=== PATIENT | male | born 1935 | race Caucasian/White ===

== ENCOUNTER → 2017-11-20 | Outpatient (CLI) | payer BC | END | disposition home or self-care (01) | LOC: ECHO 08:40 | DX: I51.7 Cardiomegaly (principal); I25.10 Atherosclerotic heart disease of native coronary artery without angina pectoris; Z95.818 Presence of other cardiac implants and grafts | CPT/HCPCS: 93306 ==

== ENCOUNTER 2020-04-13 11:46 | Inpatient (IN) | payer BC ==
[~2020-04-13] VITALS: Ht 172.7 cm; Wt 114.4 kg
[2020-04-13 13:01] LABS: BASO % 0 % (0-3); EOS % 0 % (0-3); HEMATOCRIT 42.5 % (39.0-53.0); HEMOGLOBIN 14.4 g/dL (13.0-17.5); LYMPH # 1.4 x10^3/uL (1.0-4.8); LYMPH % 20 % (24-48); MEAN CORPUSCULAR HEMOGLOBIN 33 pg (25-35); MEAN CORPUSCULAR HGB CONC 34 g/dL (31-37); MEAN CORPUSCULAR VOLUME 98 fL (79-100); MONO # 0.8 x10^3/uL (0.0-1.1); MONO % 11 % (0-9); NEUT % 69 % (31-73); PLATELET COUNT 169 x10^3/uL (140-400); RED BLOOD COUNT 4.35 x10^6/uL (4.30-5.70); RED CELL DISTRIBUTION WIDTH 14.9 % (11.5-14.5); WHITE BLOOD COUNT 7.3 x10^3/uL (4.0-11.0)
[2020-04-13 13:02] LABS: BILIRUBIN,URINE SMALL (NEG); CLARITY,URINE CLEAR; COLOR,URINE AMBER; NITRITE,URINE NEGATIVE (NEG); PH,URINE 5.5 (<5.0-8.0); PROTEIN,URINE 30 mg/dL (NEG-TRACE)
--- NOTE | 2020-04-13 13:04 | RAD ---
AP chest. HISTORY: AP view was taken of the chest. There is a right pacemaker with atrial and ventricular pacin g leads. There are old left pacing leads still in place. Heart is upper normal in size. There is no e ffusion.There is no pneumothorax or pleural effusion. There is slight elevation left diaphragm. There are mild interstitial changes mainly in the left lung which are more prominent than an old stud y from [facility] dated December 2015. Mild acute interstitial infiltrates are most likely although worsening of mild chronic interstitial changes possible. IMPRESSION: 1. Right pacemaker. 2. Mild left lung interstitial infiltrates with worsening compared to old studies from 2016. Electronically signed by: Leland Blue MD (04/13/2020 1:02 PM) [id number]
--- NOTE | 2020-04-13 13:10 | ED.ADGEN ---
General Adult EDM: Chief Complaint: COUGH HPI: HPI: Patient is a 85 year old male who presents to the emergency department via POV with complaints of shortness of breath. Patient reports that he has not felt well since April 07, 2020. He states that he has been short of breath and he has had a cough. He also reports that his sense of taste has decreased. Over the last 2 days the patient has developed nausea, vomiting, and diarrhea. He denies any blood in his vomit or stool. He denies any fever. Patient reports generalized body aches and fatigue. He denies any headache, numbness, tingling, weakness, or known Covid exposure. He denies any increased swelling in his lower extremities. Patient currently denies any pain. Review of Systems: Review of Systems: Complete ROS is negative unless otherwise noted in HPI. Allergies: Allergies: Allergies Coded Allergies Type Severity Reaction Last Updated Verified No Known Drug Allergies 04/13/20 No Physical Exam: PE: See Above Constitutional: Well developed, well nourished, no acute distress, ill appearance HENT: Normocephalic, atraumatic, bilateral external ears normal, nose normal. [] Eyes: PERRLA, EOMI, conjunctiva normal, no discharge. [] Neck: Normal range of motion, no stridor. [] Cardiovascular:Heart rate regular rhythm Lungs & Thorax: Respirations even and unlabored, no retractions, no respiratory distress Abdomen: soft, no tenderness Skin: Warm, dry, no erythema, no rash. [] Extremities: No cyanosis, ROM intact, no edema. [] Neurologic: Alert and oriented X 3, no focal deficits noted. [] Psychologic: Affect normal, judgement normal, mood normal. [] Current Patient Data: Labs: Laboratory Tests Test 04/13/20 12:27 04/13/20 12:44 04/13/20 13:14 Urine Collection Type Unknown Urine Color Tameka Urine Clarity Clear Urine pH 5.5 (<5.0-8.0) Urine Specific [place] 1.025 (1.000-1.030) Urine Protein 30 mg/dL (NEG-TRACE) Urine Glucose (UA) Negative mg/dL (NEG) Urine Ketones (Stick) Negative mg/dL (NEG) Urine Blood Negative (NEG) Urine Nitrite Negative (NEG) Urine Bilirubin Small (NEG) Urine Urobilinogen Dipstick 1.0 mg/dL (0.2 mg/dL) Urine Leukocyte Esterase Negative (NEG) Urine RBC 0 /HPF (0-2) Urine WBC 1-4 /HPF (0-4) Urine Amorphous Sediment Present /HPF Urine Bacteria 0 /HPF (0-FEW) Urine Hyaline Casts Many /HPF Urine Mucus Marked /LPF White Blood Count 7.3 x10^3/uL (4.0-11.0) Red Blood Count 4.35 x10^6/uL (4.30-5.70) Hemoglobin 14.4 g/dL (13.0-17.5) Hematocrit 42.5 % (39.0-53.0) Mean Corpuscular Volume 98 fL (79-100) Mean Corpuscular Hemoglobin 33 pg (25-35) Mean Corpuscular Hemoglobin Concent 34 g/dL (31-37) Red Cell Distribution Width 14.9 % (11.5-14.5) H Platelet Count 169 x10^3/uL (140-400) Neutrophils (%) (Auto) 69 % (31-73) Lymphocytes (%) (Auto) 20 % (24-48) L Monocytes (%) (Auto) 11 % (0-9) H Eosinophils (%) (Auto) 0 % (0-3) Basophils (%) (Auto) 0 % (0-3) Neutrophils # (Auto) 5.0 x10^3/uL (1.8-7.7) Lymphocytes # (Auto) 1.4 x10^3/uL (1.0-4.8) Monocytes # (Auto) 0.8 x10^3/uL (0.0-1.1) Eosinophils # (Auto) 0.0 x10^3/uL (0.0-0.7) Basophils # (Auto) 0.0 x10^3/uL (0.0-0.2) Sodium Level 137 mmol/L (136-145) Potassium Level 3.9 mmol/L (3.5-5.1) Chloride Level 102 mmol/L (98-107) Carbon Dioxide Level 26 mmol/L (21-32) Anion Gap 9 (6-14) Blood Urea Nitrogen 40 mg/dL (8-26) H Creatinine 2.0 mg/dL (0.7-1.3) H Estimated GFR (Cockcroft-Gault) 32.1 BUN/Creatinine Ratio 20 (6-20) Glucose Level 70 mg/dL (70-99) Calcium Level 9.2 mg/dL (8.5-10.1) Magnesium Level 2.5 mg/dL (1.8-2.4) H Total Bilirubin 0.6 mg/dL (0.2-1.0) Aspartate Amino Transferase (AST) 72 U/L (15-37) H Alanine Aminotransferase (ALT) 41 U/L (16-63) Alkaline Phosphatase 39 U/L (46-116) L Total Protein 6.6 g/dL (6.4-8.2) Albumin 2.7 g/dL (3.4-5.0) L Albumin/Globulin Ratio 0.7 (1.0-1.7) L Influenza Type A Antigen Negative (NEGATIVE) Influenza Type B Antigen Negative (NEGATIVE) Laboratory Tests 04/13/20 12:44 Laboratory Tests 04/13/20 13:14 Vital Signs: Vital Signs Date Time Temp Pulse Resp B/P (MAP) Pulse Ox O2 Delivery O2 Flow Rate FiO2 04/13/20 12:22 98.3 76 16 119/59 (79) 91 Nasal Cannula 4.0 98.3 EKG: EK-paced rhythm, rate 73, no STEMI, read by Dr. Townsend [] Heart Score: Risk Factors: Risk Factors: DM, Current or recent (<one month) smoker, HTN, HLP, family history of CAD, obesity. Risk Scores: Score 0 - 3: 2.5% MACE over next 6 weeks - Discharge Home Score 4 - 6: 20.3% MACE over next 6 weeks - Admit for Clinical Observation Score 7 - 10: 72.7% MACE over next 6 weeks - Early Invasive Strategies Radiology/Procedures: Radiology/Procedures: PROCEDURE: CHEST AP ONLY AP chest. HISTORY: AP view was taken of the chest. There is a right pacemaker with atrial and ventricular pacing leads. There are old left pacing leads still in place. Heart is upper normal in size. There is no effusion.There is no pneumothorax or pleural effusion. There is slight elevation left diaphragm. There are mild interstitial changes mainly in the left lung which are more prominent than an old study from [facility] dated December 2015. Mild acute interstitial infiltrates are most likely although worsening of mild chronic int erstitial changes possible. IMPRESSION: 1. Right pacemaker. 2. Mild left lung interstitial infiltrates with worsening compared to old studies from 2016. [] Course & Med Decision Making: Course & Med Decision Making Pertinent Labs and Imaging studies reviewed. (See chart for details) [id number] with Dr. De Los Santos who is the admitting physician, and care was assumed following discussion of patient. Will admit patient for PUI and pneumonia. Advise that I will give 1 g of Rocephin and 500 mg of Zithromax IV and blood cultures have been ordered. Patient's vital signs stable. Patient remains afebrile, appears nontoxic, respirations even and unlabored, oxygen has improved after O2 via nasal cannula applied at 2 L. Patient will be admitted to the telemetry floor. Patient's case and plan of care also discussed with Dr. Townsend COVID-19 CRITERIA: The patient was evaluated during the global COVID-19 pandemic, and that diagnosis was suspected/considered upon their initial presentation. Their evaluation, treatment and testing was consistent with current guidelines for patients who present with complaints or symptoms that may be related to COVID-19. [] Dragon Disclaimer: Dragon Disclaimer: This electronic medical record was generated, in whole or in part, using a voice recognition dictation system. Departure Departure Impression: Primary Impression: Person under investigation for COVID-19 Additional Impression: Pneumonia Disposition: ADMITTED INPT THIS HOSP Admitting Physician: VICENTE (Giuliano) Condition: STABLE Referrals: Luz Elena PRADHAN MD (PCP) COVID-19 Assessment: COVID-19 Patient Risks: Age 65 or older: Yes Sign of co-morbidity: Yes Exp to person + for COVID: No Exp to PUI: No Travel from affected area: No Lower respiratory symptoms: Yes Fever: No PPE Use: Full PPE with N95 mask or PAPR: Yes Problem Qualifiers Additional Impression: Pneumonia Pneumonia type: due to unspecified organism Laterality: unspecified laterality Lung location: unspecified part of lung Qualified Codes: J18.9 - Pneumonia, unspecified organism HUGO NUÑEZ APRN Apr 13, 2020 13:10
[2020-04-13 13:20] LABS: AMORPHOUS SEDIMENT,UR PRESENT /HPF; HYALINE CASTS, URINE MANY /HPF
[2020-04-13 13:21] LABS: BACTERIA,URINE 0 /HPF (0-FEW); RBC,URINE 0 /HPF (0-2)
[2020-04-13 13:49] LABS: CALCIUM 9.2 mg/dL (8.5-10.1); GFR 32.1; POTASSIUM 3.9 mmol/L (3.5-5.1)
[2020-04-13 13:56] LABS: ALBUMIN 2.7 g/dL (3.4-5.0); ALBUMIN/GLOBULIN RATIO 0.7 (1.0-1.7); MAGNESIUM 2.5 mg/dL (1.8-2.4); TOTAL BILIRUBIN 0.6 mg/dL (0.2-1.0); TOTAL PROTEIN 6.6 g/dL (6.4-8.2)
[2020-04-13 14:02] LABS: INFLUENZA A PATIENT NEGATIVE (NEGATIVE); INFLUENZA B PATIENT NEGATIVE (NEGATIVE)
--- NOTE | 2020-04-13 14:32 | PDOC1 ---
History and Physical Date of Admission Date of Admission DATE: 04/13/20 TIME: 14:32 Identification/Chief Complaint Chief Complaint DYSPNEA, COUGH WORSE SINCE [place] History of Present Illness History of Present Illness 85 yr old male seen in er with worsening cough since 04-08, now more SOA , HYPOXIC ON PRESENTATION Past Medical History Cardiovascular: HTN, Hyperlipidemia Family History Family History: High Cholestrol, Hypertension Social History Smoke: No ALCOHOL: none Drugs: None Allergies Allergies: Coded Allergies: No Known Drug Allergies (Unverified , 04/13/20) ROS Review of System HENT: Denies nasal congestion or sore throat. [] Respiratory: pos cough and shortness of breath. [] Cardiovascular: Denies chest pain or edema. [] GI: Denies abdominal pain, nausea, vomiting, bloody stools or diarrhea. [] : Denies dysuria. [] Musculoskeletal: Denies back pain or joint pain. [] Integument: Denies rash. [] Neurologic: Denies headache, focal weakness or sensory changes. [] Endocrine: Denies polyuria or polydipsia. [] Lymphatic: Denies swollen glands. [] Psychiatric: Denies depression or anxiety. [] 14 pt ros otherwise neg General: YES: Fatigue, Malaise PSYCHOLOGICAL ROS: No: Anxiety, Behavioral Disorder, Concentration difficultie, Decreased libido, Depression, Disorientation, Hallucinations, Hostility, Irritablity, Memory difficulties, Mood Swings, Obsessive thoughts, Physical abuse, Sexual abuse, Sleep disturbances, Suicidal ideation, Other ALLERGY AND IMMUNOLOGY: No: Hives, Insect Bite Sensitivity, Itchy/Watery Eyes, Nasal Congestion, Post Nasal Drip, Seasonal Allergies, Other Hematological and Lymphatic: No: Bleeding Problems, Blood Clots, Blood Transfusions, Brusing, Night Sweats, Pallor, Swollen Lymph Nodes, Other Respiratory: YES: Cough, Shortness of breath, SOB with excertion Gastrointestinal: No Nausea, No Vomiting, No Abdominal Pain, No Diarrhea, No Constipation, No Melena, No Hematochezia, No Other Genitourinary: No Dysuria, No Frequency, No Incontinence, No Hematuria, No Retention, No Discharge, No Urgency, No Pain, No Flank Pain, No Other, No , No , No , No , No , No , No Musculoskeletal: Yes Joint Stiffness Physical Exam Physical Exam Constitutional: Well developed, well nourished, no acute distress, non-toxic appearance. [] HENT: Normocephalic, atraumatic, bilateral external ears normal, oropharynx moist, no oral exudates, nose normal. [] Eyes: PERRLA, EOMI, conjunctiva normal, no discharge. [] Neck: Normal range of motion, no tenderness, supple, no stridor. [] Cardiovascular:Heart rate regular rhythm, no murmur [] Lungs & Thorax: Bilateral breath sounds clear to auscultation [] Abdomen: Bowel sounds normal, soft, no tenderness, no masses, no pulsatile masses. [] Skin: Warm, dry, no erythema, no rash. [] Back: No tenderness, no CVA tenderness. [] Extremities: No tenderness, no cyanosis, no clubbing, ROM intact, no edema. [] Neurologic: Alert and oriented X 3, normal motor function, normal sensory function, no focal deficits noted. [] Psychologic: Affect normal, judgment normal, mood normal. [] General: Alert, Oriented X3, Cooperative HEENT: Atraumatic, EOMI Heart: RRR Breasts: Not examined Abdomen: Normal bowel sounds, Soft, No tenderness Rectal Exam: not examined PELVIC: Examination not indicated Extremities: No clubbing, No cyanosis Neuro: Normal speech, Cranial nerves 3-12 NL Psych/Mental Status: Mental status NL, Mood NL Vitals Vitals Vital Signs Date Time Temp Pulse Resp B/P (MAP) Pulse Ox O2 Delivery O2 Flow Rate FiO2 04/13/20 12:22 98.3 76 16 119/59 (79) 91 Nasal Cannula 4.0 98.3 Labs Labs Laboratory Tests Test 04/13/20 12:27 04/13/20 12:44 04/13/20 13:14 Urine Collection Type Unknown Urine Color [place] Urine Clarity Clear Urine pH 5.5 (<5.0-8.0) Urine Specific [place] 1.025 (1.000-1.030) Urine Protein 30 mg/dL (NEG-TRACE) Urine Glucose (UA) Negative mg/dL (NEG) Urine Ketones (Stick) Negative mg/dL (NEG) Urine Blood Negative (NEG) Urine Nitrite Negative (NEG) Urine Bilirubin Small (NEG) Urine Urobilinogen Dipstick 1.0 mg/dL (0.2 mg/dL) Urine Leukocyte Esterase Negative (NEG) Urine RBC 0 /HPF (0-2) Urine WBC 1-4 /HPF (0-4) Urine Amorphous Sediment Present /HPF Urine Bacteria 0 /HPF (0-FEW) Urine Hyaline Casts Many /HPF Urine Mucus Marked /LPF White Blood Count 7.3 x10^3/uL (4.0-11.0) Red Blood Count 4.35 x10^6/uL (4.30-5.70) Hemoglobin 14.4 g/dL (13.0-17.5) Hematocrit 42.5 % (39.0-53.0) Mean Corpuscular Volume 98 fL (79-100) Mean Corpuscular Hemoglobin 33 pg (25-35) Mean Corpuscular Hemoglobin Concent 34 g/dL (31-37) Red Cell Distribution Width 14.9 % (11.5-14.5) Platelet Count 169 x10^3/uL (140-400) Neutrophils (%) (Auto) 69 % (31-73) Lymphocytes (%) (Auto) 20 % (24-48) Monocytes (%) (Auto) 11 % (0-9) Eosinophils (%) (Auto) 0 % (0-3) Basophils (%) (Auto) 0 % (0-3) Neutrophils # (Auto) 5.0 x10^3/uL (1.8-7.7) Lymphocytes # (Auto) 1.4 x10^3/uL (1.0-4.8) Monocytes # (Auto) 0.8 x10^3/uL (0.0-1.1) Eosinophils # (Auto) 0.0 x10^3/uL (0.0-0.7) Basophils # (Auto) 0.0 x10^3/uL (0.0-0.2) Sodium Level 137 mmol/L (136-145) Potassium Level 3.9 mmol/L (3.5-5.1) Chloride Level 102 mmol/L (98-107) Carbon Dioxide Level 26 mmol/L (21-32) Anion Gap 9 (6-14) Blood Urea Nitrogen 40 mg/dL (8-26) Creatinine 2.0 mg/dL (0.7-1.3) Estimated GFR (Cockcroft-Gault) 32.1 BUN/Creatinine Ratio 20 (6-20) Glucose Level 70 mg/dL (70-99) Calcium Level 9.2 mg/dL (8.5-10.1) Magnesium Level 2.5 mg/dL (1.8-2.4) Total Bilirubin 0.6 mg/dL (0.2-1.0) Aspartate Amino Transf (AST/SGOT) 72 U/L (15-37) Alanine Aminotransferase (ALT/SGPT) 41 U/L (16-63) Alkaline Phosphatase 39 U/L (46-116) Total Protein 6.6 g/dL (6.4-8.2) Albumin 2.7 g/dL (3.4-5.0) Albumin/Globulin Ratio 0.7 (1.0-1.7) Influenza Type A Antigen Negative (NEGATIVE) Influenza Type B Antigen Negative (NEGATIVE) Laboratory Tests Test 04/13/20 12:27 04/13/20 12:44 04/13/20 13:14 Urine Collection Type Unknown Urine Color [place] Urine Clarity Clear Urine pH 5.5 (<5.0-8.0) Urine Specific [place] 1.025 (1.000-1.030) Urine Protein 30 mg/dL (NEG-TRACE) Urine Glucose (UA) Negative mg/dL (NEG) Urine Ketones (Stick) Negative mg/dL (NEG) Urine Blood Negative (NEG) Urine Nitrite Negative (NEG) Urine Bilirubin Small (NEG) Urine Urobilinogen Dipstick 1.0 mg/dL (0.2 mg/dL) Urine Leukocyte Esterase Negative (NEG) Urine RBC 0 /HPF (0-2) Urine WBC 1-4 /HPF (0-4) Urine Amorphous Sediment Present /HPF Urine Bacteria 0 /HPF (0-FEW) Urine Hyaline Casts Many /HPF Urine Mucus Marked /LPF White Blood Count 7.3 x10^3/uL (4.0-11.0) Red Blood Count 4.35 x10^6/uL (4.30-5.70) Hemoglobin 14.4 g/dL (13.0-17.5) Hematocrit 42.5 % (39.0-53.0) Mean Corpuscular Volume 98 fL (79-100) Mean Corpuscular Hemoglobin 33 pg (25-35) Mean Corpuscular Hemoglobin Concent 34 g/dL (31-37) Red Cell Distribution Width 14.9 % (11.5-14.5) Platelet Count 169 x10^3/uL (140-400) Neutrophils (%) (Auto) 69 % (31-73) Lymphocytes (%) (Auto) 20 % (24-48) Monocytes (%) (Auto) 11 % (0-9) Eosinophils (%) (Auto) 0 % (0-3) Basophils (%) (Auto) 0 % (0-3) Neutrophils # (Auto) 5.0 x10^3/uL (1.8-7.7) Lymphocytes # (Auto) 1.4 x10^3/uL (1.0-4.8) Monocytes # (Auto) 0.8 x10^3/uL (0.0-1.1) Eosinophils # (Auto) 0.0 x10^3/uL (0.0-0.7) Basophils # (Auto) 0.0 x10^3/uL (0.0-0.2) Sodium Level 137 mmol/L (136-145) Potassium Level 3.9 mmol/L (3.5-5.1) Chloride Level 102 mmol/L (98-107) Carbon Dioxide Level 26 mmol/L (21-32) Anion Gap 9 (6-14) Blood Urea Nitrogen 40 mg/dL (8-26) Creatinine 2.0 mg/dL (0.7-1.3) Estimated GFR (Cockcroft-Gault) 32.1 BUN/Creatinine Ratio 20 (6-20) Glucose Level 70 mg/dL (70-99) Calcium Level 9.2 mg/dL (8.5-10.1) Magnesium Level 2.5 mg/dL (1.8-2.4) Total Bilirubin 0.6 mg/dL (0.2-1.0) Aspartate Amino Transf (AST/SGOT) 72 U/L (15-37) Alanine Aminotransferase (ALT/SGPT) 41 U/L (16-63) Alkaline Phosphatase 39 U/L (46-116) Total Protein 6.6 g/dL (6.4-8.2) Albumin 2.7 g/dL (3.4-5.0) Albumin/Globulin Ratio 0.7 (1.0-1.7) Influenza Type A Antigen Negative (NEGATIVE) Influenza Type B Antigen Negative (NEGATIVE) Images Images ricuspid Valve TR P. Velocity 234cm/s RAP ESTIMATE 3mmHg TR Peak Gr. 22mmHg RVSP 25mmHg LEFT VENTRICLE The left ventricle is normal size. There is mild concentric left ventricular hypertrophy. The left ventricular systolic function is normal and the ejection fraction is within normal range. The Ejection Fraction is 50-55%. Apical motion consistent with pacemaker activation. RIGHT VENTRICLE The right ventricle is normal size. The right ventricular systolic function is normal. There is a pacemaker lead in the right ventricle. ATRIA The left atrium is mildly dilated. The right atrium size is normal. A pacemaker is seen in the right atrium consistent with history. The interatrial septum is intact with no evidence for an atrial septal defect or patent foramen ovale as noted on 2-D or Doppler imaging. AORTIC VALVE The aortic valve is calcified but opens well. Doppler and Color Flow revealed trace aortic regurgitation. There is no significant aortic valvular stenosis. MITRAL VALVE The mitral valve is normal in structure and function. There is no evidence of mi tral valve prolapse. There is no mitral valve stenosis. Doppler and Color-flow revealed trace mitral regurgitation. TRICUSPID VALVE The tricuspid valve is normal in structure and function. Doppler and Color Flow revealed trace tricuspid regurgitation. The PA pressure was estimated at 25 mmHg. There is no tricuspid valve stenosis. PULMONIC VALVE The pulmonic valve is not well visualized. Doppler and Color Flow revealed no pulmonic valvular regurgitation. There is no pulmonic valvular stenosis. GREAT VESSELS The aortic root is normal in size. The ascending aorta is mildly dilated at 3.6 cm. The IVC is normal in size and collapses >50% with inspiration. PERICARDIAL EFFUSION There is no evidence of significant pericardial effusion. Critical Notification Critical Value: No <Conclusion> The left ventricle is normal size. The left ventricular systolic function is normal and the ejection fraction is within normal range. The Ejection Fraction is 50-55%. Apical motion consistent with pacemaker activation. There is mild concentric left ventricular hypertrophy. There is a pacemaker lead in the right atrium and ventricle. There is no significant aortic valvular stenosis. Doppler and Color Flow revealed trace aortic regurgitation. Doppler and Color-flow revealed trace mitral regurgitation. Doppler and Color Flow revealed trace tricuspid regurgitation. The PA pressure was estimated at 25 mmHg. Signed by : Abdoulaye Roach MD Electronically Approved : 11/20/2017 15:48:13 AP chest. HISTORY: AP view was taken of the chest. There is a right pacemaker with atrial and ventricular pacing leads. There are old left pacing leads still in place. Heart is upper normal in size. There is no effusion.There is no pneumothorax or pleural effusion. There is slight elevation left diaphragm. There are mild interstitial changes mainly in the left lung which are more prominent than an old study from [facility] dated December 2015. Mild acute interstitial infiltrates are most likely although worsening of mild chronic interstitial changes possible. IMPRESSION: 1. Right pacemaker. 2. Mild left lung interstitial infiltrates with worsening compared to old stud ies from 2016. Electronically signed by: Leland Padilla MD (04/13/2020 1:02 PM) [id number] DICTATED and SIGNED BY: LELAND PADILLA MD DATE: 04/13/20 [id number] VTE Prophylaxis Ordered VTE Prophylaxis Devices: Yes VTE Pharmacological Prophylaxi: Yes Assessment/Plan Assessment/Plan IMPRESSION: 1. ACUTE HYPOXIC RESP FAILURE 2. HX pacemaker. 3. Mild left lung interstitial infiltrates with worsening compared to old studies from 2016. CONCERNING FOR COVID 19 SYNDROME 4, MORBID OBESITY PLAN O2 SUPPORT IV DECADRON 6 MG BID BLOOD CULT EMPERIC IV ANTIBIOTIC PULM CONSULT GI PROPHYLAXIS dvt prophylaxis D/W ER Justifications for Admission Other Justification BRYON BARRAZA MD Apr 13, 2020 14:32
[2020-04-13] MEDS ORDERED: cefTRIAXone IV Push 1 GM VIAL. IVP ONE (14:45)
[2020-04-13] MEDS ORDERED: AZITHRMYCN 500MG IVPB FOR OMNI 250 ML IV ONE (14:45)
[2020-04-13] MEDS ORDERED: 0.9 % SODIUM CHLORIDE 10 ML DISP.SYRIN. IV PRN (17:00)
[2020-04-13] MEDS ORDERED: MAG HYDROX/ALUMINUM HYD/SIMETH 30 ML ORAL.SUSP PO PRN (17:00)
[2020-04-13] MEDS ORDERED: ONDANSETRON PF 4 MG/2 ML VIAL. IV PRN (17:00)
[2020-04-13] MEDS ORDERED: ALBUTEROL SULFATE 2.5 MG/3 ML NEBU. NEB PRN (17:00)
[2020-04-13] MEDS ORDERED: ACETAMINOPHEN 325 MG TABLET. PO PRN (17:00)
[2020-04-13] MEDS ORDERED: DOCUSATE SODIUM 100 MG CAPSULE. PO PRN (17:00)
[2020-04-13] MEDS ORDERED: guaiFENesin ORAL 200 MG/10 ML LIQUID. PO PRN (17:00)
[2020-04-13 17:45] VITALS: BP 96/55
[2020-04-13] MEDS ORDERED: METO25TA2 PO (17:57)
[2020-04-13] MEDS ORDERED: OMEP40CA7 PO (17:57)
[2020-04-13] MEDS ORDERED: MEXI150C PO (17:57)
[2020-04-13] MEDS ORDERED: ALLO100T PO (17:57)
[2020-04-13] MEDS ORDERED: QUIN40TA PO (17:57)
[2020-04-13] MEDS: ENOXAPARIN 40 MG/0.4 ML SYRINGE. SQ SCH (18:16)
[2020-04-13 19:59] VITALS: BP 111/57
[2020-04-13] MEDS: DOXYCYCLINE HYCLATE 100 MG in IV DEXTROSE 5% 100ML 100 ML IV SCH (21:36)
[2020-04-13] MEDS: DEXAMETHASONE SOD PHOS 4 MG/ML VIAL IVP SCH (21:37)
[2020-04-13 22:35] VITALS: BP 109/67
[2020-04-14 03:32] VITALS: BP 97/54
[2020-04-14 06:36] VITALS: BP 103/57
--- NOTE | 2020-04-14 08:26 | PDOC ---
PROGRESS NOTES Date of Service: DATE: 04/14/20 TIME: 08:26 Chief Complaint Chief Complaint VTE Prophylaxis Ordered VTE Prophylaxis Devices: Yes VTE Pharmacological Prophylaxi: Yes Assessment/Plan Assessment/Plan IMPRESSION: 1. ACUTE HYPOXIC RESP FAILURE 2. HX pacemaker. 3. Mild left lung interstitial infiltrates with worsening compared to old studies from 2016. CONCERNING FOR COVID 19 SYNDROME 4, MORBID OBESITY 5. GENERALIZED WEAKNESS PLAN O2 SUPPORT IV DECADRON 6 MG BID BLOOD CULT EMPERIC IV ANTIBIOTIC PULM CONSULT GI PROPHYLAXIS dvt prophylaxis PT/OT D/W ER Justifications for Admission Other Justification History of Present Illness History of Present Illness Identification/Chief Complaint Chief Complaint DYSPNEA, COUGH WORSE SINCE [place] History of Present Illness History of Present Illness 85 yr old male seen in er with worsening cough since 04-08, now more SOA , HYPOXIC ON PRESENTATION Past Medical History Cardiovascular: HTN, Hyperlipidemia Family History Family History: High Cholestrol, Hypertension Social History Smoke: No ALCOHOL: none Drugs: None Allergies Allergies: Coded Allergies: No Known Drug Allergies (Unverified , 04/13/20) Vitals Vitals Vital Signs Date Time Temp Pulse Resp B/P (MAP) Pulse Ox O2 Delivery O2 Flow Rate FiO2 04/14/20 06:36 98.3 80 24 103/57 (72) 91 Nasal Cannula 5.0 98.3 Physical Exam Physical Exam Eyes: PERRLA, EOMI, conjunctiva normal, no discharge. [] Neck: Normal range of motion, no tenderness, supple, no stridor. [] Cardiovascular:Heart rate regular rhythm, no murmur [] Lungs & Thorax: Bilateral breath sounds clear to auscultation [] Abdomen: Bowel sounds normal, soft, no tenderness, no masses, no pulsatile masses. [] Skin: Warm, dry, no erythema, no rash. [] Back: No tenderness, no CVA tenderness. [] Extremities: No tenderness, no cyanosis, no clubbing, ROM intact, no edema. [] Neurologic: Alert and oriented X 3, normal motor function, normal sensory function, no focal deficits noted. [] Psychologic: Affect normal, judgment normal, mood normal. [] General: Alert, Oriented X3, Cooperative HEENT: Atraumatic, EOMI Heart: RRR Breasts: Not examined Abdomen: Normal bowel sounds, Soft, No tenderness Rectal Exam: not examined PELVIC: Examination not indicated Extremities: No clubbing, No cyanosis Neuro: Normal speech, Cranial nerves 3-12 NL General: Alert, Oriented X3, Cooperative Abdomen: Normal bowel sounds, Soft, No tenderness Extremities: No clubbing, No cyanosis Labs LABS AP chest. HISTORY: AP view was taken of the chest. There is a right pacemaker with atrial and ventricular pacing leads. There are old left pacing leads still in place. Heart is upper normal in size. There is no effusion.There is no pneumothorax or pleural effusion. There is slight elevation left diaphragm. There are mild interstitial changes mainly in the left lung which are more pro minent than an old study from [place] dated December 2015. Mild acute interstitial infiltrates are most likely although worsening of mild chronic interstitial changes possible. IMPRESSION: 1. Right pacemaker. 2. Mild left lung interstitial infiltrates with worsening compared to old studies from 2016. Electronically signed by: Leland Blue MD (04/13/2020 1:02 PM) [id number] Laboratory Tests Test 04/13/20 12:27 04/13/20 12:44 04/13/20 13:14 04/13/20 16:58 Urine Collection Type Unknown Urine Color [place] Urine Clarity Clear Urine pH 5.5 (<5.0-8.0) Urine Specific [place] 1.025 (1.000-1.030) Urine Protein 30 mg/dL (NEG-TRACE) Urine Glucose (UA) Negative mg/dL (NEG) Urine Ketones (Stick) Negative mg/dL (NEG) Urine Blood Negative (NEG) Urine Nitrite Negative (NEG) Urine Bilirubin Small (NEG) Urine Urobilinogen Dipstick 1.0 mg/dL (0.2 mg/dL) Urine Leukocyte Esterase Negative (NEG) Urine RBC 0 /HPF (0-2) Urine WBC 1-4 /HPF (0-4) Urine Amorphous Sediment Present /HPF Urine Bacteria 0 /HPF (0-FEW) Urine Hyaline Casts Many /HPF Urine Mucus Marked /LPF White Blood Count 7.3 x10^3/uL (4.0-11.0) Red Blood Count 4.35 x10^6/uL (4.30-5.70) Hemoglobin 14.4 g/dL (13.0-17.5) Hematocrit 42.5 % (39.0-53.0) Mean Corpuscular Volume 98 fL (79-100) Mean Corpuscular Hemoglobin 33 pg (25-35) Mean Corpuscular Hemoglobin Concent 34 g/dL (31-37) Red Cell Distribution Width 14.9 % (11.5-14.5) Platelet Count 169 x10^3/uL (140-400) Neutrophils (%) (Auto) 69 % (31-73) Lymphocytes (%) (Auto) 20 % (24-48) Monocytes (%) (Auto) 11 % (0-9) Eosinophils (%) (Auto) 0 % (0-3) Basophils (%) (Auto) 0 % (0-3) Neutrophils # (Auto) 5.0 x10^3/uL (1.8-7.7) Lymphocytes # (Auto) 1.4 x10^3/uL (1.0-4.8) Monocytes # (Auto) 0.8 x10^3/uL (0.0-1.1) Eosinophils # (Auto) 0.0 x10^3/uL (0.0-0.7) Basophils # (Auto) 0.0 x10^3/uL (0.0-0.2) Sodium Level 137 mmol/L (136-145) Potassium Level 3.9 mmol/L (3.5-5.1) Chloride Level 102 mmol/L (98-107) Carbon Dioxide Level 26 mmol/L (21-32) Anion Gap 9 (6-14) Blood Urea Nitrogen 40 mg/dL (8-26) Creatinine 2.0 mg/dL (0.7-1.3) Estimated GFR (Cockcroft-Gault) 32.1 BUN/Creatinine Ratio 20 (6-20) Glucose Level 70 mg/dL (70-99) Calcium Level 9.2 mg/dL (8.5-10.1) Magnesium Level 2.5 mg/dL (1.8-2.4) Total Bilirubin 0.6 mg/dL (0.2-1.0) Aspartate Amino Transf (AST/SGOT) 72 U/L (15-37) Alanine Aminotransferase (ALT/SGPT) 41 U/L (16-63) Alkaline Phosphatase 39 U/L (46-116) Total Protein 6.6 g/dL (6.4-8.2) Albumin 2.7 g/dL (3.4-5.0) Albumin/Globulin Ratio 0.7 (1.0-1.7) Influenza Type A Antigen Negative (NEGATIVE) Influenza Type B Antigen Negative (NEGATIVE) C-Reactive Protein, Quantitative 45.0 mg/L (0-3.3) Test 04/13/20 20:43 04/14/20 07:16 Glucose (Fingerstick) 72 mg/dL (70-99) 108 mg/dL (70-99) Assessment and Plan Assessmemt and Plan Problems Medical Problems: (1) Person under investigation for COVID-19 Status: Acute (2) Pneumonia Status: Acute Comment Review of Relevant I have reviewed the following items andrea (where applicable) has been applied. Labs Laboratory Tests Test 04/13/20 12:27 04/13/20 12:44 04/13/20 13:14 04/13/20 16:58 Urine Collection Type Unknown Urine Color [place] Urine Clarity Clear Urine pH 5.5 (<5.0-8.0) Urine Specific [place] 1.025 (1.000-1.030) Urine Protein 30 mg/dL (NEG-TRACE) Urine Glucose (UA) Negative mg/dL (NEG) Urine Ketones (Stick) Negative mg/dL (NEG) Urine Blood Negative (NEG) Urine Nitrite Negative (NEG) Urine Bilirubin Small (NEG) Urine Urobilinogen Dipstick 1.0 mg/dL (0.2 mg/dL) Urine Leukocyte Esterase Negative (NEG) Urine RBC 0 /HPF (0-2) Urine WBC 1-4 /HPF (0-4) Urine Amorphous Sediment Present /HPF Urine Bacteria 0 /HPF (0-FEW) Urine Hyaline Casts Many /HPF Urine Mucus Marked /LPF White Blood Count 7.3 x10^3/uL (4.0-11.0) Red Blood Count 4.35 x10^6/uL (4.30-5.70) Hemoglobin 14.4 g/dL (13.0-17.5) Hematocrit 42.5 % (39.0-53.0) Mean Corpuscular Volume 98 fL (79-100) Mean Corpuscular Hemoglobin 33 pg (25-35) Mean Corpuscular Hemoglobin Concent 34 g/dL (31-37) Red Cell Distribution Width 14.9 % (11.5-14.5) Platelet Count 169 x10^3/uL (140-400) Neutrophils (%) (Auto) 69 % (31-73) Lymphocytes (%) (Auto) 20 % (24-48) Monocytes (%) (Auto) 11 % (0-9) Eosinophils (%) (Auto) 0 % (0-3) Basophils (%) (Auto) 0 % (0-3) Neutrophils # (Auto) 5.0 x10^3/uL (1.8-7.7) Lymphocytes # (Auto) 1.4 x10^3/uL (1.0-4.8) Monocytes # (Auto) 0.8 x10^3/uL (0.0-1.1) Eosinophils # (Auto) 0.0 x10^3/uL (0.0-0.7) Basophils # (Auto) 0.0 x10^3/uL (0.0-0.2) Sodium Level 137 mmol/L (136-145) Potassium Level 3.9 mmol/L (3.5-5.1) Chloride Level 102 mmol/L (98-107) Carbon Dioxide Level 26 mmol/L (21-32) Anion Gap 9 (6-14) Blood Urea Nitrogen 40 mg/dL (8-26) Creatinine 2.0 mg/dL (0.7-1.3) Estimated GFR (Cockcroft-Gault) 32.1 BUN/Creatinine Ratio 20 (6-20) Glucose Level 70 mg/dL (70-99) Calcium Level 9.2 mg/dL (8.5-10.1) Magnesium Level 2.5 mg/dL (1.8-2.4) Total Bilirubin 0.6 mg/dL (0.2-1.0) Aspartate Amino Transf (AST/SGOT) 72 U/L (15-37) Alanine Aminotransferase (ALT/SGPT) 41 U/L (16-63) Alkaline Phosphatase 39 U/L (46-116) Total Protein 6.6 g/dL (6.4-8.2) Albumin 2.7 g/dL (3.4-5.0) Albumin/Globulin Ratio 0.7 (1.0-1.7) Influenza Type A Antigen Negative (NEGATIVE) Influenza Type B Antigen Negative (NEGATIVE) C-Reactive Protein, Quantitative 45.0 mg/L (0-3.3) Test 12/30/20 20:43 04/14/20 07:16 Glucose (Fingerstick) 72 mg/dL (70-99) 108 mg/dL (70-99) Laboratory Tests Test 04/13/20 12:27 04/13/20 12:44 04/13/20 13:14 04/13/20 16:58 Urine Collection Type Unknown Urine Color [place] Urine Clarity Clear Urine pH 5.5 (<5.0-8.0) Urine Specific [place] 1.025 (1.000-1.030) Urine Protein 30 mg/dL (NEG-TRACE) Urine Glucose (UA) Negative mg/dL (NEG) Urine Ketones (Stick) Negative mg/dL (NEG) Urine Blood Negative (NEG) Urine Nitrite Negative (NEG) Urine Bilirubin Small (NEG) Urine Urobilinogen Dipstick 1.0 mg/dL (0.2 mg/dL) Urine Leukocyte Esterase Negative (NEG) Urine RBC 0 /HPF (0-2) Urine WBC 1-4 /HPF (0-4) Urine Amorphous Sediment Present /HPF Urine Bacteria 0 /HPF (0-FEW) Urine Hyaline Casts Many /HPF Urine Mucus Marked /LPF White Blood Count 7.3 x10^3/uL (4.0-11.0) Red Blood Count 4.35 x10^6/uL (4.30-5.70) Hemoglobin 14.4 g/dL (13.0-17.5) Hematocrit 42.5 % (39.0-53.0) Mean Corpuscular Volume 98 fL (79-100) Mean Corpuscular Hemoglobin 33 pg (25-35) Mean Corpuscular Hemoglobin Concent 34 g/dL (31-37) Red Cell Distribution Width 14.9 % (11.5-14.5) Platelet Count 169 x10^3/uL (140-400) Neutrophils (%) (Auto) 69 % (31-73) Lymphocytes (%) (Auto) 20 % (24-48) Monocytes (%) (Auto) 11 % (0-9) Eosinophils (%) (Auto) 0 % (0-3) Basophils (%) (Auto) 0 % (0-3) Neutrophils # (Auto) 5.0 x10^3/uL (1.8-7.7) Lymphocytes # (Auto) 1.4 x10^3/uL (1.0-4.8) Monocytes # (Auto) 0.8 x10^3/uL (0.0-1.1) Eosinophils # (Auto) 0.0 x10^3/uL (0.0-0.7) Basophils # (Auto) 0.0 x10^3/uL (0.0-0.2) Sodium Level 137 mmol/L (136-145) Potassium Level 3.9 mmol/L (3.5-5.1) Chloride Level 102 mmol/L (98-107) Carbon Dioxide Level 26 mmol/L (21-32) Anion Gap 9 (6-14) Blood Urea Nitrogen 40 mg/dL (8-26) Creatinine 2.0 mg/dL (0.7-1.3) Estimated GFR (Cockcroft-Gault) 32.1 BUN/Creatinine Ratio 20 (6-20) Glucose Level 70 mg/dL (70-99) Calcium Level 9.2 mg/dL (8.5-10.1) Magnesium Level 2.5 mg/dL (1.8-2.4) Total Bilirubin 0.6 mg/dL (0.2-1.0) Aspartate Amino Transf (AST/SGOT) 72 U/L (15-37) Alanine Aminotransferase (ALT/SGPT) 41 U/L (16-63) Alkaline Phosphatase 39 U/L (46-116) Total Protein 6.6 g/dL (6.4-8.2) Albumin 2.7 g/dL (3.4-5.0) Albumin/Globulin Ratio 0.7 (1.0-1.7) Influenza Type A Antigen Negative (NEGATIVE) Influenza Type B Antigen Negative (NEGATIVE) C-Reactive Protein, Quantitative 45.0 mg/L (0-3.3) Test 04/13/20 20:43 04/14/20 07:16 Glucose (Fingerstick) 72 mg/dL (70-99) 108 mg/dL (70-99) Medications Current Medications Ceftriaxone Sodium (Rocephin) 1 gm 1X ONCE IVP Last administered on 04/13/20at 16:40; Start 04/13/20 at 14:45; Stop 04/13/20 at 14:46; Status DC Azithromycin 250 ml @ 250 mls/hr 1X ONCE IV Last administered on 04/13/20at 16:40; Start 04/13/20 at 14:45; Stop 04/13/20 at 15:44; Status DC Dexamethasone Sodium Phosphate (Decadron) 6 mg BID IVP Last administered on 04/13/20at 21:37; Start 04/13/20 at 21:00 Ceftriaxone Sodium (Rocephin) 1 gm Q24H IVP ; Start 04/14/20 at 17:00 Doxycycline Hyclate 100 mg/ Dextrose 100 ml @ 50 mls/hr Q12HR IV Last administered on 04/13/20at 21:36; Start 04/13/20 at 21:00 Sodium Chloride (Normal Saline Flush) 3 ml QSHIFT PRN IV AFTER MEDS AND BLOOD DRAWS; Start 04/13/20 at 17:00 Ondansetron HCl (Zofran) 4 mg PRN Q4HRS PRN IV NAUSEA/VOMITING; Start 04/13/20 at 17:00 Acetaminophen (Tylenol) 650 mg PRN Q4HRS PRN PO TEMP OVER 100.4F OR MILD PAIN Last administered on 04/13/20at 21:37; Start 04/13/20 at 17:00 Al Hydroxide/Mg Hydroxide (Mylanta Plus Xs) 30 ml PRN DAILY PRN PO HEARTBURN / GAS; Start 04/13/20 at 17:00 Docusate Sodium (Colace) 100 mg PRN BID PRN PO HARD STOOLS; Start 04/13/20 at 17:00 Albuterol Sulfate (Ventolin Neb Soln) 2.5 mg PRN Q4HRS PRN NEB SHORTNESS OF BREATH; Start 04/13/20 at 17:00 Guaifenesin (Robitussin) 200 mg PRN Q4HRS PRN PO COUGH; Start 04/13/20 at 17:00 Enoxaparin Sodium (Lovenox 40mg Syringe) 40 mg BID SQ Last administered on 04/13/20at 18:16; Start 04/13/20 at 18:00 Active Scripts Active Reported Mexiletine Hcl 150 Mg Capsule 150 Mg PO Q8HRS Omeprazole 40 Mg Capsule.dr 1 Cap PO DAILY Toprol Xl (Metoprolol Succinate) 25 Mg Tab.er.24h 2 Tab PO DAILY 30 Days Accupril (Quinapril Hcl) 40 Mg Tablet 1 Tab PO DAILY Allopurinol 100 Mg Tablet 1 Tab PO DAILY Vitals/I & O Vital Sign - Last 24 Hours 04/13/20 04/13/20 04/13/20 04/13/20 12:22 16:22 17:45 18:24 Temp 98.3 98.2 98.3 98.2 Pulse 76 73 74 Resp 22 B/P (MAP) 119/59 (79) 108/62 (77) 96/55 (69) Pulse Ox 91 95 91 O2 Delivery Nasal Cannula Nasal Cannula Nasal Cannula Nasal Cannula O2 Flow Rate 4.0 2.0 5.0 5.0 04/13/20 04/13/20 04/13/20 04/14/20 19:59 20:00 22:35 03:32 Temp 101.4 100.4 98.1 101.4 100.4 98.1 Pulse 74 71 77 Resp B/P (MAP) 111/57 (75) 109/67 (81) 97/54 (68) Pulse Ox 91 87 90 O2 Delivery Nasal Cannula Nasal Cannula Nasal Cannula Nasal Cannula O2 Flow Rate 4.0 5.0 5.0 5.0 04/14/20 06:36 Temp 98.3 98.3 Pulse 80 Resp 24 B/P (MAP) 103/57 (72) Pulse Ox 91 O2 Delivery Nasal Cannula O2 Flow Rate 5.0 Intake and Output 04/13/20 04/13/20 04/14/20 15:00 23:00 07:00 Intake Total 0 ml Output Total 100 ml Balance -100 ml Justicifation of Admission Dx: Justifications for Admission: Justification of Admission Dx: Yes Comminuty Aquired Pneumonia: Hemodynamic Instability BRYON BARRAZA MD Apr 14, 2020 08:26
[2020-04-14] MEDS: DOXYCYCLINE HYCLATE 100 MG in IV DEXTROSE 5% 100ML 100 ML IV SCH ×2 (09:06→21:13)
[2020-04-14] MEDS: DEXAMETHASONE SOD PHOS 4 MG/ML VIAL IVP SCH ×2 (09:07→21:15)
[2020-04-14] MEDS: ENOXAPARIN 40 MG/0.4 ML SYRINGE. SQ SCH ×2 (09:07→21:16)
[2020-04-14 09:17] LABS: BASO % 0 % (0-3); EOS % 0 % (0-3); HEMOGLOBIN 14.9 g/dL (13.0-17.5); LYMPH % 13 % (24-48); MEAN CORPUSCULAR HEMOGLOBIN 33 pg (25-35); MEAN CORPUSCULAR HGB CONC 33 g/dL (31-37); MEAN CORPUSCULAR VOLUME 98 fL (79-100); MONO # 0.7 x10^3/uL (0.0-1.1); MONO % 9 % (0-9); NEUT # 5.7 x10^3/uL (1.8-7.7); NEUT % 78 % (31-73); PLATELET COUNT 177 x10^3/uL (140-400); RED BLOOD COUNT 4.58 x10^6/uL (4.30-5.70); RED CELL DISTRIBUTION WIDTH 14.9 % (11.5-14.5); WHITE BLOOD COUNT 7.4 x10^3/uL (4.0-11.0)
[2020-04-14 09:54] LABS: ALBUMIN 2.7 g/dL (3.4-5.0); ALBUMIN/GLOBULIN RATIO 0.6 (1.0-1.7); CALCIUM 9.1 mg/dL (8.5-10.1); CREATININE 1.7 mg/dL (0.7-1.3); GFR 38.7; POTASSIUM 4.6 mmol/L (3.5-5.1); TOTAL BILIRUBIN 0.7 mg/dL (0.2-1.0); TOTAL PROTEIN 7.1 g/dL (6.4-8.2)
--- NOTE | 2020-04-14 10:13 | PDOC ---
PULMONARY PROGRESS NOTES DATE: 04/14/20 TIME: 10:12 Vitals Vital Signs Date Time Temp Pulse Resp B/P (MAP) Pulse Ox O2 Delivery O2 Flow Rate FiO2 04/14/20 06:36 98.3 80 24 103/57 (72) 91 Nasal Cannula 5.0 98.3 Labs Laboratory Tests Test 04/13/20 12:27 04/13/20 12:44 04/13/20 13:14 04/13/20 16:58 Urine Collection Type Unknown Urine Color [place] Urine Clarity Clear Urine pH 5.5 (<5.0-8.0) Urine Specific [place] 1.025 (1.000-1.030) Urine Protein 30 mg/dL (NEG-TRACE) Urine Glucose (UA) Negative mg/dL (NEG) Urine Ketones (Stick) Negative mg/dL (NEG) Urine Blood Negative (NEG) Urine Nitrite Negative (NEG) Urine Bilirubin Small (NEG) Urine Urobilinogen Dipstick 1.0 mg/dL (0.2 mg/dL) Urine Leukocyte Esterase Negative (NEG) Urine RBC 0 /HPF (0-2) Urine WBC 1-4 /HPF (0-4) Urine Amorphous Sediment Present /HPF Urine Bacteria 0 /HPF (0-FEW) Urine Hyaline Casts Many /HPF Urine Mucus Marked /LPF White Blood Count 7.3 x10^3/uL (4.0-11.0) Red Blood Count 4.35 x10^6/uL (4.30-5.70) Hemoglobin 14.4 g/dL (13.0-17.5) Hematocrit 42.5 % (39.0-53.0) Mean Corpuscular Volume 98 fL (79-100) Mean Corpuscular Hemoglobin 33 pg (25-35) Mean Corpuscular Hemoglobin Concent 34 g/dL (31-37) Red Cell Distribution Width 14.9 % (11.5-14.5) Platelet Count 169 x10^3/uL (140-400) Neutrophils (%) (Auto) 69 % (31-73) Lymphocytes (%) (Auto) 20 % (24-48) Monocytes (%) (Auto) 11 % (0-9) Eosinophils (%) (Auto) 0 % (0-3) Basophils (%) (Auto) 0 % (0-3) Neutrophils # (Auto) 5.0 x10^3/uL (1.8-7.7) Lymphocytes # (Auto) 1.4 x10^3/uL (1.0-4.8) Monocytes # (Auto) 0.8 x10^3/uL (0.0-1.1) Eosinophils # (Auto) 0.0 x10^3/uL (0.0-0.7) Basophils # (Auto) 0.0 x10^3/uL (0.0-0.2) Sodium Level 137 mmol/L (136-145) Potassium Level 3.9 mmol/L (3.5-5.1) Chloride Level 102 mmol/L (98-107) Carbon Dioxide Level 26 mmol/L (21-32) Anion Gap 9 (6-14) Blood Urea Nitrogen 40 mg/dL (8-26) Creatinine 2.0 mg/dL (0.7-1.3) Estimated GFR (Cockcroft-Gault) 32.1 BUN/Creatinine Ratio 20 (6-20) Glucose Level 70 mg/dL (70-99) Calcium Level 9.2 mg/dL (8.5-10.1) Magnesium Level 2.5 mg/dL (1.8-2.4) Total Bilirubin 0.6 mg/dL (0.2-1.0) Aspartate Amino Transf (AST/SGOT) 72 U/L (15-37) Alanine Aminotransferase (ALT/SGPT) 41 U/L (16-63) Alkaline Phosphatase 39 U/L (46-116) Total Protein 6.6 g/dL (6.4-8.2) Albumin 2.7 g/dL (3.4-5.0) Albumin/Globulin Ratio 0.7 (1.0-1.7) Influenza Type A Antigen Negative (NEGATIVE) Influenza Type B Antigen Negative (NEGATIVE) C-Reactive Protein, Quantitative 45.0 mg/L (0-3.3) Test 04/13/20 20:43 04/14/20 07:16 04/14/20 08:32 Glucose (Fingerstick) 72 mg/dL (70-99) 108 mg/dL (70-99) White Blood Count 7.4 x10^3/uL (4.0-11.0) Red Blood Count 4.58 x10^6/uL (4.30-5.70) Hemoglobin 14.9 g/dL (13.0-17.5) Hematocrit 45.0 % (39.0-53.0) Mean Corpuscular Volume 98 fL (79-100) Mean Corpuscular Hemoglobin 33 pg (25-35) Mean Corpuscular Hemoglobin Concent 33 g/dL (31-37) Red Cell Distribution Width 14.9 % (11.5-14.5) Platelet Count 177 x10^3/uL (140-400) Neutrophils (%) (Auto) 78 % (31-73) Lymphocytes (%) (Auto) 13 % (24-48) Monocytes (%) (Auto) 9 % (0-9) Eosinophils (%) (Auto) 0 % (0-3) Basophils (%) (Auto) 0 % (0-3) Neutrophils # (Auto) 5.7 x10^3/uL (1.8-7.7) Lymphocytes # (Auto) 1.0 x10^3/uL (1.0-4.8) Monocytes # (Auto) 0.7 x10^3/uL (0.0-1.1) Eosinophils # (Auto) 0.0 x10^3/uL (0.0-0.7) Basophils # (Auto) 0.0 x10^3/uL (0.0-0.2) Sodium Level 134 mmol/L (136-145) Potassium Level 4.6 mmol/L (3.5-5.1) Chloride Level 100 mmol/L (98-107) Carbon Dioxide Level 25 mmol/L (21-32) Anion Gap 9 (6-14) Blood Urea Nitrogen 45 mg/dL (8-26) Creatinine 1.7 mg/dL (0.7-1.3) Estimated GFR (Cockcroft-Gault) 38.7 BUN/Creatinine Ratio 26 (6-20) Glucose Level 114 mg/dL (70-99) Calcium Level 9.1 mg/dL (8.5-10.1) Total Bilirubin 0.7 mg/dL (0.2-1.0) Aspartate Amino Transf (AST/SGOT) 93 U/L (15-37) Alanine Aminotransferase (ALT/SGPT) 51 U/L (16-63) Alkaline Phosphatase 45 U/L (46-116) Total Protein 7.1 g/dL (6.4-8.2) Albumin 2.7 g/dL (3.4-5.0) Albumin/Globulin Ratio 0.6 (1.0-1.7) Laboratory Tests Test 04/13/20 12:27 04/13/20 12:44 04/13/20 13:14 04/13/20 16:58 Urine Collection Type Unknown Urine Color [place] Urine Clarity Clear Urine pH 5.5 (<5.0-8.0) Urine Specific [place] 1.025 (1.000-1.030) Urine Protein 30 mg/dL (NEG-TRACE) Urine Glucose (UA) Negative mg/dL (NEG) Urine Ketones (Stick) Negative mg/dL (NEG) Urine Blood Negative (NEG) Urine Nitrite Negative (NEG) Urine Bilirubin Small (NEG) Urine Urobilinogen Dipstick 1.0 mg/dL (0.2 mg/dL) Urine Leukocyte Esterase Negative (NEG) Urine RBC 0 /HPF (0-2) Urine WBC 1-4 /HPF (0-4) Urine Amorphous Sediment Present /HPF Urine Bacteria 0 /HPF (0-FEW) Urine Hyaline Casts Many /HPF Urine Mucus Marked /LPF White Blood Count 7.3 x10^3/uL (4.0-11.0) Red Blood Count 4.35 x10^6/uL (4.30-5.70) Hemoglobin 14.4 g/dL (13.0-17.5) Hematocrit 42.5 % (39.0-53.0) Mean Corpuscular Volume 98 fL (79-100) Mean Corpuscular Hemoglobin 33 pg (25-35) Mean Corpuscular Hemoglobin Concent 34 g/dL (31-37) Red Cell Distribution Width 14.9 % (11.5-14.5) Platelet Count 169 x10^3/uL (140-400) Neutrophils (%) (Auto) 69 % (31-73) Lymphocytes (%) (Auto) 20 % (24-48) Monocytes (%) (Auto) 11 % (0-9) Eosinophils (%) (Auto) 0 % (0-3) Basophils (%) (Auto) 0 % (0-3) Neutrophils # (Auto) 5.0 x10^3/uL (1.8-7.7) Lymphocytes # (Auto) 1.4 x10^3/uL (1.0-4.8) Monocytes # (Auto) 0.8 x10^3/uL (0.0-1.1) Eosinophils # (Auto) 0.0 x10^3/uL (0.0-0.7) Basophils # (Auto) 0.0 x10^3/uL (0.0-0.2) Sodium Level 137 mmol/L (136-145) Potassium Level 3.9 mmol/L (3.5-5.1) Chloride Level 102 mmol/L (98-107) Carbon Dioxide Level 26 mmol/L (21-32) Anion Gap 9 (6-14) Blood Urea Nitrogen 40 mg/dL (8-26) Creatinine 2.0 mg/dL (0.7-1.3) Estimated GFR (Cockcroft-Gault) 32.1 BUN/Creatinine Ratio 20 (6-20) Glucose Level 70 mg/dL (70-99) Calcium Level 9.2 mg/dL (8.5-10.1) Magnesium Level 2.5 mg/dL (1.8-2.4) Total Bilirubin 0.6 mg/dL (0.2-1.0) Aspartate Amino Transf (AST/SGOT) 72 U/L (15-37) Alanine Aminotransferase (ALT/SGPT) 41 U/L (16-63) Alkaline Phosphatase 39 U/L (46-116) Total Protein 6.6 g/dL (6.4-8.2) Albumin 2.7 g/dL (3.4-5.0) Albumin/Globulin Ratio 0.7 (1.0-1.7) Influenza Type A Antigen Negative (NEGATIVE) Influenza Type B Antigen Negative (NEGATIVE) C-Reactive Protein, Quantitative 45.0 mg/L (0-3.3) Test 04/13/20 20:43 04/14/20 07:16 04/14/20 08:32 Glucose (Fingerstick) 72 mg/dL (70-99) 108 mg/dL (70-99) White Blood Count 7.4 x10^3/uL (4.0-11.0) Red Blood Count 4.58 x10^6/uL (4.30-5.70) Hemoglobin 14.9 g/dL (13.0-17.5) Hematocrit 45.0 % (39.0-53.0) Mean Corpuscular Volume 98 fL (79-100) Mean Corpuscular Hemoglobin 33 pg (25-35) Mean Corpuscular Hemoglobin Concent 33 g/dL (31-37) Red Cell Distribution Width 14.9 % (11.5-14.5) Platelet Count 177 x10^3/uL (140-400) Neutrophils (%) (Auto) 78 % (31-73) Lymphocytes (%) (Auto) 13 % (24-48) Monocytes (%) (Auto) 9 % (0-9) Eosinophils (%) (Auto) 0 % (0-3) Basophils (%) (Auto) 0 % (0-3) Neutrophils # (Auto) 5.7 x10^3/uL (1.8-7.7) Lymphocytes # (Auto) 1.0 x10^3/uL (1.0-4.8) Monocytes # (Auto) 0.7 x10^3/uL (0.0-1.1) Eosinophils # (Auto) 0.0 x10^3/uL (0.0-0.7) Basophils # (Auto) 0.0 x10^3/uL (0.0-0.2) Sodium Level 134 mmol/L (136-145) Potassium Level 4.6 mmol/L (3.5-5.1) Chloride Level 100 mmol/L (98-107) Carbon Dioxide Level 25 mmol/L (21-32) Anion Gap 9 (6-14) Blood Urea Nitrogen 45 mg/dL (8-26) Creatinine 1.7 mg/dL (0.7-1.3) Estimated GFR (Cockcroft-Gault) 38.7 BUN/Creatinine Ratio 26 (6-20) Glucose Level 114 mg/dL (70-99) Calcium Level 9.1 mg/dL (8.5-10.1) Total Bilirubin 0.7 mg/dL (0.2-1.0) Aspartate Amino Transf (AST/SGOT) 93 U/L (15-37) Alanine Aminotransferase (ALT/SGPT) 51 U/L (16-63) Alkaline Phosphatase 45 U/L (46-116) Total Protein 7.1 g/dL (6.4-8.2) Albumin 2.7 g/dL (3.4-5.0) Albumin/Globulin Ratio 0.6 (1.0-1.7) Medications Active Scripts Medications Dose Route/Sig Max Daily Dose Days Date Category Mexiletine Hcl 150 Mg Capsule 150 Mg PO Q8HRS 04/13/20 Reported Omeprazole 40 Mg Capsule.dr 1 Cap PO DAILY 04/13/20 Reported Toprol Xl (Metoprolol Succinate) 25 Mg Tab.er.24h 2 Tab PO DAILY 30 04/13/20 Reported Accupril (Quinapril Hcl) 40 Mg Tablet 1 Tab PO DAILY 04/13/20 Reported Allopurinol 100 Mg Tablet 1 Tab PO DAILY 04/13/20 Reported Impression . Full note dictated suspect COVID-19 viral pneumonia continue oxygen supplementation continue support BROCK DOSS MD Apr 14, 2020 10:13
[2020-04-14 11:00] VITALS: BP 107/56
--- NOTE | 2020-04-14 11:17 | PDOC2 ---
CONSULT Date of Consult Date of Consult DATE: 04/14/20 TIME: 11:10 Reason for Consult Reason for Consult: MEJIA Referring Physician Referring Physician: MEJIA Identification/Chief Complaint Chief Complaint shortness of breath Source Source: Chart review History of Present Illness Reason for Visit: Patient is a 85 year old male who presents to the emergency department via POV with complaints of shortness of breath. Patient reports that he has not felt well since April 07, 2020. He states that he has been short of breath and he has had a cough. He also reports that his sense of taste has decreased. Over the last 2 days the patient has developed nausea, vomiting, and diarrhea. He denies any blood in his vomit or stool. He denies any fever. Patient reports generalized body aches and fatigue. He denies any headache, numbness, tingling, weakness, or known Covid exposure. He denies any increased swelling in his lower extremities. C/O Fatigue, Malaise, No CP. No urinary complaints No known exposures to COVID- 19. He has not been well since of this month and over the last 2 days, he developed some nausea, vomiting, diarrhea. He is currently requiring oxygen supplementation. The patient underwent imaging studies, chest x-ray revealed bilateral pulmonary infiltrates. Past Medical History Past Medical History diabetes, hypertension, coronary artery disease, COPD, hyperlipidemia. Cardiovascular: HTN, Hyperlipidemia Family History Family History: High Cholestrol, Hypertension Social History Social History He quit tobacco in 1985. Denies any alcohol intake. No ALCOHOL: none Drugs: None Current Problem List Problem List Problems Medical Problems: (1) Person under investigation for COVID-19 Status: Acute (2) Pneumonia Status: Acute Current Medications Current Medications Current Medications Ceftriaxone Sodium (Rocephin) 1 gm 1X ONCE IVP Last administered on 04/13/20at 16:40; Start 04/13/20 at 14:45; Stop 04/13/20 at 14:46; Status DC Azithromycin 250 ml @ 250 mls/hr 1X ONCE IV Last administered on 04/13/20at 16:40; Start 04/13/20 at 14:45; Stop 04/13/20 at 15:44; Status DC Dexamethasone Sodium Phosphate (Decadron) 6 mg BID IVP Last administered on 04/14/20at 09:07; Start 04/13/20 at 21:00 Ceftriaxone Sodium (Rocephin) 1 gm Q24H IVP ; Start 04/14/20 at 17:00 Doxycycline Hyclate 100 mg/ Dextrose 100 ml @ 50 mls/hr Q12HR IV Last administered on 04/14/20at 09:06; Start 04/13/20 at 21:00 Sodium Chloride (Normal Saline Flush) 3 ml QSHIFT PRN IV AFTER MEDS AND BLOOD DRAWS; Start 04/13/20 at 17:00 Ondansetron HCl (Zofran) 4 mg PRN Q4HRS PRN IV NAUSEA/VOMITING; Start 04/13/20 at 17:00 Acetaminophen (Tylenol) 650 mg PRN Q4HRS PRN PO TEMP OVER 100.4F OR MILD PAIN Last administered on 04/13/20at 21:37; Start 04/13/20 at 17:00 Al Hydroxide/Mg Hydroxide (Mylanta Plus Xs) 30 ml PRN DAILY PRN PO HEARTBURN / GAS; Start 04/13/20 at 17:00 Docusate Sodium (Colace) 100 mg PRN BID PRN PO HARD STOOLS; Start 04/13/20 at 17:00 Albuterol Sulfate (Ventolin Neb Soln) 2.5 mg PRN Q4HRS PRN NEB SHORTNESS OF BREATH; Start 04/13/20 at 17:00 Guaifenesin (Robitussin) 200 mg PRN Q4HRS PRN PO COUGH; Start 04/13/20 at 17:00 Enoxaparin Sodium (Lovenox 40mg Syringe) 40 mg BID SQ Last administered on 03/17 05/04at 09:07; Start 04/13/20 at 18:00 Active Scripts Active Reported Mexiletine Hcl 150 Mg Capsule 150 Mg PO Q8HRS Omeprazole 40 Mg Capsule.dr 1 Cap PO DAILY Toprol Xl (Metoprolol Succinate) 25 Mg Tab.er.24h 2 Tab PO DAILY 30 Days Accupril (Quinapril Hcl) 40 Mg Tablet 1 Tab PO DAILY Allopurinol 100 Mg Tablet 1 Tab PO DAILY Allergies Allergies: Coded Allergies: No Known Drug Allergies (Unverified , 04/13/20) ROS Review of System As per HPI, rest of the ROS is negative Physical Exam Physical Exam General: NAD HEENT: OM , On O2 by NC Neck Supple Heart: RRR Lungs CTA, non labored Abdomen: Normal bowel sounds, Soft, No tenderness Extremities: No clubbing, No cyanosis, no edema Neuro: Normal speech, Cranial nerves 3-12 NL Psych/Mental Status: Mental status NL, Mood NL no cva or SP tenderness, No tineo Vital Signs Vital Signs Date Time Temp Pulse Resp B/P (MAP) Pulse Ox O2 Delivery O2 Flow Rate FiO2 04/14/20 08:00 Nasal Cannula 5.0 04/14/20 06:36 98.3 80 24 103/57 (72) 91 98.3 Assessment & Plan MEJIA - Vasomotor, hypotension UA unremarkable, Renal function improving Supportive care, IV bolus as indicated , strict I/O,daily labs Acute hypoxemic respiratory failure, suspect COVID-19 viral pneumonia- pending . Currently on dexamethasone and empiric antibiotics. Fever secondary to above. Abnormal x-ray. Acute exacerbation of chronic obstructive pulmonary disease. Tobacco dependence, in remission, quit in 1985. Diabetes. Hypertension. Labs Labs Laboratory Tests Test 04/13/20 12:27 04/13/20 12:44 04/13/20 13:14 04/13/20 16:58 Urine Collection Type Unknown Urine Color Tameka Urine Clarity Clear Urine pH 5.5 (<5.0-8.0) Urine Specific [place] 1.025 (1.000-1.030) Urine Protein 30 mg/dL (NEG-TRACE) Urine Glucose (UA) Negative mg/dL (NEG) Urine Ketones (Stick) Negative mg/dL (NEG) Urine Blood Negative (NEG) Urine Nitrite Negative (NEG) Urine Bilirubin Small (NEG) Urine Urobilinogen Dipstick 1.0 mg/dL (0.2 mg/dL) Urine Leukocyte Esterase Negative (NEG) Urine RBC 0 /HPF (0-2) Urine WBC 1-4 /HPF (0-4) Urine Amorphous Sediment Present /HPF Urine Bacteria 0 /HPF (0-FEW) Urine Hyaline Casts Many /HPF Urine Mucus Marked /LPF White Blood Count 7.3 x10^3/uL (4.0-11.0) Red Blood Count 4.35 x10^6/uL (4.30-5.70) Hemoglobin 14.4 g/dL (13.0-17.5) Hematocrit 42.5 % (39.0-53.0) Mean Corpuscular Volume 98 fL (79-100) Mean Corpuscular Hemoglobin 33 pg (25-35) Mean Corpuscular Hemoglobin Concent 34 g/dL (31-37) Red Cell Distribution Width 14.9 % (11.5-14.5) Platelet Count 169 x10^3/uL (140-400) Neutrophils (%) (Auto) 69 % (31-73) Lymphocytes (%) (Auto) 20 % (24-48) Monocytes (%) (Auto) 11 % (0-9) Eosinophils (%) (Auto) 0 % (0-3) Basophils (%) (Auto) 0 % (0-3) Neutrophils # (Auto) 5.0 x10^3/uL (1.8-7.7) Lymphocytes # (Auto) 1.4 x10^3/uL (1.0-4.8) Monocytes # (Auto) 0.8 x10^3/uL (0.0-1.1) Eosinophils # (Auto) 0.0 x10^3/uL (0.0-0.7) Basophils # (Auto) 0.0 x10^3/uL (0.0-0.2) Sodium Level 137 mmol/L (136-145) Potassium Level 3.9 mmol/L (3.5-5.1) Chloride Level 102 mmol/L (98-107) Carbon Dioxide Level 26 mmol/L (21-32) Anion Gap 9 (6-14) Blood Urea Nitrogen 40 mg/dL (8-26) Creatinine 2.0 mg/dL (0.7-1.3) Estimated GFR (Cockcroft-Gault) 32.1 BUN/Creatinine Ratio 20 (6-20) Glucose Level 70 mg/dL (70-99) Calcium Level 9.2 mg/dL (8.5-10.1) Magnesium Level 2.5 mg/dL (1.8-2.4) Total Bilirubin 0.6 mg/dL (0.2-1.0) Aspartate Amino Transf (AST/SGOT) 72 U/L (15-37) Alanine Aminotransferase (ALT/SGPT) 41 U/L (16-63) Alkaline Phosphatase 39 U/L (46-116) Total Protein 6.6 g/dL (6.4-8.2) Albumin 2.7 g/dL (3.4-5.0) Albumin/Globulin Ratio 0.7 (1.0-1.7) Influenza Type A Antigen Negative (NEGATIVE) Influenza Type B Antigen Negative (NEGATIVE) C-Reactive Protein, Quantitative 45.0 mg/L (0-3.3) Test 04/13/20 20:43 04/14/20 07:16 04/14/20 08:32 Glucose (Fingerstick) 72 mg/dL (70-99) 108 mg/dL (70-99) White Blood Count 7.4 x10^3/uL (4.0-11.0) Red Blood Count 4.58 x10^6/uL (4.30-5.70) Hemoglobin 14.9 g/dL (13.0-17.5) Hematocrit 45.0 % (39.0-53.0) Mean Corpuscular Volume 98 fL (79-100) Mean Corpuscular Hemoglobin 33 pg (25-35) Mean Corpuscular Hemoglobin Concent 33 g/dL (31-37) Red Cell Distribution Width 14.9 % (11.5-14.5) Platelet Count 177 x10^3/uL (140-400) Neutrophils (%) (Auto) 78 % (31-73) Lymphocytes (%) (Auto) 13 % (24-48) Monocytes (%) (Auto) 9 % (0-9) Eosinophils (%) (Auto) 0 % (0-3) Basophils (%) (Auto) 0 % (0-3) Neutrophils # (Auto) 5.7 x10^3/uL (1.8-7.7) Lymphocytes # (Auto) 1.0 x10^3/uL (1.0-4.8) Monocytes # (Auto) 0.7 x10^3/uL (0.0-1.1) Eosinophils # (Auto) 0.0 x10^3/uL (0.0-0.7) Basophils # (Auto) 0.0 x10^3/uL (0.0-0.2) Sodium Level 134 mmol/L (136-145) Potassium Level 4.6 mmol/L (3.5-5.1) Chloride Level 100 mmol/L (98-107) Carbon Dioxide Level 25 mmol/L (21-32) Anion Gap 9 (6-14) Blood Urea Nitrogen 45 mg/dL (8-26) Creatinine 1.7 mg/dL (0.7-1.3) Estimated GFR (Cockcroft-Gault) 38.7 BUN/Creatinine Ratio 26 (6-20) Glucose Level 114 mg/dL (70-99) Calcium Level 9.1 mg/dL (8.5-10.1) Total Bilirubin 0.7 mg/dL (0.2-1.0) Aspartate Amino Transf (AST/SGOT) 93 U/L (15-37) Alanine Aminotransferase (ALT/SGPT) 51 U/L (16-63) Alkaline Phosphatase 45 U/L (46-116) Total Protein 7.1 g/dL (6.4-8.2) Albumin 2.7 g/dL (3.4-5.0) Albumin/Globulin Ratio 0.6 (1.0-1.7) Laboratory Tests Test 04/13/20 12:27 04/13/20 12:44 04/13/20 13:14 04/13/20 16:58 Urine Collection Type Unknown Urine Color Tameka Urine Clarity Clear Urine pH 5.5 (<5.0-8.0) Urine Specific [place] 1.025 (1.000-1.030) Urine Protein 30 mg/dL (NEG-TRACE) Urine Glucose (UA) Negative mg/dL (NEG) Urine Ketones (Stick) Negative mg/dL (NEG) Urine Blood Negative (NEG) Urine Nitrite Negative (NEG) Urine Bilirubin Small (NEG) Urine Urobilinogen Dipstick 1.0 mg/dL (0.2 mg/dL) Urine Leukocyte Esterase Negative (NEG) Urine RBC 0 /HPF (0-2) Urine WBC 1-4 /HPF (0-4) Urine Amorphous Sediment Present /HPF Urine Bacteria 0 /HPF (0-FEW) Urine Hyaline Casts Many /HPF Urine Mucus Marked /LPF White Blood Count 7.3 x10^3/uL (4.0-11.0) Red Blood Count 4.35 x10^6/uL (4.30-5.70) Hemoglobin 14.4 g/dL (13.0-17.5) Hematocrit 42.5 % (39.0-53.0) Mean Corpuscular Volume 98 fL (79-100) Mean Corpuscular Hemoglobin 33 pg (25-35) Mean Corpuscular Hemoglobin Concent 34 g/dL (31-37) Red Cell Distribution Width 14.9 % (11.5-14.5) Platelet Count 169 x10^3/uL (140-400) Neutrophils (%) (Auto) 69 % (31-73) Lymphocytes (%) (Auto) 20 % (24-48) Monocytes (%) (Auto) 11 % (0-9) Eosinophils (%) (Auto) 0 % (0-3) Basophils (%) (Auto) 0 % (0-3) Neutrophils # (Auto) 5.0 x10^3/uL (1.8-7.7) Lymphocytes # (Auto) 1.4 x10^3/uL (1.0-4.8) Monocytes # (Auto) 0.8 x10^3/uL (0.0-1.1) Eosinophils # (Auto) 0.0 x10^3/uL (0.0-0.7) Basophils # (Auto) 0.0 x10^3/uL (0.0-0.2) Sodium Level 137 mmol/L (136-145) Potassium Level 3.9 mmol/L (3.5-5.1) Chloride Level 102 mmol/L (98-107) Carbon Dioxide Level 26 mmol/L (21-32) Anion Gap 9 (6-14) Blood Urea Nitrogen 40 mg/dL (8-26) Creatinine 2.0 mg/dL (0.7-1.3) Estimated GFR (Cockcroft-Gault) 32.1 BUN/Creatinine Ratio 20 (6-20) Glucose Level 70 mg/dL (70-99) Calcium Level 9.2 mg/dL (8.5-10.1) Magnesium Level 2.5 mg/dL (1.8-2.4) Total Bilirubin 0.6 mg/dL (0.2-1.0) Aspartate Amino Transf (AST/SGOT) 72 U/L (15-37) Alanine Aminotransferase (ALT/SGPT) 41 U/L (16-63) Alkaline Phosphatase 39 U/L (46-116) Total Protein 6.6 g/dL (6.4-8.2) Albumin 2.7 g/dL (3.4-5.0) Albumin/Globulin Ratio 0.7 (1.0-1.7) Influenza Type A Antigen Negative (NEGATIVE) Influenza Type B Antigen Negative (NEGATIVE) C-Reactive Protein, Quantitative 45.0 mg/L (0-3.3) Test 04/13/20 20:43 04/14/20 07:16 04/14/20 08:32 Glucose (Fingerstick) 72 mg/dL (70-99) 108 mg/dL (70-99) White Blood Count 7.4 x10^3/uL (4.0-11.0) Red Blood Count 4.58 x10^6/uL (4.30-5.70) Hemoglobin 14.9 g/dL (13.0-17.5) Hematocrit 45.0 % (39.0-53.0) Mean Corpuscular Volume 98 fL (79-100) Mean Corpuscular Hemoglobin 33 pg (25-35) Mean Corpuscular Hemoglobin Concent 33 g/dL (31-37) Red Cell Distribution Width 14.9 % (11.5-14.5) Platelet Count 177 x10^3/uL (140-400) Neutrophils (%) (Auto) 78 % (31-73) Lymphocytes (%) (Auto) 13 % (24-48) Monocytes (%) (Auto) 9 % (0-9) Eosinophils (%) (Auto) 0 % (0-3) Basophils (%) (Auto) 0 % (0-3) Neutrophils # (Auto) 5.7 x10^3/uL (1.8-7.7) Lymphocytes # (Auto) 1.0 x10^3/uL (1.0-4.8) Monocytes # (Auto) 0.7 x10^3/uL (0.0-1.1) Eosinophils # (Auto) 0.0 x10^3/uL (0.0-0.7) Basophils # (Auto) 0.0 x10^3/uL (0.0-0.2) Sodium Level 134 mmol/L (136-145) Potassium Level 4.6 mmol/L (3.5-5.1) Chloride Level 100 mmol/L (98-107) Carbon Dioxide Level 25 mmol/L (21-32) Anion Gap 9 (6-14) Blood Urea Nitrogen 45 mg/dL (8-26) Creatinine 1.7 mg/dL (0.7-1.3) Estimated GFR (Cockcroft-Gault) 38.7 BUN/Creatinine Ratio 26 (6-20) Glucose Level 114 mg/dL (70-99) Calcium Level 9.1 mg/dL (8.5-10.1) Total Bilirubin 0.7 mg/dL (0.2-1.0) Aspartate Amino Transf (AST/SGOT) 93 U/L (15-37) Alanine Aminotransferase (ALT/SGPT) 51 U/L (16-63) Alkaline Phosphatase 45 U/L (46-116) Total Protein 7.1 g/dL (6.4-8.2) Albumin 2.7 g/dL (3.4-5.0) Albumin/Globulin Ratio 0.6 (1.0-1.7) Review All relevant outside records, renal labs, imaging studies, telemetry/EKG's were reviewed. Images Images 1. Right pacemaker. 2. Mild left lung interstitial infiltrates with worsening compared to old studies from 2016. BLANCA MYRICK MD Apr 14, 2020 11:17
--- NOTE | 2020-04-14 11:33 | CONS ---
DATE OF CONSULTATION: 04/14/2020 ATTENDING PHYSICIAN: Eliezer Nobles MD REASON FOR CONSULTATION: The patient is seen in pulmonary consultation at the request of Dr. Nobels for hypoxemia, abnormal x-ray. HISTORY OF PRESENT ILLNESS: The patient is an 85-year-old that presented to the Emergency Room with complaints of increasing shortness of breath, balance difficulty, occasional cough. No known exposures to COVID-19. Denies fever or chills. The patient has not been well since of this month and over the last 2 days, he developed some nausea, vomiting, diarrhea. He is currently requiring oxygen supplementation. The patient underwent imaging studies, chest x-ray revealed bilateral pulmonary infiltrates. He had labs that were reviewed. Serology for influenza is negative. PCR for COVID-19 is pending. Sodium was low. BUN is elevated, creatinine was elevated. AST was elevated. C-reactive protein was elevated. Albumin was low. White count was normal with lymphopenia. PAST MEDICAL HISTORY: Remarkable for diabetes, hypertension, coronary artery disease, COPD, hyperlipidemia. FAMILY HISTORY: Hyperlipidemia, hypertension. SOCIAL HISTORY: He quit tobacco in 1985. Denies any alcohol intake. ALLERGIES: No known drug allergies. REVIEW OF SYSTEMS: As indicated above, otherwise, a 10-point system was reviewed and negative. CURRENT MEDICATIONS: List was reviewed. The patient is currently on oxygen supplementation. He was on doxycycline, Rocephin, given dexamethasone and Lovenox. PHYSICAL EXAMINATION: VITAL SIGNS: Stable. O2 saturation was greater than 92%. He had a T-max of 101.4. LUNGS: Scattered rhonchi. CARDIOVASCULAR: Regular rate and rhythm with S1, S2, no S3. ABDOMEN: Soft, nontender. EXTREMITIES: No clubbing, cyanosis or edema. Labs and chest x-ray as indicated above. IMPRESSION: 1. Acute hypoxemic respiratory failure, suspect COVID-19 viral pneumonia. 2. Fever secondary to above. 3. Abnormal x-ray. 4. Acute exacerbation of chronic obstructive pulmonary disease. 5. Tobacco dependence, in remission, quit in 1985. 6. Diabetes. 7. Hypertension. 8. Morbid obesity. PLAN: 1. The patient was admitted for support with oxygen supplementation, dexamethasone and empiric antibiotics. 2. Monitor closely, increase FiO2 as needed, may require Vapotherm with noninvasive ventilation. 3. Follow up on SARS-CoV-2. I do appreciate the privilege in sharing in the patient's care. BROCK DOSS MD DR: OMEGA/joe JOB#: [id number] / [id number]
[2020-04-14] MEDS ORDERED: ATOR40TA59 PO (12:25)
[2020-04-14] MEDS ORDERED: AMLO-187 PO ×2 (12:25→12:34)
[2020-04-14] MEDS ORDERED: OMEP20CA16 PO (12:25)
[2020-04-14] MEDS ORDERED: EZET10TA20 PO (12:34)
[2020-04-14] MEDS ORDERED: GLIM1TAB7 PO (12:34)
[2020-04-14] MEDS ORDERED: METO-247 PO (12:34)
[2020-04-14] MEDS ORDERED: FENO160T PO (12:34)
[2020-04-14] MEDS: LISINOPRIL 20 MG TABLET PO SCH (13:00)
[2020-04-14] MEDS: ALLOPURINOL 100 MG TABLET. PO SCH (13:40)
[2020-04-14] MEDS: FENOFIBRATE,MICRONIZED 134 MG CAPSULE PO SCH (13:40)
[2020-04-14] MEDS: PANTOPRAZOLE 40 MG TABLET.DR. PO SCH (13:40)
[2020-04-14] MEDS: METOPROLOL SUCC 24HR ER 100 MG TAB.ER.24H. PO SCH (13:40)
[2020-04-14] MEDS: GLIMEPIRIDE 2 MG TABLET. PO SCH (13:41)
--- NOTE | 2020-04-14 14:09 | NUR ---
SS following for discharge planning. SS reviewed pt chart and discussed with pt RN. Pt is from home with spouse and is currently requiring oxygen. COVID19 test pending. Pt on IV Rocephin and IV Doxycycline. PT/OT ordered. SS will continue to follow for discharge planning.
[2020-04-14 15:00] VITALS: BP 126/59
[2020-04-14] MEDS: cefTRIAXone IV Push 1 GM VIAL. IVP SCH (18:21)
[2020-04-14 19:54] VITALS: BP 111/56
[2020-04-14] MEDS: EZETIMIBE 10 MG TABLET. PO SCH (21:13)
[2020-04-14] MEDS: ATORVASTATIN CALCIUM 40 MG TABLET. PO SCH (21:13)
[2020-04-14] MEDS: METOPROLOL SUCC 24HR ER 25 MG TAB.ER.24H. PO SCH (21:14)
--- NOTE | 2020-04-14 21:35 | NUR ---
Pt had 200 cc of clear yellow urine out. Post residual void scan is less than 50. Will continue to monitor.
[2020-04-14 23:43] VITALS: BP 113/57
[2020-04-15 02:32] VITALS: BP 115/61
--- NOTE | 2020-04-15 06:11 | PDOC ---
PULMONARY PROGRESS NOTES DATE: 04/15/20 TIME: 06:08 Vitals Vital Signs Date Time Temp Pulse Resp B/P (MAP) Pulse Ox O2 Delivery O2 Flow Rate FiO2 04/15/20 02:32 96.3 80 20 115/61 (79) 93 Nasal Cannula 4.0 96.3 Labs Laboratory Tests Test 04/13/20 12:27 04/13/20 12:44 04/13/20 13:14 04/13/20 16:58 Urine Collection Type Unknown Urine Color Tameka Urine Clarity Clear Urine pH 5.5 (<5.0-8.0) Urine Specific [place] 1.025 (1.000-1.030) Urine Protein 30 mg/dL (NEG-TRACE) Urine Glucose (UA) Negative mg/dL (NEG) Urine Ketones (Stick) Negative mg/dL (NEG) Urine Blood Negative (NEG) Urine Nitrite Negative (NEG) Urine Bilirubin Small (NEG) Urine Urobilinogen Dipstick 1.0 mg/dL (0.2 mg/dL) Urine Leukocyte Esterase Negative (NEG) Urine RBC 0 /HPF (0-2) Urine WBC 1-4 /HPF (0-4) Urine Amorphous Sediment Present /HPF Urine Bacteria 0 /HPF (0-FEW) Urine Hyaline Casts Many /HPF Urine Mucus Marked /LPF White Blood Count 7.3 x10^3/uL (4.0-11.0) Red Blood Count 4.35 x10^6/uL (4.30-5.70) Hemoglobin 14.4 g/dL (13.0-17.5) Hematocrit 42.5 % (39.0-53.0) Mean Corpuscular Volume 98 fL (79-100) Mean Corpuscular Hemoglobin 33 pg (25-35) Mean Corpuscular Hemoglobin Concent 34 g/dL (31-37) Red Cell Distribution Width 14.9 % (11.5-14.5) Platelet Count 169 x10^3/uL (140-400) Neutrophils (%) (Auto) 69 % (31-73) Lymphocytes (%) (Auto) 20 % (24-48) Monocytes (%) (Auto) 11 % (0-9) Eosinophils (%) (Auto) 0 % (0-3) Basophils (%) (Auto) 0 % (0-3) Neutrophils # (Auto) 5.0 x10^3/uL (1.8-7.7) Lymphocytes # (Auto) 1.4 x10^3/uL (1.0-4.8) Monocytes # (Auto) 0.8 x10^3/uL (0.0-1.1) Eosinophils # (Auto) 0.0 x10^3/uL (0.0-0.7) Basophils # (Auto) 0.0 x10^3/uL (0.0-0.2) Sodium Level 137 mmol/L (136-145) Potassium Level 3.9 mmol/L (3.5-5.1) Chloride Level 102 mmol/L (98-107) Carbon Dioxide Level 26 mmol/L (21-32) Anion Gap 9 (6-14) Blood Urea Nitrogen 40 mg/dL (8-26) Creatinine 2.0 mg/dL (0.7-1.3) Estimated GFR (Cockcroft-Gault) 32.1 BUN/Creatinine Ratio 20 (6-20) Glucose Level 70 mg/dL (70-99) Calcium Level 9.2 mg/dL (8.5-10.1) Magnesium Level 2.5 mg/dL (1.8-2.4) Total Bilirubin 0.6 mg/dL (0.2-1.0) Aspartate Amino Transf (AST/SGOT) 72 U/L (15-37) Alanine Aminotransferase (ALT/SGPT) 41 U/L (16-63) Alkaline Phosphatase 39 U/L (46-116) Total Protein 6.6 g/dL (6.4-8.2) Albumin 2.7 g/dL (3.4-5.0) Albumin/Globulin Ratio 0.7 (1.0-1.7) Coronavirus (PCR) Detected (Not Detected) Influenza Type A Antigen Negative (NEGATIVE) Influenza Type B Antigen Negative (NEGATIVE) C-Reactive Protein, Quantitative 45.0 mg/L (0-3.3) Test 04/13/20 20:43 04/14/20 07:16 04/14/20 08:32 04/14/20 12:25 Glucose (Fingerstick) 72 mg/dL (70-99) 108 mg/dL (70-99) 163 mg/dL (70-99) White Blood Count 7.4 x10^3/uL (4.0-11.0) Red Blood Count 4.58 x10^6/uL (4.30-5.70) Hemoglobin 14.9 g/dL (13.0-17.5) Hematocrit 45.0 % (39.0-53.0) Mean Corpuscular Volume 98 fL (79-100) Mean Corpuscular Hemoglobin 33 pg (25-35) Mean Corpuscular Hemoglobin Concent 33 g/dL (31-37) Red Cell Distribution Width 14.9 % (11.5-14.5) Platelet Count 177 x10^3/uL (140-400) Neutrophils (%) (Auto) 78 % (31-73) Lymphocytes (%) (Auto) 13 % (24-48) Monocytes (%) (Auto) 9 % (0-9) Eosinophils (%) (Auto) 0 % (0-3) Basophils (%) (Auto) 0 % (0-3) Neutrophils # (Auto) 5.7 x10^3/uL (1.8-7.7) Lymphocytes # (Auto) 1.0 x10^3/uL (1.0-4.8) Monocytes # (Auto) 0.7 x10^3/uL (0.0-1.1) Eosinophils # (Auto) 0.0 x10^3/uL (0.0-0.7) Basophils # (Auto) 0.0 x10^3/uL (0.0-0.2) Sodium Level 134 mmol/L (136-145) Potassium Level 4.6 mmol/L (3.5-5.1) Chloride Level 100 mmol/L (98-107) Carbon Dioxide Level 25 mmol/L (21-32) Anion Gap 9 (6-14) Blood Urea Nitrogen 45 mg/dL (8-26) Creatinine 1.7 mg/dL (0.7-1.3) Estimated GFR (Cockcroft-Gault) 38.7 BUN/Creatinine Ratio 26 (6-20) Glucose Level 114 mg/dL (70-99) Calcium Level 9.1 mg/dL (8.5-10.1) Total Bilirubin 0.7 mg/dL (0.2-1.0) Aspartate Amino Transf (AST/SGOT) 93 U/L (15-37) Alanine Aminotransferase (ALT/SGPT) 51 U/L (16-63) Alkaline Phosphatase 45 U/L (46-116) Total Protein 7.1 g/dL (6.4-8.2) Albumin 2.7 g/dL (3.4-5.0) Albumin/Globulin Ratio 0.6 (1.0-1.7) Test 04/14/20 17:38 Glucose (Fingerstick) 194 mg/dL (70-99) Laboratory Tests Test 04/14/20 07:16 04/14/20 08:32 04/14/20 12:25 04/14/20 17:38 Glucose (Fingerstick) 108 mg/dL (70-99) 163 mg/dL (70-99) 194 mg/dL (70-99) White Blood Count 7.4 x10^3/uL (4.0-11.0) Red Blood Count 4.58 x10^6/uL (4.30-5.70) Hemoglobin 14.9 g/dL (13.0-17.5) Hematocrit 45.0 % (39.0-53.0) Mean Corpuscular Volume 98 fL (79-100) Mean Corpuscular Hemoglobin 33 pg (25-35) Mean Corpuscular Hemoglobin Concent 33 g/dL (31-37) Red Cell Distribution Width 14.9 % (11.5-14.5) Platelet Count 177 x10^3/uL (140-400) Neutrophils (%) (Auto) 78 % (31-73) Lymphocytes (%) (Auto) 13 % (24-48) Monocytes (%) (Auto) 9 % (0-9) Eosinophils (%) (Auto) 0 % (0-3) Basophils (%) (Auto) 0 % (0-3) Neutrophils # (Auto) 5.7 x10^3/uL (1.8-7.7) Lymphocytes # (Auto) 1.0 x10^3/uL (1.0-4.8) Monocytes # (Auto) 0.7 x10^3/uL (0.0-1.1) Eosinophils # (Auto) 0.0 x10^3/uL (0.0-0.7) Basophils # (Auto) 0.0 x10^3/uL (0.0-0.2) Sodium Level 134 mmol/L (136-145) Potassium Level 4.6 mmol/L (3.5-5.1) Chloride Level 100 mmol/L (98-107) Carbon Dioxide Level 25 mmol/L (21-32) Anion Gap 9 (6-14) Blood Urea Nitrogen 45 mg/dL (8-26) Creatinine 1.7 mg/dL (0.7-1.3) Estimated GFR (Cockcroft-Gault) 38.7 BUN/Creatinine Ratio 26 (6-20) Glucose Level 114 mg/dL (70-99) Calcium Level 9.1 mg/dL (8.5-10.1) Total Bilirubin 0.7 mg/dL (0.2-1.0) Aspartate Amino Transf (AST/SGOT) 93 U/L (15-37) Alanine Aminotransferase (ALT/SGPT) 51 U/L (16-63) Alkaline Phosphatase 45 U/L (46-116) Total Protein 7.1 g/dL (6.4-8.2) Albumin 2.7 g/dL (3.4-5.0) Albumin/Globulin Ratio 0.6 (1.0-1.7) Medications Active Scripts Medications Dose Route/Sig Max Daily Dose Days Date Category Mexiletine Hcl 150 Mg Capsule 150 Mg PO Q8HRS 04/13/20 Reported Omeprazole 40 Mg Capsule.dr 1 Cap PO DAILY 04/13/20 Reported Toprol Xl (Metoprolol Succinate) 25 Mg Tab.er.24h 2 Tab PO DAILY 30 04/13/20 Reported Accupril (Quinapril Hcl) 40 Mg Tablet 1 Tab PO DAILY 04/13/20 Reported Allopurinol 100 Mg Tablet 1 Tab PO DAILY 04/13/20 Reported Impression . IMPRESSION: 1. Acute hypoxemic respiratory failure, COVID-19 viral pneumonia. 2. Fever secondary to above. 3. Abnormal x-ray. 4. Acute exacerbation of chronic obstructive pulmonary disease. 5. Tobacco dependence, in remission, quit in 1985. 6. Diabetes. 7. Hypertension. 8. Morbid obesity. 9. Sars-Cov 2 Pos Plan . PLAN: continue supplemental oxygen asa needed to keep sats above 92%, now on venti- mask Monitor respiratory status may require intubation or vapotherm Continue steroids with slow taper will need full ten day course COVID-19 positive, isolation precautions will start remdesivir, complete full 5 day course Continue empiric ABX on rocephin and azithromycin Follow nephrology recs-- improving renal function, monitor DVT/GI PPX D/W BROCK VARGAS MD Apr 15, 2020 06:11
[2020-04-15 07:00] VITALS: BP 115/55
--- NOTE | 2020-04-15 10:07 | PDOC ---
[employer] PROGRESS NOTE Date of Service DOS: DATE: 04/15/20 TIME: 10:06 Chief Complaint Chief Complaint 1. ACUTE HYPOXIC RESP FAILURE 2. HX pacemaker. 3. Mild left lung interstitial infiltrates with worsening compared to old studies from 2016. CONCERNING FOR COVID 19 SYNDROME 4, MORBID OBESITY 5. GENERALIZED WEAKNESS History of Present Illness History of Present Illness 04/15/2020 Patient seen and examined Chart reviewed Discussed with RN Patient is on Ventimask oxygen and IV doxycycline currently Identification/Chief Complaint Chief Complaint DYSPNEA, COUGH WORSE SINCE [place] History of Present Illness History of Present Illness 85 yr old male seen in er with worsening cough since 04-08, now more SOA , HYPOXIC ON PRESENTATION Past Medical History Cardiovascular: HTN, Hyperlipidemia Family History Family History: High Cholestrol, Hypertension Social History Smoke: No ALCOHOL: none Drugs: None Allergies Allergies: Coded Allergies: No Known Drug Allergies (Unverified , 04/13/20) Vitals/I&O Vitals/I&O: Vital Signs Date Time Temp Pulse Resp B/P (MAP) Pulse Ox O2 Delivery O2 Flow Rate FiO2 04/15/20 07:00 97.3 80 20 115/55 (75) 91 Nasal Cannula 4.0 97.3 I & O 04/14/20 04/14/20 04/15/20 15:00 23:00 07:00 Intake Total 400 ml Output Total 375 ml 400 ml 450 ml Balance -375 ml -400 ml -50 ml Physical Exam Physical Exam: Eyes: PERRLA, EOMI, conjunctiva normal, no discharge. [] Neck: Normal range of motion, no tenderness, supple, no stridor. [] Cardiovascular:Heart rate regular rhythm, no murmur [] Lungs & Thorax: Bilateral breath sounds clear to auscultation [] Abdomen: Bowel sounds normal, soft, no tenderness, no masses, no pulsatile masses. [] Skin: Warm, dry, no erythema, no rash. [] Back: No tenderness, no CVA tenderness. [] Extremities: No tenderness, no cyanosis, no clubbing, ROM intact, no edema. [] Neurologic: Alert and oriented X 3, normal motor function, normal sensory function, no focal deficits noted. [] Psychologic: Affect normal, judgment normal, mood normal. [] General: Alert, Oriented X3, Cooperative HEENT: Atraumatic, EOMI Heart: RRR Breasts: Not examined Abdomen: Normal bowel sounds, Soft, No tenderness Rectal Exam: not examined PELVIC: Examination not indicated Extremities: No clubbing, No cyanosis Neuro: Normal speech, Cranial nerves 3-12 NL General: Alert, Oriented X3, Cooperative Abdomen: Normal bowel sounds, Soft, No tenderness Extremities: No clubbing, No cyanosis Labs Labs: Laboratory Tests Test 04/14/20 12:25 04/14/20 17:38 04/15/20 07:22 Glucose (Fingerstick) 163 mg/dL (70-99) 194 mg/dL (70-99) 185 mg/dL (70-99) Assessment and Plan Assessmemt and Plan Problems Medical Problems: (1) Person under investigation for COVID-19 Status: Acute (2) Pneumonia Status: Acute 1. ACUTE HYPOXIC RESP FAILURE 2. HX pacemaker. 3. Mild left lung interstitial infiltrates with worsening compared to old studies from 2016. CONCERNING FOR COVID 19 SYNDROME 4, MORBID OBESITY 5. GENERALIZED WEAKNESS Plan Covid protocol IV antibiotics Pulmonary following GI prophylaxis DVT prophylaxis Full code Trend labs Home meds Appreciate subspecialist input Comment Review of Relevant I have reviewed the following items andrea (where applicable) has been applied. Medications: Current Medications Medications (Trade) Dose Ordered Sig/Damion Route PRN Reason Start Time Stop Time Status Last Admin Dose Admin Ceftriaxone Sodium (Rocephin) 1 gm Q24H IVP 04/14/20 17:00 04/14/20 18:21 Allopurinol (Zyloprim) 100 mg DAILY PO 04/14/20 13:00 04/14/20 13:40 Atorvastatin Calcium (Lipitor) 40 mg HS PO 04/14/20 21:00 04/14/20 21:13 EZETIMIBE (Zetia) 10 mg HS PO 04/14/20 21:00 04/14/20 21:13 Metoprolol Succinate (Toprol Xl) 100 mg DAILY PO 04/14/20 13:00 04/14/20 13:40 Metoprolol Succinate (Toprol Xl) 25 mg HS PO 04/14/20 21:00 04/14/20 21:14 Fenofibrate (Lofibra) 134 mg DAILY PO 04/14/20 13:00 04/14/20 13:40 Glimepiride (Amaryl) 1 mg DAILY PO 04/14/20 13:00 04/14/20 13:41 Pantoprazole Sodium (Protonix) 40 mg DAILYAC PO 04/14/20 13:00 04/14/20 13:40 Justifications for Admission General Conditions Poss tachycardia?: Yes Justification for admission: Patient has tachycardia (> 100 beats per minute) which is not readily corrected by appropriate treatment within 12 to 24 hours. ACUTE HYPOXIC RESP FAILURE Other Justification BEHZAD AVELAR III, DO Apr 15, 2020 10:07
[2020-04-15] MEDS: FENOFIBRATE,MICRONIZED 134 MG CAPSULE PO SCH (10:08)
[2020-04-15] MEDS: ENOXAPARIN 40 MG/0.4 ML SYRINGE. SQ SCH ×2 (10:08→22:14)
[2020-04-15] MEDS: LISINOPRIL 20 MG TABLET PO SCH (10:09)
[2020-04-15] MEDS: GLIMEPIRIDE 2 MG TABLET. PO SCH (10:09)
[2020-04-15] MEDS: DOXYCYCLINE HYCLATE 100 MG in IV DEXTROSE 5% 100ML 100 ML IV SCH ×2 (10:11→22:14)
[2020-04-15] MEDS: PANTOPRAZOLE 40 MG TABLET.DR. PO SCH (10:11)
[2020-04-15] MEDS: ALLOPURINOL 100 MG TABLET. PO SCH (10:12)
[2020-04-15] MEDS: METOPROLOL SUCC 24HR ER 100 MG TAB.ER.24H. PO SCH (10:12)
[2020-04-15] MEDS: DEXAMETHASONE SOD PHOS 4 MG/ML VIAL IVP SCH ×2 (10:16→22:14)
[2020-04-15 11:00] VITALS: BP 115/60
[2020-04-15 11:21] LABS: ALBUMIN 2.7 g/dL (3.4-5.0); CALCIUM 9.6 mg/dL (8.5-10.1); CREATININE 1.6 mg/dL (0.7-1.3); GFR 41.5; PHOSPHORUS 3.2 mg/dL (2.6-4.7); POTASSIUM 4.1 mmol/L (3.5-5.1)
[2020-04-15] MEDS ORDERED: ALBUTEROL SULFATE 8GM INHALER. INH PRN (12:30)
--- NOTE | 2020-04-15 13:30 | PDOC ---
Infectious Disease Note Vital Signs: Vital Signs Vital Signs Date Time Temp Pulse Resp B/P (MAP) Pulse Ox O2 Delivery O2 Flow Rate FiO2 04/15/20 11:00 96.2 81 20 115/60 (78) 96 Nasal Cannula 4.0 96.2 Physical Exam: PHYSICAL EXAM Medications: Inpatient Meds: Current Medications Medications (Trade) Dose Ordered Sig/Damion Start Time Stop Time Status Last Admin Dose Admin Acetaminophen (Tylenol) 650 mg PRN Q4HRS PRN 04/13/20 17:00 04/13/20 21:37 650 MG Al Hydroxide/Mg Hydroxide (Mylanta Plus Xs) 30 ml PRN DAILY PRN 04/13/20 17:00 Albuterol Sulfate (Ventolin Hfa) 1 puff PRN Q4HRS PRN 04/15/20 12:30 Albuterol Sulfate (Ventolin Neb Soln) 2.5 mg PRN Q4HRS PRN 04/13/20 17:00 Allopurinol (Zyloprim) 100 mg DAILY 04/14/20 13:00 04/15/20 10:12 100 MG Amlodipine Besylate (Norvasc) 10 mg DAILY 04/14/20 13:00 Atorvastatin Calcium (Lipitor) 40 mg HS 04/14/20 21:00 04/14/20 21:13 40 MG Azithromycin 250 ml @ 250 mls/hr 1X ONCE 04/13/20 14:45 04/13/20 15:44 DC 04/13/20 16:40 250 MLS/HR Ceftriaxone Sodium (Rocephin) 1 gm Q24H 04/14/20 17:00 04/14/20 18:21 1 GM Daptomycin 500 mg/ Sodium Chloride 50 ml @ 100 mls/hr Q24H 04/15/20 15:00 Dexamethasone Sodium Phosphate (Decadron) 6 mg BID 04/13/20 21:00 04/15/20 10:16 6 MG Docusate Sodium (Colace) 100 mg PRN BID PRN 04/13/20 17:00 Doxycycline Hyclate 100 mg/ Dextrose 100 ml @ 50 mls/hr Q12HR 04/13/20 21:00 04/15/20 10:11 50 MLS/HR Enoxaparin Sodium (Lovenox 40mg Syringe) 40 mg BID 04/13/20 18:00 04/15/20 10:08 40 MG EZETIMIBE (Zetia) 10 mg HS 04/14/20 21:00 04/14/20 21:13 10 MG Fenofibrate (Lofibra) 134 mg DAILY 04/14/20 13:00 04/15/20 10:08 134 MG Glimepiride (Amaryl) 1 mg DAILY 04/14/20 13:00 04/15/20 10:09 1 MG Guaifenesin (Robitussin) 200 mg PRN Q4HRS PRN 04/13/20 17:00 Lisinopril (Prinivil) 40 mg DAILY 04/14/20 13:00 04/15/20 10:09 40 MG Metoprolol Succinate (Toprol Xl) 25 mg HS 04/14/20 21:00 04/14/20 21:14 25 MG Ondansetron HCl (Zofran) 4 mg PRN Q4HRS PRN 04/13/20 17:00 Pantoprazole Sodium (Protonix) 40 mg DAILYAC 04/14/20 13:00 04/15/20 10:11 40 MG Remdesivir 100 mg/ Sodium Chloride 230 ml @ 460 mls/hr Q24H 04/16/20 14:00 04/19/20 14:29 Remdesivir 200 mg/ Sodium Chloride 210 ml @ 210 mls/hr 1X ONCE 04/15/20 14:00 04/15/20 14:59 Sodium Chloride (Normal Saline Flush) 3 ml QSHIFT PRN 04/13/20 17:00 Labs: Lab Laboratory Tests Test 04/14/20 17:38 04/15/20 07:22 04/15/20 10:15 04/15/20 11:55 Glucose (Fingerstick) 194 mg/dL (70-99) 185 mg/dL (70-99) 187 mg/dL (70-99) Sodium Level 132 mmol/L (136-145) Potassium Level 4.1 mmol/L (3.5-5.1) Chloride Level 98 mmol/L (98-107) Carbon Dioxide Level 22 mmol/L (21-32) Anion Gap 12 (6-14) Blood Urea Nitrogen 49 mg/dL (8-26) Creatinine 1.6 mg/dL (0.7-1.3) Estimated GFR (Cockcroft-Gault) 41.5 Glucose Level 193 mg/dL (70-99) Calcium Level 9.6 mg/dL (8.5-10.1) Phosphorus Level 3.2 mg/dL (2.6-4.7) Albumin 2.7 g/dL (3.4-5.0) Objective: Assessment: Patient seen and examined ID consult dictated Plan: Plan of Care Thank you EDSON MORENO MD Apr 15, 2020 13:30
[2020-04-15] MEDS ORDERED: REMDESIVIR LOAD in IV NORMAL SALINE 250ML TV IV ONE (14:00)
[2020-04-15 15:00] VITALS: BP 108/57
[2020-04-15] MEDS: DAPTOmycin (GENERIC) IVPB 500 MG in IV NORMAL SALINE 50ML 50 ML IV SCH (15:18)
[2020-04-15 16:18] LABS: BASE EXCESS ABG -5 mmol/L (-3-3); HCO3 ABG 18 mmol/L (21-28); PCO2 ABG 30 mmHg (35-46); PO2 ABG 53 mmHg (65-108); SAT O2 ABG 86 % (92-99)
--- NOTE | 2020-04-15 17:00 | NUR ---
patients respiratory status declining. patient o2 dropping below 90% and patient fighting staff and pulling off oxygen tubing/masks. Nursing supervisor process testing notified, ICU notified and rapid called.
[2020-04-15] MEDS: cefTRIAXone IV Push 1 GM VIAL. IVP SCH (17:28)
--- NOTE | 2020-04-15 17:41 | CONS ---
DATE OF CONSULTATION: 04/15/2020 REFERRING PHYSICIAN: Dr. Monet. REASON FOR CONSULTATION: Bacteremia. HISTORY OF PRESENT ILLNESS: An 85-year-old male who presented to the ER with complaints of shortness of breath. He has not felt well since around [place] with worsening cough and shortness of breath. He denies any fever. He has lost taste sensation. He also had nausea, vomiting and diarrhea, which has resolved. He had generalized fatigue. He denied any sick contact. COVID-19 was sent, which returned positive. He currently requires oxygen by nonrebreather. The patient was febrile. White count was 7.3 with lymphopenia. Creatinine of 2.0, albumin of 2.7, AST of 72. UA was negative. Influenza screen was negative. COVID-19 returned positive blood cultures done on admission, 2/8 bottles have gram-positive cocci in clusters. ID consultation has been requested for antibiotic management. The patient continues to feel weak and shortness of breath. Denies any fevers, headache, sore throat, nausea, vomiting, diarrhea, abdominal pain, symptoms. PAST MEDICAL HISTORY: Diabetes, hypertension, coronary artery disease, COPD, hyperlipidemia, history of gout. SOCIAL HISTORY: Quit smoking in 1985. No alcohol. Lives with his . Son and grandson live close by. ALLERGIES: No known drug allergies. REVIEW OF SYSTEMS: Negative except for above in HPI. CURRENT MEDICATION: Rocephin, doxycycline, dexamethasone, Lovenox, oxygen supplementation. Other medications reviewed in medication list. PHYSICAL EXAMINATION: VITAL SIGNS: Temperature 96.2, pulse 81, respiratory rate 20, blood pressure 115/60, oxygen saturation 96% on 4 liters by nasal cannula. Transferred on a nonrebreather currently. T-max 101.4. GENERAL: Alert, awake, oriented x 3 male, tired appearing,Lethargic, sitting in chair. HEENT: Normocephalic, atraumatic, anicteric. NECK: Supple. LUNGS: Decreased breath sounds at the bases, scattered rhonchi. HEART: S1, S2. No gallops or murmurs. PPM site looks clean. ABDOMEN: Soft, obese, nontender, nondistended. EXTREMITIES: No edema, no cyanosis. DERMATOLOGIC: Warm, dry. No generalized rash. NEUROLOGIC: Alert and oriented x 3, grossly nonfocal. PSYCHIATRIC: Cooperative, appropriate mood and affect. LABORATORY DATA: COVID-19 positive. Influenza screen negative. WBC 7.4, hemoglobin 14.9, hematocrit 45, platelets 177, lymphocytes 13%, AST 93, ALT 61, alkaline phosphatase 45, creatinine is down to 1.4. UA negative. IMAGING: Chest x-ray shows right-sided pacemaker, mild left lung interstitial infiltrate, worsening. IMPRESSION: 1. Fever. 2. COVID-19 infection. 3. Sepsis. 4. Bacteremia, 2/8 bottles present on admission with gram-positive cocci in clusters.ID pending 5. Acute hypoxic respiratory failure on NRB. 6. Acute kidney injury. 7. Status post permanent pacemaker. 8. Abnormal AST. RECOMMENDATIONS: 1. Start remdesivir. 2. Start daptomycin, may need renal dosing. 3. Continue empiric ceftriaxone and doxycycline for now. 4. Continue steroids. 5. Follow up labs and cultures. 6. Continue supportive care. 7. Pulmonary team consulted Discussed with RN. Thank you for allowing me to participate in this patient's care. If you have any questions, do not hesitate to contact me. EDSON MORENO MD DR: ROSALIE/joe JOB#: [id number] / [id number] CECILE
[2020-04-15] MEDS ORDERED: HALOPERIDOL LACTATE 5 MG/ML VIAL. IVP PRN (17:45)
[2020-04-15] MEDS ORDERED: ZIPRASIDONE IM 20 MG VIAL. IM ONE (17:45)
[2020-04-15 19:00] VITALS: BP 142/110
--- NOTE | 2020-04-15 20:00 | NUR ---
1933 pt agitated not wanting to leave bipap on. ativan prn given. 1999 pt calm. call to rt to come assess pt. Resp now 30-40 a min. sats remain 88-89%. bipap settings are 18/ rate 20 100% o2. 2014 resp here. settings changed 03/02 rate 20 100% o2. Sats 87-90%. abg redrawn. 2039 message left for to call me. [address] arevalo. orders received. ICU carey charge nurse notified for icu bed.
[2020-04-15 20:32] LABS: BASE EXCESS ABG -4 mmol/L (-3-3); HCO3 ABG 19 mmol/L (21-28); PCO2 ABG 31 mmHg (35-46); PO2 ABG 59 mmHg (65-108); SAT O2 ABG 89 % (92-99)
[2020-04-15 20:42] LABS: FIO2 ABG 100
[2020-04-15] MEDS: EZETIMIBE 10 MG TABLET. PO SCH (21:00)
[2020-04-15] MEDS: ATORVASTATIN CALCIUM 40 MG TABLET. PO SCH (21:00)
[2020-04-15] MEDS: METOPROLOL SUCC 24HR ER 25 MG TAB.ER.24H. PO SCH (21:00)
--- NOTE | 2020-04-15 21:00 | NUR ---
Call to pts Annie. Pt not doing well respiratory mejía. If pts heart stops beating or pt stops breathing pt is to be a full code. Annie states "do everything."
[2020-04-15] MEDS ORDERED: MORPHINE SULFATE 2 MG/ML VIAL. IV PRN (22:45)
--- NOTE | 2020-04-15 22:54 | NUR ---
Reported to room 254 for pt. in respiratory distress. Hamilton RN previously notified Dr. Julien and received order for intubation and transfer to ICU if pt. required. Upon arrival to unit pt. resting in chair, RR high 30's with O2 sats ~92% on BiPAP. Decision made to not perform intubation at this time. Requested pt's RN contact ICU if pt unable to maintain saturations >88% on current settings and continue to administer Ativan PRN as ordered.
[2020-04-15 22:59] VITALS: BP 111/62
[2020-04-16] VITALS (29 sets, daily range): BP systolic 72–177; BP diastolic 46–82
[2020-04-16 06:01] LABS: ALBUMIN 2.3 g/dL (3.4-5.0); CREATININE 1.8 mg/dL (0.7-1.3); GFR 36.2; PHOSPHORUS 3.8 mg/dL (2.6-4.7); POTASSIUM 4.6 mmol/L (3.5-5.1)
[2020-04-16] MEDS ORDERED: IV NORMAL SALINE 500ML BAG 500 ML IV PRN (07:00)
[2020-04-16] MEDS ORDERED: ATROPINE 0.5 MG/5 ML DISP.SYRINGE. IV PRN (07:00)
[2020-04-16] MEDS: DEXMEDETOMIDINE 400 MCG in IV NORMAL SALINE 100ML 96 ML IV PRN (07:11)
[2020-04-16] MEDS ORDERED: MIDAZOLAM HCL/PF 5 MG/5 ML VIAL. IV ONE (07:30)
[2020-04-16] MEDS: NOREPINEPHRINE VIAL 8 MG in IV DEXTROSE 5% 250 ML IV PRN ×2 (07:35→18:20)
[2020-04-16] MEDS ORDERED: SUCCINYLCHOLINE 200 MG/10 ML VIAL. ONE (07:38)
[2020-04-16] MEDS ORDERED: ETOMIDATE 20 MG/10 ML VIAL. IV ONE ×2 (07:38→08:15)
[2020-04-16] MEDS: MIDAZOLAM 100mg/100ml NS BAG 100 ML IV PRN ×2 (07:49→13:30)
[2020-04-16] MEDS ORDERED: SUCCINYLCHOLINE 200 MG/10 ML VIAL. IV ONE (08:15)
--- NOTE | 2020-04-16 08:45 | RAD ---
Examination: XR CHEST 1V History: Reason: ett placement and OG placement / Comparison/Correlation: 04/13/2020 Findings: Portable supine frontal view the chest was obtained. Enteric tube coils within the stomach to terminate near the gastroesophageal junction. Tracheal tube is in place. Abandoned left-sided lead s are present. Right-sided pacemaker and 2 associated leads noted. Heart size is normal. No pneumotho rax. Consolidation at the right lateral lower lung field and left base retrocardiac region noted. Dif fuse interstitial infiltrate is noted. Pulmonary vasculature congestion is present with interstitial edema. Interstitial edema noted. No acute bony process. Impression: New consolidation right lower lateral lung field and left basal retrocardiac region. Increased pulmon malou vasculature congestion. Pulmonary interstitial edema and infiltrates are present. Electronically signed by: Chi Perez MD (04/16/2020 8:43 AM) [id number]
--- NOTE | 2020-04-16 08:46 | PDOC ---
PULMONARY PROGRESS NOTES DATE: 04/16/20 TIME: 08:41 Subjective Continued to decompensate in his respiratory status required intubation this am Fever overnight Vitals Vital Signs Date Time Temp Pulse Resp B/P (MAP) Pulse Ox O2 Delivery O2 Flow Rate FiO2 04/16/20 08:12 80 109/49 (69) 04/16/20 07:48 20 04/16/20 04:26 95 BiPAP/CPAP 04/16/20 03:23 96.0 96.0 04/15/20 22:59 Comments Pt. seen during , visual exam preformed intubated RRR no edema/rash no accessory muscle use Labs Laboratory Tests Test 04/14/20 12:25 04/14/20 17:38 04/15/20 07:22 04/15/20 10:15 Glucose (Fingerstick) 163 mg/dL (70-99) 194 mg/dL (70-99) 185 mg/dL (70-99) Sodium Level 132 mmol/L (136-145) Potassium Level 4.1 mmol/L (3.5-5.1) Chloride Level 98 mmol/L (98-107) Carbon Dioxide Level 22 mmol/L (21-32) Anion Gap 12 (6-14) Blood Urea Nitrogen 49 mg/dL (8-26) Creatinine 1.6 mg/dL (0.7-1.3) Estimated GFR (Cockcroft-Gault) 41.5 Glucose Level 193 mg/dL (70-99) Calcium Level 9.6 mg/dL (8.5-10.1) Phosphorus Level 3.2 mg/dL (2.6-4.7) Albumin 2.7 g/dL (3.4-5.0) Test 04/15/20 11:55 04/15/20 16:10 04/15/20 17:11 04/15/20 20:15 Glucose (Fingerstick) 187 mg/dL (70-99) 275 mg/dL (70-99) O2 Saturation 86 % (92-99) 89 % (92-99) Arterial Blood pH 7.40 (7.35-7.45) 7.41 (7.35-7.45) Arterial Blood pCO2 at Patient Temp 30 mmHg (35-46) 31 mmHg (35-46) Arterial Blood pO2 at Patient Temp 53 mmHg (65-108) 59 mmHg (65-108) Arterial Blood HCO3 18 mmol/L (21-28) 19 mmol/L (21-28) Arterial Blood Base Excess -5 mmol/L (-3-3) -4 mmol/L (-3-3) FiO2 100 nrm 100 Test 04/15/20 20:54 04/16/20 05:00 Glucose (Fingerstick) 218 mg/dL (70-99) Sodium Level 134 mmol/L (136-145) Potassium Level 4.6 mmol/L (3.5-5.1) Chloride Level 100 mmol/L (98-107) Carbon Dioxide Level 20 mmol/L (21-32) Anion Gap 14 (6-14) Blood Urea Nitrogen 59 mg/dL (8-26) Creatinine 1.8 mg/dL (0.7-1.3) Estimated GFR (Cockcroft-Gault) 36.2 Glucose Level 219 mg/dL (70-99) Calcium Level 9.0 mg/dL (8.5-10.1) Phosphorus Level 3.8 mg/dL (2.6-4.7) Albumin 2.3 g/dL (3.4-5.0) Laboratory Tests Test 04/15/20 10:15 04/15/20 11:55 04/15/20 16:10 04/15/20 17:11 Sodium Level 132 mmol/L (136-145) Potassium Level 4.1 mmol/L (3.5-5.1) Chloride Level 98 mmol/L (98-107) Carbon Dioxide Level 22 mmol/L (21-32) Anion Gap 12 (6-14) Blood Urea Nitrogen 49 mg/dL (8-26) Creatinine 1.6 mg/dL (0.7-1.3) Estimated GFR (Cockcroft-Gault) 41.5 Glucose Level 193 mg/dL (70-99) Calcium Level 9.6 mg/dL (8.5-10.1) Phosphorus Level 3.2 mg/dL (2.6-4.7) Albumin 2.7 g/dL (3.4-5.0) Glucose (Fingerstick) 187 mg/dL (70-99) 275 mg/dL (70-99) O2 Saturation 86 % (92-99) Arterial Blood pH 7.40 (7.35-7.45) [facility] mmHg (35-46) Arterial Blood pO2 at Patient Temp 53 mmHg (65-108) Arterial Blood HCO3 18 mmol/L (21-28) Arterial Blood Base Excess -5 mmol/L (-3-3) FiO2 100 nrm Test 04/15/20 20:15 04/15/20 20:54 04/16/20 05:00 O2 Saturation 89 % (92-99) Arterial Blood pH 7.41 (7.35-7.45) Arterial Blood pCO2 at Patient Temp 31 mmHg (35-46) Arterial Blood pO2 at Patient Temp 59 mmHg (65-108) Arterial Blood HCO3 19 mmol/L (21-28) Arterial Blood Base Excess -4 mmol/L (-3-3) FiO2 100 Glucose (Fingerstick) 218 mg/dL (70-99) Sodium Level 134 mmol/L (136-145) Potassium Level 4.6 mmol/L (3.5-5.1) Chloride Level 100 mmol/L (98-107) Carbon Dioxide Level 20 mmol/L (21-32) Anion Gap 14 (6-14) Blood Urea Nitrogen 59 mg/dL (8-26) Creatinine 1.8 mg/dL (0.7-1.3) Estimated GFR (Cockcroft-Gault) 36.2 Glucose Level 219 mg/dL (70-99) Calcium Level 9.0 mg/dL (8.5-10.1) Phosphorus Level 3.8 mg/dL (2.6-4.7) Albumin 2.3 g/dL (3.4-5.0) Medications Active Scripts Medications Dose Route/Sig Max Daily Dose Days Date Category Mexiletine Hcl 150 Mg Capsule 150 Mg PO Q8HRS 04/13/20 Reported Omeprazole 40 Mg Capsule.dr 1 Cap PO DAILY 04/13/20 Reported Toprol Xl (Metoprolol Succinate) 25 Mg Tab.er.24h 2 Tab PO DAILY 30 04/13/20 Reported Accupril (Quinapril Hcl) 40 Mg Tablet 1 Tab PO DAILY 04/13/20 Reported Allopurinol 100 Mg Tablet 1 Tab PO DAILY 04/13/20 Reported Impression . IMPRESSION: 1. Acute hypoxemic respiratory failure, COVID-19 viral pneumonia. 2. Fever secondary to above. 3. Abnormal x-ray. 4. Acute exacerbation of chronic obstructive pulmonary disease. 5. Tobacco dependence, in remission, quit in 1985. 6. Diabetes. 7. Hypertension. 8. Morbid obesity. 9. Sars-Cov 2 Pos Plan . PLAN: intubated this am, continue current vent support A/C mode 100 Fi02 Follow CXR/ABG, makes changes as needed Continue steroids with slow taper will need full ten day course, started on 04/13 COVID-19 positive, isolation precautions Continue remdesivir, complete full 5 day course Follow ID recs for ABX: Dapto/Doxy/rocephin Follow nephrology recs-- improving renal function, monitor Consult education professional for tube feeding recs DVT/GI PPX D/W spa technician Time [id number] BROCK DOSS MD Apr 16, 2020 08:46
[2020-04-16] MEDS: LISINOPRIL 20 MG TABLET PO SCH (09:00)
[2020-04-16] MEDS: METOPROLOL SUCC 24HR ER 100 MG TAB.ER.24H. PO SCH (09:00)
[2020-04-16 09:53] LABS: BASE EXCESS ABG -4 mmol/L (-3-3); HCO3 ABG 22 mmol/L (21-28); PCO2 ABG 45 mmHg (35-46); PO2 ABG 95 mmHg (65-108); SAT O2 ABG 97 % (92-99)
[2020-04-16 09:56] LABS: FIO2 ABG 100
--- NOTE | 2020-04-16 10:21 | PDOC ---
PROGRESS NOTES Date of Service: DATE: 04/16/20 TIME: 10:21 Chief Complaint Chief Complaint impression 1. ACUTE HYPOXIC RESP FAILURE Continued to decompensate in his respiratory status required intubation 1/2 AM Fever overnight 2. HX pacemaker. 3. Mild left lung interstitial infiltrates with worsening compared to old studies from 2016. CONCERNING FOR COVID 19 SYNDROME New consolidation right lower lateral lung field and left basal retrocardiac region. Increased pulmonary vasculature congestion. Pulmonary interstitial edema and infiltrates are present. 04/16 4, MORBID OBESITY 5. GENERALIZED WEAKNESS plan icu bed ID CONSULT cont remdesivir.04/15/2020 CONT daptomycin Continue doxycycline Continue steroids. PULM CONSULT cont remdesivir.04/15/2020 DC daptomycin Change ceftriaxone to Zosyn BLOOD CULTURE LC Preliminary Preliminary FINAL ID= [STAPHYLOCOCCUS EPIDERMIDIS] 34 MIN CC TIME History of Present Illness History of Present Illness 04/16/2020 Patient seen and examined Chart reviewed Discussed with RN Patient is on Vent IV doxycycline currently Identification/Chief Complaint Chief Complaint DYSPNEA, COUGH WORSE SINCE History of Present Illness History of Present Illness 85 yr old male seen in er with worsening cough since 04-08, now more SOA , HYPOXIC ON PRESENTATION Past Medical History Cardiovascular: HTN, Hyperlipidemia Family History Family History: High Cholestrol, Hypertension Social History Smoke: No ALCOHOL: none Drugs: None Allergies Allergies: Coded Allergies: No Known Drug Allergies (Unverified , 04/13/20) Vitals Vitals Vital Signs Date Time Temp Pulse Resp B/P (MAP) Pulse Ox O2 Delivery O2 Flow Rate FiO2 04/16/20 08:15 90 Ventilator 04/16/20 08:12 80 109/49 (69) 04/16/20 07:48 20 04/16/20 03:23 96.0 96.0 04/15/20 22:59 Physical Exam Physical Exam sedated on vent Eyes: PERRLA, EOMI, conjunctiva normal, no discharge. [] Neck: Normal range of motion, no tenderness, supple, no stridor. [] Cardiovascular:Heart rate regular rhythm, no murmur [] Lungs & Thorax: Bilateral breath sounds coarse Abdomen: Bowel sounds normal, soft, no tenderness, no masses, no pulsatile masses. [] Skin: Warm, dry, no erythema, no rash. [] Back: No tenderness, no CVA tenderness. [] Extremities: No tenderness, no cyanosis, no clubbing, ROM intact, no edema. [] Neurologic: Alert and oriented X 3, normal motor function, normal sensory function, no focal deficits noted. [] Psychologic: Affect normal, judgment normal, mood normal. [] General: Alert, Oriented X3, Cooperative HEENT: Atraumatic, EOMI Heart: RRR Breasts: Not examined Abdomen: Normal bowel sounds, Soft, No tenderness Rectal Exam: not examined PELVIC: Examination not indicated Extremities: No clubbing, No cyanosis Neuro: Normal speech, Cranial nerves 3-12 NL General: Alert, Oriented X3, Cooperative Abdomen: Normal bowel sounds, Soft, No tenderness Extremities: No clubbing, No cyanosis Labs LABS RECD: 04/13/[address]: HUGO NUÑEZ APRN SOURCE: BLOOD ENTR: 04/15/[address]: Luz Elena PRADHAN MD SPDESC: NON,STAFF ORDERED: BLD CULT - LC Procedure Result BLOOD CULTURE LC Preliminary Preliminary FINAL ID= [STAPHYLOCOCCUS EPIDERMIDIS] Growth of organism in only one of multiple sets; isolation does not necessarily indicate infection. Contact Microbiology Lab if further testing is clinically warranted. STAPHYLOCOCCUS EPIDERMIDIS Unless otherwise specified, Testing Performed by: [address] [address] For Inquires, the Physician may contact the Microbiology department at [phone] Examination: XR CHEST 1V History: Reason: ett placement and OG placement / Comparison/Correlation: 04/13/2020 Findings: Portable supine frontal view the chest was obtained. Enteric tube coils within the stomach to terminate near the gastroesophageal junction. Tracheal tube is in place. Abandoned left-sided leads are present. Right-sided pacemaker and 2 associated leads noted. Heart size is normal. No pneumothorax. Consolidation at the right lateral lower lung field and left base retrocardiac region noted. Diffuse interstitial infiltrate is noted. Pulmonary vasculature congestion is present with interstitial edema. Interstitial edema noted. No acute bony process. Impression: New consolidation right lower lateral lung field and left basal retrocardiac region. Increased pulmonary vasculature congestion. Pulmonary interstitial edema and infiltrates are present. Electronically signed by: Chi Metcalf MD (04/16/2020 8:43 AM) [id number] DICTATED and SIGNED BY: CHI METCALF MD Examination: XR CHEST 1V History: Reason: ett placement and OG placement / Comparison/Correlation: 04/13/2020 Findings: Portable supine frontal view the chest was obtained. Enteric tube coils within the stomach to terminate near the gastroesophageal junction. Tracheal tube is in place. Abandoned left-sided leads are present. Right-sided pacemaker and 2 associated leads noted. Heart size is normal. No pneumothorax. Consolidation at the right lateral lower lung field and left base retrocardiac region noted. Diffuse interstitial infiltrate is noted. Pulmonary vasculature congestion is present with interstitial edema. Interstitial edema noted. No acute bony process. Impression: New consolidation right lower lateral lung field and left basal retrocardiac region. Increased pulmonary vasculature congestion. Pulmonary interstitial edema and infiltrates are present. Electronically signed by: Chi Metcalf MD (04/16/2020 8:43 AM) [id number] DICTATED and SIGNED BY: CHI METCALF MD DATE: 04/16/20 [id number] Laboratory Tests Test 04/15/20 11:55 04/15/20 16:10 04/15/20 17:11 04/15/20 20:15 Glucose (Fingerstick) 187 mg/dL (70-99) 275 mg/dL (70-99) O2 Saturation 86 % (92-99) 89 % (92-99) Arterial Blood pH 7.40 (7.35-7.45) 7.41 (7.35-7.45) Arterial Blood pCO2 at Patient Temp 30 mmHg (35-46) 31 mmHg (35-46) Arterial Blood pO2 at Patient Temp 53 mmHg (65-108) 59 mmHg (65-108) Arterial Blood HCO3 18 mmol/L (21-28) 19 mmol/L (21-28) Arterial Blood Base Excess -5 mmol/L (-3-3) -4 mmol/L (-3-3) FiO2 100 nrm 100 Test 04/15/20 20:54 04/16/20 05:00 04/16/20 09:30 Glucose (Fingerstick) 218 mg/dL (70-99) Sodium Level 134 mmol/L (136-145) Potassium Level 4.6 mmol/L (3.5-5.1) Chloride Level 100 mmol/L (98-107) Carbon Dioxide Level 20 mmol/L (21-32) Anion Gap 14 (6-14) Blood Urea Nitrogen 59 mg/dL (8-26) Creatinine 1.8 mg/dL (0.7-1.3) Estimated GFR (Cockcroft-Gault) 36.2 Glucose Level 219 mg/dL (70-99) Calcium Level 9.0 mg/dL (8.5-10.1) Phosphorus Level 3.8 mg/dL (2.6-4.7) Albumin 2.3 g/dL (3.4-5.0) O2 Saturation 97 % (92-99) Arterial Blood pH 7.31 (7.35-7.45) Arterial Blood pCO2 at Patient Temp 45 mmHg (35-46) Arterial Blood pO2 at Patient Temp 95 mmHg (65-108) Arterial Blood HCO3 22 mmol/L (21-28) Arterial Blood Base Excess -4 mmol/L (-3-3) FiO2 100 Assessment and Plan Assessmemt and Plan Problems Medical Problems: (1) Person under investigation for COVID-19 Status: Acute (2) Pneumonia Status: Acute Comment Review of Relevant I have reviewed the following items andrea (where applicable) has been applied. Labs Laboratory Tests Test 04/14/20 12:25 04/14/20 17:38 04/15/20 07:22 04/15/20 10:15 Glucose (Fingerstick) 163 mg/dL (70-99) 194 mg/dL (70-99) 185 mg/dL (70-99) Sodium Level 132 mmol/L (136-145) Potassium Level 4.1 mmol/L (3.5-5.1) Chloride Level 98 mmol/L (98-107) Carbon Dioxide Level 22 mmol/L (21-32) Anion Gap 12 (6-14) Blood Urea Nitrogen 49 mg/dL (8-26) Creatinine 1.6 mg/dL (0.7-1.3) Estimated GFR (Cockcroft-Gault) 41.5 Glucose Level 193 mg/dL (70-99) Calcium Level 9.6 mg/dL (8.5-10.1) Phosphorus Level 3.2 mg/dL (2.6-4.7) Albumin 2.7 g/dL (3.4-5.0) Test 04/15/20 11:55 04/15/20 16:10 04/15/20 17:11 04/15/20 20:15 Glucose (Fingerstick) 187 mg/dL (70-99) 275 mg/dL (70-99) O2 Saturation 86 % (92-99) 89 % (92-99) Arterial Blood pH 7.40 (7.35-7.45) 7.41 (7.35-7.45) Arterial Blood pCO2 at Patient Temp 30 mmHg (35-46) 31 mmHg (35-46) Arterial Blood pO2 at Patient Temp 53 mmHg (65-108) 59 mmHg (65-108) Arterial Blood HCO3 18 mmol/L (21-28) 19 mmol/L (21-28) Arterial Blood Base Excess -5 mmol/L (-3-3) -4 mmol/L (-3-3) FiO2 100 nrm 100 Test 04/15/20 20:54 04/16/20 05:00 04/16/20 09:30 Glucose (Fingerstick) 218 mg/dL (70-99) Sodium Level 134 mmol/L (136-145) Potassium Level 4.6 mmol/L (3.5-5.1) Chloride Level 100 mmol/L (98-107) Carbon Dioxide Level 20 mmol/L (21-32) Anion Gap 14 (6-14) Blood Urea Nitrogen 59 mg/dL (8-26) Creatinine 1.8 mg/dL (0.7-1.3) Estimated GFR (Cockcroft-Gault) 36.2 Glucose Level 219 mg/dL (70-99) Calcium Level 9.0 mg/dL (8.5-10.1) Phosphorus Level 3.8 mg/dL (2.6-4.7) Albumin 2.3 g/dL (3.4-5.0) O2 Saturation 97 % (92-99) Arterial Blood pH 7.31 (7.35-7.45) Arterial Blood pCO2 at Patient Temp 45 mmHg (35-46) Arterial Blood pO2 at Patient Temp 95 mmHg (65-108) Arterial Blood HCO3 22 mmol/L (21-28) Arterial Blood Base Excess -4 mmol/L (-3-3) FiO2 100 Laboratory Tests Test 04/15/20 11:55 04/15/20 16:10 04/15/20 17:11 04/15/20 20:15 Glucose (Fingerstick) 187 mg/dL (70-99) 275 mg/dL (70-99) O2 Saturation 86 % (92-99) 89 % (92-99) Arterial Blood pH 7.40 (7.35-7.45) 7.41 (7.35-7.45) Arterial Blood pCO2 at Patient Temp 30 mmHg (35-46) 31 mmHg (35-46) Arterial Blood pO2 at Patient Temp 53 mmHg (65-108) 59 mmHg (65-108) Arterial Blood HCO3 18 mmol/L (21-28) 19 mmol/L (21-28) Arterial Blood Base Excess -5 mmol/L (-3-3) -4 mmol/L (-3-3) FiO2 100 nrm 100 Test 04/15/20 20:54 04/16/20 05:00 04/16/20 09:30 Glucose (Fingerstick) 218 mg/dL (70-99) Sodium Level 134 mmol/L (136-145) Potassium Level 4.6 mmol/L (3.5-5.1) Chloride Level 100 mmol/L (98-107) Carbon Dioxide Level 20 mmol/L (21-32) Anion Gap 14 (6-14) Blood Urea Nitrogen 59 mg/dL (8-26) Creatinine 1.8 mg/dL (0.7-1.3) Estimated GFR (Cockcroft-Gault) 36.2 Glucose Level 219 mg/dL (70-99) Calcium Level 9.0 mg/dL (8.5-10.1) Phosphorus Level 3.8 mg/dL (2.6-4.7) Albumin 2.3 g/dL (3.4-5.0) O2 Saturation 97 % (92-99) Arterial Blood pH 7.31 (7.35-7.45) Arterial Blood pCO2 at Patient Temp 45 mmHg (35-46) Arterial Blood pO2 at Patient Temp 95 mmHg (65-108) Arterial Blood HCO3 22 mmol/L (21-28) Arterial Blood Base Excess -4 mmol/L (-3-3) FiO2 100 Microbiology 04/13/20 Blood Culture - Preliminary, Resulted NO GROWTH AFTER 2 DAYS Medications Current Medications Ceftriaxone Sodium (Rocephin) 1 gm 1X ONCE IVP Last administered on 04/13/20at 16:40; Start 04/13/20 at 14:45; Stop 04/13/20 at 14:46; Status DC Azithromycin 250 ml @ 250 mls/hr 1X ONCE IV Last administered on 04/13/20at 16:40; Start 04/13/20 at 14:45; Stop 04/13/20 at 15:44; Status DC Dexamethasone Sodium Phosphate (Decadron) 6 mg BID IVP Last administered on 04/15/20 22:14; Start 04/13/20 at 21:00 Ceftriaxone Sodium (Rocephin) 1 gm Q24H IVP Last administered on 04/15/20at 17:28; Start 04/14/20 at 17:00 Doxycycline Hyclate 100 mg/ Dextrose 100 ml @ 50 mls/hr Q12HR IV Last administered on 04/15/20 22:14; Start 04/13/20 at 21:00 Sodium Chloride (Normal Saline Flush) 3 ml QSHIFT PRN IV AFTER MEDS AND BLOOD DRAWS; Start 04/13/20 at 17:00 Ondansetron HCl (Zofran) 4 mg PRN Q4HRS PRN IV NAUSEA/VOMITING; Start 04/13/20 at 17:00 Acetaminophen (Tylenol) 650 mg PRN Q4HRS PRN PO TEMP OVER 100.4F OR MILD PAIN Last administered on 04/13/20at 21:37; Start 04/13/20 at 17:00 Al Hydroxide/Mg Hydroxide (Mylanta Plus Xs) 30 ml PRN DAILY PRN PO HEARTBURN / GAS; Start 04/13/20 at 17:00 Docusate Sodium (Colace) 100 mg PRN BID PRN PO HARD STOOLS; Start 04/13/20 at 17:00 Albuterol Sulfate (Ventolin Neb Soln) 2.5 mg PRN Q4HRS PRN NEB SHORTNESS OF BREATH; Start 04/13/20 at 17:00 Guaifenesin (Robitussin) 200 mg PRN Q4HRS PRN PO COUGH; Start 04/13/20 at 17:00 Enoxaparin Sodium (Lovenox 40mg Syringe) 40 mg BID SQ Last administered on 04/15/20at 22:14; Start 04/13/20 at 18:00 Allopurinol (Zyloprim) 100 mg DAILY PO Last administered on 04/15/20at 10:12; Start 04/14/20 at 13:00 Amlodipine Besylate (Norvasc) 10 mg DAILY PO ; Start 04/14/20 at 13:00 Atorvastatin Calcium (Lipitor) 40 mg HS PO Last administered on 04/14/20at 21:13; Start 04/14/20 at 21:00 EZETIMIBE (Zetia) 10 mg HS PO Last administered on 04/14/20at 21:13; Start 04/14/20 at 21:00 Metoprolol Succinate (Toprol Xl) 100 mg DAILY PO Last administered on 04/15/20at 10:12; Start 04/14/20 at 13:00 Metoprolol Succinate (Toprol Xl) 25 mg HS PO Last administered on 04/14/20at 21:14; Start 04/14/20 at 21:00 Fenofibrate (Lofibra) 134 mg DAILY PO Last administered on 04/15/20at 10:08; Start 04/14/20 at 13:00 Glimepiride (Amaryl) 1 mg DAILY PO Last administered on 04/15/20 10:09; Start 04/14/20 at 13:00 Pantoprazole Sodium (Protonix) 40 mg DAILYAC PO Last administered on 04/15/20at 10:11; Start 04/14/20 at 13:00 Lisinopril (Prinivil) 40 mg DAILY PO Last administered on 04/15/20at 10:09; Start 04/14/20 at 13:00 Remdesivir 200 mg/ Sodium Chloride 210 ml @ 210 mls/hr 1X ONCE IV Last administered on 04/15/20at 16:25; Start 04/15/20 at 14:00; Stop 04/15/20 at 14:59; Status DC Remdesivir 100 mg/ Sodium Chloride 230 ml @ 460 mls/hr Q24H IV ; Start 04/16/20 at 14:00; Stop 04/19/20 at 14:29 Daptomycin 500 mg/ Sodium Chloride 50 ml @ 100 mls/hr Q24H IV Last administered on 04/15/20at 15:18; Start 04/15/20 at 15:00 Albuterol Sulfate (Ventolin Hfa) 1 puff PRN Q4HRS PRN INH SHORTNESS OF BREATH Last administered on 04/15/20at 14:13; Start 04/15/20 at 12:30 Lorazepam (Ativan Inj) 1 mg PRN Q4HRS PRN IVP ANXIETY / AGITATION Last administered on 04/15/20at 19:34; Start 04/15/20 at 13:45; Stop 04/15/20 at 22:40; Status DC Ziprasidone (Geodon Im) 20 mg 1X ONCE IM ; Start 04/15/20 at 17:45; Stop 04/15/20 at 17:46; Status DC Haloperidol Lactate (Haldol Inj) 5 mg PRN Q6HRS PRN IVP AGITATION Last administered on 04/15/20at 18:10; Start 04/15/20 at 17:45 Lorazepam (Ativan Inj) 1 mg PRN Q2HRS PRN IVP ANXIETY / AGITATION Last administered on 04/16/20at 04:57; Start 04/15/20 at 22:45 Morphine Sulfate (Morphine Sulfate) 2 mg PRN Q2HR PRN IV SEVERE PAIN 7-10 Last administered on 04/16/20at 05:13; Start 04/15/20 at 22:45 Dexmedetomidine HCl 400 mcg/ Sodium Chloride 100 ml @ 0 mls/hr CONT PRN IV PER PROTOCOL Last administered on 04/16/20at 07:11; Start 04/16/20 at 07:00 Sodium Chloride 500 ml @ 500 mls/hr 1X PRN PRN IV SEE COMMENTS; Start 04/16/20 at 07:00 Atropine Sulfate (ATROPINE 0.5mg SYRINGE) 0.5 mg PRN Q5MIN PRN IV SEE COMMENTS; Start 04/16/20 at 07:00 Norepinephrine Bitartrate 8 mg/ Dextrose 258 ml @ 22.311 mls/ hr CONT PRN IV PER PROTOCOL Last administered on 04/16/20at 07:35; Start 04/16/20 at 07:30 Midazolam HCl (Versed) 5 mg 1X ONCE IV Last administered on 04/16/20at 07:51; Start 04/16/20 at 07:30; Stop 04/16/20 at 07:31; Status DC Succinylcholine Chloride (Anectine) 200 mg STK-MED ONCE .ROUTE ; Start 04/16/20 at 07:38; Stop 04/16/20 at 07:38; Status DC Etomidate (Amidate) 20 mg STK-MED ONCE IV ; Start 04/16/20 at 07:38; Stop 04/16/20 at 07:38; Status DC Midazolam HCl 100 ml @ 1 mls/hr CONT PRN IV SEE I/O RECORD Last administered on 04/16/20at 07:49; Start 04/16/20 at 07:45 Fentanyl Citrate 30 ml @ 0 mls/hr CONT PRN IV SEE PROTOCOL Last administered on 04/16/20at 07:48; Start 04/16/20 at 07:45 Succinylcholine Chloride (Anectine) 100 mg 1X ONCE IV Last administered on 04/16/20at 08:15; Start 04/16/20 at 08:15; Stop 04/16/20 at 08:16; Status DC Etomidate (Amidate) 12 mg 1X ONCE IV Last administered on 04/16/20at 08:14; Start 04/16/20 at 08:15; Stop 04/16/20 at 08:16; Status DC Active Scripts Active Reported Glimepiride 1 Mg Tablet 1 Tab PO DAILY Metoprolol Succinate ( Xl ) (Metoprolol Succinate) 100 Mg Tab.er.24h 1 Tab PO DAILY Zetia (Ezetimibe) 10 Mg Tablet 1 Tab PO HS 30 Days Fenofibrate 160 Mg Tablet 1 Tab PO DAILY Atorvastatin Calcium 40 Mg Tablet 1 Tab PO HS Amlodipine Besylate 10 Mg Tablet 1 Tab PO DAILY Omeprazole 20 Mg Capsule.dr 1 Cap PO DAILY Mexiletine Hcl 150 Mg Capsule 150 Mg PO Q8HRS Toprol Xl (Metoprolol Succinate) 25 Mg Tab.er.24h 1 Tab PO HS 30 Days Accupril (Quinapril Hcl) 40 Mg Tablet 1 Tab PO DAILY Allopurinol 100 Mg Tablet 1 Tab PO DAILY Vitals/I & O Vital Sign - Last 24 Hours 04/15/20 04/15/20 04/15/20 04/15/20 11:00 15:00 17:05 19:00 Temp 96.2 97.6 97.9 96.2 97.6 97.9 Pulse 81 79 79 Resp 20 20 34 B/P (MAP) 115/60 (78) 108/57 (74) 142/110 (121) Pulse Ox 96 92 92 92 O2 Delivery Nasal Cannula Nasal Cannula BiPAP/CPAP Nasal Cannula O2 Flow Rate 4.0 4.0 4.0 04/15/20 04/15/20 04/15/20 04/16/20 19:54 20:47 22:59 01:00 Temp 97.6 97.6 Pulse 82 Resp 38 B/P (MAP) 111/62 (78) Pulse Ox 86 90 87 O2 Delivery Bi-pap BiPAP/CPAP BiPAP/CPAP BiPAP/CPAP O2 Flow Rate 04/16/20 04/16/20 04/16/20 04/16/20 03:23 04:26 05:13 07:48 Temp 96.0 96.0 Pulse 79 Resp 30 18 20 B/P (MAP) 90/56 (67) Pulse Ox 90 95 O2 Delivery BiPAP/CPAP BiPAP/CPAP 04/16/20 04/16/20 08:12 08:15 Pulse 80 B/P (MAP) 109/49 (69) Pulse Ox 90 O2 Delivery Ventilator Intake and Output 04/15/20 04/15/20 04/16/20 15:00 23:00 07:00 Intake Total 60 ml 100 ml Output Total 250 ml Balance -190 ml 100 ml Justicifation of Admission Dx: Justifications for Admission: Justification of Admission Dx: Yes Comminuty Aquired Pneumonia: Hemodynamic Instability BRYON BARRAZA MD Apr 16, 2020 10:21
[2020-04-16] MEDS: DOXYCYCLINE HYCLATE 100 MG in IV DEXTROSE 5% 100ML 100 ML IV SCH ×2 (11:52→20:48)
[2020-04-16] MEDS: ENOXAPARIN 40 MG/0.4 ML SYRINGE. SQ SCH ×2 (11:53→20:49)
[2020-04-16] MEDS: FENOFIBRATE,MICRONIZED 134 MG CAPSULE PO SCH (11:53)
[2020-04-16] MEDS: ALLOPURINOL 100 MG TABLET. PO SCH (11:54)
[2020-04-16] MEDS: GLIMEPIRIDE 2 MG TABLET. PO SCH (11:54)
[2020-04-16] MEDS: DEXAMETHASONE SOD PHOS 4 MG/ML VIAL IVP SCH ×2 (11:54→20:48)
--- NOTE | 2020-04-16 12:26 | PDOC ---
Infectious Disease Note Subjective: Subjective Patient underwent intubation earlier this morning due to respiratory status deterioration Intubated/sedated On Levophed Vital Signs: Vital Signs Vital Signs Date Time Temp Pulse Resp B/P (MAP) Pulse Ox O2 Delivery O2 Flow Rate FiO2 04/16/20 12:19 97.9 80 26 108/54 (72) 98 Ventilator 97.9 04/15/20 22:59 Physical Exam: PHYSICAL EXAM GENERAL:Intubated,sedated HEENT: Normocephalic, atraumatic, anicteric.ETT/OGT + LUNGS: Decreased breath sounds at the bases, scattered rhonchi. HEART: S1, S2. No gallops or murmurs. PPM site looks clean. ABDOMEN: Soft, obese, nontender, nondistended. Aguilar in place EXTREMITIES: No edema, no cyanosis. DERMATOLOGIC: Warm, dry. No generalized rash. NEUROLOGIC: Alert and oriented x 3, grossly nonfocal. PSYCHIATRIC: Cooperative, appropriate mood and affect. Medications: Inpatient Meds: Current Medications Medications (Trade) Dose Ordered Sig/Damion Start Time Stop Time Status Last Admin Dose Admin Acetaminophen (Tylenol) 650 mg PRN Q4HRS PRN 04/13/20 17:00 04/13/20 21:37 650 MG Al Hydroxide/Mg Hydroxide (Mylanta Plus Xs) 30 ml PRN DAILY PRN 04/13/20 17:00 Albuterol Sulfate (Ventolin Hfa) 1 puff PRN Q4HRS PRN 04/15/20 12:30 04/15/20 14:13 1 PUFF Albuterol Sulfate (Ventolin Neb Soln) 2.5 mg PRN Q4HRS PRN 04/13/20 17:00 Allopurinol (Zyloprim) 100 mg DAILY 04/14/20 13:00 04/16/20 11:54 100 MG Amlodipine Besylate (Norvasc) 10 mg DAILY 04/14/20 13:00 Atorvastatin Calcium (Lipitor) 40 mg HS 04/14/20 21:00 04/14/20 21:13 40 MG Atropine Sulfate (ATROPINE 0.5mg SYRINGE) 0.5 mg PRN Q5MIN PRN 04/16/20 07:00 Azithromycin 250 ml @ 250 mls/hr 1X ONCE 04/13/20 14:45 04/13/20 15:44 DC 04/13/20 16:40 250 MLS/HR Ceftriaxone Sodium (Rocephin) 1 gm Q24H 04/14/20 17:00 04/15/20 17:28 1 GM Daptomycin 500 mg/ Sodium Chloride 50 ml @ 100 mls/hr Q24H 04/15/20 15:00 04/15/20 15:18 100 MLS/HR Dexamethasone Sodium Phosphate (Decadron) 6 mg BID 04/13/20 21:00 04/16/20 11:54 6 MG Dexmedetomidine HCl 400 mcg/ Sodium Chloride 100 ml @ 0 mls/hr CONT PRN 04/16/20 07:00 04/16/20 07:11 5.75 MLS/HR Docusate Sodium (Colace) 100 mg PRN BID PRN 04/13/20 17:00 Doxycycline Hyclate 100 mg/ Dextrose 100 ml @ 50 mls/hr Q12HR 04/13/20 21:00 04/16/20 11:52 50 MLS/HR Enoxaparin Sodium (Lovenox 40mg Syringe) 40 mg BID 04/13/20 18:00 04/16/20 11:53 40 MG Etomidate (Amidate) 12 mg 1X ONCE 04/16/20 08:15 04/16/20 08:16 DC 04/16/20 08:14 12 MG EZETIMIBE (Zetia) 10 mg HS 04/14/20 21:00 04/14/20 21:13 10 MG Fenofibrate (Lofibra) 134 mg DAILY 04/14/20 13:00 04/16/20 11:53 134 MG Fentanyl Citrate 30 ml @ 0 mls/hr CONT PRN 04/16/20 07:45 04/16/20 07:48 3.75 MLS/HR Glimepiride (Amaryl) 1 mg DAILY 04/14/20 13:00 04/16/20 11:54 1 MG Guaifenesin (Robitussin) 200 mg PRN Q4HRS PRN 04/13/20 17:00 Haloperidol Lactate (Haldol Inj) 5 mg PRN Q6HRS PRN 04/15/20 17:45 04/15/20 18:10 5 MG Lisinopril (Prinivil) 40 mg DAILY 04/14/20 13:00 04/15/20 10:09 40 MG Lorazepam (Ativan Inj) 1 mg PRN Q2HRS PRN 04/15/20 22:45 04/16/20 04:57 1 MG Metoprolol Succinate (Toprol Xl) 25 mg HS 04/14/20 21:00 04/14/20 21:14 25 MG Midazolam HCl 100 ml @ 1 mls/hr CONT PRN 04/16/20 07:45 04/16/20 07:49 10 MLS/HR Midazolam HCl (Versed) 5 mg 1X ONCE 04/16/20 07:30 04/16/20 07:31 DC 04/16/20 07:51 5 MG Morphine Sulfate (Morphine Sulfate) 2 mg PRN Q2HR PRN 04/15/20 22:45 04/16/20 05:13 2 MG Norepinephrine Bitartrate 8 mg/ Dextrose 258 ml @ 22.311 mls/ hr CONT PRN 04/16/20 07:30 04/16/20 07:35 22.311 MLS/HR Ondansetron HCl (Zofran) 4 mg PRN Q4HRS PRN 04/13/20 17:00 Pantoprazole Sodium (PROTONIX VIAL for IV PUSH) 40 mg DAILYAC 04/17/20 07:30 Pantoprazole Sodium (Protonix) 40 mg DAILYAC 04/14/20 13:00 04/16/20 11:39 DC 04/15/20 10:11 40 MG Remdesivir 100 mg/ Sodium Chloride 230 ml @ 460 mls/hr Q24H 04/16/20 14:00 04/19/20 14:29 Remdesivir 200 mg/ Sodium Chloride 210 ml @ 210 mls/hr 1X ONCE 04/15/20 14:00 04/15/20 14:59 DC 04/15/20 16:25 210 MLS/HR Sodium Chloride 500 ml @ 500 mls/hr 1X PRN PRN 04/16/20 07:00 Sodium Chloride (Normal Saline Flush) 3 ml QSHIFT PRN 04/13/20 17:00 Succinylcholine Chloride (Anectine) 100 mg 1X ONCE 04/16/20 08:15 04/16/20 08:16 DC 04/16/20 08:15 100 MG Ziprasidone (Geodon Im) 20 mg 1X ONCE 04/15/20 17:45 04/15/20 17:46 DC Labs: Lab Laboratory Tests Test 04/15/20 16:10 04/15/20 17:11 04/15/20 20:15 04/15/20 20:54 O2 Saturation 86 % (92-99) 89 % (92-99) Arterial Blood pH 7.40 (7.35-7.45) 7.41 (7.35-7.45) Arterial Blood pCO2 at Patient Temp 30 mmHg (35-46) 31 mmHg (35-46) Arterial Blood pO2 at Patient Temp 53 mmHg (65-108) 59 mmHg (65-108) Arterial Blood HCO3 18 mmol/L (21-28) 19 mmol/L (21-28) Arterial Blood Base Excess -5 mmol/L (-3-3) -4 mmol/L (-3-3) FiO2 100 nrm 100 Glucose (Fingerstick) 275 mg/dL (70-99) 218 mg/dL (70-99) Test 04/16/20 05:00 04/16/20 09:30 Sodium Level 134 mmol/L (136-145) Potassium Level 4.6 mmol/L (3.5-5.1) Chloride Level 100 mmol/L (98-107) Carbon Dioxide Level 20 mmol/L (21-32) Anion Gap 14 (6-14) Blood Urea Nitrogen 59 mg/dL (8-26) Creatinine 1.8 mg/dL (0.7-1.3) Estimated GFR (Cockcroft-Gault) 36.2 Glucose Level 219 mg/dL (70-99) Calcium Level 9.0 mg/dL (8.5-10.1) Phosphorus Level 3.8 mg/dL (2.6-4.7) Albumin 2.3 g/dL (3.4-5.0) O2 Saturation 97 % (92-99) Arterial Blood pH 7.31 (7.35-7.45) Arterial Blood pCO2 at Patient Temp 45 mmHg (35-46) Arterial Blood pO2 at Patient Temp 95 mmHg (65-108) Arterial Blood HCO3 22 mmol/L (21-28) Arterial Blood Base Excess -4 mmol/L (-3-3) FiO2 100 Objective: Assessment: 1. Fever. 2. COVID-19 infection. 3. Sepsis. 4. Bacteremia, 2/8 bottles present on admission with gram-positive cocci in clusters.Co N staph likely contaminant 5. Acute hypoxic respiratory failure.s/p intubation 6. Acute kidney injury. 7. Status post permanent pacemaker. 8. Abnormal AST. Plan: Plan of Care Cont supportive care cont remdesivir.04/15/2020 DC daptomycin Change ceftriaxone to Zosyn Continue doxycycline Continue steroids. Follow up labs and cultures. Discussed with RN. EDSON MORENO MD Apr 16, 2020 12:26
[2020-04-16] MEDS: PIPERACILLIN/TAZOBACTAM 3.375 GM in IV NORMAL SALINE 50ML 50 ML IV SCH ×2 (13:36→18:00)
--- NOTE | 2020-04-16 14:17 | PDOC ---
DATE OF SERVICE: DOS: DATE: 04/16/20 TIME: 14:10 SUBJECTIVE ROS Follow-up for MEJIA Patient intubated early this morning due to persistent respiratory failure. Currently on the ventilator sedated and intubated. Currently on a small dose of norepinephrine OBJECTIVE Vital Signs Vital Signs Date Time Temp Pulse Resp B/P (MAP) Pulse Ox O2 Delivery O2 Flow Rate FiO2 04/16/20 13:33 86/49 (61) 04/16/20 13:11 80 26 99 Ventilator 04/16/20 12:19 97.9 97.9 04/15/20 22:59 I & 0 Intake and Output 04/16/20 07:00 Intake Total 160 ml Output Total 250 ml Balance -90 ml Intake Oral 60 ml IV Total 100 ml Output Urine Total 250 ml # Voids 2 PHYSICAL EXAM Physical Exam GEN: Sedated intubated on the ventilator Exam is otherwise limited due to COVID-19 isolation precautions DIAGNOSIS/ASSESSMENT Assessment & Plan MEJIA -possible ATN related to hypotension. UA unremarkable, Renal function more or less the same. No previous baseline. Renal sonogram will be ordered. 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 Blood gases reviewed. No emergent indication for dialysis/CRRT based on respiratory status Metabolic acidosis: IV bicarb may be required COVID-19 positive, patient full code despite his advanced age COMMENT/RELEVANT DATA Meds Current Medications Medications (Trade) Dose Ordered Sig/Damion Start Time Stop Time Status Last Admin Dose Admin Acetaminophen (Tylenol) 650 mg PRN Q4HRS PRN 04/13/20 17:00 04/13/20 21:37 650 MG Al Hydroxide/Mg Hydroxide (Mylanta Plus Xs) 30 ml PRN DAILY PRN 04/13/20 17:00 Albuterol Sulfate (Ventolin Hfa) 1 puff PRN Q4HRS PRN 04/15/20 12:30 04/15/20 14:13 1 PUFF Albuterol Sulfate (Ventolin Neb Soln) 2.5 mg PRN Q4HRS PRN 04/13/20 17:00 Allopurinol (Zyloprim) 100 mg DAILY 04/14/20 13:00 04/16/20 11:54 100 MG Amlodipine Besylate (Norvasc) 10 mg DAILY 04/14/20 13:00 Atorvastatin Calcium (Lipitor) 40 mg HS 04/14/20 21:00 04/14/20 21:13 40 MG Atropine Sulfate (ATROPINE 0.5mg SYRINGE) 0.5 mg PRN Q5MIN PRN 04/16/20 07:00 Azithromycin 250 ml @ 250 mls/hr 1X ONCE 04/13/20 14:45 04/13/20 15:44 DC 04/13/20 16:40 250 MLS/HR Ceftriaxone Sodium (Rocephin) 1 gm Q24H 04/14/20 17:00 04/16/20 12:45 DC 04/15/20 17:28 1 GM Daptomycin 500 mg/ Sodium Chloride 50 ml @ 100 mls/hr Q24H 04/15/20 15:00 04/15/20 15:18 100 MLS/HR Dexamethasone Sodium Phosphate (Decadron) 6 mg BID 04/13/20 21:00 04/16/20 11:54 6 MG Dexmedetomidine HCl 400 mcg/ Sodium Chloride 100 ml @ 0 mls/hr CONT PRN 04/16/20 07:00 04/16/20 07:11 5.75 MLS/HR Docusate Sodium (Colace) 100 mg PRN BID PRN 04/13/20 17:00 Doxycycline Hyclate 100 mg/ Dextrose 100 ml @ 50 mls/hr Q12HR 04/13/20 21:00 04/16/20 11:52 50 MLS/HR Enoxaparin Sodium (Lovenox 40mg Syringe) 40 mg BID 04/13/20 18:00 04/16/20 11:53 40 MG Etomidate (Amidate) 12 mg 1X ONCE 04/16/20 08:15 04/16/20 08:16 DC 04/16/20 08:14 12 MG EZETIMIBE (Zetia) 10 mg HS 04/14/20 21:00 04/14/20 21:13 10 MG Fenofibrate (Lofibra) 134 mg DAILY 04/14/20 13:00 04/16/20 11:53 134 MG Fentanyl Citrate 30 ml @ 0 mls/hr CONT PRN 04/16/20 07:45 04/16/20 07:48 3.75 MLS/HR Glimepiride (Amaryl) 1 mg DAILY 04/14/20 13:00 04/16/20 11:54 1 MG Guaifenesin (Robitussin) 200 mg PRN Q4HRS PRN 04/13/20 17:00 Haloperidol Lactate (Haldol Inj) 5 mg PRN Q6HRS PRN 04/15/20 17:45 04/15/20 18:10 5 MG Lisinopril (Prinivil) 40 mg DAILY 04/14/20 13:00 04/15/20 10:09 40 MG Lorazepam (Ativan Inj) 1 mg PRN Q2HRS PRN 04/15/20 22:45 04/16/20 04:57 1 MG Metoprolol Succinate (Toprol Xl) 25 mg HS 04/14/20 21:00 04/14/20 21:14 25 MG Midazolam HCl 100 ml @ 1 mls/hr CONT PRN 04/16/20 07:45 04/16/20 13:30 10 MLS/HR Midazolam HCl (Versed) 5 mg 1X ONCE 04/16/20 07:30 04/16/20 07:31 DC 04/16/20 07:51 5 MG Morphine Sulfate (Morphine Sulfate) 2 mg PRN Q2HR PRN 04/15/20 22:45 04/16/20 05:13 2 MG Norepinephrine Bitartrate 8 mg/ Dextrose 258 ml @ 22.311 mls/ hr CONT PRN 04/16/20 07:30 04/16/20 07:35 22.311 MLS/HR Ondansetron HCl (Zofran) 4 mg PRN Q4HRS PRN 04/13/20 17:00 Pantoprazole Sodium (PROTONIX VIAL for IV PUSH) 40 mg DAILYAC 04/17/20 07:30 Pantoprazole Sodium (Protonix) 40 mg DAILYAC 04/14/20 13:00 04/16/20 11:39 DC 04/15/20 10:11 40 MG Piperacillin Sod/ Tazobactam Sod 3.375 gm/Sodium Chloride 50 ml @ 100 mls/hr Q6HRS 04/16/20 13:30 04/16/20 13:36 100 MLS/HR Remdesivir 100 mg/ Sodium Chloride 230 ml @ 460 mls/hr Q24H 04/16/20 14:00 04/19/20 14:29 Remdesivir 200 mg/ Sodium Chloride 210 ml @ 210 mls/hr 1X ONCE 04/15/20 14:00 04/15/20 14:59 DC 04/15/20 16:25 210 MLS/HR Sodium Chloride 500 ml @ 500 mls/hr 1X PRN PRN 04/16/20 07:00 Sodium Chloride (Normal Saline Flush) 3 ml QSHIFT PRN 04/13/20 17:00 Succinylcholine Chloride (Anectine) 100 mg 1X ONCE 04/16/20 08:15 04/16/20 08:16 DC 04/16/20 08:15 100 MG Ziprasidone (Geodon Im) 20 mg 1X ONCE 04/15/20 17:45 04/15/20 17:46 DC Lab Laboratory Tests Test 04/15/20 16:10 04/15/20 17:11 04/15/20 20:15 04/15/20 20:54 O2 Saturation 86 % (92-99) 89 % (92-99) Arterial Blood pH 7.40 (7.35-7.45) 7.41 (7.35-7.45) Arterial Blood pCO2 at Patient Temp 30 mmHg (35-46) 31 mmHg (35-46) Arterial Blood pO2 at Patient Temp 53 mmHg (65-108) 59 mmHg (65-108) Arterial Blood HCO3 18 mmol/L (21-28) 19 mmol/L (21-28) Arterial Blood Base Excess -5 mmol/L (-3-3) -4 mmol/L (-3-3) FiO2 100 nrm 100 Glucose (Fingerstick) 275 mg/dL (70-99) 218 mg/dL (70-99) Test 04/16/20 05:00 04/16/20 09:30 Sodium Level 134 mmol/L (136-145) Potassium Level 4.6 mmol/L (3.5-5.1) Chloride Level 100 mmol/L (98-107) Carbon Dioxide Level 20 mmol/L (21-32) Anion Gap 14 (6-14) Blood Urea Nitrogen 59 mg/dL (8-26) Creatinine 1.8 mg/dL (0.7-1.3) Estimated GFR (Cockcroft-Gault) 36.2 Glucose Level 219 mg/dL (70-99) Calcium Level 9.0 mg/dL (8.5-10.1) Phosphorus Level 3.8 mg/dL (2.6-4.7) Albumin 2.3 g/dL (3.4-5.0) O2 Saturation 97 % (92-99) Arterial Blood pH 7.31 (7.35-7.45) Arterial Blood pCO2 at Patient Temp 45 mmHg (35-46) Arterial Blood pO2 at Patient Temp 95 mmHg (65-108) Arterial Blood HCO3 22 mmol/L (21-28) Arterial Blood Base Excess -4 mmol/L (-3-3) FiO2 100 Results All relevant outside records, renal labs, imaging studies, telemetry/EKG's were reviewed. Other Chest x-ray from this morning Impression: New consolidation right lower lateral lung field and left basal retrocardiac region. Increased pulmonary vasculature congestion. Pulmonary interstitial edema and infiltrates are present. Justicifation of Admission Dx: Justifications for Admission: Justification of Admission Dx: Yes Comminuty Aquired Pneumonia: Hemodynamic Instability DELANO MORENO MD Apr 16, 2020 14:17
[2020-04-16] MEDS: FUROSEMIDE INJ 100 MG in IV NORMAL SALINE 100ML 100 ML IV PRN (15:19)
[2020-04-16] MEDS: REMDESIVIR 100mg in NORMAL SALINE 250ML X 4 DAYS IV SCH (15:20)
[2020-04-16] MEDS: DAPTOmycin (GENERIC) IVPB 500 MG in IV NORMAL SALINE 50ML 50 ML IV SCH (19:30)
[2020-04-16] MEDS: ATORVASTATIN CALCIUM 40 MG TABLET. PO SCH (20:47)
[2020-04-16] MEDS: EZETIMIBE 10 MG TABLET. PO SCH (20:47)
[2020-04-16] MEDS: METOPROLOL SUCC 24HR ER 25 MG TAB.ER.24H. PO SCH (20:47)
[2020-04-17] VITALS (26 sets, daily range): BP systolic 86–128; BP diastolic 39–57
[2020-04-17] MEDS: NOREPINEPHRINE VIAL 8 MG in IV DEXTROSE 5% 250 ML IV PRN ×6 (00:08→21:28)
[2020-04-17] MEDS: PIPERACILLIN/TAZOBACTAM 3.375 GM in IV NORMAL SALINE 50ML 50 ML IV SCH ×5 (00:08→23:54)
[2020-04-17] MEDS: MIDAZOLAM 100mg/100ml NS BAG 100 ML IV PRN ×3 (00:09→22:08)
[2020-04-17] MEDS ORDERED: DEXTROSE 50% 25 GM / 50ML DISP.SYRIN. IV PRN (00:45)
[2020-04-17] MEDS: DEXMEDETOMIDINE 400 MCG in IV NORMAL SALINE 100ML 96 ML IV PRN (04:37)
[2020-04-17] MEDS ORDERED: INSULIN LISPRO 300 UNITS/3 ML VIAL. SQ SCH (06:00)
--- NOTE | 2020-04-17 07:45 | RAD ---
EXAM: Renal sonogram. HISTORY: Covid 19. Renal insufficiency. TECHNIQUE: Sonographic imaging the kidneys and bladder was performed. COMPARISON: None. FINDINGS: The kidneys are normal in size. No solid or cystic renal lesion is seen. There is no hydron ephrosis. There is echogenic hepatic parenchyma which may be due to imaging technique or steatosis. T here is a Aguilar catheter within the bladder. The inferior vena cava is patent. IMPRESSION: Sonographically unremarkable kidneys. Electronically signed by: Lilly Oglesby MD (04/17/2020 7:42 AM) [facility]
[2020-04-17 08:16] LABS: BASE EXCESS ABG -6 mmol/L (-3-3); HCO3 ABG 19 mmol/L (21-28); PCO2 ABG 38 mmHg (35-46); PO2 ABG 91 mmHg (65-108); SAT O2 ABG 96 % (92-99)
[2020-04-17 08:18] LABS: FIO2 ABG 90
[2020-04-17] MEDS: METOPROLOL SUCC 24HR ER 100 MG TAB.ER.24H. PO SCH (08:45)
[2020-04-17] MEDS: GLIMEPIRIDE 2 MG TABLET. PO SCH (08:45)
[2020-04-17] MEDS: FENOFIBRATE,MICRONIZED 134 MG CAPSULE PO SCH (08:45)
[2020-04-17] MEDS: PANTOPRAZOLE IV PUSH 40 MG VIAL. IVP SCH (08:45)
[2020-04-17] MEDS: ALLOPURINOL 100 MG TABLET. PO SCH (08:45)
[2020-04-17] MEDS: DEXAMETHASONE SOD PHOS 4 MG/ML VIAL IVP SCH ×2 (08:45→20:43)
[2020-04-17] MEDS: DOXYCYCLINE HYCLATE 100 MG in IV DEXTROSE 5% 100ML 100 ML IV SCH ×2 (08:47→20:41)
[2020-04-17 10:17] LABS: BASO % 0 % (0-3); EOS % 0 % (0-3); HEMATOCRIT 46.7 % (39.0-53.0); HEMOGLOBIN 15.4 g/dL (13.0-17.5); LYMPH # 0.5 x10^3/uL (1.0-4.8); LYMPH % 2 % (24-48); MEAN CORPUSCULAR HEMOGLOBIN 33 pg (25-35); MEAN CORPUSCULAR HGB CONC 33 g/dL (31-37); MEAN CORPUSCULAR VOLUME 100 fL (79-100); MONO # 1.8 x10^3/uL (0.0-1.1); MONO % 8 % (0-9); NEUT # 19.7 x10^3/uL (1.8-7.7); NEUT % 90 % (31-73); PLATELET COUNT 357 x10^3/uL (140-400); RED BLOOD COUNT 4.68 x10^6/uL (4.30-5.70)
[2020-04-17 10:41] LABS: ALBUMIN 2.4 g/dL (3.4-5.0); ALBUMIN/GLOBULIN RATIO 0.6 (1.0-1.7); CALCIUM 8.9 mg/dL (8.5-10.1); CREATININE 2.7 mg/dL (0.7-1.3); GFR 22.7; POTASSIUM 4.5 mmol/L (3.5-5.1); TOTAL BILIRUBIN 0.9 mg/dL (0.2-1.0); TOTAL PROTEIN 6.1 g/dL (6.4-8.2)
[2020-04-17 10:46] LABS: PHOSPHORUS 4.3 mg/dL (2.6-4.7)
--- NOTE | 2020-04-17 11:00 | PDOC ---
PULMONARY PROGRESS NOTES DATE: 04/17/20 TIME: 10:57 Subjective Patient remains on vent support, 90% and a PEEP of 12 Continues to have hypotension on vasopressors Now on fentanyl, Versed, Precedex and Lasix drip No other concerns overnight Vitals Vital Signs Date Time Temp Pulse Resp B/P (MAP) Pulse Ox O2 Delivery O2 Flow Rate FiO2 04/17/20 09:01 80 29 115/55 (75) 100 Ventilator 04/17/20 08:00 98.8 98.8 04/16/20 15:07 4.0 Comments Pt. seen during , visual exam preformed intubated RRR no edema/rash no accessory muscle use Labs Laboratory Tests Test 04/15/20 11:55 04/15/20 16:10 04/15/20 17:11 04/15/20 20:15 Glucose (Fingerstick) 187 mg/dL (70-99) 275 mg/dL (70-99) O2 Saturation 86 % (92-99) 89 % (92-99) Arterial Blood pH 7.40 (7.35-7.45) 7.41 (7.35-7.45) Arterial Blood pCO2 at Patient Temp 30 mmHg (35-46) 31 mmHg (35-46) Arterial Blood pO2 at Patient Temp 53 mmHg (65-108) 59 mmHg (65-108) Arterial Blood HCO3 18 mmol/L (21-28) 19 mmol/L (21-28) Arterial Blood Base Excess -5 mmol/L (-3-3) -4 mmol/L (-3-3) FiO2 100 nrm 100 Test 04/15/20 20:54 04/16/20 05:00 04/16/20 09:30 04/16/20 23:57 Glucose (Fingerstick) 218 mg/dL (70-99) 366 mg/dL (70-99) Sodium Level 134 mmol/L (136-145) Potassium Level 4.6 mmol/L (3.5-5.1) Chloride Level 100 mmol/L (98-107) Carbon Dioxide Level 20 mmol/L (21-32) Anion Gap 14 (6-14) Blood Urea Nitrogen 59 mg/dL (8-26) Creatinine 1.8 mg/dL (0.7-1.3) Estimated GFR (Cockcroft-Gault) 36.2 Glucose Level 219 mg/dL (70-99) Calcium Level 9.0 mg/dL (8.5-10.1) Phosphorus Level 3.8 mg/dL (2.6-4.7) Albumin 2.3 g/dL (3.4-5.0) O2 Saturation 97 % (92-99) Arterial Blood pH 7.31 (7.35-7.45) Arterial Blood pCO2 at Patient Temp 45 mmHg (35-46) Arterial Blood pO2 at Patient Temp 95 mmHg (65-108) Arterial Blood HCO3 22 mmol/L (21-28) Arterial Blood Base Excess -4 mmol/L (-3-3) FiO2 100 Test 04/17/20 06:07 04/17/20 07:45 04/17/20 10:05 Glucose (Fingerstick) 444 mg/dL (70-99) O2 Saturation 96 % (92-99) Arterial Blood pH 7.32 (7.35-7.45) Arterial Blood pCO2 at Patient Temp 38 mmHg (35-46) Arterial Blood pO2 at Patient Temp 91 mmHg (65-108) Arterial Blood HCO3 19 mmol/L (21-28) Arterial Blood Base Excess -6 mmol/L (-3-3) FiO2 90 White Blood Count 22.0 x10^3/uL (4.0-11.0) Red Blood Count 4.68 x10^6/uL (4.30-5.70) Hemoglobin 15.4 g/dL (13.0-17.5) Hematocrit 46.7 % (39.0-53.0) Mean Corpuscular Volume 100 fL (79-100) Mean Corpuscular Hemoglobin 33 pg (25-35) Mean Corpuscular Hemoglobin Concent 33 g/dL (31-37) Red Cell Distribution Width 15.0 % (11.5-14.5) Platelet Count 357 x10^3/uL (140-400) Neutrophils (%) (Auto) 90 % (31-73) Lymphocytes (%) (Auto) 2 % (24-48) Monocytes (%) (Auto) 8 % (0-9) Eosinophils (%) (Auto) 0 % (0-3) Basophils (%) (Auto) 0 % (0-3) Neutrophils # (Auto) 19.7 x10^3/uL (1.8-7.7) Lymphocytes # (Auto) 0.5 x10^3/uL (1.0-4.8) Monocytes # (Auto) 1.8 x10^3/uL (0.0-1.1) Eosinophils # (Auto) 0.0 x10^3/uL (0.0-0.7) Basophils # (Auto) 0.0 x10^3/uL (0.0-0.2) Sodium Level 133 mmol/L (136-145) Potassium Level 4.5 mmol/L (3.5-5.1) Chloride Level 98 mmol/L (98-107) Carbon Dioxide Level 21 mmol/L (21-32) Anion Gap 14 (6-14) Blood Urea Nitrogen 80 mg/dL (8-26) Creatinine 2.7 mg/dL (0.7-1.3) Estimated GFR (Cockcroft-Gault) 22.7 BUN/Creatinine Ratio 30 (6-20) Glucose Level 442 mg/dL (70-99) Calcium Level 8.9 mg/dL (8.5-10.1) Phosphorus Level 4.3 mg/dL (2.6-4.7) Total Bilirubin 0.9 mg/dL (0.2-1.0) Aspartate Amino Transf (AST/SGOT) 44 U/L (15-37) Alanine Aminotransferase (ALT/SGPT) 44 U/L (16-63) Alkaline Phosphatase 51 U/L (46-116) Total Protein 6.1 g/dL (6.4-8.2) Albumin 2.4 g/dL (3.4-5.0) Albumin/Globulin Ratio 0.6 (1.0-1.7) Laboratory Tests Test 04/16/20 23:57 04/17/20 06:07 04/17/20 07:45 04/17/20 10:05 Glucose (Fingerstick) 366 mg/dL (70-99) 444 mg/dL (70-99) O2 Saturation 96 % (92-99) Arterial Blood pH 7.32 (7.35-7.45) Arterial Blood pCO2 at Patient Temp 38 mmHg (35-46) Arterial Blood pO2 at Patient Temp 91 mmHg (65-108) Arterial Blood HCO3 19 mmol/L (21-28) Arterial Blood Base Excess -6 mmol/L (-3-3) FiO2 90 White Blood Count 22.0 x10^3/uL (4.0-11.0) Red Blood Count 4.68 x10^6/uL (4.30-5.70) Hemoglobin 15.4 g/dL (13.0-17.5) Hematocrit 46.7 % (39.0-53.0) Mean Corpuscular Volume 100 fL (79-100) Mean Corpuscular Hemoglobin 33 pg (25-35) Mean Corpuscular Hemoglobin Concent 33 g/dL (31-37) Red Cell Distribution Width 15.0 % (11.5-14.5) Platelet Count 357 x10^3/uL (140-400) Neutrophils (%) (Auto) 90 % (31-73) Lymphocytes (%) (Auto) 2 % (24-48) Monocytes (%) (Auto) 8 % (0-9) Eosinophils (%) (Auto) 0 % (0-3) Basophils (%) (Auto) 0 % (0-3) Neutrophils # (Auto) 19.7 x10^3/uL (1.8-7.7) Lymphocytes # (Auto) 0.5 x10^3/uL (1.0-4.8) Monocytes # (Auto) 1.8 x10^3/uL (0.0-1.1) Eosinophils # (Auto) 0.0 x10^3/uL (0.0-0.7) Basophils # (Auto) 0.0 x10^3/uL (0.0-0.2) Sodium Level 133 mmol/L (136-145) Potassium Level 4.5 mmol/L (3.5-5.1) Chloride Level 98 mmol/L (98-107) Carbon Dioxide Level 21 mmol/L (21-32) Anion Gap 14 (6-14) Blood Urea Nitrogen 80 mg/dL (8-26) Creatinine 2.7 mg/dL (0.7-1.3) Estimated GFR (Cockcroft-Gault) 22.7 BUN/Creatinine Ratio 30 (6-20) Glucose Level 442 mg/dL (70-99) Calcium Level 8.9 mg/dL (8.5-10.1) Phosphorus Level 4.3 mg/dL (2.6-4.7) Total Bilirubin 0.9 mg/dL (0.2-1.0) Aspartate Amino Transf (AST/SGOT) 44 U/L (15-37) Alanine Aminotransferase (ALT/SGPT) 44 U/L (16-63) Alkaline Phosphatase 51 U/L (46-116) Total Protein 6.1 g/dL (6.4-8.2) Albumin 2.4 g/dL (3.4-5.0) Albumin/Globulin Ratio 0.6 (1.0-1.7) Medications Active Scripts Medications Dose Route/Sig Max Daily Dose Days Date Category Mexiletine Hcl 150 Mg Capsule 150 Mg PO Q8HRS 04/13/20 Reported Omeprazole 40 Mg Capsule.dr 1 Cap PO DAILY 04/13/20 Reported Toprol Xl (Metoprolol Succinate) 25 Mg Tab.er.24h 2 Tab PO DAILY 30 04/13/20 Reported Accupril (Quinapril Hcl) 40 Mg Tablet 1 Tab PO DAILY 04/13/20 Reported Allopurinol 100 Mg Tablet 1 Tab PO DAILY 04/13/20 Reported Comments CXR Impression: New consolidation right lower lateral lung field and left basal retrocardiac region. Increased pulmonary vasculature congestion. Pulmonary interstitial edema and infiltrates are present. Impression . IMPRESSION: 1. Acute hypoxemic respiratory failure, COVID-19 viral pneumonia. 2. Fever secondary to above. 3. Abnormal x-ray. 4. Acute exacerbation of chronic obstructive pulmonary disease. 5. Tobacco dependence, in remission, quit in 1985. 6. Diabetes. 7. Hypertension. 8. Morbid obesity. 9. Sars-Cov 2 Pos Plan . 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
--- NOTE | 2020-04-17 11:02 | PDOC ---
PROGRESS NOTES Date of Service: DATE: 04/17/20 TIME: 11:01 Chief Complaint Chief Complaint impression 1. ACUTE HYPOXIC RESP FAILURE Continued to decompensate in his respiratory status required intubation 1/2 AM Fever 2. HX pacemaker. 3. Mild left lung interstitial infiltrates with worsening compared to old karie dies from 2015. 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 Increased pulmonary vasculature congestion. Pulmonary interstitial edema and infiltrates are present. /2 4, MORBID OBESITY 5. GENERALIZED WEAKNESS 6. 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 PULM CONSULT cont remdesivir.04/15/2020 DC daptomycin iv Zosyn FiO2 85% PEEP of 12 Levophed pressure support BLOOD CULTURE LC Preliminary Preliminary FINAL ID= [STAPHYLOCOCCUS EPIDERMIDIS] 32 MIN CC TIME History of Present Illness History of Present Illness 04/17/2020 Patient seen and examined Chart reviewed Discussed with RN Patient is on Vent IV doxycycline FiO2 85% PEEP of 12 Identification/Chief Complaint Chief Complaint DYSPNEA, COUGH WORSE SINCE [place] History of Present Illness History of Present Illness 85 yr old male seen in er with worsening cough since 04-08, now more SOA , HYPOXIC ON PRESENTATION Past Medical History Cardiovascular: HTN, Hyperlipidemia Family History Family History: High Cholestrol, Hypertension Social History Smoke: No ALCOHOL: none Drugs: None Allergies Allergies: Coded Allergies: No Known Drug Allergies (Unverified , 04/13/20) Vitals Vitals Vital Signs Date Time Temp Pulse Resp B/P (MAP) Pulse Ox O2 Delivery O2 Flow Rate FiO2 04/17/20 09:01 80 29 115/55 (75) 100 Ventilator 04/17/20 08:00 98.8 98.8 04/16/20 15:07 4.0 Physical Exam Physical Exam GENERAL:Intubated,sedated HEENT: Normocephalic, atraumatic, anicteric.ETT/OGT + LUNGS: Decreased breath sounds at the bases, scattered rhonchi. HEART: S1, S2. No gallops or murmurs. PPM site looks clean. ABDOMEN: Soft, obese, nontender, nondistended. Aguilar in place EXTREMITIES: No edema, no cyanosis. DERMATOLOGIC: Warm, dry. No generalized rash. NEUROLOGIC: Alert and oriented x 3, grossly nonfocal. PSYCHIATRIC: Cooperative, appropriate mood and affect. General: Alert, Oriented X3, Cooperative Abdomen: Normal bowel sounds, Soft, No tenderness Extremities: No clubbing, No cyanosis Labs LABS EXAM: Renal sonogram. HISTORY: Covid 19. Renal insufficiency. TECHNIQUE: Sonographic imaging the kidneys and bladder was performed. COMPARISON: None. FINDINGS: The kidneys are normal in size. No solid or cystic renal lesion is seen. There is no hydronephrosis. There is echogenic hepatic parenchyma which may be due to imaging technique or steatosis. There is a Aguilar catheter within the bladder. The inferior vena cava is patent. IMPRESSION: Sonographically unremarkable kidneys. Electronically signed by: Lilly Oglesby MD (04/17/2020 7:42 AM) [facility] DICTATED and SIGNED BY: LILLY OGLESBY MD DATE: 04/17/20 [id number] Laboratory Tests Test 04/16/20 23:57 04/17/20 06:07 04/17/20 07:45 04/17/20 10:05 Glucose (Fingerstick) 366 mg/dL (70-99) 444 mg/dL (70-99) O2 Saturation 96 % (92-99) Arterial Blood pH 7.32 (7.35-7.45) Arterial Blood pCO2 at Patient Temp 38 mmHg (35-46) Arterial Blood pO2 at Patient Temp 91 mmHg (65-108) Arterial Blood HCO3 19 mmol/L (21-28) Arterial Blood Base Excess -6 mmol/L (-3-3) FiO2 90 White Blood Count 22.0 x10^3/uL (4.0-11.0) Red Blood Count 4.68 x10^6/uL (4.30-5.70) Hemoglobin 15.4 g/dL (13.0-17.5) Hematocrit 46.7 % (39.0-53.0) Mean Corpuscular Volume 100 fL (79-100) Mean Corpuscular Hemoglobin 33 pg (25-35) Mean Corpuscular Hemoglobin Concent 33 g/dL (31-37) Red Cell Distribution Width 15.0 % (11.5-14.5) Platelet Count 357 x10^3/uL (140-400) Neutrophils (%) (Auto) 90 % (31-73) Lymphocytes (%) (Auto) 2 % (24-48) Monocytes (%) (Auto) 8 % (0-9) Eosinophils (%) (Auto) 0 % (0-3) Basophils (%) (Auto) 0 % (0-3) Neutrophils # (Auto) 19.7 x10^3/uL (1.8-7.7) Lymphocytes # (Auto) 0.5 x10^3/uL (1.0-4.8) Monocytes # (Auto) 1.8 x10^3/uL (0.0-1.1) Eosinophils # (Auto) 0.0 x10^3/uL (0.0-0.7) Basophils # (Auto) 0.0 x10^3/uL (0.0-0.2) Sodium Level 133 mmol/L (136-145) Potassium Level 4.5 mmol/L (3.5-5.1) Chloride Level 98 mmol/L (98-107) Carbon Dioxide Level 21 mmol/L (21-32) Anion Gap 14 (6-14) Blood Urea Nitrogen 80 mg/dL (8-26) Creatinine 2.7 mg/dL (0.7-1.3) Estimated GFR (Cockcroft-Gault) 22.7 BUN/Creatinine Ratio 30 (6-20) Glucose Level 442 mg/dL (70-99) Calcium Level 8.9 mg/dL (8.5-10.1) Phosphorus Level 4.3 mg/dL (2.6-4.7) Total Bilirubin 0.9 mg/dL (0.2-1.0) Aspartate Amino Transf (AST/SGOT) 44 U/L (15-37) Alanine Aminotransferase (ALT/SGPT) 44 U/L (16-63) Alkaline Phosphatase 51 U/L (46-116) Total Protein 6.1 g/dL (6.4-8.2) Albumin 2.4 g/dL (3.4-5.0) Albumin/Globulin Ratio 0.6 (1.0-1.7) Assessment and Plan Assessmemt and Plan Problems Medical Problems: (1) Person under investigation for COVID-19 Status: Acute (2) Pneumonia Status: Acute Comment Review of Relevant I have reviewed the following items andrea (where applicable) has been applied. Labs Laboratory Tests Test 04/15/20 11:55 04/15/20 16:10 04/15/20 17:11 04/15/20 20:15 Glucose (Fingerstick) 187 mg/dL (70-99) 275 mg/dL (70-99) O2 Saturation 86 % (92-99) 89 % (92-99) Arterial Blood pH 7.40 (7.35-7.45) 7.41 (7.35-7.45) Arterial Blood pCO2 at Patient Temp 30 mmHg (35-46) 31 mmHg (35-46) Arterial Blood pO2 at Patient Temp 53 mmHg (65-108) 59 mmHg (65-108) Arterial Blood HCO3 18 mmol/L (21-28) 19 mmol/L (21-28) Arterial Blood Base Excess -5 mmol/L (-3-3) -4 mmol/L (-3-3) FiO2 100 nrm 100 Test 04/15/20 20:54 04/16/20 05:00 04/16/20 09:30 04/16/20 23:57 Glucose (Fingerstick) 218 mg/dL (70-99) 366 mg/dL (70-99) Sodium Level 134 mmol/L (136-145) Potassium Level 4.6 mmol/L (3.5-5.1) Chloride Level 100 mmol/L (98-107) Carbon Dioxide Level 20 mmol/L (21-32) Anion Gap 14 (6-14) Blood Urea Nitrogen 59 mg/dL (8-26) Creatinine 1.8 mg/dL (0.7-1.3) Estimated GFR (Cockcroft-Gault) 36.2 Glucose Level 219 mg/dL (70-99) Calcium Level 9.0 mg/dL (8.5-10.1) Phosphorus Level 3.8 mg/dL (2.6-4.7) Albumin 2.3 g/dL (3.4-5.0) O2 Saturation 97 % (92-99) Arterial Blood pH 7.31 (7.35-7.45) Arterial Blood pCO2 at Patient Temp 45 mmHg (35-46) Arterial Blood pO2 at Patient Temp 95 mmHg (65-108) Arterial Blood HCO3 22 mmol/L (21-28) Arterial Blood Base Excess -4 mmol/L (-3-3) FiO2 100 Test 04/17/20 06:07 04/17/20 07:45 04/17/20 10:05 Glucose (Fingerstick) 444 mg/dL (70-99) O2 Saturation 96 % (92-99) Arterial Blood pH 7.32 (7.35-7.45) Arterial Blood pCO2 at Patient Temp 38 mmHg (35-46) Arterial Blood pO2 at Patient Temp 91 mmHg (65-108) Arterial Blood HCO3 19 mmol/L (21-28) Arterial Blood Base Excess -6 mmol/L (-3-3) FiO2 90 White Blood Count 22.0 x10^3/uL (4.0-11.0) Red Blood Count 4.68 x10^6/uL (4.30-5.70) Hemoglobin 15.4 g/dL (13.0-17.5) Hematocrit 46.7 % (39.0-53.0) Mean Corpuscular Volume 100 fL (79-100) Mean Corpuscular Hemoglobin 33 pg (25-35) Mean Corpuscular Hemoglobin Concent 33 g/dL (31-37) Red Cell Distribution Width 15.0 % (11.5-14.5) Platelet Count 357 x10^3/uL (140-400) Neutrophils (%) (Auto) 90 % (31-73) Lymphocytes (%) (Auto) 2 % (24-48) Monocytes (%) (Auto) 8 % (0-9) Eosinophils (%) (Auto) 0 % (0-3) Basophils (%) (Auto) 0 % (0-3) Neutrophils # (Auto) 19.7 x10^3/uL (1.8-7.7) Lymphocytes # (Auto) 0.5 x10^3/uL (1.0-4.8) Monocytes # (Auto) 1.8 x10^3/uL (0.0-1.1) Eosinophils # (Auto) 0.0 x10^3/uL (0.0-0.7) Basophils # (Auto) 0.0 x10^3/uL (0.0-0.2) Sodium Level 133 mmol/L (136-145) Potassium Level 4.5 mmol/L (3.5-5.1) Chloride Level 98 mmol/L (98-107) Carbon Dioxide Level 21 mmol/L (21-32) Anion Gap 14 (6-14) Blood Urea Nitrogen 80 mg/dL (8-26) Creatinine 2.7 mg/dL (0.7-1.3) Estimated GFR (Cockcroft-Gault) 22.7 BUN/Creatinine Ratio 30 (6-20) Glucose Level 442 mg/dL (70-99) Calcium Level 8.9 mg/dL (8.5-10.1) Phosphorus Level 4.3 mg/dL (2.6-4.7) Total Bilirubin 0.9 mg/dL (0.2-1.0) Aspartate Amino Transf (AST/SGOT) 44 U/L (15-37) Alanine Aminotransferase (ALT/SGPT) 44 U/L (16-63) Alkaline Phosphatase 51 U/L (46-116) Total Protein 6.1 g/dL (6.4-8.2) Albumin 2.4 g/dL (3.4-5.0) Albumin/Globulin Ratio 0.6 (1.0-1.7) Laboratory Tests Test 04/16/20 23:57 04/17/20 06:07 04/17/20 07:45 04/17/20 10:05 Glucose (Fingerstick) 366 mg/dL (70-99) 444 mg/dL (70-99) O2 Saturation 96 % (92-99) Arterial Blood pH 7.32 (7.35-7.45) Arterial Blood pCO2 at Patient Temp 38 mmHg (35-46) Arterial Blood pO2 at Patient Temp 91 mmHg (65-108) Arterial Blood HCO3 19 mmol/L (21-28) Arterial Blood Base Excess -6 mmol/L (-3-3) FiO2 90 White Blood Count 22.0 x10^3/uL (4.0-11.0) Red Blood Count 4.68 x10^6/uL (4.30-5.70) Hemoglobin 15.4 g/dL (13.0-17.5) Hematocrit 46.7 % (39.0-53.0) Mean Corpuscular Volume 100 fL (79-100) Mean Corpuscular Hemoglobin 33 pg (25-35) Mean Corpuscular Hemoglobin Concent 33 g/dL (31-37) Red Cell Distribution Width 15.0 % (11.5-14.5) Platelet Count 357 x10^3/uL (140-400) Neutrophils (%) (Auto) 90 % (31-73) Lymphocytes (%) (Auto) 2 % (24-48) Monocytes (%) (Auto) 8 % (0-9) Eosinophils (%) (Auto) 0 % (0-3) Basophils (%) (Auto) 0 % (0-3) Neutrophils # (Auto) 19.7 x10^3/uL (1.8-7.7) Lymphocytes # (Auto) 0.5 x10^3/uL (1.0-4.8) Monocytes # (Auto) 1.8 x10^3/uL (0.0-1.1) Eosinophils # (Auto) 0.0 x10^3/uL (0.0-0.7) Basophils # (Auto) 0.0 x10^3/uL (0.0-0.2) Sodium Level 133 mmol/L (136-145) Potassium Level 4.5 mmol/L (3.5-5.1) Chloride Level 98 mmol/L (98-107) Carbon Dioxide Level 21 mmol/L (21-32) Anion Gap 14 (6-14) Blood Urea Nitrogen 80 mg/dL (8-26) Creatinine 2.7 mg/dL (0.7-1.3) Estimated GFR (Cockcroft-Gault) 22.7 BUN/Creatinine Ratio 30 (6-20) Glucose Level 442 mg/dL (70-99) Calcium Level 8.9 mg/dL (8.5-10.1) Phosphorus Level 4.3 mg/dL (2.6-4.7) Total Bilirubin 0.9 mg/dL (0.2-1.0) Aspartate Amino Transf (AST/SGOT) 44 U/L (15-37) Alanine Aminotransferase (ALT/SGPT) 44 U/L (16-63) Alkaline Phosphatase 51 U/L (46-116) Total Protein 6.1 g/dL (6.4-8.2) Albumin 2.4 g/dL (3.4-5.0) Albumin/Globulin Ratio 0.6 (1.0-1.7) Microbiology 04/13/20 Blood Culture - Preliminary, Resulted NO GROWTH AFTER 3 DAYS Medications Current Medications Ceftriaxone Sodium (Rocephin) 1 gm 1X ONCE IVP Last administered on 04/13/20at 16:40; Start 04/13/20 at 14:45; Stop 04/13/20 at 14:46; Status DC Azithromycin 250 ml @ 250 mls/hr 1X ONCE IV Last administered on 04/13/20at 16:40; Start 04/13/20 at 14:45; Stop 04/13/20 at 15:44; Status DC Dexamethasone Sodium Phosphate (Decadron) 6 mg BID IVP Last administered on 04/17/20 08:45; Start 04/13/20 at 21:00 Ceftriaxone Sodium (Rocephin) 1 gm Q24H IVP Last administered on 04/15/20 17:28; Start 04/14/20 at 17:00; Stop 04/16/20 at 12:45; Status DC Doxycycline Hyclate 100 mg/ Dextrose 100 ml @ 50 mls/hr Q12HR IV Last administered on 04/17/20 08:47; Start 04/13/20 at 21:00 Sodium Chloride (Normal Saline Flush) 3 ml QSHIFT PRN IV AFTER MEDS AND BLOOD DRAWS; Start 04/13/20 at 17:00 Ondansetron HCl (Zofran) 4 mg PRN Q4HRS PRN IV NAUSEA/VOMITING; Start 04/13/20 at 17:00 Acetaminophen (Tylenol) 650 mg PRN Q4HRS PRN PO TEMP OVER 100.4F OR MILD PAIN Last administered on 04/13/20at 21:37; Start 04/13/20 at 17:00 Al Hydroxide/Mg Hydroxide (Mylanta Plus Xs) 30 ml PRN DAILY PRN PO HEARTBURN / GAS; Start 04/13/20 at 17:00 Docusate Sodium (Colace) 100 mg PRN BID PRN PO HARD STOOLS; Start 04/13/20 at 17:00 Albuterol Sulfate (Ventolin Neb Soln) 2.5 mg PRN Q4HRS PRN NEB SHORTNESS OF BREATH; Start 04/13/20 at 17:00 Guaifenesin (Robitussin) 200 mg PRN Q4HRS PRN PO COUGH; Start 04/13/20 at 17:00 Enoxaparin Sodium (Lovenox 40mg Syringe) 40 mg BID SQ Last administered on 04/16/20 20:49; Start 04/13/20 at 18:00; Stop 04/17/20 at 03:25; Status DC Allopurinol (Zyloprim) 100 mg DAILY PO Last administered on 04/17/20at 08:45; Start 04/14/20 at 13:00 Amlodipine Besylate (Norvasc) 10 mg DAILY PO ; Start 04/14/20 at 13:00; Stop 04/16/20 at 14:20; Status DC Atorvastatin Calcium (Lipitor) 40 mg HS PO Last administered on 04/16/20at 20:47; Start 04/14/20 at 21:00 EZETIMIBE (Zetia) 10 mg HS PO Last administered on 04/16/20at 20:47; Start 04/14/20 at 21:00; Stop 04/17/20 at 03:26; Status DC Metoprolol Succinate (Toprol Xl) 100 mg DAILY PO Last administered on 04/15/20at 10:12; Start 04/14/20 at 13:00 Metoprolol Succinate (Toprol Xl) 25 mg HS PO Last administered on 04/14/20at 21:14; Start 04/14/20 at 21:00 Fenofibrate (Lofibra) 134 mg DAILY PO Last administered on 04/17/20at 08:45; Start 04/14/20 at 13:00 Glimepiride (Amaryl) 1 mg DAILY PO Last administered on 04/17/20at 08:45; Start 04/14/20 at 13:00 Pantoprazole Sodium (Protonix) 40 mg DAILYAC PO Last administered on 04/15/20at 10:11; Start 04/14/20 at 13:00; Stop 04/16/20 at 11:39; Status DC Lisinopril (Prinivil) 40 mg DAILY PO Last administered on 04/15/20at 10:09; Start 04/14/20 at 13:00; Stop 04/16/20 at 14:20; Status DC Remdesivir 200 mg/ Sodium Chloride 210 ml @ 210 mls/hr 1X ONCE IV Last administered on 04/15/20at 16:25; Start 04/15/20 at 14:00; Stop 04/15/20 at 14:59; Status DC Remdesivir 100 mg/ Sodium Chloride 230 ml @ 460 mls/hr Q24H IV Last administered on 04/16/20at 15:20; Start 04/16/20 at 14:00; Stop 04/19/20 at 14:29 Daptomycin 500 mg/ Sodium Chloride 50 ml @ 100 mls/hr Q24H IV Last administere d on 04/16/20at 19:30; Start 04/15/20 at 15:00 Albuterol Sulfate (Ventolin Hfa) 1 puff PRN Q4HRS PRN INH SHORTNESS OF BREATH Last administered on 04/15/20at 14:13; Start 04/15/20 at 12:30 Lorazepam (Ativan Inj) 1 mg PRN Q4HRS PRN IVP ANXIETY / AGITATION Last a dministered on 04/15/20at 19:34; Start 04/15/20 at 13:45; Stop 04/15/20 at 22:40; Status DC Ziprasidone (Geodon Im) 20 mg 1X ONCE IM ; Start 04/15/20 at 17:45; Stop 04/15/20 at 17:46; Status DC Haloperidol Lactate (Haldol Inj) 5 mg PRN Q6HRS PRN IVP AGITATION Last administered on 04/15/20at 18:10; Start 04/15/20 at 17:45 Lorazepam (Ativan Inj) 1 mg PRN Q2HRS PRN IVP ANXIETY / AGITATION Last administered on 04/16/20at 06:40; Start 04/15/20 at 22:45 Morphine Sulfate (Morphine Sulfate) 2 mg PRN Q2HR PRN IV SEVERE PAIN 7-10 Last administered on 04/16/20at 05:13; Start 04/15/20 at 22:45 Dexmedetomidine HCl 400 mcg/ Sodium Chloride 100 ml @ 0 mls/hr CONT PRN IV PER PROTOCOL Last administered on 04/17/20at 04:37; Start 04/16/20 at 07:00 Sodium Chloride 500 ml @ 500 mls/hr 1X PRN PRN IV SEE COMMENTS; Start 04/16/20 at 07:00 Atropine Sulfate (ATROPINE 0.5mg SYRINGE) 0.5 mg PRN Q5MIN PRN IV SEE COMMENTS; Start 04/16/20 at 07:00 Norepinephrine Bitartrate 8 mg/ Dextrose 258 ml @ 22.311 mls/ hr CONT PRN IV PER PROTOCOL Last administered on 04/17/20at 08:44; Start 04/16/20 at 07:30 Midazolam HCl (Versed) 5 mg 1X ONCE IV Last administered on 04/16/20at 07:51; Start 04/16/20 at 07:30; Stop 04/16/20 at 07:31; Status DC Succinylcholine Chloride (Anectine) 200 mg STK-MED ONCE .ROUTE ; Start 04/16/20 at 07:38; Stop 04/16/20 at 07:38; Status DC Etomidate (Amidate) 20 mg STK-MED ONCE IV ; Start 04/16/20 at 07:38; Stop 04/16/20 at 07:38; Status DC Midazolam HCl 100 ml @ 1 mls/hr CONT PRN IV SEE I/O RECORD Last administered on 04/17/20at 00:09; Start 04/16/20 at 07:45 Fentanyl Citrate 30 ml @ 0 mls/hr CONT PRN IV SEE PROTOCOL Last administered on 04/17/20at 05:10; Start 04/16/20 at 07:45 Succinylcholine Chloride (Anectine) 100 mg 1X ONCE IV Last administered on 04/16/20at 08:15; Start 04/16/20 at 08:15; Stop 04/16/20 at 08:16; Status DC Etomidate (Amidate) 12 mg 1X ONCE IV Last administered on 04/16/20at 08:14; Start 04/16/20 at 08:15; Stop 04/16/20 at 08:16; Status DC Pantoprazole Sodium (PROTONIX VIAL for IV PUSH) 40 mg DAILYAC IVP Last administered on 04/17/20at 08:45; Start 04/17/20 at 07:30 Piperacillin Sod/ Tazobactam Sod 3.375 gm/Sodium Chloride 50 ml @ 100 mls/hr Q6HRS IV Last administered on 04/17/20at 06:12; Start 04/16/20 at 13:30 Furosemide 100 mg/ Sodium Chloride 100 ml @ 2 mls/hr CONT PRN IV EDEMA Last administered on 04/16/20at 15:19; Start 04/16/20 at 14:30 Insulin Human Lispro (HumaLOG) 0-7 UNITS Q6HRS SQ Last administered on 04/17/20at 06:14; Start 04/17/20 at 06:00 Dextrose (Dextrose 50%-Water Syringe) 12.5 gm PRN Q15MIN PRN IV SEE COMMENTS; Start 04/17/20 at 00:45 Active Scripts Active Reported Glimepiride 1 Mg Tablet 1 Tab PO DAILY Metoprolol Succinate ( Xl ) (Metoprolol Succinate) 100 Mg Tab.er.24h 1 Tab PO DAILY Zetia (Ezetimibe) 10 Mg Tablet 1 Tab PO HS 30 Days Fenofibrate 160 Mg Tablet 1 Tab PO DAILY Atorvastatin Calcium 40 Mg Tablet 1 Tab PO HS Amlodipine Besylate 10 Mg Tablet 1 Tab PO DAILY Omeprazole 20 Mg Capsule.dr 1 Cap PO DAILY Mexiletine Hcl 150 Mg Capsule 150 Mg PO Q8HRS Toprol Xl (Metoprolol Succinate) 25 Mg Tab.er.24h 1 Tab PO HS 30 Days Accupril (Quinapril Hcl) 40 Mg Tablet 1 Tab PO DAILY Allopurinol 100 Mg Tablet 1 Tab PO DAILY Vitals/I & O Vital Sign - Last 24 Hours 04/16/20 04/16/20 04/16/20 04/16/20 11:07 11:30 12:00 12:19 Temp 97.9 97.9 Pulse 80 80 80 Resp 26 26 B/P (MAP) 119/57 (77) 105/59 (74) 108/54 (72) Pulse Ox 100 100 98 O2 Delivery Ventilator Ventilator Ventilator 04/16/20 04/16/20 04/16/20 04/16/20 12:22 13:11 13:33 14:00 Pulse 80 80 Resp 26 29 B/P (MAP) 109/59 (76) 86/49 (61) 98/46 (63) Pulse Ox 99 97 O2 Delivery Mechanical Ventilator Ventilator Ventilator 04/16/20 04/16/20 04/16/20 04/16/20 15:00 15:07 15:50 15:51 Temp 97.7 97.7 Pulse 80 80 80 Resp 26 26 26 B/P (MAP) 103/49 (67) 102/48 (66) 105/48 (67) Pulse Ox 98 98 97 O2 Delivery Ventilator Ventilator Ventilator O2 Flow Rate 4.0 04/16/20 04/16/20 04/16/20 04/16/20 15:52 16:07 17:08 17:41 Pulse 80 Resp 27 B/P (MAP) 102/50 (67) 94/51 (65) Pulse Ox 98 98 O2 Delivery Mechanical Ventilator Ventilator Ventilator 04/16/20 04/16/20 04/16/20 04/16/20 17:42 19:00 19:01 20:00 Pulse 81 80 81 Resp 27 B/P (MAP) 177/62 (100) 117/54 (75) 125/55 (78) 91/50 (64) Pulse Ox 100 100 O2 Delivery Ventilator Ventilator 04/16/20 04/16/20 04/16/20 04/16/20 20:00 20:00 20:38 20:47 Temp 98.1 98.1 Pulse 80 Resp 26 B/P (MAP) 117/54 (75) 118/53 Pulse Ox 100 98 O2 Delivery Ventilator Mechanical Ventilator Ventilator 04/16/20 04/16/20 04/16/20 04/16/20 21:00 21:17 21:45 22:00 Pulse 80 79 Resp 26 26 B/P (MAP) 120/52 (74) 108/50 (69) Pulse Ox 98 96 O2 Delivery Ventilator Ventilator Ventilator Ventilator 04/16/20 04/16/20 04/17/20 04/17/20 22:59 23:11 00:00 00:00 Pulse 80 80 Resp 26 B/P (MAP) 103/49 (67) 109/50 (69) Pulse Ox 99 99 O2 Delivery Ventilator Ventilator Mechanical Ventilator 04/17/20 04/17/20 04/17/20 04/17/20 00:00 01:00 02:00 02:30 Temp 98.1 98.1 Pulse 81 81 79 80 Resp 28 B/P (MAP) 101/50 (67) 102/52 (69) 100/50 (67) 86/39 (55) Pulse Ox 98 96 O2 Delivery Ventilator Ventilator Ventilator Ventilator 04/17/20 04/17/20 04/17/20 04/17/20 02:40 03:00 03:58 04:00 Pulse 80 79 80 Resp 29 26 B/P (MAP) 108/50 (69) 105/51 (69) 110/53 (72) Pulse Ox 96 98 99 O2 Delivery Ventilator Ventilator Ventilator 04/17/20 04/17/20 04/17/20 04/17/20 04:00 04:00 05:00 05:10 Temp 98.4 98.4 Pulse 80 80 Resp 28 30 B/P (MAP) 109/52 (71) 109/55 (73) Pulse Ox 99 100 O2 Delivery Mechanical Ventilator Ventilator Ventilator Ventilator 04/17/20 04/17/20 04/17/20 04/17/20 05:45 06:00 07:13 07:45 Pulse 80 80 Resp 28 28 29 B/P (MAP) 111/54 (73) 110/56 (74) Pulse Ox 100 99 99 O2 Delivery Ventilator Ventilator Ventilator Ventilator 04/17/20 04/17/20 04/17/20 04/17/20 08:00 08:00 08:00 09:01 Temp 98.8 98.8 Pulse 82 80 Resp 29 29 B/P (MAP) 116/55 (75) 115/55 (75) Pulse Ox 99 100 O2 Delivery Ventilator Mechanical Ventilator Ventilator Intake and Output 04/16/20 04/16/20 04/17/20 15:00 23:00 07:00 Intake Total 50 ml 722 ml 938.2 ml Output Total 400 ml 250 ml 725 ml Balance -350 ml 472 ml 213.2 ml Justicifation of Admission Dx: Justifications for Admission: Justification of Admission Dx: Yes Comminuty Aquired Pneumonia: Hemodynamic Instability BRYON BARRAZA MD Apr 17, 2020 11:02
[2020-04-17 11:35] LABS: % BANDS 8 % (0-9); % LYMPHS 3 % (24-48); % MONOS 4 % (0-10); % SEGS 85 % (35-66); PLT ESTIMATE ADEQUATE (ADEQUATE)
--- NOTE | 2020-04-17 11:35 | PDOC ---
Infectious Disease Note Subjective: Subjective Intubated/sedated FiO2 85% PEEP of 12 On Levophed Vital Signs: Vital Signs Vital Signs Date Time Temp Pulse Resp B/P (MAP) Pulse Ox O2 Delivery O2 Flow Rate FiO2 04/17/20 11:12 81 29 119/56 (77) 99 Ventilator 04/17/20 08:00 98.8 98.8 04/16/20 15:07 4.0 Physical Exam: PHYSICAL EXAM GENERAL:Intubated,sedated HEENT: Normocephalic, atraumatic, anicteric.ETT/OGT + LUNGS: Decreased breath sounds at the bases, scattered rhonchi. HEART: S1, S2. No gallops or murmurs. PPM site looks clean. ABDOMEN: Soft, obese, nontender, nondistended. Aguilar in place EXTREMITIES: No edema, no cyanosis. DERMATOLOGIC: Warm, dry. No generalized rash. NEUROLOGIC: Alert and oriented x 3, grossly nonfocal. PSYCHIATRIC: Cooperative, appropriate mood and affect. Medications: Inpatient Meds: Current Medications Medications (Trade) Dose Ordered Sig/Damion Start Time Stop Time Status Last Admin Dose Admin Acetaminophen (Tylenol) 650 mg PRN Q4HRS PRN 04/13/20 17:00 04/13/20 21:37 650 MG Al Hydroxide/Mg Hydroxide (Mylanta Plus Xs) 30 ml PRN DAILY PRN 04/13/20 17:00 Albuterol Sulfate (Ventolin Hfa) 1 puff PRN Q4HRS PRN 04/15/20 12:30 04/15/20 14:13 1 PUFF Albuterol Sulfate (Ventolin Neb Soln) 2.5 mg PRN Q4HRS PRN 04/13/20 17:00 Allopurinol (Zyloprim) 100 mg DAILY 04/14/20 13:00 04/17/20 08:45 100 MG Amlodipine Besylate (Norvasc) 10 mg DAILY 04/14/20 13:00 04/16/20 14:20 DC Atorvastatin Calcium (Lipitor) 40 mg HS 04/14/20 21:00 04/16/20 20:47 40 MG Atropine Sulfate (ATROPINE 0.5mg SYRINGE) 0.5 mg PRN Q5MIN PRN 04/16/20 07:00 Azithromycin 250 ml @ 250 mls/hr 1X ONCE 04/13/20 14:45 04/13/20 15:44 DC 04/13/20 16:40 250 MLS/HR Ceftriaxone Sodium (Rocephin) 1 gm Q24H 04/14/20 17:00 04/16/20 12:45 DC 04/15/20 17:28 1 GM Daptomycin 500 mg/ Sodium Chloride 50 ml @ 100 mls/hr Q24H 04/15/20 15:00 04/16/20 19:30 100 MLS/HR Dexamethasone Sodium Phosphate (Decadron) 6 mg BID 04/13/20 21:00 04/17/20 08:45 6 MG Dexmedetomidine HCl 400 mcg/ Sodium Chloride 100 ml @ 0 mls/hr CONT PRN 04/16/20 07:00 04/17/20 04:37 2.9 MLS/HR Dextrose (Dextrose 50%-Water Syringe) 12.5 gm PRN Q15MIN PRN 04/17/20 00:45 Docusate Sodium (Colace) 100 mg PRN BID PRN 04/13/20 17:00 Doxycycline Hyclate 100 mg/ Dextrose 100 ml @ 50 mls/hr Q12HR 04/13/20 21:00 04/17/20 08:47 50 MLS/HR Enoxaparin Sodium (Lovenox 40mg Syringe) 40 mg BID 04/13/20 18:00 04/17/20 03:25 DC 04/16/20 20:49 40 MG Etomidate (Amidate) 12 mg 1X ONCE 04/16/20 08:15 04/16/20 08:16 DC 04/16/20 08:14 12 MG EZETIMIBE (Zetia) 10 mg HS 04/14/20 21:00 04/17/20 03:26 DC 04/16/20 20:47 10 MG Fenofibrate (Lofibra) 134 mg DAILY 04/14/20 13:00 04/17/20 08:45 134 MG Fentanyl Citrate 30 ml @ 0 mls/hr CONT PRN 04/16/20 07:45 04/17/20 05:10 3.75 MLS/HR Furosemide 100 mg/ Sodium Chloride 100 ml @ 2 mls/hr CONT PRN 04/16/20 14:30 04/16/20 15:19 2 MLS/HR Glimepiride (Amaryl) 1 mg DAILY 04/14/20 13:00 04/17/20 08:45 1 MG Guaifenesin (Robitussin) 200 mg PRN Q4HRS PRN 04/13/20 17:00 Haloperidol Lactate (Haldol Inj) 5 mg PRN Q6HRS PRN 04/15/20 17:45 04/15/20 18:10 5 MG Insulin Human Lispro (HumaLOG) 0-7 UNITS Q6HRS 04/17/20 06:00 04/17/20 06:14 5 UNITS Lisinopril (Prinivil) 40 mg DAILY 04/14/20 13:00 04/16/20 14:20 DC 04/15/20 10:09 40 MG Lorazepam (Ativan Inj) 1 mg PRN Q2HRS PRN 04/15/20 22:45 04/16/20 06:40 1 MG Metoprolol Succinate (Toprol Xl) 25 mg HS 04/14/20 21:00 04/14/20 21:14 25 MG Midazolam HCl 100 ml @ 1 mls/hr CONT PRN 04/16/20 07:45 04/17/20 00:09 10 MLS/HR Midazolam HCl (Versed) 5 mg 1X ONCE 04/16/20 07:30 04/16/20 07:31 DC 04/16/20 07:51 5 MG Morphine Sulfate (Morphine Sulfate) 2 mg PRN Q2HR PRN 04/15/20 22:45 04/16/20 05:13 2 MG Norepinephrine Bitartrate 8 mg/ Dextrose 258 ml @ 22.311 mls/ hr CONT PRN 04/16/20 07:30 04/17/20 08:44 64.7 MLS/HR Ondansetron HCl (Zofran) 4 mg PRN Q4HRS PRN 04/13/20 17:00 Pantoprazole Sodium (PROTONIX VIAL for IV PUSH) 40 mg DAILYAC 04/17/20 07:30 04/17/20 08:45 40 MG Pantoprazole Sodium (Protonix) 40 mg DAILYAC 04/14/20 13:00 04/16/20 11:39 DC 04/15/20 10:11 40 MG Piperacillin Sod/ Tazobactam Sod 3.375 gm/Sodium Chloride 50 ml @ 100 mls/hr Q6HRS 04/16/20 13:30 1/3/21 06:12 100 MLS/HR Remdesivir 100 mg/ Sodium Chloride 230 ml @ 460 mls/hr Q24H 04/16/20 14:00 04/19/20 14:29 04/16/20 15:20 460 MLS/HR Remdesivir 200 mg/ Sodium Chloride 210 ml @ 210 mls/hr 1X ONCE 04/15/20 14:00 04/15/20 14:59 DC 04/15/20 16:25 210 MLS/HR Sodium Chloride 500 ml @ 500 mls/hr 1X PRN PRN 04/16/20 07:00 Sodium Chloride (Normal Saline Flush) 3 ml QSHIFT PRN 04/13/20 17:00 Succinylcholine Chloride (Anectine) 100 mg 1X ONCE 04/16/20 08:15 04/16/20 08:16 DC 04/16/20 08:15 100 MG Ziprasidone (Geodon Im) 20 mg 1X ONCE 04/15/20 17:45 04/15/20 17:46 DC Labs: Lab Laboratory Tests Test 04/16/20 23:57 04/17/20 06:07 04/17/20 07:45 04/17/20 10:05 Glucose (Fingerstick) 366 mg/dL (70-99) 444 mg/dL (70-99) O2 Saturation 96 % (92-99) Arterial Blood pH 7.32 (7.35-7.45) Arterial Blood pCO2 at Patient Temp 38 mmHg (35-46) Arterial Blood pO2 at Patient Temp 91 mmHg (65-108) Arterial Blood HCO3 19 mmol/L (21-28) Arterial Blood Base Excess -6 mmol/L (-3-3) FiO2 90 White Blood Count 22.0 x10^3/uL (4.0-11.0) Red Blood Count 4.68 x10^6/uL (4.30-5.70) Hemoglobin 15.4 g/dL (13.0-17.5) Hematocrit 46.7 % (39.0-53.0) Mean Corpuscular Volume 100 fL (79-100) Mean Corpuscular Hemoglobin 33 pg (25-35) Mean Corpuscular Hemoglobin Concent 33 g/dL (31-37) Red Cell Distribution Width 15.0 % (11.5-14.5) Platelet Count 357 x10^3/uL (140-400) Neutrophils (%) (Auto) 90 % (31-73) Lymphocytes (%) (Auto) 2 % (24-48) Monocytes (%) (Auto) 8 % (0-9) Eosinophils (%) (Auto) 0 % (0-3) Basophils (%) (Auto) 0 % (0-3) Neutrophils # (Auto) 19.7 x10^3/uL (1.8-7.7) Lymphocytes # (Auto) 0.5 x10^3/uL (1.0-4.8) Monocytes # (Auto) 1.8 x10^3/uL (0.0-1.1) Eosinophils # (Auto) 0.0 x10^3/uL (0.0-0.7) Basophils # (Auto) 0.0 x10^3/uL (0.0-0.2) Sodium Level 133 mmol/L (136-145) Potassium Level 4.5 mmol/L (3.5-5.1) Chloride Level 98 mmol/L (98-107) Carbon Dioxide Level 21 mmol/L (21-32) Anion Gap 14 (6-14) Blood Urea Nitrogen 80 mg/dL (8-26) Creatinine 2.7 mg/dL (0.7-1.3) Estimated GFR (Cockcroft-Gault) 22.7 BUN/Creatinine Ratio 30 (6-20) Glucose Level 442 mg/dL (70-99) Calcium Level 8.9 mg/dL (8.5-10.1) Phosphorus Level 4.3 mg/dL (2.6-4.7) Total Bilirubin 0.9 mg/dL (0.2-1.0) Aspartate Amino Transf (AST/SGOT) 44 U/L (15-37) Alanine Aminotransferase (ALT/SGPT) 44 U/L (16-63) Alkaline Phosphatase 51 U/L (46-116) Total Protein 6.1 g/dL (6.4-8.2) Albumin 2.4 g/dL (3.4-5.0) Albumin/Globulin Ratio 0.6 (1.0-1.7) Objective: Assessment: 1. Fever. 2. COVID-19 infection. 3. Sepsis. 4. Bacteremia, 2/8 bottles present on admission with gram-positive cocci in clusters.Co N staph likely contaminant 5. Acute hypoxic respiratory failure.s/p intubation 6. Acute kidney injury. 7. Status post permanent pacemaker. 8. Abnormal AST. Plan: Plan of Care Cont supportive care cont remdesivir.04/15/2020 Cont daptomycin with coagulase-negative staph and PPM in place Cont Zosyn/ doxycycline on steroids. Follow up labs and cultures. Discussed with RN. EDSON MORENO MD Apr 17, 2020 11:35
[2020-04-17] MEDS: INSULIN LISPRO 300 UNITS/3 ML VIAL. SQ SCH ×2 (11:40→17:09)
[2020-04-17 12:11] LABS: BILIRUBIN,URINE NEGATIVE (NEG); CLARITY,URINE CLEAR; COLOR,URINE YELLOW; NITRITE,URINE NEGATIVE (NEG); PROTEIN,URINE NEGATIVE (NEG-TRACE)
[2020-04-17 12:29] LABS: BACTERIA,URINE FEW /HPF (0-FEW); RBC,URINE OCC /HPF (0-2)
[2020-04-17] MEDS: REMDESIVIR 100mg in NORMAL SALINE 250ML X 4 DAYS IV SCH (13:36)
--- NOTE | 2020-04-17 13:37 | PDOC ---
DATE OF SERVICE: DOS: DATE: 04/17/20 TIME: 13:34 SUBJECTIVE ROS Follow-up for acute kidney injury in the setting of COVID-19 pneumonitis Patient remains sedated intubated on the vent. Reportedly urine output is dwindling. He remains on low doses of pressors. He is on 85% FiO2 currently with a PEEP of 12 OBJECTIVE Vital Signs Vital Signs Date Time Temp Pulse Resp B/P (MAP) Pulse Ox O2 Delivery O2 Flow Rate FiO2 04/17/20 13:06 99 4.0 04/17/20 12:05 04/17/20 11:56 Ventilator 04/17/20 11:44 99.0 82 28 99.0 I & 0 Intake and Output 04/17/20 06:59 Intake Total 1710.2 ml Output Total 1375 ml Balance 335.2 ml IV Total 1710.2 ml Output Urine Total 975 ml Gastric Drainage Total 400 ml PHYSICAL EXAM Physical Exam GEN: Sedated intubated on the ventilator, Aguilar catheter in place does not appear to be in any distress Exam is otherwise limited due to COVID-19 isolation precautions DIAGNOSIS/ASSESSMENT Assessment & Plan MEJIA -possible ATN related to hypotension. UA and renal ultrasound are unremarkable, Renal function worse today. No previous baseline. Renal sonogram negative for obstruction. 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 Blood gases reviewed. No emergent indication for dialysis/CRRT based on respiratory status Metabolic acidosis as noted on ABG: IV bicarb as ordered. Serum bicarb 21 COVID-19 positive, patient full code despite his advanced age Prognosis is guarded COMMENT/RELEVANT DATA Meds Current Medications Medications (Trade) Dose Ordered Sig/Damion Start Time Stop Time Status Last Admin Dose Admin Acetaminophen (Tylenol) 650 mg PRN Q4HRS PRN 04/13/20 17:00 04/13/20 21:37 650 MG Al Hydroxide/Mg Hydroxide (Mylanta Plus Xs) 30 ml PRN DAILY PRN 04/13/20 17:00 Albuterol Sulfate (Ventolin Hfa) 1 puff PRN Q4HRS PRN 04/15/20 12:30 04/15/20 14:13 1 PUFF Albuterol Sulfate (Ventolin Neb Soln) 2.5 mg PRN Q4HRS PRN 04/13/20 17:00 Allopurinol (Zyloprim) 100 mg DAILY 04/14/20 13:00 04/17/20 08:45 100 MG Amlodipine Besylate (Norvasc) 10 mg DAILY 04/14/20 13:00 04/16/20 14:20 DC Atorvastatin Calcium (Lipitor) 40 mg HS 04/14/20 21:00 04/16/20 20:47 40 MG Atropine Sulfate (ATROPINE 0.5mg SYRINGE) 0.5 mg PRN Q5MIN PRN 04/16/20 07:00 Azithromycin 250 ml @ 250 mls/hr 1X ONCE 04/13/20 14:45 04/13/20 15:44 DC 04/13/20 16:40 250 MLS/HR Ceftriaxone Sodium (Rocephin) 1 gm Q24H 04/14/20 17:00 04/16/20 12:45 DC 04/15/20 17:28 1 GM Daptomycin 500 mg/ Sodium Chloride 50 ml @ 100 mls/hr Q24H 04/15/20 15:00 04/16/20 19:30 100 MLS/HR Dexamethasone Sodium Phosphate (Decadron) 6 mg BID 04/13/20 21:00 04/17/20 08:45 6 MG Dexmedetomidine HCl 400 mcg/ Sodium Chloride 100 ml @ 0 mls/hr CONT PRN 04/16/20 07:00 04/17/20 04:37 2.9 MLS/HR Dextrose (Dextrose 50%-Water Syringe) 12.5 gm PRN Q15MIN PRN 04/17/20 00:45 Docusate Sodium (Colace) 100 mg PRN BID PRN 04/13/20 17:00 Doxycycline Hyclate 100 mg/ Dextrose 100 ml @ 50 mls/hr Q12HR 04/13/20 21:00 04/17/20 08:47 50 MLS/HR Enoxaparin Sodium (Lovenox 40mg Syringe) 40 mg BID 04/13/20 18:00 04/17/20 03:25 DC 04/16/20 20:49 40 MG Etomidate (Amidate) 12 mg 1X ONCE 04/16/20 08:15 04/16/20 08:16 DC 04/16/20 08:14 12 MG EZETIMIBE (Zetia) 10 mg HS 04/14/20 21:00 04/17/20 03:26 DC 04/16/20 20:47 10 MG Fenofibrate (Lofibra) 134 mg DAILY 04/14/20 13:00 04/17/20 08:45 134 MG Fentanyl Citrate 30 ml @ 0 mls/hr CONT PRN 04/16/20 07:45 04/17/20 13:06 3.75 MLS/HR Furosemide 100 mg/ Sodium Chloride 100 ml @ 2 mls/hr CONT PRN 04/16/20 14:30 04/16/20 15:19 2 MLS/HR Glimepiride (Amaryl) 1 mg DAILY 04/14/20 13:00 04/17/20 08:45 1 MG Guaifenesin (Robitussin) 200 mg PRN Q4HRS PRN 04/13/20 17:00 Haloperidol Lactate (Haldol Inj) 5 mg PRN Q6HRS PRN 04/15/20 17:45 04/15/20 18:10 5 MG Insulin Human Lispro (HumaLOG) 0-9 UNITS TIDWMEALS 04/17/20 12:00 04/17/20 11:40 9 UNITS Lisinopril (Prinivil) 40 mg DAILY 04/14/20 13:00 04/16/20 14:20 DC 04/15/20 10:09 40 MG Lorazepam (Ativan Inj) 1 mg PRN Q2HRS PRN 04/15/20 22:45 04/16/20 06:40 1 MG Metoprolol Succinate (Toprol Xl) 25 mg HS 04/14/20 21:00 04/14/20 21:14 25 MG Midazolam HCl 100 ml @ 1 mls/hr CONT PRN 04/16/20 07:45 04/17/20 11:34 10 MLS/HR Midazolam HCl (Versed) 5 mg 1X ONCE 04/16/20 07:30 04/16/20 07:31 DC 04/16/20 07:51 5 MG Morphine Sulfate (Morphine Sulfate) 2 mg PRN Q2HR PRN 04/15/20 22:45 04/16/20 05:13 2 MG Norepinephrine Bitartrate 8 mg/ Dextrose 258 ml @ 22.311 mls/ hr CONT PRN 04/16/20 07:30 1/3/21 12:06 64.7 MLS/HR Ondansetron HCl (Zofran) 4 mg PRN Q4HRS PRN 04/13/20 17:00 Pantoprazole Sodium (PROTONIX VIAL for IV PUSH) 40 mg DAILYAC 04/17/20 07:30 04/17/20 08:45 40 MG Pantoprazole Sodium (Protonix) 40 mg DAILYAC 04/14/20 13:00 04/16/20 11:39 DC 04/15/20 10:11 40 MG Piperacillin Sod/ Tazobactam Sod 3.375 gm/Sodium Chloride 50 ml @ 100 mls/hr Q6HRS 04/16/20 13:30 04/17/20 11:35 100 MLS/HR Remdesivir 100 mg/ Sodium Chloride 230 ml @ 460 mls/hr Q24H 04/16/20 14:00 04/19/20 14:29 04/16/20 15:20 460 MLS/HR Remdesivir 200 mg/ Sodium Chloride 210 ml @ 210 mls/hr 1X ONCE 04/15/20 14:00 04/15/20 14:59 DC 04/15/20 16:25 210 MLS/HR Sodium Chloride 500 ml @ 500 mls/hr 1X PRN PRN 04/16/20 07:00 Sodium Chloride (Normal Saline Flush) 3 ml QSHIFT PRN 04/13/20 17:00 Succinylcholine Chloride (Anectine) 100 mg 1X ONCE 04/16/20 08:15 04/16/20 08:16 DC 04/16/20 08:15 100 MG Ziprasidone (Geodon Im) 20 mg 1X ONCE 04/15/20 17:45 04/15/20 17:46 DC Lab Laboratory Tests Test 04/16/20 23:57 04/17/20 06:07 04/17/20 07:45 04/17/20 10:05 Glucose (Fingerstick) 366 mg/dL (70-99) 444 mg/dL (70-99) O2 Saturation 96 % (92-99) Arterial Blood pH 7.32 (7.35-7.45) Arterial Blood pCO2 at Patient Temp 38 mmHg (35-46) Arterial Blood pO2 at Patient Temp 91 mmHg (65-108) Arterial Blood HCO3 19 mmol/L (21-28) Arterial Blood Base Excess -6 mmol/L (-3-3) FiO2 90 White Blood Count 22.0 x10^3/uL (4.0-11.0) Red Blood Count 4.68 x10^6/uL (4.30-5.70) Hemoglobin 15.4 g/dL (13.0-17.5) Hematocrit 46.7 % (39.0-53.0) Mean Corpuscular Volume 100 fL (79-100) Mean Corpuscular Hemoglobin 33 pg (25-35) Mean Corpuscular Hemoglobin Concent 33 g/dL (31-37) Red Cell Distribution Width 15.0 % (11.5-14.5) Platelet Count 357 x10^3/uL (140-400) Neutrophils (%) (Auto) 90 % (31-73) Lymphocytes (%) (Auto) 2 % (24-48) Monocytes (%) (Auto) 8 % (0-9) Eosinophils (%) (Auto) 0 % (0-3) Basophils (%) (Auto) 0 % (0-3) Neutrophils # (Auto) 19.7 x10^3/uL (1.8-7.7) Lymphocytes # (Auto) 0.5 x10^3/uL (1.0-4.8) Monocytes # (Auto) 1.8 x10^3/uL (0.0-1.1) Eosinophils # (Auto) 0.0 x10^3/uL (0.0-0.7) Basophils # (Auto) 0.0 x10^3/uL (0.0-0.2) Segmented Neutrophils % 85 % (35-66) Band Neutrophils % 8 % (0-9) Lymphocytes % 3 % (24-48) Monocytes % 4 % (0-10) Platelet Estimate Adequate (ADEQUATE) Sodium Level 133 mmol/L (136-145) Potassium Level 4.5 mmol/L (3.5-5.1) Chloride Level 98 mmol/L (98-107) Carbon Dioxide Level 21 mmol/L (21-32) Anion Gap 14 (6-14) Blood Urea Nitrogen 80 mg/dL (8-26) Creatinine 2.7 mg/dL (0.7-1.3) Estimated GFR (Cockcroft-Gault) 22.7 BUN/Creatinine Ratio 30 (6-20) Glucose Level 442 mg/dL (70-99) Calcium Level 8.9 mg/dL (8.5-10.1) Phosphorus Level 4.3 mg/dL (2.6-4.7) Total Bilirubin 0.9 mg/dL (0.2-1.0) Aspartate Amino Transf (AST/SGOT) 44 U/L (15-37) Alanine Aminotransferase (ALT/SGPT) 44 U/L (16-63) Alkaline Phosphatase 51 U/L (46-116) Total Protein 6.1 g/dL (6.4-8.2) Albumin 2.4 g/dL (3.4-5.0) Albumin/Globulin Ratio 0.6 (1.0-1.7) Test 04/17/20 11:20 04/17/20 11:25 Urine Collection Type Unknown Urine Color Yellow Urine Clarity Clear Urine pH 5.0 (<5.0-8.0) Urine Specific [place] 1.025 (1.000-1.030) Urine Protein Negative mg/dL (NEG-TRACE) Urine Glucose (UA) Negative mg/dL (NEG) Urine Ketones (Stick) Negative mg/dL (NEG) Urine Blood Negative (NEG) Urine Nitrite Negative (NEG) Urine Bilirubin Negative (NEG) Urine Urobilinogen Dipstick 1.0 mg/dL (0.2 mg/dL) Urine Leukocyte Esterase Small (NEG) Urine RBC Occ /HPF (0-2) Urine WBC 5-10 /HPF (0-4) Urine Squamous Epithelial Cells Few /LPF Urine Bacteria Few /HPF (0-FEW) Lactic Acid Level 3.0 mmol/L (0.4-2.0) Results All relevant outside records, renal labs, imaging studies, telemetry/EKG's were reviewed. Other Renal ultrasound: FINDINGS: The kidneys are normal in size. No solid or cystic renal lesion is seen. There is no hydronephrosis. There is echogenic hepatic parenchyma which may be due to imaging technique or steatosis. There is a Aguilar catheter within the bladder. The inferior vena cava is patent. IMPRESSION: Sonographically unremarkable kidneys. Chest x-ray from 04/16/2020 Impression: New consolidation right lower lateral lung field and left basal retrocardiac region. Increased pulmonary vasculature congestion. Pulmonary interstitial edema and infiltrates are present. Justicifation of Admission Dx: Justifications for Admission: Justification of Admission Dx: Yes Comminuty Aquired Pneumonia: Hemodynamic Instability DELANO MORENO MD Apr 17, 2020 13:37
--- NOTE | 2020-04-17 14:40 | PDOC2 ---
CONSULT Date of Consult Date of Consult DATE: 04/17/20 TIME: 14:36 Reason for Consult Reason for Consult: Respiratory failure, pacemaker, possible heart failure Referring Physician Referring Physician: Dr. Nobles Identification/Chief Complaint Chief Complaint Shortness of breath Source Source: Chart review History of Present Illness Reason for Visit: The patient is an 85-year-old male who was admitted several days ago for progressively increasing shortness of breath. Patient also was found to have acute renal insufficiency and his creatinine has increased to 2.7 today. He has a history of a permanent pacemaker and we will attempt to find his most recent records. He has tested positive for COVID-19 and required intubation 2 days ago due to progressive respiratory distress. Chest x-ray shows a right lower lobe consolidation with increased pulmonary vascular congestion. His EKG is AV paced. An echo from 11/20/2017 showed an ejection fraction of 50 to 55% with trace aortic insufficiency, trace mitral regurgitation and trace tricuspid regurgitation. Past Medical History Cardiovascular: HTN, Hyperlipidemia, Other (Pacemaker) Pulmonary: COPD Endocrine: Diabetes Past Surgical History Past Surgical History: Other (Permanent pacemaker) Family History Family History: High Cholestrol, Hypertension Social History No ALCOHOL: none Drugs: None Current Problem List Problem List Problems Medical Problems: (1) Person under investigation for COVID-19 Status: Acute (2) Pneumonia Status: Acute Current Medications Current Medications Current Medications Ceftriaxone Sodium (Rocephin) 1 gm 1X ONCE IVP Last administered on 04/13/20at 16:40; Start 04/13/20 at 14:45; Stop 04/13/20 at 14:46; Status DC Azithromycin 250 ml @ 250 mls/hr 1X ONCE IV Last administered on 04/13/20at 16:40; Start 04/13/20 at 14:45; Stop 04/13/20 at 15:44; Status DC Dexamethasone Sodium Phosphate (Decadron) 6 mg BID IVP Last administered on 04/17/20at 08:45; Start 04/13/20 at 21:00 Ceftriaxone Sodium (Rocephin) 1 gm Q24H IVP Last administered on 04/15/20at 17:28; Start 04/14/20 at 17:00; Stop 04/16/20 at 12:45; Status DC Doxycycline Hyclate 100 mg/ Dextrose 100 ml @ 50 mls/hr Q12HR IV Last administered on 04/17/20 08:47; Start 04/13/20 at 21:00 Sodium Chloride (Normal Saline Flush) 3 ml QSHIFT PRN IV AFTER MEDS AND BLOOD DRAWS; Start 04/13/20 at 17:00 Ondansetron HCl (Zofran) 4 mg PRN Q4HRS PRN IV NAUSEA/VOMITING; Start 04/13/20 at 17:00 Acetaminophen (Tylenol) 650 mg PRN Q4HRS PRN PO TEMP OVER 100.4F OR MILD PAIN Last administered on 04/13/20at 21:37; Start 04/13/20 at 17:00 Al Hydroxide/Mg Hydroxide (Mylanta Plus Xs) 30 ml PRN DAILY PRN PO HEARTBURN / GAS; Start 04/13/20 at 17:00 Docusate Sodium (Colace) 100 mg PRN BID PRN PO HARD STOOLS; Start 04/13/20 at 17:00 Albuterol Sulfate (Ventolin Neb Soln) 2.5 mg PRN Q4HRS PRN NEB SHORTNESS OF BREATH; Start 04/13/20 at 17:00 Guaifenesin (Robitussin) 200 mg PRN Q4HRS PRN PO COUGH; Start 04/13/20 at 17:00 Enoxaparin Sodium (Lovenox 40mg Syringe) 40 mg BID SQ Last administered on 04/16/20 20:49; Start 04/13/20 at 18:00; Stop 04/17/20 at 03:25; Status DC Allopurinol (Zyloprim) 100 mg DAILY PO Last administered on 04/17/20 08:45; S tart 04/14/20 at 13:00 Amlodipine Besylate (Norvasc) 10 mg DAILY PO ; Start 04/14/20 at 13:00; Stop 04/16/20 at 14:20; Status DC Atorvastatin Calcium (Lipitor) 40 mg HS PO Last administered on 04/16/20 20:47; Start 04/14/20 at 21:00 EZETIMIBE (Zetia) 10 mg HS PO Last administered on 04/16/20 20:47; Start 04/14/20 at 21:00; Stop 04/17/20 at 03:26; Status DC Metoprolol Succinate (Toprol Xl) 100 mg DAILY PO Last administered on 1/1/21at 10:12; Start 04/14/20 at 13:00 Metoprolol Succinate (Toprol Xl) 25 mg HS PO Last administered on 04/14/20at 21:14; Start 04/14/20 at 21:00 Fenofibrate (Lofibra) 134 mg DAILY PO Last administered on 04/17/20at 08:45; Start 04/14/20 at 13:00 Glimepiride (Amaryl) 1 mg DAILY PO Last administered on 04/17/20at 08:45; Start 04/14/20 at 13:00 Pantoprazole Sodium (Protonix) 40 mg DAILYAC PO Last administered on 04/15/20at 10:11; Start 04/14/20 at 13:00; Stop 04/16/20 at 11:39; Status DC Lisinopril (Prinivil) 40 mg DAILY PO Last administered on 04/15/20at 10:09; Start 04/14/20 at 13:00; Stop 04/16/20 at 14:20; Status DC Remdesivir 200 mg/ Sodium Chloride 210 ml @ 210 mls/hr 1X ONCE IV Last administered on 04/15/20at 16:25; Start 04/15/20 at 14:00; Stop 04/15/20 at 14:59; Status DC Remdesivir 100 mg/ Sodium Chloride 230 ml @ 460 mls/hr Q24H IV Last administered on 04/17/20at 13:36; Start 04/16/20 at 14:00; Stop 04/19/20 at 14:29 Daptomycin 500 mg/ Sodium Chloride 50 ml @ 100 mls/hr Q24H IV Last administered on 04/16/20at 19:30; Start 04/15/20 at 15:00 Albuterol Sulfate (Ventolin Hfa) 1 puff PRN Q4HRS PRN INH SHORTNESS OF BREATH Last administered on 04/15/20at 14:13; Start 04/15/20 at 12:30 Lorazepam (Ativan Inj) 1 mg PRN Q4HRS PRN IVP ANXIETY / AGITATION Last administered on 04/15/20at 19:34; Start 04/15/20 at 13:45; Stop 04/15/20 at 22:40; Status DC Ziprasidone (Geodon Im) 20 mg 1X ONCE IM ; Start 04/15/20 at 17:45; Stop 04/15/20 at 17:46; Status DC Haloperidol Lactate (Haldol Inj) 5 mg PRN Q6HRS PRN IVP AGITATION Last administered on 04/15/20at 18:10; Start 04/15/20 at 17:45 Lorazepam (Ativan Inj) 1 mg PRN Q2HRS PRN IVP ANXIETY / AGITATION Last administered on 04/16/20at 06:40; Start 04/15/20 at 22:45 Morphine Sulfate (Morphine Sulfate) 2 mg PRN Q2HR PRN IV SEVERE PAIN 7-10 Last administered on 04/16/20at 05:13; Start 04/15/20 at 22:45 Dexmedetomidine HCl 400 mcg/ Sodium Chloride 100 ml @ 0 mls/hr CONT PRN IV PER PROTOCOL Last administered on 04/17/20at 04:37; Start 04/16/20 at 07:00 Sodium Chloride 500 ml @ 500 mls/hr 1X PRN PRN IV SEE COMMENTS; Start 04/16/20 at 07:00 Atropine Sulfate (ATROPINE 0.5mg SYRINGE) 0.5 mg PRN Q5MIN PRN IV SEE COMMENTS; Start 04/16/20 at 07:00 Norepinephrine Bitartrate 8 mg/ Dextrose 258 ml @ 22.311 mls/ hr CONT PRN IV PER PROTOCOL Last administered on 04/17/20at 12:06; Start 04/16/20 at 07:30 Midazolam HCl (Versed) 5 mg 1X ONCE IV Last administered on 04/16/20at 07:51; Start 04/16/20 at 07:30; Stop 04/16/20 at 07:31; Status DC Succinylcholine Chloride (Anectine) 200 mg STK-MED ONCE .ROUTE ; Start 04/16/20 at 07:38; Stop 04/16/20 at 07:38; Status DC Etomidate (Amidate) 20 mg STK-MED ONCE IV ; Start 04/16/20 at 07:38; Stop 04/16/20 at 07:38; Status DC Midazolam HCl 100 ml @ 1 mls/hr CONT PRN IV SEE I/O RECORD Last administered on 04/17/20at 11:34; Start 04/16/20 at 07:45 Fentanyl Citrate 30 ml @ 0 mls/hr CONT PRN IV SEE PROTOCOL Last administered on 04/17/20at 13:06; Start 04/16/20 at 07:45 Succinylcholine Chloride (Anectine) 100 mg 1X ONCE IV Last administered on 04/16/20at 08:15; Start 04/16/20 at 08:15; Stop 04/16/20 at 08:16; Status DC Etomidate (Amidate) 12 mg 1X ONCE IV Last administered on 04/16/20at 08:14; Start 04/16/20 at 08:15; Stop 04/16/20 at 08:16; Status DC Pantoprazole Sodium (PROTONIX VIAL for IV PUSH) 40 mg DAILYAC IVP Last administered on 04/17/20at 08:45; Start 04/17/20 at 07:30 Piperacillin Sod/ Tazobactam Sod 3.375 gm/Sodium Chloride 50 ml @ 100 mls/hr Q6HRS IV Last administered on 04/17/20at 11:35; Start 04/16/20 at 13:30 Furosemide 100 mg/ Sodium Chloride 100 ml @ 2 mls/hr CONT PRN IV EDEMA Last administered on 04/16/20at 15:19; Start 04/16/20 at 14:30 Insulin Human Lispro (HumaLOG) 0-7 UNITS Q6HRS SQ Last administered on 04/17/20at 06:14; Start 04/17/20 at 06:00; Stop 04/17/20 at 11:39; Status DC Dextrose (Dextrose 50%-Water Syringe) 12.5 gm PRN Q15MIN PRN IV SEE COMMENTS; Start 04/17/20 at 00:45 Insulin Human Lispro (HumaLOG) 0-9 UNITS TIDWMEALS SQ Last administered on 04/17/20at 11:40; Start 04/17/20 at 12:00 Active Scripts Active Reported Glimepiride 1 Mg Tablet 1 Tab PO DAILY Metoprolol Succinate ( Xl ) (Metoprolol Succinate) 100 Mg Tab.er.24h 1 Tab PO DAILY Zetia (Ezetimibe) 10 Mg Tablet 1 Tab PO HS 30 Days Fenofibrate 160 Mg Tablet 1 Tab PO DAILY Atorvastatin Calcium 40 Mg Tablet 1 Tab PO HS Amlodipine Besylate 10 Mg Tablet 1 Tab PO DAILY Omeprazole 20 Mg Capsule.dr 1 Cap PO DAILY Mexiletine Hcl 150 Mg Capsule 150 Mg PO Q8HRS Toprol Xl (Metoprolol Succinate) 25 Mg Tab.er.24h 1 Tab PO HS 30 Days Accupril (Quinapril Hcl) 40 Mg Tablet 1 Tab PO DAILY Allopurinol 100 Mg Tablet 1 Tab PO DAILY Allergies Allergies: Coded Allergies: No Known Drug Allergies (Unverified , 04/13/20) ROS General: YES: Fatigue Respiratory: YES: Shortness of breath, SOB with excertion Physical Exam Physical Exam Visual exam secondary to Covid status. Vitals VITALS Vital Signs Date Time Temp Pulse Resp B/P (MAP) Pulse Ox O2 Delivery O2 Flow Rate FiO2 04/17/20 13:36 29 99 Ventilator 4.0 04/17/20 13:33 80 122/56 (78) 04/17/20 11:44 99.0 99.0 Labs Labs Laboratory Tests Test 04/15/20 16:10 04/15/20 17:11 04/15/20 20:15 04/15/20 20:54 O2 Saturation 86 % (92-99) 89 % (92-99) Arterial Blood pH 7.40 (7.35-7.45) 7.41 (7.35-7.45) Arterial Blood pCO2 at Patient Temp 30 mmHg (35-46) 31 mmHg (35-46) Arterial Blood pO2 at Patient Temp 53 mmHg (65-108) 59 mmHg (65-108) Arterial Blood HCO3 18 mmol/L (21-28) 19 mmol/L (21-28) Arterial Blood Base Excess -5 mmol/L (-3-3) -4 mmol/L (-3-3) FiO2 100 nrm 100 Glucose (Fingerstick) 275 mg/dL (70-99) 218 mg/dL (70-99) Test 04/16/20 05:00 04/16/20 09:30 04/16/20 23:57 04/17/20 06:07 Sodium Level 134 mmol/L (136-145) Potassium Level 4.6 mmol/L (3.5-5.1) Chloride Level 100 mmol/L (98-107) Carbon Dioxide Level 20 mmol/L (21-32) Anion Gap 14 (6-14) Blood Urea Nitrogen 59 mg/dL (8-26) Creatinine 1.8 mg/dL (0.7-1.3) Estimated GFR (Cockcroft-Gault) 36.2 Glucose Level 219 mg/dL (70-99) Calcium Level 9.0 mg/dL (8.5-10.1) Phosphorus Level 3.8 mg/dL (2.6-4.7) Albumin 2.3 g/dL (3.4-5.0) O2 Saturation 97 % (92-99) Arterial Blood pH 7.31 (7.35-7.45) Arterial Blood pCO2 at Patient Temp 45 mmHg (35-46) Arterial Blood pO2 at Patient Temp 95 mmHg (65-108) Arterial Blood HCO3 22 mmol/L (21-28) Arterial Blood Base Excess -4 mmol/L (-3-3) FiO2 100 Glucose (Fingerstick) 366 mg/dL (70-99) 444 mg/dL (70-99) Test 04/17/20 07:45 04/17/20 10:05 04/17/20 11:20 04/17/20 11:25 O2 Saturation 96 % (92-99) Arterial Blood pH 7.32 (7.35-7.45) Arterial Blood pCO2 at Patient Temp 38 mmHg (35-46) Arterial Blood pO2 at Patient Temp 91 mmHg (65-108) Arterial Blood HCO3 19 mmol/L (21-28) Arterial Blood Base Excess -6 mmol/L (-3-3) FiO2 90 White Blood Count 22.0 x10^3/uL (4.0-11.0) Red Blood Count 4.68 x10^6/uL (4.30-5.70) Hemoglobin 15.4 g/dL (13.0-17.5) Hematocrit 46.7 % (39.0-53.0) Mean Corpuscular Volume 100 fL (79-100) Mean Corpuscular Hemoglobin 33 pg (25-35) Mean Corpuscular Hemoglobin Concent 33 g/dL (31-37) Red Cell Distribution Width 15.0 % (11.5-14.5) Platelet Count 357 x10^3/uL (140-400) Neutrophils (%) (Auto) 90 % (31-73) Lymphocytes (%) (Auto) 2 % (24-48) Monocytes (%) (Auto) 8 % (0-9) Eosinophils (%) (Auto) 0 % (0-3) Basophils (%) (Auto) 0 % (0-3) Neutrophils # (Auto) 19.7 x10^3/uL (1.8-7.7) Lymphocytes # (Auto) 0.5 x10^3/uL (1.0-4.8) Monocytes # (Auto) 1.8 x10^3/uL (0.0-1.1) Eosinophils # (Auto) 0.0 x10^3/uL (0.0-0.7) Basophils # (Auto) 0.0 x10^3/uL (0.0-0.2) Segmented Neutrophils % 85 % (35-66) Band Neutrophils % 8 % (0-9) Lymphocytes % 3 % (24-48) Monocytes % 4 % (0-10) Platelet Estimate Adequate (ADEQUATE) Sodium Level 133 mmol/L (136-145) Potassium Level 4.5 mmol/L (3.5-5.1) Chloride Level 98 mmol/L (98-107) Carbon Dioxide Level 21 mmol/L (21-32) Anion Gap 14 (6-14) Blood Urea Nitrogen 80 mg/dL (8-26) Creatinine 2.7 mg/dL (0.7-1.3) Estimated GFR (Cockcroft-Gault) 22.7 BUN/Creatinine Ratio 30 (6-20) Glucose Level 442 mg/dL (70-99) Calcium Level 8.9 mg/dL (8.5-10.1) Phosphorus Level 4.3 mg/dL (2.6-4.7) Total Bilirubin 0.9 mg/dL (0.2-1.0) Aspartate Amino Transf (AST/SGOT) 44 U/L (15-37) Alanine Aminotransferase (ALT/SGPT) 44 U/L (16-63) Alkaline Phosphatase 51 U/L (46-116) Total Protein 6.1 g/dL (6.4-8.2) Albumin 2.4 g/dL (3.4-5.0) Albumin/Globulin Ratio 0.6 (1.0-1.7) Urine Collection Type Unknown Urine Color Yellow Urine Clarity Clear Urine pH 5.0 (<5.0-8.0) Urine Specific [place] 1.025 (1.000-1.030) Urine Protein Negative mg/dL (NEG-TRACE) Urine Glucose (UA) Negative mg/dL (NEG) Urine Ketones (Stick) Negative mg/dL (NEG) Urine Blood Negative (NEG) Urine Nitrite Negative (NEG) Urine Bilirubin Negative (NEG) Urine Urobilinogen Dipstick 1.0 mg/dL (0.2 mg/dL) Urine Leukocyte Esterase Small (NEG) Urine RBC Occ /HPF (0-2) Urine WBC 5-10 /HPF (0-4) Urine Squamous Epithelial Cells Few /LPF Urine Bacteria Few /HPF (0-FEW) Lactic Acid Level 3.0 mmol/L (0.4-2.0) Laboratory Tests Test 04/16/20 23:57 04/17/20 06:07 04/17/20 07:45 04/17/20 10:05 Glucose (Fingerstick) 366 mg/dL (70-99) 444 mg/dL (70-99) O2 Saturation 96 % (92-99) Arterial Blood pH 7.32 (7.35-7.45) Arterial Blood pCO2 at Patient Temp 38 mmHg (35-46) Arterial Blood pO2 at Patient Temp 91 mmHg (65-108) Arterial Blood HCO3 19 mmol/L (21-28) Arterial Blood Base Excess -6 mmol/L (-3-3) FiO2 90 White Blood Count 22.0 x10^3/uL (4.0-11.0) Red Blood Count 4.68 x10^6/uL (4.30-5.70) Hemoglobin 15.4 g/dL (13.0-17.5) Hematocrit 46.7 % (39.0-53.0) Mean Corpuscular Volume 100 fL (79-100) Mean Corpuscular Hemoglobin 33 pg (25-35) Mean Corpuscular Hemoglobin Concent 33 g/dL (31-37) Red Cell Distribution Width 15.0 % (11.5-14.5) Platelet Count 357 x10^3/uL (140-400) Neutrophils (%) (Auto) 90 % (31-73) Lymphocytes (%) (Auto) 2 % (24-48) Monocytes (%) (Auto) 8 % (0-9) Eosinophils (%) (Auto) 0 % (0-3) Basophils (%) (Auto) 0 % (0-3) Neutrophils # (Auto) 19.7 x10^3/uL (1.8-7.7) Lymphocytes # (Auto) 0.5 x10^3/uL (1.0-4.8) Monocytes # (Auto) 1.8 x10^3/uL (0.0-1.1) Eosinophils # (Auto) 0.0 x10^3/uL (0.0-0.7) Basophils # (Auto) 0.0 x10^3/uL (0.0-0.2) Segmented Neutrophils % 85 % (35-66) Band Neutrophils % 8 % (0-9) Lymphocytes % 3 % (24-48) Monocytes % 4 % (0-10) Platelet Estimate Adequate (ADEQUATE) Sodium Level 133 mmol/L (136-145) Potassium Level 4.5 mmol/L (3.5-5.1) Chloride Level 98 mmol/L (98-107) Carbon Dioxide Level 21 mmol/L (21-32) Anion Gap 14 (6-14) Blood Urea Nitrogen 80 mg/dL (8-26) Creatinine 2.7 mg/dL (0.7-1.3) Estimated GFR (Cockcroft-Gault) 22.7 BUN/Creatinine Ratio 30 (6-20) Glucose Level 442 mg/dL (70-99) Calcium Level 8.9 mg/dL (8.5-10.1) Phosphorus Level 4.3 mg/dL (2.6-4.7) Total Bilirubin 0.9 mg/dL (0.2-1.0) Aspartate Amino Transf (AST/SGOT) 44 U/L (15-37) Alanine Aminotransferase (ALT/SGPT) 44 U/L (16-63) Alkaline Phosphatase 51 U/L (46-116) Total Protein 6.1 g/dL (6.4-8.2) Albumin 2.4 g/dL (3.4-5.0) Albumin/Globulin Ratio 0.6 (1.0-1.7) Test 04/17/20 11:20 04/17/20 11:25 Urine Collection Type Unknown Urine Color Yellow Urine Clarity Clear Urine pH 5.0 (<5.0-8.0) Urine Specific [place] 1.025 (1.000-1.030) Urine Protein Negative mg/dL (NEG-TRACE) Urine Glucose (UA) Negative mg/dL (NEG) Urine Ketones (Stick) Negative mg/dL (NEG) Urine Blood Negative (NEG) Urine Nitrite Negative (NEG) Urine Bilirubin Negative (NEG) Urine Urobilinogen Dipstick 1.0 mg/dL (0.2 mg/dL) Urine Leukocyte Esterase Small (NEG) Urine RBC Occ /HPF (0-2) Urine WBC 5-10 /HPF (0-4) Urine Squamous Epithelial Cells Few /LPF Urine Bacteria Few /HPF (0-FEW) Lactic Acid Level 3.0 mmol/L (0.4-2.0) Images Images Chest x-ray as above. Assessment/Plan Assessment/Plan 1. Acute respiratory failure. Patient is now intubated. He has tested positive for Covid. He is being treated and monitored by the pulmonary service. 2. Acute kidney insufficiency. Creatinine elevated to 2.7. Followed by the renal service. 3. Permanent pacemaker. Will obtain records of the patient's device and interrogate. 4. Diabetes mellitus. Initial glucose elevated 366. As per the primary service. 5. Possible contributing heart failure. Echo from 2018 as above with intact LV systolic function and minimal valvular disease. Agree with treatment as above. Once allowable by Covid protocols we will recheck an echocardiogram. Fluid management as per the renal service. Thank you for allowing us to participate in the care of your patient. ASHLEY BOWENS MD Apr 17, 2020 14:40
[2020-04-17] MEDS: DAPTOmycin (GENERIC) IVPB 500 MG in IV NORMAL SALINE 50ML 50 ML IV SCH (17:06)
[2020-04-17] MEDS: ATORVASTATIN CALCIUM 40 MG TABLET. PO SCH (20:42)
[2020-04-17] MEDS: METOPROLOL SUCC 24HR ER 25 MG TAB.ER.24H. PO SCH (21:00)
[2020-04-17] MEDS: FUROSEMIDE INJ 100 MG in IV NORMAL SALINE 100ML 100 ML IV PRN (23:32)
[2020-04-18] VITALS (29 sets, daily range): BP systolic 76–140; BP diastolic 44–56
[2020-04-18] MEDS ORDERED: INSULIN LISPRO 300 UNITS/3 ML VIAL. SQ ONE ×2 (01:30→07:15)
[2020-04-18] MEDS: NOREPINEPHRINE VIAL 8 MG in IV DEXTROSE 5% 250 ML IV PRN (02:02)
[2020-04-18 06:32] LABS: ALBUMIN 1.5 g/dL (3.4-5.0); CALCIUM 6.4 mg/dL (8.5-10.1); CREATININE 3.3 mg/dL (0.7-1.3); PHOSPHORUS 3.3 mg/dL (2.6-4.7); POTASSIUM 3.5 mmol/L (3.5-5.1)
[2020-04-18] MEDS: NOREPINEPHRINE VIAL 32 MG in IV D5W 250ML IV PRN ×2 (06:51→19:05)
[2020-04-18] MEDS: PIPERACILLIN/TAZOBACTAM 3.375 GM in IV NORMAL SALINE 50ML 50 ML IV SCH ×4 (06:53→23:31)
[2020-04-18] MEDS: FENOFIBRATE,MICRONIZED 134 MG CAPSULE PO SCH (07:05)
[2020-04-18] MEDS: PANTOPRAZOLE IV PUSH 40 MG VIAL. IVP SCH (07:05)
[2020-04-18] MEDS: ALLOPURINOL 100 MG TABLET. PO SCH (07:05)
[2020-04-18] MEDS: DEXAMETHASONE SOD PHOS 4 MG/ML VIAL IVP SCH ×2 (07:06→21:28)
[2020-04-18] MEDS: METOPROLOL SUCC 24HR ER 100 MG TAB.ER.24H. PO SCH (07:07)
[2020-04-18] MEDS: GLIMEPIRIDE 2 MG TABLET. PO SCH (07:07)
[2020-04-18] MEDS: INSULIN LISPRO 300 UNITS/3 ML VIAL. SQ SCH ×3 (07:12→18:02)
[2020-04-18] MEDS: DOXYCYCLINE HYCLATE 100 MG in IV DEXTROSE 5% 100ML 100 ML IV SCH ×2 (08:01→21:26)
--- NOTE | 2020-04-18 08:10 | PDOC ---
Infectious Disease Note Subjective Subjective Intubated/sedated FiO2 85% PEEP of 12 On Levophed ROS ROS no n/v/d/ Vital Sign Vital Signs Vital Signs Date Time Temp Pulse Resp B/P (MAP) Pulse Ox O2 Delivery O2 Flow Rate FiO2 04/18/20 07:31 04/18/20 07:02 80 28 99 Ventilator 04/18/20 05:25 4.0 04/18/20 04:00 99.6 99.6 Physical Exam PHYSICAL EXAM GENERAL:Intubated,sedated HEENT: Normocephalic, atraumatic, anicteric.ETT/OGT + LUNGS: Decreased breath sounds at the bases, scattered rhonchi. HEART: S1, S2. No gallops or murmurs. PPM site looks clean. ABDOMEN: Soft, obese, nontender, nondistended. Aguilar in place EXTREMITIES: No edema, no cyanosis. DERMATOLOGIC: Warm, dry. No generalized rash. NEUROLOGIC: Alert and oriented x 3, grossly nonfocal. PSYCHIATRIC: Cooperative, appropriate mood and affect. Labs Lab Laboratory Tests Test 04/17/20 10:05 04/17/20 11:20 04/17/20 11:25 04/17/20 15:37 White Blood Count 22.0 x10^3/uL (4.0-11.0) Red Blood Count 4.68 x10^6/uL (4.30-5.70) Hemoglobin 15.4 g/dL (13.0-17.5) Hematocrit 46.7 % (39.0-53.0) Mean Corpuscular Volume 100 fL (79-100) Mean Corpuscular Hemoglobin 33 pg (25-35) Mean Corpuscular Hemoglobin Concent 33 g/dL (31-37) Red Cell Distribution Width 15.0 % (11.5-14.5) Platelet Count 357 x10^3/uL (140-400) Neutrophils (%) (Auto) 90 % (31-73) Lymphocytes (%) (Auto) 2 % (24-48) Monocytes (%) (Auto) 8 % (0-9) Eosinophils (%) (Auto) 0 % (0-3) Basophils (%) (Auto) 0 % (0-3) Neutrophils # (Auto) 19.7 x10^3/uL (1.8-7.7) Lymphocytes # (Auto) 0.5 x10^3/uL (1.0-4.8) Monocytes # (Auto) 1.8 x10^3/uL (0.0-1.1) Eosinophils # (Auto) 0.0 x10^3/uL (0.0-0.7) Basophils # (Auto) 0.0 x10^3/uL (0.0-0.2) Segmented Neutrophils % 85 % (35-66) Band Neutrophils % 8 % (0-9) Lymphocytes % 3 % (24-48) Monocytes % 4 % (0-10) Platelet Estimate Adequate (ADEQUATE) Sodium Level 133 mmol/L (136-145) Potassium Level 4.5 mmol/L (3.5-5.1) Chloride Level 98 mmol/L (98-107) Carbon Dioxide Level 21 mmol/L (21-32) Anion Gap 14 (6-14) Blood Urea Nitrogen 80 mg/dL (8-26) Creatinine 2.7 mg/dL (0.7-1.3) Estimated GFR (Cockcroft-Gault) 22.7 BUN/Creatinine Ratio 30 (6-20) Glucose Level 442 mg/dL (70-99) Calcium Level 8.9 mg/dL (8.5-10.1) Phosphorus Level 4.3 mg/dL (2.6-4.7) Total Bilirubin 0.9 mg/dL (0.2-1.0) Aspartate Amino Transf (AST/SGOT) 44 U/L (15-37) Alanine Aminotransferase (ALT/SGPT) 44 U/L (16-63) Alkaline Phosphatase 51 U/L (46-116) Total Protein 6.1 g/dL (6.4-8.2) Albumin 2.4 g/dL (3.4-5.0) Albumin/Globulin Ratio 0.6 (1.0-1.7) Urine Collection Type Unknown Urine Color Yellow Urine Clarity Clear Urine pH 5.0 (<5.0-8.0) Urine Specific [place] 1.025 (1.000-1.030) Urine Protein Negative mg/dL (NEG-TRACE) Urine Glucose (UA) Negative mg/dL (NEG) Urine Ketones (Stick) Negative mg/dL (NEG) Urine Blood Negative (NEG) Urine Nitrite Negative (NEG) Urine Bilirubin Negative (NEG) Urine Urobilinogen Dipstick 1.0 mg/dL (0.2 mg/dL) Urine Leukocyte Esterase Small (NEG) Urine RBC Occ /HPF (0-2) Urine WBC 5-10 /HPF (0-4) Urine Squamous Epithelial Cells Few /LPF Urine Bacteria Few /HPF (0-FEW) Lactic Acid Level 3.0 mmol/L (0.4-2.0) 3.0 mmol/L (0.4-2.0) Test 04/17/20 17:07 04/18/20 00:06 04/18/20 05:50 Glucose (Fingerstick) 425 mg/dL (70-99) 429 mg/dL (70-99) Sodium Level 135 mmol/L (136-145) Potassium Level 3.5 mmol/L (3.5-5.1) Chloride Level 104 mmol/L (98-107) Carbon Dioxide Level 17 mmol/L (21-32) Anion Gap 14 (6-14) Blood Urea Nitrogen 79 mg/dL (8-26) Creatinine 3.3 mg/dL (0.7-1.3) Estimated GFR (Cockcroft-Gault) 18.0 Glucose Level 396 mg/dL (70-99) Calcium Level 6.4 mg/dL (8.5-10.1) Phosphorus Level 3.3 mg/dL (2.6-4.7) Albumin 1.5 g/dL (3.4-5.0) Micro Microbiology 04/17/20 Blood Culture - Preliminary, Resulted NO GROWTH AFTER 1 DAY Objective Assessment 1. Fever. 2. COVID-19 infection. 3. Sepsis. 4. Bacteremia, 2/8 bottles present on admission with gram-positive cocci in clusters.Co N staph likely contaminant 5. Acute hypoxic respiratory failure.s/p intubation 6. Acute kidney injury. 7. Status post permanent pacemaker. 8. Abnormal AST. Plan Plan of Care Cont supportive care cont remdesivir.04/15/2020 Cont daptomycin with coagulase-negative staph and PPM in place Cont Zosyn/ doxycycline on steroids. Follow up labs and cultures. Discussed with SUSHIL. LALITHA MORENO MD Apr 18, 2020 08:10
[2020-04-18 08:18] LABS: BASE EXCESS ABG -7 mmol/L (-3-3); HCO3 ABG 19 mmol/L (21-28); PCO2 ABG 42 mmHg (35-46); PO2 ABG 123 mmHg (65-108); SAT O2 ABG 98 % (92-99)
--- NOTE | 2020-04-18 08:34 | PDOC ---
[employer] PROGRESS NOTE Date of Service DOS: DATE: 04/18/20 TIME: 08:27 Chief Complaint Chief Complaint impression 1. ACUTE HYPOXIC RESP FAILURE Continued to decompensate in his respiratory status required intubation 1/2 AM Fever 2. HX pacemaker. 3. Mild left lung interstitial infiltrates with worsening compared to old studies from 2016. CONCERNING FOR COVID 19 SYNDROME New consolidation right lower lateral lung field and left basal retrocardiac region. Increased pulmonary vasculature congestion. Pulmonary interstitial edema and infiltrates are present. /2 4, MORBID OBESITY 5. GENERALIZED WEAKNESS 6. 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 PULM CONSULT cont remdesivir.04/15/2020 DC daptomycin iv Zosyn FiO2 85% PEEP of 12 Levophed pressure support BLOOD CULTURE LC Preliminary Preliminary FINAL ID= [STAPHYLOCOCCUS EPIDERMIDIS] 32 MIN CC TIME History of Present Illness History of Present Illness 04/18 Patient seen and examined in COVID-19 ICU. He is ventilated, FiO2 80%, PEEP 12. Continue treatment with Zosyn, doxycycline, steroids, and remdesivir. Charts and labs reviewed, discussed with RN. 04/17/2020 Patient seen and examined Chart reviewed Discussed with RN Patient is on Vent IV doxycycline FiO2 85% PEEP of 12 Identification/Chief Complaint Chief Complaint DYSPNEA, COUGH WORSE SINCE History of Present Illness History of Present Illness 85 yr old male seen in er with worsening cough since 04-08, now more SOA , HYPOXIC ON PRESENTATION Past Medical History Cardiovascular: HTN, Hyperlipidemia Family History Family History: High Cholestrol, Hypertension Social History Smoke: No ALCOHOL: none Drugs: None Allergies Allergies: Coded Allergies: No Known Drug Allergies (Unverified , 04/13/20) Vitals/I&O Vitals/I&O: Vital Signs Date Time Temp Pulse Resp B/P (MAP) Pulse Ox O2 Delivery O2 Flow Rate FiO2 04/18/20 07:31 04/18/20 07:02 80 28 99 Ventilator 04/18/20 05:25 4.0 04/18/20 04:00 99.6 99.6 I & O 04/17/20 04/17/20 04/18/20 15:00 23:00 07:00 Intake Total 380 ml 922 ml 672 ml Output Total 195 ml 165 ml 130 ml Balance 185 ml 757 ml 542 ml Physical Exam Physical Exam: GENERAL:Intubated,sedated HEENT: Normocephalic, atraumatic, anicteric.ETT/OGT + LUNGS: Decreased breath sounds at the bases, scattered rhonchi. HEART: S1, S2. No gallops or murmurs. PPM site looks clean. ABDOMEN: Soft, obese, nontender, nondistended. Aguilar in place EXTREMITIES: No edema, no cyanosis. DERMATOLOGIC: Warm, dry. No generalized rash. NEUROLOGIC: Alert and oriented x 3, grossly nonfocal. PSYCHIATRIC: Cooperative, appropriate mood and affect. General: No acute distress Heart: Regular rate Lungs: Crackles Abdomen: Normal bowel sounds, Soft, No tenderness Extremities: No clubbing, No cyanosis Labs Labs: Laboratory Tests Test 04/17/20 10:05 04/17/20 11:20 04/17/20 11:25 04/17/20 15:37 White Blood Count 22.0 x10^3/uL (4.0-11.0) Red Blood Count 4.68 x10^6/uL (4.30-5.70) Hemoglobin 15.4 g/dL (13.0-17.5) Hematocrit 46.7 % (39.0-53.0) Mean Corpuscular Volume 100 fL (79-100) Mean Corpuscular Hemoglobin 33 pg (25-35) Mean Corpuscular Hemoglobin Concent 33 g/dL (31-37) Red Cell Distribution Width 15.0 % (11.5-14.5) Platelet Count 357 x10^3/uL (140-400) Neutrophils (%) (Auto) 90 % (31-73) Lymphocytes (%) (Auto) 2 % (24-48) Monocytes (%) (Auto) 8 % (0-9) Eosinophils (%) (Auto) 0 % (0-3) Basophils (%) (Auto) 0 % (0-3) Neutrophils # (Auto) 19.7 x10^3/uL (1.8-7.7) Lymphocytes # (Auto) 0.5 x10^3/uL (1.0-4.8) Monocytes # (Auto) 1.8 x10^3/uL (0.0-1.1) Eosinophils # (Auto) 0.0 x10^3/uL (0.0-0.7) Basophils # (Auto) 0.0 x10^3/uL (0.0-0.2) Segmented Neutrophils % 85 % (35-66) Band Neutrophils % 8 % (0-9) Lymphocytes % 3 % (24-48) Monocytes % 4 % (0-10) Platelet Estimate Adequate (ADEQUATE) Sodium Level 133 mmol/L (136-145) Potassium Level 4.5 mmol/L (3.5-5.1) Chloride Level 98 mmol/L (98-107) Carbon Dioxide Level 21 mmol/L (21-32) Anion Gap 14 (6-14) Blood Urea Nitrogen 80 mg/dL (8-26) Creatinine 2.7 mg/dL (0.7-1.3) Estimated GFR (Cockcroft-Gault) 22.7 BUN/Creatinine Ratio 30 (6-20) Glucose Level 442 mg/dL (70-99) Calcium Level 8.9 mg/dL (8.5-10.1) Phosphorus Level 4.3 mg/dL (2.6-4.7) Total Bilirubin 0.9 mg/dL (0.2-1.0) Aspartate Amino Transf (AST/SGOT) 44 U/L (15-37) Alanine Aminotransferase (ALT/SGPT) 44 U/L (16-63) Alkaline Phosphatase 51 U/L (46-116) Total Protein 6.1 g/dL (6.4-8.2) Albumin 2.4 g/dL (3.4-5.0) Albumin/Globulin Ratio 0.6 (1.0-1.7) Urine Collection Type Unknown Urine Color Yellow Urine Clarity Clear Urine pH 5.0 (<5.0-8.0) Urine Specific [place] 1.025 (1.000-1.030) Urine Protein Negative mg/dL (NEG-TRACE) Urine Glucose (UA) Negative mg/dL (NEG) Urine Ketones (Stick) Negative mg/dL (NEG) Urine Blood Negative (NEG) Urine Nitrite Negative (NEG) Urine Bilirubin Negative (NEG) Urine Urobilinogen Dipstick 1.0 mg/dL (0.2 mg/dL) Urine Leukocyte Esterase Small (NEG) Urine RBC Occ /HPF (0-2) Urine WBC 5-10 /HPF (0-4) Urine Squamous Epithelial Cells Few /LPF Urine Bacteria Few /HPF (0-FEW) Lactic Acid Level 3.0 mmol/L (0.4-2.0) 3.0 mmol/L (0.4-2.0) Test 04/17/20 17:07 04/18/20 00:06 04/18/20 05:50 Glucose (Fingerstick) 425 mg/dL (70-99) 429 mg/dL (70-99) Sodium Level 135 mmol/L (136-145) Potassium Level 3.5 mmol/L (3.5-5.1) Chloride Level 104 mmol/L (98-107) Carbon Dioxide Level 17 mmol/L (21-32) Anion Gap 14 (6-14) Blood Urea Nitrogen 79 mg/dL (8-26) Creatinine 3.3 mg/dL (0.7-1.3) Estimated GFR (Cockcroft-Gault) 18.0 Glucose Level 396 mg/dL (70-99) Calcium Level 6.4 mg/dL (8.5-10.1) Phosphorus Level 3.3 mg/dL (2.6-4.7) Albumin 1.5 g/dL (3.4-5.0) Assessment and Plan Assessmemt and Plan Problems Medical Problems: (1) Person under investigation for COVID-19 Status: Acute (2) Pneumonia Status: Acute Comment Review of Relevant I have reviewed the following items andrea (where applicable) has been applied. Medications: Current Medications Medications (Trade) Dose Ordered Sig/Damion Route PRN Reason Start Time Stop Time Status Last Admin Dose Admin Insulin Human Lispro (HumaLOG) 0-9 UNITS TIDWMEALS SQ 04/17/20 12:00 04/17/20 17:09 Insulin Human Lispro (HumaLOG) 20 units 1X ONCE SQ 04/18/20 01:30 04/18/20 01:31 DC 04/18/20 01:24 Norepinephrine Bitartrate 32 mg/ Dextrose 250 ml @ 5.114 mls/ hr CONT PRN IV SEE I/O RECORD 04/18/20 05:00 04/18/20 06:51 Insulin Human Lispro (HumaLOG) 30 units 1X ONCE SQ 04/18/20 07:15 04/18/20 07:16 DC 04/18/20 07:23 Justifications for Admission General Conditions Poss tachycardia?: Yes Justification for admission: Patient has tachycardia (> 100 beats per minute) which is not readily corrected by appropriate treatment within 12 to 24 hours. ACUTE HYPOXIC RESP FAILURE Other Justification TJ ABRAHAM MD Apr 18, 2020 08:34
[2020-04-18] MEDS: MIDAZOLAM 100mg/100ml NS BAG 100 ML IV PRN ×2 (09:10→21:09)
[2020-04-18 09:29] LABS: FIO2 ABG 80% VENT +12 PEEP
[2020-04-18 09:40] LABS: BASO # 0.1 x10^3/uL (0.0-0.2); BASO % 0 % (0-3); EOS % 0 % (0-3); HEMATOCRIT 38.9 % (39.0-53.0); HEMOGLOBIN 12.5 g/dL (13.0-17.5); LYMPH # 0.3 x10^3/uL (1.0-4.8); LYMPH % 2 % (24-48); MEAN CORPUSCULAR HEMOGLOBIN 32 pg (25-35); MEAN CORPUSCULAR HGB CONC 32 g/dL (31-37); MEAN CORPUSCULAR VOLUME 99 fL (79-100); MONO # 1.6 x10^3/uL (0.0-1.1); MONO % 9 % (0-9); NEUT % 89 % (31-73); PLATELET COUNT 312 x10^3/uL (140-400); RED BLOOD COUNT 3.92 x10^6/uL (4.30-5.70); RED CELL DISTRIBUTION WIDTH 14.7 % (11.5-14.5); WHITE BLOOD COUNT 17.9 x10^3/uL (4.0-11.0)
--- NOTE | 2020-04-18 09:59 | PDOC ---
DATE OF SERVICE DATE: 04/18/20 TIME: 09:57 OBJECTIVE Vital Signs Vital Signs Date Time Temp Pulse Resp B/P (MAP) Pulse Ox O2 Delivery O2 Flow Rate FiO2 04/18/20 09:13 100 Ventilator 04/18/20 09:00 80 29 115/47 (69) 04/18/20 08:59 98.9 98.9 04/18/20 05:25 4.0 I & 0 Intake and Output 04/18/20 07:00 Intake Total 1974 ml Output Total 490 ml Balance 1484 ml IV Total 1974 ml Output Urine Total 490 ml PHYSICAL EXAM Physical Exam General:Intubated HEENT: Intubated Neck Supple Heart: RRR Lungs CTA ant Abdomen: Normal bowel sounds, Soft, Extremities: No clubbing, No cyanosis, no edema Neuro: sedated, intubated tineo + DIAGNOSIS/ASSESSMENT Assessment & Plan MEJIA - Vasomotor, hypotension POA , was improving some ,UA unremarkable, currently on low dose pressors Renal function worsen, ? plateau, currently on IV lasix gtt , UOP adequate , Currently no emergent indication for dialysis, monitor closely , Dw RN COVID-19 infection - remdesivir, steroids and Abx Sepsis/ Bacteremia, 2/8 bottles present on admission with gram-positive cocci in clusters. likely contaminant per ID Acute hypoxic respiratory failure.s/p intubation, was on O2 at presentation Anemia - GI consulted ? GI bleed Status post permanent pacemaker. Abnormal AST. Diabetes. Hypertension BPs low, on low dose pressor COMMENT/RELEVANT DATA Meds Current Medications Medications (Trade) Dose Ordered Sig/Damion Start Time Stop Time Status Last Admin Dose Admin Acetaminophen (Tylenol) 650 mg PRN Q4HRS PRN 04/13/20 17:00 04/13/20 21:37 650 MG Al Hydroxide/Mg Hydroxide (Mylanta Plus Xs) 30 ml PRN DAILY PRN 04/13/20 17:00 Albuterol Sulfate (Ventolin Hfa) 1 puff PRN Q4HRS PRN 04/15/20 12:30 04/15/20 14:13 1 PUFF Albuterol Sulfate (Ventolin Neb Soln) 2.5 mg PRN Q4HRS PRN 04/13/20 17:00 Allopurinol (Zyloprim) 100 mg DAILY 04/14/20 13:00 04/18/20 07:05 100 MG Amlodipine Besylate (Norvasc) 10 mg DAILY 04/14/20 13:00 04/16/20 14:20 DC Atorvastatin Calcium (Lipitor) 40 mg HS 04/14/20 21:00 04/17/20 20:42 40 MG Atropine Sulfate (ATROPINE 0.5mg SYRINGE) 0.5 mg PRN Q5MIN PRN 04/16/20 07:00 Azithromycin 250 ml @ 250 mls/hr 1X ONCE 04/13/20 14:45 04/13/20 15:44 DC 04/13/20 16:40 250 MLS/HR Ceftriaxone Sodium (Rocephin) 1 gm Q24H 04/14/20 17:00 04/16/20 12:45 DC 04/15/20 17:28 1 GM Daptomycin 500 mg/ Sodium Chloride 50 ml @ 100 mls/hr Q24H 04/15/20 15:00 04/17/20 17:06 100 MLS/HR Dexamethasone Sodium Phosphate (Decadron) 6 mg BID 04/13/20 21:00 04/18/20 07:06 6 MG Dexmedetomidine HCl 400 mcg/ Sodium Chloride 100 ml @ 0 mls/hr CONT PRN 04/16/20 07:00 04/17/20 04:37 2.9 MLS/HR Dextrose (Dextrose 50%-Water Syringe) 12.5 gm PRN Q15MIN PRN 04/17/20 00:45 Docusate Sodium (Colace) 100 mg PRN BID PRN 04/13/20 17:00 Doxycycline Hyclate 100 mg/ Dextrose 100 ml @ 50 mls/hr Q12HR 04/13/20 21:00 04/18/20 08:01 50 MLS/HR Enoxaparin Sodium (Lovenox 40mg Syringe) 40 mg BID 04/13/20 18:00 04/17/20 03:25 DC 04/16/20 20:49 40 MG Etomidate (Amidate) 12 mg 1X ONCE 04/16/20 08:15 04/16/20 08:16 DC 04/16/20 08:14 12 MG EZETIMIBE (Zetia) 10 mg HS 04/14/20 21:00 04/17/20 03:26 DC 04/16/20 20:47 10 MG Fenofibrate (Lofibra) 134 mg DAILY 04/14/20 13:00 04/18/20 07:05 134 MG Fentanyl Citrate 30 ml @ 0 mls/hr CONT PRN 04/16/20 07:45 04/18/20 04:55 3.75 MLS/HR Furosemide 100 mg/ Sodium Chloride 100 ml @ 2 mls/hr CONT PRN 04/16/20 14:30 04/17/20 23:32 2 MLS/HR Glimepiride (Amaryl) 1 mg DAILY 04/14/20 13:00 04/18/20 07:07 1 MG Guaifenesin (Robitussin) 200 mg PRN Q4HRS PRN 04/13/20 17:00 Haloperidol Lactate (Haldol Inj) 5 mg PRN Q6HRS PRN 04/15/20 17:45 04/15/20 18:10 5 MG Insulin Human Lispro (HumaLOG) 30 units 1X ONCE 04/18/20 07:15 04/18/20 07:16 DC 04/18/20 07:23 30 UNITS Lisinopril (Prinivil) 40 mg DAILY 04/14/20 13:00 04/16/20 14:20 DC 04/15/20 10:09 40 MG Lorazepam (Ativan Inj) 1 mg PRN Q2HRS PRN 04/15/20 22:45 04/16/20 06:40 1 MG Metoprolol Succinate (Toprol Xl) 25 mg HS 04/14/20 21:00 04/14/20 21:14 25 MG Midazolam HCl 100 ml @ 1 mls/hr CONT PRN 04/16/20 07:45 04/18/20 09:10 10 MLS/HR Midazolam HCl (Versed) 5 mg 1X ONCE 04/16/20 07:30 04/16/20 07:31 DC 04/16/20 07:51 5 MG Morphine Sulfate (Morphine Sulfate) 2 mg PRN Q2HR PRN 04/15/20 22:45 04/16/20 05:13 2 MG Norepinephrine Bitartrate 32 mg/ Dextrose 250 ml @ 5.114 mls/ hr CONT PRN 04/18/20 05:00 04/18/20 06:51 58.2 MLS/HR Norepinephrine Bitartrate 8 mg/ Dextrose 258 ml @ 22.311 mls/ hr CONT PRN 04/16/20 07:30 04/18/20 06:00 DC 04/18/20 02:02 66.932 MLS/HR Ondansetron HCl (Zofran) 4 mg PRN Q4HRS PRN 04/13/20 17:00 Pantoprazole Sodium (PROTONIX VIAL for IV PUSH) 40 mg DAILYAC 04/17/20 07:30 04/18/20 07:05 40 MG Pantoprazole Sodium (Protonix) 40 mg DAILYAC 04/14/20 13:00 04/16/20 11:39 DC 04/15/20 10:11 40 MG Piperacillin Sod/ Tazobactam Sod 3.375 gm/Sodium Chloride 50 ml @ 100 mls/hr Q6HRS 04/16/20 13:30 04/18/20 06:53 100 MLS/HR Remdesivir 100 mg/ Sodium Chloride 230 ml @ 460 mls/hr Q24H 04/16/20 14:00 04/19/20 14:29 04/17/20 13:36 460 MLS/HR Remdesivir 200 mg/ Sodium Chloride 210 ml @ 210 mls/hr 1X ONCE 04/15/20 14:00 04/15/20 14:59 DC 04/15/20 16:25 210 MLS/HR Sodium Chloride 500 ml @ 500 mls/hr 1X PRN PRN 04/16/20 07:00 Sodium Chloride (Normal Saline Flush) 3 ml QSHIFT PRN 04/13/20 17:00 Succinylcholine Chloride (Anectine) 100 mg 1X ONCE 04/16/20 08:15 04/16/20 08:16 DC 04/16/20 08:15 100 MG Ziprasidone (Geodon Im) 20 mg 1X ONCE 04/15/20 17:45 04/15/20 17:46 DC Lab Laboratory Tests Test 04/17/20 10:05 04/17/20 11:20 04/17/20 11:25 04/17/20 15:37 White Blood Count 22.0 x10^3/uL (4.0-11.0) Red Blood Count 4.68 x10^6/uL (4.30-5.70) Hemoglobin 15.4 g/dL (13.0-17.5) Hematocrit 46.7 % (39.0-53.0) Mean Corpuscular Volume 100 fL (79-100) Mean Corpuscular Hemoglobin 33 pg (25-35) Mean Corpuscular Hemoglobin Concent 33 g/dL (31-37) Red Cell Distribution Width 15.0 % (11.5-14.5) Platelet Count 357 x10^3/uL (140-400) Neutrophils (%) (Auto) 90 % (31-73) Lymphocytes (%) (Auto) 2 % (24-48) Monocytes (%) (Auto) 8 % (0-9) Eosinophils (%) (Auto) 0 % (0-3) Basophils (%) (Auto) 0 % (0-3) Neutrophils # (Auto) 19.7 x10^3/uL (1.8-7.7) Lymphocytes # (Auto) 0.5 x10^3/uL (1.0-4.8) Monocytes # (Auto) 1.8 x10^3/uL (0.0-1.1) Eosinophils # (Auto) 0.0 x10^3/uL (0.0-0.7) Basophils # (Auto) 0.0 x10^3/uL (0.0-0.2) Segmented Neutrophils % 85 % (35-66) Band Neutrophils % 8 % (0-9) Lymphocytes % 3 % (24-48) Monocytes % 4 % (0-10) Platelet Estimate Adequate (ADEQUATE) Sodium Level 133 mmol/L (136-145) Potassium Level 4.5 mmol/L (3.5-5.1) Chloride Level 98 mmol/L (98-107) Carbon Dioxide Level 21 mmol/L (21-32) Anion Gap 14 (6-14) Blood Urea Nitrogen 80 mg/dL (8-26) Creatinine 2.7 mg/dL (0.7-1.3) Estimated GFR (Cockcroft-Gault) 22.7 BUN/Creatinine Ratio 30 (6-20) Glucose Level 442 mg/dL (70-99) Calcium Level 8.9 mg/dL (8.5-10.1) Phosphorus Level 4.3 mg/dL (2.6-4.7) Total Bilirubin 0.9 mg/dL (0.2-1.0) Aspartate Amino Transf (AST/SGOT) 44 U/L (15-37) Alanine Aminotransferase (ALT/SGPT) 44 U/L (16-63) Alkaline Phosphatase 51 U/L (46-116) Total Protein 6.1 g/dL (6.4-8.2) Albumin 2.4 g/dL (3.4-5.0) Albumin/Globulin Ratio 0.6 (1.0-1.7) Urine Collection Type Unknown Urine Color Yellow Urine Clarity Clear Urine pH 5.0 (<5.0-8.0) Urine Specific [place] 1.025 (1.000-1.030) Urine Protein Negative mg/dL (NEG-TRACE) Urine Glucose (UA) Negative mg/dL (NEG) Urine Ketones (Stick) Negative mg/dL (NEG) Urine Blood Negative (NEG) Urine Nitrite Negative (NEG) Urine Bilirubin Negative (NEG) Urine Urobilinogen Dipstick 1.0 mg/dL (0.2 mg/dL) Urine Leukocyte Esterase Small (NEG) Urine RBC Occ /HPF (0-2) Urine WBC 5-10 /HPF (0-4) Urine Squamous Epithelial Cells Few /LPF Urine Bacteria Few /HPF (0-FEW) Lactic Acid Level 3.0 mmol/L (0.4-2.0) 3.0 mmol/L (0.4-2.0) Test 04/17/20 17:07 04/18/20 00:06 04/18/20 05:50 04/18/20 07:55 Glucose (Fingerstick) 425 mg/dL (70-99) 429 mg/dL (70-99) White Blood Count 17.9 x10^3/uL (4.0-11.0) Red Blood Count 3.92 x10^6/uL (4.30-5.70) Hemoglobin 12.5 g/dL (13.0-17.5) Hematocrit 38.9 % (39.0-53.0) Mean Corpuscular Volume 99 fL (79-100) Mean Corpuscular Hemoglobin 32 pg (25-35) Mean Corpuscular Hemoglobin Concent 32 g/dL (31-37) Red Cell Distribution Width 14.7 % (11.5-14.5) Platelet Count 312 x10^3/uL (140-400) Neutrophils (%) (Auto) 89 % (31-73) Lymphocytes (%) (Auto) 2 % (24-48) Monocytes (%) (Auto) 9 % (0-9) Eosinophils (%) (Auto) 0 % (0-3) Basophils (%) (Auto) 0 % (0-3) Neutrophils # (Auto) 16.0 x10^3/uL (1.8-7.7) Lymphocytes # (Auto) 0.3 x10^3/uL (1.0-4.8) Monocytes # (Auto) 1.6 x10^3/uL (0.0-1.1) Eosinophils # (Auto) 0.0 x10^3/uL (0.0-0.7) Basophils # (Auto) 0.1 x10^3/uL (0.0-0.2) Sodium Level 135 mmol/L (136-145) Potassium Level 3.5 mmol/L (3.5-5.1) Chloride Level 104 mmol/L (98-107) Carbon Dioxide Level 17 mmol/L (21-32) Anion Gap 14 (6-14) Blood Urea Nitrogen 79 mg/dL (8-26) Creatinine 3.3 mg/dL (0.7-1.3) Estimated GFR (Cockcroft-Gault) 18.0 Glucose Level 396 mg/dL (70-99) Calcium Level 6.4 mg/dL (8.5-10.1) Phosphorus Level 3.3 mg/dL (2.6-4.7) Albumin 1.5 g/dL (3.4-5.0) O2 Saturation 98 % (92-99) Arterial Blood pH 7.28 (7.35-7.45) Arterial Blood pCO2 at Patient Temp 42 mmHg (35-46) Arterial Blood pO2 at Patient Temp 123 mmHg (65-108) Arterial Blood HCO3 19 mmol/L (21-28) Arterial Blood Base Excess -7 mmol/L (-3-3) FiO2 80% vent +12 peep Results All relevant outside records, renal labs, imaging studies, telemetry/EKG's were reviewed. Justicifation of Admission Dx: Justifications for Admission: Justification of Admission Dx: Yes Comminuty Aquired Pneumonia: Hemodynamic Instability BLANCA MYRICK MD Apr 18, 2020 09:59
[2020-04-18] MEDS: DEXMEDETOMIDINE 400 MCG in IV NORMAL SALINE 100ML 96 ML IV PRN (11:19)
--- NOTE | 2020-04-18 11:25 | PDOC ---
PULMONARY PROGRESS NOTES DATE: 04/18/20 TIME: 11:25 Vitals Vital Signs Date Time Temp Pulse Resp B/P (MAP) Pulse Ox O2 Delivery O2 Flow Rate FiO2 04/18/20 11:19 27 99 Ventilator 4.0 04/18/20 10:55 80 123/49 (73) 04/18/20 08:59 98.9 98.9 Labs Laboratory Tests Test 04/16/20 23:57 04/17/20 06:07 04/17/20 07:45 04/17/20 10:05 Glucose (Fingerstick) 366 mg/dL (70-99) 444 mg/dL (70-99) O2 Saturation 96 % (92-99) Arterial Blood pH 7.32 (7.35-7.45) Arterial Blood pCO2 at Patient Temp 38 mmHg (35-46) Arterial Blood pO2 at Patient Temp 91 mmHg (65-108) Arterial Blood HCO3 19 mmol/L (21-28) Arterial Blood Base Excess -6 mmol/L (-3-3) FiO2 90 White Blood Count 22.0 x10^3/uL (4.0-11.0) Red Blood Count 4.68 x10^6/uL (4.30-5.70) Hemoglobin 15.4 g/dL (13.0-17.5) Hematocrit 46.7 % (39.0-53.0) Mean Corpuscular Volume 100 fL (79-100) Mean Corpuscular Hemoglobin 33 pg (25-35) Mean Corpuscular Hemoglobin Concent 33 g/dL (31-37) Red Cell Distribution Width 15.0 % (11.5-14.5) Platelet Count 357 x10^3/uL (140-400) Neutrophils (%) (Auto) 90 % (31-73) Lymphocytes (%) (Auto) 2 % (24-48) Monocytes (%) (Auto) 8 % (0-9) Eosinophils (%) (Auto) 0 % (0-3) Basophils (%) (Auto) 0 % (0-3) Neutrophils # (Auto) 19.7 x10^3/uL (1.8-7.7) Lymphocytes # (Auto) 0.5 x10^3/uL (1.0-4.8) Monocytes # (Auto) 1.8 x10^3/uL (0.0-1.1) Eosinophils # (Auto) 0.0 x10^3/uL (0.0-0.7) Basophils # (Auto) 0.0 x10^3/uL (0.0-0.2) Segmented Neutrophils % 85 % (35-66) Band Neutrophils % 8 % (0-9) Lymphocytes % 3 % (24-48) Monocytes % 4 % (0-10) Platelet Estimate Adequate (ADEQUATE) Sodium Level 133 mmol/L (136-145) Potassium Level 4.5 mmol/L (3.5-5.1) Chloride Level 98 mmol/L (98-107) Carbon Dioxide Level 21 mmol/L (21-32) Anion Gap 14 (6-14) Blood Urea Nitrogen 80 mg/dL (8-26) Creatinine 2.7 mg/dL (0.7-1.3) Estimated GFR (Cockcroft-Gault) 22.7 BUN/Creatinine Ratio 30 (6-20) Glucose Level 442 mg/dL (70-99) Calcium Level 8.9 mg/dL (8.5-10.1) Phosphorus Level 4.3 mg/dL (2.6-4.7) Total Bilirubin 0.9 mg/dL (0.2-1.0) Aspartate Amino Transf (AST/SGOT) 44 U/L (15-37) Alanine Aminotransferase (ALT/SGPT) 44 U/L (16-63) Alkaline Phosphatase 51 U/L (46-116) Total Protein 6.1 g/dL (6.4-8.2) Albumin 2.4 g/dL (3.4-5.0) Albumin/Globulin Ratio 0.6 (1.0-1.7) Test 04/17/20 11:20 04/17/20 11:25 04/17/20 15:37 04/17/20 17:07 Urine Collection Type Unknown Urine Color Yellow Urine Clarity Clear Urine pH 5.0 (<5.0-8.0) Urine Specific [place] 1.025 (1.000-1.030) Urine Protein Negative mg/dL (NEG-TRACE) Urine Glucose (UA) Negative mg/dL (NEG) Urine Ketones (Stick) Negative mg/dL (NEG) Urine Blood Negative (NEG) Urine Nitrite Negative (NEG) Urine Bilirubin Negative (NEG) Urine Urobilinogen Dipstick 1.0 mg/dL (0.2 mg/dL) Urine Leukocyte Esterase Small (NEG) Urine RBC Occ /HPF (0-2) Urine WBC 5-10 /HPF (0-4) Urine Squamous Epithelial Cells Few /LPF Urine Bacteria Few /HPF (0-FEW) Lactic Acid Level 3.0 mmol/L (0.4-2.0) 3.0 mmol/L (0.4-2.0) Glucose (Fingerstick) 425 mg/dL (70-99) Test 04/18/20 00:06 04/18/20 05:50 04/18/20 07:55 Glucose (Fingerstick) 429 mg/dL (70-99) White Blood Count 17.9 x10^3/uL (4.0-11.0) Red Blood Count 3.92 x10^6/uL (4.30-5.70) Hemoglobin 12.5 g/dL (13.0-17.5) Hematocrit 38.9 % (39.0-53.0) Mean Corpuscular Volume 99 fL (79-100) Mean Corpuscular Hemoglobin 32 pg (25-35) Mean Corpuscular Hemoglobin Concent 32 g/dL (31-37) Red Cell Distribution Width 14.7 % (11.5-14.5) Platelet Count 312 x10^3/uL (140-400) Neutrophils (%) (Auto) 89 % (31-73) Lymphocytes (%) (Auto) 2 % (24-48) Monocytes (%) (Auto) 9 % (0-9) Eosinophils (%) (Auto) 0 % (0-3) Basophils (%) (Auto) 0 % (0-3) Neutrophils # (Auto) 16.0 x10^3/uL (1.8-7.7) Lymphocytes # (Auto) 0.3 x10^3/uL (1.0-4.8) Monocytes # (Auto) 1.6 x10^3/uL (0.0-1.1) Eosinophils # (Auto) 0.0 x10^3/uL (0.0-0.7) Basophils # (Auto) 0.1 x10^3/uL (0.0-0.2) Sodium Level 135 mmol/L (136-145) Potassium Level 3.5 mmol/L (3.5-5.1) Chloride Level 104 mmol/L (98-107) Carbon Dioxide Level 17 mmol/L (21-32) Anion Gap 14 (6-14) Blood Urea Nitrogen 79 mg/dL (8-26) Creatinine 3.3 mg/dL (0.7-1.3) Estimated GFR (Cockcroft-Gault) 18.0 Glucose Level 396 mg/dL (70-99) Calcium Level 6.4 mg/dL (8.5-10.1) Phosphorus Level 3.3 mg/dL (2.6-4.7) Albumin 1.5 g/dL (3.4-5.0) O2 Saturation 98 % (92-99) Arterial Blood pH 7.28 (7.35-7.45) Arterial Blood pCO2 at Patient Temp 42 mmHg (35-46) Arterial Blood pO2 at Patient Temp 123 mmHg (65-108) Arterial Blood HCO3 19 mmol/L (21-28) Arterial Blood Base Excess -7 mmol/L (-3-3) FiO2 80% vent +12 peep Laboratory Tests Test 04/17/20 15:37 04/17/20 17:07 04/18/20 00:06 04/18/20 05:50 Lactic Acid Level 3.0 mmol/L (0.4-2.0) Glucose (Fingerstick) 425 mg/dL (70-99) 429 mg/dL (70-99) White Blood Count 17.9 x10^3/uL (4.0-11.0) Red Blood Count 3.92 x10^6/uL (4.30-5.70) Hemoglobin 12.5 g/dL (13.0-17.5) Hematocrit 38.9 % (39.0-53.0) Mean Corpuscular Volume 99 fL (79-100) Mean Corpuscular Hemoglobin 32 pg (25-35) Mean Corpuscular Hemoglobin Concent 32 g/dL (31-37) Red Cell Distribution Width 14.7 % (11.5-14.5) Platelet Count 312 x10^3/uL (140-400) Neutrophils (%) (Auto) 89 % (31-73) Lymphocytes (%) (Auto) 2 % (24-48) Monocytes (%) (Auto) 9 % (0-9) Eosinophils (%) (Auto) 0 % (0-3) Basophils (%) (Auto) 0 % (0-3) Neutrophils # (Auto) 16.0 x10^3/uL (1.8-7.7) Lymphocytes # (Auto) 0.3 x10^3/uL (1.0-4.8) Monocytes # (Auto) 1.6 x10^3/uL (0.0-1.1) Eosinophils # (Auto) 0.0 x10^3/uL (0.0-0.7) Basophils # (Auto) 0.1 x10^3/uL (0.0-0.2) Sodium Level 135 mmol/L (136-145) Potassium Level 3.5 mmol/L (3.5-5.1) Chloride Level 104 mmol/L (98-107) Carbon Dioxide Level 17 mmol/L (21-32) Anion Gap 14 (6-14) Blood Urea Nitrogen 79 mg/dL (8-26) Creatinine 3.3 mg/dL (0.7-1.3) Estimated GFR (Cockcroft-Gault) 18.0 Glucose Level 396 mg/dL (70-99) Calcium Level 6.4 mg/dL (8.5-10.1) Phosphorus Level 3.3 mg/dL (2.6-4.7) Albumin 1.5 g/dL (3.4-5.0) Test 04/18/20 07:55 O2 Saturation 98 % (92-99) Arterial Blood pH 7.28 (7.35-7.45) Arterial Blood pCO2 at Patient Temp 42 mmHg (35-46) Arterial Blood pO2 at Patient Temp 123 mmHg (65-108) Arterial Blood HCO3 19 mmol/L (21-28) Arterial Blood Base Excess -7 mmol/L (-3-3) FiO2 80% vent +12 peep Medications Active Scripts Medications Dose Route/Sig Max Daily Dose Days Date Category Glimepiride 1 Mg Tablet 1 Tab PO DAILY 04/14/20 Reported Metoprolol Succinate ( Xl ) (Metoprolol Succinate) 100 Mg Tab.er.24h 1 Tab PO DAILY 04/14/20 Reported Zetia (Ezetimibe) 10 Mg Tablet 1 Tab PO HS 30 04/14/20 Reported Fenofibrate 160 Mg Tablet 1 Tab PO DAILY 04/14/20 Reported Atorvastatin Calcium 40 Mg Tablet 1 Tab PO HS 04/14/20 Reported Amlodipine Besylate 10 Mg Tablet 1 Tab PO DAILY 04/14/20 Reported Omeprazole 20 Mg Capsule.dr 1 Cap PO DAILY 04/14/20 Reported Mexiletine Hcl 150 Mg Capsule 150 Mg PO Q8HRS 04/13/20 Reported Toprol Xl (Metoprolol Succinate) 25 Mg Tab.er.24h 1 Tab PO HS 30 04/13/20 Reported Accupril (Quinapril Hcl) 40 Mg Tablet 1 Tab PO DAILY 04/13/20 Reported Allopurinol 100 Mg Tablet 1 Tab PO DAILY 04/13/20 Reported BROCK DOSS MD Apr 18, 2020 11:25
--- NOTE | 2020-04-18 11:37 | PDOC ---
GALO OLIVIER CYLINDER MACHINE OPERATOR 04/18/20 1137: CARDIO Progress Notes Date and Time Date of Service 04/18/19 Time of Evaluation 1130 Subjective Subjective: Other (intubated ) Vitals Vitals Vital Signs Date Time Temp Pulse Resp B/P (MAP) Pulse Ox O2 Delivery O2 Flow Rate FiO2 04/18/20 11:19 27 99 Ventilator 4.0 04/18/20 10:55 80 123/49 (73) 04/18/20 08:59 98.9 98.9 Weight Weight [ ] Input and Output Intake and Output Intake and Output 04/18/20 07:00 Intake Total 1974 ml Output Total 490 ml Balance 1484 ml IV Total 1974 ml Output Urine Total 490 ml Laboratory Labs Laboratory Tests Test 04/17/20 15:37 04/17/20 17:07 04/18/20 00:06 04/18/20 05:50 Lactic Acid Level 3.0 mmol/L (0.4-2.0) Glucose (Fingerstick) 425 mg/dL (70-99) 429 mg/dL (70-99) White Blood Count 17.9 x10^3/uL (4.0-11.0) Red Blood Count 3.92 x10^6/uL (4.30-5.70) Hemoglobin 12.5 g/dL (13.0-17.5) Hematocrit 38.9 % (39.0-53.0) Mean Corpuscular Volume 99 fL (79-100) Mean Corpuscular Hemoglobin 32 pg (25-35) Mean Corpuscular Hemoglobin Concent 32 g/dL (31-37) Red Cell Distribution Width 14.7 % (11.5-14.5) Platelet Count 312 x10^3/uL (140-400) Neutrophils (%) (Auto) 89 % (31-73) Lymphocytes (%) (Auto) 2 % (24-48) Monocytes (%) (Auto) 9 % (0-9) Eosinophils (%) (Auto) 0 % (0-3) Basophils (%) (Auto) 0 % (0-3) Neutrophils # (Auto) 16.0 x10^3/uL (1.8-7.7) Lymphocytes # (Auto) 0.3 x10^3/uL (1.0-4.8) Monocytes # (Auto) 1.6 x10^3/uL (0.0-1.1) Eosinophils # (Auto) 0.0 x10^3/uL (0.0-0.7) Basophils # (Auto) 0.1 x10^3/uL (0.0-0.2) Sodium Level 135 mmol/L (136-145) Potassium Level 3.5 mmol/L (3.5-5.1) Chloride Level 104 mmol/L (98-107) Carbon Dioxide Level 17 mmol/L (21-32) Anion Gap 14 (6-14) Blood Urea Nitrogen 79 mg/dL (8-26) Creatinine 3.3 mg/dL (0.7-1.3) Estimated GFR (Cockcroft-Gault) 18.0 Glucose Level 396 mg/dL (70-99) Calcium Level 6.4 mg/dL (8.5-10.1) Phosphorus Level 3.3 mg/dL (2.6-4.7) Albumin 1.5 g/dL (3.4-5.0) Test 04/18/20 07:55 O2 Saturation 98 % (92-99) Arterial Blood pH 7.28 (7.35-7.45) Arterial Blood pCO2 at Patient Temp 42 mmHg (35-46) Arterial Blood pO2 at Patient Temp 123 mmHg (65-108) Arterial Blood HCO3 19 mmol/L (21-28) Arterial Blood Base Excess -7 mmol/L (-3-3) FiO2 80% vent +12 peep Microbiology Micro Microbiology 04/17/20 Blood Culture - Preliminary, Resulted NO GROWTH AFTER 1 DAY Physical Exam HEENT: Neck Supple W Full Motion Chest: Symmetric LUNGS: Other (mechanical vent ) Heart: RRR Abdomen: Soft N/T Extremities: No Edema Neurology: other (sedated) Assessment Assessment 1. Acute respiratory failure secondary to COVID PNA; s/p intubation. Steroids, Remdesivir 2. Acute on chronic diastolic CHF; Echo 2018 with preserved LV systolic function 3. MEJIA; Cr ^ 3.3. On Lasix gtt 4. SSS s/p PPM. Recent device check with normal function. 0% AFIB burden. No other arrhythmias. 5. Diabetes, II 6. Leukocytosis, lactic acidosis, fevers 7. Sepsis, requiring pressor support. 8. ? GIB; coffee ground in OJ tube 9. PUI; COVID + Recommendations Continue Lasix gtt, diuresis as per renal Hold metoprolol with hypotension Pressor support as warranted No ACEi/ARB with MEJIA, hypotension Outpatient echo pending course of hospitalization Ongoing lung optimization, treatment of COVID as per pulmonary. Justicifation of Admission Dx: Justifications for Admission: Justification of Admission Dx: Yes Comminuty Aquired Pneumonia: Hemodynamic Instability SOHAN SIMON MD 04/18/20 193: CARDIO Progress Notes Assessment Assessment Agree with CUT OFF WORKER's assessment and plan. Ac resp failure secondary to Covid PNA s/p intubation, pulm following Sepsis needing pressor support, continue antibiotics per ID Continue lasix gtt for ac on chr diastolic HF SSS s/p PPM stable GI consulted for possible GIB We will check 2D echo once recovered, possibly as outpatient GALO OLIVIER APRN Apr 18, 2020 11:37 SOHAN SIMON MD Apr 18, 2020 19:31
--- NOTE | 2020-04-18 13:16 | PDOC2 ---
GI CONSULT Date of Service: DATE: 04/18/20 TIME: 12:59 Reason For Consult: GI bleed HPI: HPI: 85 y/o male admitted 04/13/20. ER summary reviewed - not feeling well since Antonio w/ cough, SOA, n/v, diarrhea, and loss of taste and smell. Admitted - currently intubated and sedated in ICU on Levophed w/ COVID-19 pneumonia. D/w nurse - when intubated, noted some bright red blood in NG tube, then output turned darker. More recently, has had increasing "ground" (dark) output from NG - ~700cc in canister currently - nurse says most of that from overnight and today. Hasn't stooled - no melena or hematochezia. Lovenox was stopped. Summary list includes omeprazole. On IV PPI QD here. PMH: PMH: per chart: HTN, CHF, CAD, COPD, DM, HLD, gout Social History: Smoke: Quit ROS: unable to obtain Vitals: Vitals: Vital Signs Date Time Temp Pulse Resp B/P (MAP) Pulse Ox O2 Delivery O2 Flow Rate FiO2 04/18/20 12:02 Mechanical Ventilator 04/18/20 11:56 100 04/18/20 11:50 04/18/20 11:49 28 4.0 04/18/20 11:49 98.6 80 98.6 Labs: Labs: Laboratory Tests Test 04/17/20 15:37 04/17/20 17:07 04/18/20 00:06 04/18/20 05:50 Lactic Acid Level 3.0 mmol/L (0.4-2.0) Glucose (Fingerstick) 425 mg/dL (70-99) 429 mg/dL (70-99) White Blood Count 17.9 x10^3/uL (4.0-11.0) Red Blood Count 3.92 x10^6/uL (4.30-5.70) Hemoglobin 12.5 g/dL (13.0-17.5) Hematocrit 38.9 % (39.0-53.0) Mean Corpuscular Volume 99 fL (79-100) Mean Corpuscular Hemoglobin 32 pg (25-35) Mean Corpuscular Hemoglobin Concent 32 g/dL (31-37) Red Cell Distribution Width 14.7 % (11.5-14.5) Platelet Count 312 x10^3/uL (140-400) Neutrophils (%) (Auto) 89 % (31-73) Lymphocytes (%) (Auto) 2 % (24-48) Monocytes (%) (Auto) 9 % (0-9) Eosinophils (%) (Auto) 0 % (0-3) Basophils (%) (Auto) 0 % (0-3) Neutrophils # (Auto) 16.0 x10^3/uL (1.8-7.7) Lymphocytes # (Auto) 0.3 x10^3/uL (1.0-4.8) Monocytes # (Auto) 1.6 x10^3/uL (0.0-1.1) Eosinophils # (Auto) 0.0 x10^3/uL (0.0-0.7) Basophils # (Auto) 0.1 x10^3/uL (0.0-0.2) Sodium Level 135 mmol/L (136-145) Potassium Level 3.5 mmol/L (3.5-5.1) Chloride Level 104 mmol/L (98-107) Carbon Dioxide Level 17 mmol/L (21-32) Anion Gap 14 (6-14) Blood Urea Nitrogen 79 mg/dL (8-26) Creatinine 3.3 mg/dL (0.7-1.3) Estimated GFR (Cockcroft-Gault) 18.0 Glucose Level 396 mg/dL (70-99) Calcium Level 6.4 mg/dL (8.5-10.1) Phosphorus Level 3.3 mg/dL (2.6-4.7) Albumin 1.5 g/dL (3.4-5.0) Test 04/18/20 07:55 O2 Saturation 98 % (92-99) Arterial Blood pH 7.28 (7.35-7.45) Arterial Blood pCO2 at Patient Temp 42 mmHg (35-46) Arterial Blood pO2 at Patient Temp 123 mmHg (65-108) Arterial Blood HCO3 19 mmol/L (21-28) Arterial Blood Base Excess -7 mmol/L (-3-3) FiO2 80% vent +12 peep Allergies: Coded Allergies: No Known Drug Allergies (Unverified , 04/13/20) Medications: Current Medications Medications (Trade) Dose Ordered Sig/Damion Route PRN Reason Start Time Stop Time Status Last Admin Dose Admin Insulin Human Lispro (HumaLOG) 20 units 1X ONCE SQ 04/18/20 01:30 04/18/20 01:31 DC 04/18/20 01:24 Norepinephrine Bitartrate 32 mg/ Dextrose 250 ml @ 5.114 mls/ hr CONT PRN IV SEE I/O RECORD 04/18/20 05:00 04/18/20 06:51 Insulin Human Lispro (HumaLOG) 30 units 1X ONCE SQ 04/18/20 07:15 04/18/20 07:16 DC 04/18/20 07:23 Imaging: Imaging: CXR 04/13 IMPRESSION: 1. Right pacemaker. 2. Mild left lung interstitial infiltrates with worsening compared to old studies from 2016. CXR 04/16 Impression: New consolidation right lower lateral lung field and left basal retrocardiac region. Increased pulmonary vasculature congestion. Pulmonary interstitial edema and infiltrates are present. Renal US 04/16 IMPRESSION: Sonographically unremarkable kidneys. PE: GEN: intubated in COVID isolation HEENT: Atraumatic, PERRL LUNGS: diminished HEART: RRR ABD: quiet, soft, non-distended EXTREMITY: SCDs SKIN: BLE cool NEURO/PSYCH: sedated A/P: A/P: Resp failure - COVID-19 pneumonia, CHF Hypotension, MEJIA, lactic acidosis Dark OG tube output - Hgb 14.4 on admission, now 12.5 ?h/o GERD - home med list includes PPI -- Continue PPI. Monitor labs, monitor OG output. Other per Dr. Peña. TERRIE CUNNINGHAM Apr 18, 2020 13:16
--- NOTE | 2020-04-18 14:00 | PDOC ---
PULMONARY PROGRESS NOTES DATE: 04/18/20 TIME: 13:56 Subjective Patient remains on vent support, 80% and a PEEP of 12 Continues to have hypotension on vasopressors on Lasix drip having coffee ground emesis overnight No other concerns overnight Vitals Vital Signs Date Time Temp Pulse Resp B/P (MAP) Pulse Ox O2 Delivery O2 Flow Rate FiO2 04/18/20 13:00 80 27 125/52 (76) 98 Ventilator 04/18/20 11:49 4.0 04/18/20 11:49 98.6 98.6 Comments Pt. seen during , visual exam preformed intubated RRR no edema/rash no accessory muscle use Lungs: Crackles Labs Laboratory Tests Test 04/16/20 23:57 04/17/20 06:07 04/17/20 07:45 04/17/20 10:05 Glucose (Fingerstick) 366 mg/dL (70-99) 444 mg/dL (70-99) O2 Saturation 96 % (92-99) Arterial Blood pH 7.32 (7.35-7.45) Arterial Blood pCO2 at Patient Temp 38 mmHg (35-46) Arterial Blood pO2 at Patient Temp 91 mmHg (65-108) Arterial Blood HCO3 19 mmol/L (21-28) Arterial Blood Base Excess -6 mmol/L (-3-3) FiO2 90 White Blood Count 22.0 x10^3/uL (4.0-11.0) Red Blood Count 4.68 x10^6/uL (4.30-5.70) Hemoglobin 15.4 g/dL (13.0-17.5) Hematocrit 46.7 % (39.0-53.0) Mean Corpuscular Volume 100 fL (79-100) Mean Corpuscular Hemoglobin 33 pg (25-35) Mean Corpuscular Hemoglobin Concent 33 g/dL (31-37) Red Cell Distribution Width 15.0 % (11.5-14.5) Platelet Count 357 x10^3/uL (140-400) Neutrophils (%) (Auto) 90 % (31-73) Lymphocytes (%) (Auto) 2 % (24-48) Monocytes (%) (Auto) 8 % (0-9) Eosinophils (%) (Auto) 0 % (0-3) Basophils (%) (Auto) 0 % (0-3) Neutrophils # (Auto) 19.7 x10^3/uL (1.8-7.7) Lymphocytes # (Auto) 0.5 x10^3/uL (1.0-4.8) Monocytes # (Auto) 1.8 x10^3/uL (0.0-1.1) Eosinophils # (Auto) 0.0 x10^3/uL (0.0-0.7) Basophils # (Auto) 0.0 x10^3/uL (0.0-0.2) Segmented Neutrophils % 85 % (35-66) Band Neutrophils % 8 % (0-9) Lymphocytes % 3 % (24-48) Monocytes % 4 % (0-10) Platelet Estimate Adequate (ADEQUATE) Sodium Level 133 mmol/L (136-145) Potassium Level 4.5 mmol/L (3.5-5.1) Chloride Level 98 mmol/L (98-107) Carbon Dioxide Level 21 mmol/L (21-32) Anion Gap 14 (6-14) Blood Urea Nitrogen 80 mg/dL (8-26) Creatinine 2.7 mg/dL (0.7-1.3) Estimated GFR (Cockcroft-Gault) 22.7 BUN/Creatinine Ratio 30 (6-20) Glucose Level 442 mg/dL (70-99) Calcium Level 8.9 mg/dL (8.5-10.1) Phosphorus Level 4.3 mg/dL (2.6-4.7) Total Bilirubin 0.9 mg/dL (0.2-1.0) Aspartate Amino Transf (AST/SGOT) 44 U/L (15-37) Alanine Aminotransferase (ALT/SGPT) 44 U/L (16-63) Alkaline Phosphatase 51 U/L (46-116) Total Protein 6.1 g/dL (6.4-8.2) Albumin 2.4 g/dL (3.4-5.0) Albumin/Globulin Ratio 0.6 (1.0-1.7) Test 04/17/20 11:20 04/17/20 11:25 04/17/20 15:37 04/17/20 17:07 Urine Collection Type Unknown Urine Color Yellow Urine Clarity Clear Urine pH 5.0 (<5.0-8.0) Urine Specific [place] 1.025 (1.000-1.030) Urine Protein Negative mg/dL (NEG-TRACE) Urine Glucose (UA) Negative mg/dL (NEG) Urine Ketones (Stick) Negative mg/dL (NEG) Urine Blood Negative (NEG) Urine Nitrite Negative (NEG) Urine Bilirubin Negative (NEG) Urine Urobilinogen Dipstick 1.0 mg/dL (0.2 mg/dL) Urine Leukocyte Esterase Small (NEG) Urine RBC Occ /HPF (0-2) Urine WBC 5-10 /HPF (0-4) Urine Squamous Epithelial Cells Few /LPF Urine Bacteria Few /HPF (0-FEW) Lactic Acid Level 3.0 mmol/L (0.4-2.0) 3.0 mmol/L (0.4-2.0) Glucose (Fingerstick) 425 mg/dL (70-99) Test 04/18/20 00:06 04/18/20 05:50 04/18/20 07:55 Glucose (Fingerstick) 429 mg/dL (70-99) White Blood Count 17.9 x10^3/uL (4.0-11.0) Red Blood Count 3.92 x10^6/uL (4.30-5.70) Hemoglobin 12.5 g/dL (13.0-17.5) Hematocrit 38.9 % (39.0-53.0) Mean Corpuscular Volume 99 fL (79-100) Mean Corpuscular Hemoglobin 32 pg (25-35) Mean Corpuscular Hemoglobin Concent 32 g/dL (31-37) Red Cell Distribution Width 14.7 % (11.5-14.5) Platelet Count 312 x10^3/uL (140-400) Neutrophils (%) (Auto) 89 % (31-73) Lymphocytes (%) (Auto) 2 % (24-48) Monocytes (%) (Auto) 9 % (0-9) Eosinophils (%) (Auto) 0 % (0-3) Basophils (%) (Auto) 0 % (0-3) Neutrophils # (Auto) 16.0 x10^3/uL (1.8-7.7) Lymphocytes # (Auto) 0.3 x10^3/uL (1.0-4.8) Monocytes # (Auto) 1.6 x10^3/uL (0.0-1.1) Eosinophils # (Auto) 0.0 x10^3/uL (0.0-0.7) Basophils # (Auto) 0.1 x10^3/uL (0.0-0.2) Sodium Level 135 mmol/L (136-145) Potassium Level 3.5 mmol/L (3.5-5.1) Chloride Level 104 mmol/L (98-107) Carbon Dioxide Level 17 mmol/L (21-32) Anion Gap 14 (6-14) Blood Urea Nitrogen 79 mg/dL (8-26) Creatinine 3.3 mg/dL (0.7-1.3) Estimated GFR (Cockcroft-Gault) 18.0 Glucose Level 396 mg/dL (70-99) Calcium Level 6.4 mg/dL (8.5-10.1) Phosphorus Level 3.3 mg/dL (2.6-4.7) Albumin 1.5 g/dL (3.4-5.0) O2 Saturation 98 % (92-99) Arterial Blood pH 7.28 (7.35-7.45) Arterial Blood pCO2 at Patient Temp 42 mmHg (35-46) Arterial Blood pO2 at Patient Temp 123 mmHg (65-108) Arterial Blood HCO3 19 mmol/L (21-28) Arterial Blood Base Excess -7 mmol/L (-3-3) FiO2 80% vent +12 peep Laboratory Tests Test 04/17/20 15:37 04/17/20 17:07 04/18/20 00:06 04/18/20 05:50 Lactic Acid Level 3.0 mmol/L (0.4-2.0) Glucose (Fingerstick) 425 mg/dL (70-99) 429 mg/dL (70-99) White Blood Count 17.9 x10^3/uL (4.0-11.0) Red Blood Count 3.92 x10^6/uL (4.30-5.70) Hemoglobin 12.5 g/dL (13.0-17.5) Hematocrit 38.9 % (39.0-53.0) Mean Corpuscular Volume 99 fL (79-100) Mean Corpuscular Hemoglobin 32 pg (25-35) Mean Corpuscular Hemoglobin Concent 32 g/dL (31-37) Red Cell Distribution Width 14.7 % (11.5-14.5) Platelet Count 312 x10^3/uL (140-400) Neutrophils (%) (Auto) 89 % (31-73) Lymphocytes (%) (Auto) 2 % (24-48) Monocytes (%) (Auto) 9 % (0-9) Eosinophils (%) (Auto) 0 % (0-3) Basophils (%) (Auto) 0 % (0-3) Neutrophils # (Auto) 16.0 x10^3/uL (1.8-7.7) Lymphocytes # (Auto) 0.3 x10^3/uL (1.0-4.8) Monocytes # (Auto) 1.6 x10^3/uL (0.0-1.1) Eosinophils # (Auto) 0.0 x10^3/uL (0.0-0.7) Basophils # (Auto) 0.1 x10^3/uL (0.0-0.2) Sodium Level 135 mmol/L (136-145) Potassium Level 3.5 mmol/L (3.5-5.1) Chloride Level 104 mmol/L (98-107) Carbon Dioxide Level 17 mmol/L (21-32) Anion Gap 14 (6-14) Blood Urea Nitrogen 79 mg/dL (8-26) Creatinine 3.3 mg/dL (0.7-1.3) Estimated GFR (Cockcroft-Gault) 18.0 Glucose Level 396 mg/dL (70-99) Calcium Level 6.4 mg/dL (8.5-10.1) Phosphorus Level 3.3 mg/dL (2.6-4.7) Albumin 1.5 g/dL (3.4-5.0) Test 04/18/20 07:55 O2 Saturation 98 % (92-99) Arterial Blood pH 7.28 (7.35-7.45) Arterial Blood pCO2 at Patient Temp 42 mmHg (35-46) Arterial Blood pO2 at Patient Temp 123 mmHg (65-108) Arterial Blood HCO3 19 mmol/L (21-28) Arterial Blood Base Excess -7 mmol/L (-3-3) FiO2 80% vent +12 peep Medications Active Scripts Medications Dose Route/Sig Max Daily Dose Days Date Category Glimepiride 1 Mg Tablet 1 Tab PO DAILY 04/14/20 Reported Metoprolol Succinate ( Xl ) (Metoprolol Succinate) 100 Mg Tab.er.24h 1 Tab PO DAILY 04/14/20 Reported Zetia (Ezetimibe) 10 Mg Tablet 1 Tab PO HS 30 04/14/20 Reported Fenofibrate 160 Mg Tablet 1 Tab PO DAILY 04/14/20 Reported Atorvastatin Calcium 40 Mg Tablet 1 Tab PO HS 04/14/20 Reported Amlodipine Besylate 10 Mg Tablet 1 Tab PO DAILY 04/14/20 Reported Omeprazole 20 Mg Capsule.dr 1 Cap PO DAILY 04/14/20 Reported Mexiletine Hcl 150 Mg Capsule 150 Mg PO Q8HRS 04/13/20 Reported Toprol Xl (Metoprolol Succinate) 25 Mg Tab.er.24h 1 Tab PO HS 30 04/13/20 Reported Accupril (Quinapril Hcl) 40 Mg Tablet 1 Tab PO DAILY 04/13/20 Reported Allopurinol 100 Mg Tablet 1 Tab PO DAILY 04/13/20 Reported Comments CXR Impression: New consolidation right lower lateral lung field and left basal retrocardiac region. Increased pulmonary vasculature congestion. Pulmonary interstitial edema and infiltrates are present. Impression . IMPRESSION: 1. Acute hypoxemic respiratory failure, COVID-19 viral pneumonia. 2. Fever secondary to above. 3. Abnormal x-ray. 4. Acute exacerbation of chronic obstructive pulmonary disease. 5. Tobacco dependence, in remission, quit in 1985. 6. Diabetes. 7. Hypertension. 8. Morbid obesity. 9. Sars-Cov 2 Pos Plan . PLAN: intubated this am, continue current vent support 80% and PEEP 12 Follow CXR/ABG, decrease FiO2 to 70% Continue steroids with slow taper will need full ten day course, started on 04/13 COVID-19 positive, isolation precautions Continue vasopressors to Keep MAP above 65 Continue remdesivir, complete full 5 day course Follow ID recs for ABX Follow cultures:Bacteremia, 2/8 bottles present on admission with gram-positive cocci in clusters.Co N staph likely contaminant Follow nephrology recs--worsening renal function, continue to monitor-- on lasix gtt Follow GI recs --- TF on hold DVT/GI PPX D/W account services specialist Time [id number] BROCK DOSS MD Apr 18, 2020 14:00
[2020-04-18] MEDS ORDERED: INSULIN REGULAR 100 UNIT/ML 3ML VIAL. IV ONE (14:30)
[2020-04-18] MEDS: REMDESIVIR 100mg in NORMAL SALINE 250ML X 4 DAYS IV SCH (14:34)
--- NOTE | 2020-04-18 15:55 | NUR ---
SS following up with discharge planning. SS reviewed pt chart and discussed with pt RN. Pt is currently on the vent at 80%. COVID19 positive. Pt on IV Remdesivir, IV Zosyn, IV Daptomycin, and IV Doxycycline. Not stable. SS will continue to follow for discharge planning.
[2020-04-18] MEDS: DAPTOmycin (GENERIC) IVPB 500 MG in IV NORMAL SALINE 50ML 50 ML IV SCH (17:59)
[2020-04-18] MEDS: INSULIN GLARGINE SYRINGE. SQ SCH (18:09)
[2020-04-18] MEDS: METOPROLOL SUCC 24HR ER 25 MG TAB.ER.24H. PO SCH (21:00)
[2020-04-18] MEDS: ATORVASTATIN CALCIUM 40 MG TABLET. PO SCH (21:26)
[2020-04-19] VITALS (28 sets, daily range): BP systolic 93–170; BP diastolic 43–71
[2020-04-19] MEDS: INSULIN LISPRO 300 UNITS/3 ML VIAL. SQ SCH ×5 (01:03→17:42)
[2020-04-19 06:36] LABS: HEMOGLOBIN 14.6 g/dL (13.0-17.5); RED BLOOD COUNT 4.5 x10^6/uL (4.30-5.70); RED CELL DISTRIBUTION WIDTH 15.5 % (11.5-14.5); WHITE BLOOD COUNT 22.7 x10^3/uL (4.0-11.0)
[2020-04-19] MEDS: PIPERACILLIN/TAZOBACTAM 3.375 GM in IV NORMAL SALINE 50ML 50 ML IV SCH ×2 (06:37→11:34)
[2020-04-19] MEDS: MIDAZOLAM 100mg/100ml NS BAG 100 ML IV PRN ×3 (07:11→21:07)
[2020-04-19 07:12] LABS: ALBUMIN 1.8 g/dL (3.4-5.0); GFR 7.8; PHOSPHORUS 6.4 mg/dL (2.6-4.7); POTASSIUM 5.3 mmol/L (3.5-5.1)
[2020-04-19] MEDS: FUROSEMIDE INJ 100 MG in IV NORMAL SALINE 100ML 100 ML IV PRN (07:26)
[2020-04-19] MEDS: INSULIN GLARGINE SYRINGE. SQ SCH ×2 (07:28→19:34)
[2020-04-19 07:34] LABS: CREATININE 6.8 mg/dL (0.7-1.3)
--- NOTE | 2020-04-19 07:45 | PDOC ---
[facility] PROGRESS NOTE Date of Service DOS: DATE: 04/19/20 TIME: 07:43 Chief Complaint Chief Complaint impression 1. ACUTE HYPOXIC RESP FAILURE Continued to decompensate in his respiratory status required intubation 1/2 AM Fever 2. HX pacemaker. 3. Mild left lung interstitial infiltrates with worsening compared to old studies from 2016. CONCERNING FOR COVID 19 SYNDROME New consolidation right lower lateral lung field and left basal retrocardiac region. Increased pulmonary vasculature congestion. Pulmonary interstitial edema and infiltrates are present. 04/16 4, MORBID OBESITY 5. GENERALIZED WEAKNESS 6. 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 PULM CONSULT cont remdesivir.04/15/2020 DC daptomycin iv Zosyn FiO2 85% PEEP of 12 Levophed pressure support BLOOD CULTURE LC Preliminary Preliminary FINAL ID= [STAPHYLOCOCCUS EPIDERMIDIS] 32 MIN CC TIME History of Present Illness History of Present Illness 04/19 Patient seen in [place] [address] ICU. Remains ventilated, FiO2 60%, PEEP 12. Afebrile. Continue Zosyn, doxycycline, and steroids. Remdesivir day 08/17. 04/18 Patient seen and examined in [place] [address] ICU. He is ventilated, FiO2 80%, PEEP 12. Continue treatment with Zosyn, doxycycline, steroids, and remdesivir. Charts a nd labs reviewed, discussed with RN. 04/17/2020 Patient seen and examined Chart reviewed Discussed with RN Patient is on Vent IV doxycycline FiO2 85% PEEP of 12 Identification/Chief Complaint Chief Complaint DYSPNEA, COUGH WORSE SINCE History of Present Illness History of Present Illness 85 yr old male seen in er with worsening cough since 04-08, now more SOA , HYPOXIC ON PRESENTATION Past Medical History Cardiovascular: HTN, Hyperlipidemia Family History Family History: High Cholestrol, Hypertension Social History Smoke: No ALCOHOL: none Drugs: None Allergies Allergies: Coded Allergies: No Known Drug Allergies (Unverified , 04/13/20) Vitals/I&O Vitals/I&O: Vital Signs Date Time Temp Pulse Resp B/P (MAP) Pulse Ox O2 Delivery O2 Flow Rate FiO2 04/19/20 07:05 79 28 106/50 (68) 98 Ventilator 04/19/20 04:00 98.7 98.7 04/18/20 19:03 4.0 I & O 04/18/20 04/18/20 04/19/20 15:00 23:00 07:00 Intake Total 430 ml 1041 ml 619 ml Output Total 60 ml 60 ml 30 ml Balance 370 ml 981 ml 589 ml Physical Exam Physical Exam: GENERAL:Intubated,sedated HEENT: Normocephalic, atraumatic, anicteric.ETT/OGT + LUNGS: Decreased breath sounds at the bases, scattered rhonchi. HEART: S1, S2. No gallops or murmurs. PPM site looks clean. ABDOMEN: Soft, obese, nontender, nondistended. Aguilar in place EXTREMITIES: No edema, no cyanosis. DERMATOLOGIC: Warm, dry. No generalized rash. NEUROLOGIC: Alert and oriented x 3, grossly nonfocal. PSYCHIATRIC: Cooperative, appropriate mood and affect. General: No acute distress Heart: Regular rate Lungs: Crackles Abdomen: Normal bowel sounds, Soft, No tenderness Extremities: No clubbing, No cyanosis Labs Labs: Laboratory Tests Test 04/18/20 07:55 04/18/20 12:25 04/18/20 18:00 04/19/20 00:09 O2 Saturation 98 % (92-99) Arterial Blood pH 7.28 (7.35-7.45) Arterial Blood pCO2 at Patient Temp 42 mmHg (35-46) Arterial Blood pO2 at Patient Temp 123 mmHg (65-108) Arterial Blood HCO3 19 mmol/L (21-28) Arterial Blood Base Excess -7 mmol/L (-3-3) FiO2 80% vent +12 peep Glucose (Fingerstick) 468 mg/dL (70-99) 393 mg/dL (70-99) 303 mg/dL (70-99) Test 04/19/20 06:00 04/19/20 06:32 04/19/20 06:40 White Blood Count 22.7 x10^3/uL (4.0-11.0) Red Blood Count 4.50 x10^6/uL (4.30-5.70) Hemoglobin 14.6 g/dL (13.0-17.5) Hematocrit 45.0 % (39.0-53.0) Mean Corpuscular Volume 100 fL (79-100) Mean Corpuscular Hemoglobin 32 pg (25-35) Mean Corpuscular Hemoglobin Concent 32 g/dL (31-37) Red Cell Distribution Width 15.5 % (11.5-14.5) Platelet Count 321 x10^3/uL (140-400) Glucose (Fingerstick) 416 mg/dL (70-99) Sodium Level 131 mmol/L (136-145) Potassium Level 5.3 mmol/L (3.5-5.1) Chloride Level 96 mmol/L (98-107) Carbon Dioxide Level 18 mmol/L (21-32) Anion Gap 17 (6-14) Blood Urea Nitrogen 116 mg/dL (8-26) Creatinine 6.8 mg/dL (0.7-1.3) Estimated GFR (Cockcroft-Gault) 7.8 Glucose Level 411 mg/dL (70-99) Calcium Level 8.0 mg/dL (8.5-10.1) Phosphorus Level 6.4 mg/dL (2.6-4.7) Albumin 1.8 g/dL (3.4-5.0) Assessment and Plan Assessmemt and Plan Problems Medical Problems: (1) Person under investigation for COVID-19 Status: Acute (2) Pneumonia Status: Acute Comment Review of Relevant I have reviewed the following items andrea (where applicable) has been applied. Medications: Current Medications Medications (Trade) Dose Ordered Sig/Damion Route PRN Reason Start Time Stop Time Status Last Admin Dose Admin Insulin Glargine (Lantus Syringe) 13 unit [id number] SQ 04/18/20 18:00 04/19/20 07:28 Insulin Human Lispro (HumaLOG) 0-9 UNITS TIDWMEALS SQ 04/18/20 17:00 04/18/20 18:02 Insulin Human Regular (HumuLIN R VIAL) 5 unit 1X ONCE IV 04/18/20 14:30 04/18/20 14:31 DC 04/18/20 14:49 Insulin Human Lispro (HumaLOG) 0-9 UNITS Q6HRS SQ 04/19/20 00:00 04/19/20 07:29 Justifications for Admission General Conditions Poss tachycardia?: Yes Justification for admission: Patient has tachycardia (> 100 beats per minute) which is not readily corrected by appropriate treatment within 12 to 24 hours. ACUTE HYPOXIC RESP FAILURE Other Justification TJ ABRAHAM MD Apr 19, 2020 07:45
[2020-04-19 07:59] LABS: BASE EXCESS ABG -10 mmol/L (-3-3); HCO3 ABG 17 mmol/L (21-28); PCO2 ABG 42 mmHg (35-46); PO2 ABG 82 mmHg (65-108); SAT O2 ABG 95 % (92-99)
--- NOTE | 2020-04-19 08:13 | PDOC ---
Infectious Disease Note Subjective Subjective Intubated/sedated FiO2 85% PEEP of 12 On Levophed Vital Sign Vital Signs Vital Signs Date Time Temp Pulse Resp B/P (MAP) Pulse Ox O2 Delivery O2 Flow Rate FiO2 04/19/20 08:11 Mechanical Ventilator 04/19/20 08:00 04/19/20 07:05 79 28 98 04/19/20 04:00 98.7 98.7 04/18/20 19:03 4.0 Physical Exam PHYSICAL EXAM GENERAL:Intubated,sedated HEENT: Normocephalic, atraumatic, anicteric.ETT/OGT + LUNGS: Decreased breath sounds at the bases, scattered rhonchi. HEART: S1, S2. No gallops or murmurs. PPM site looks clean. ABDOMEN: Soft, obese, nontender, nondistended. Aguilar in place EXTREMITIES: No edema, no cyanosis. DERMATOLOGIC: Warm, dry. No generalized rash. NEUROLOGIC: Alert and oriented x 3, grossly nonfocal. PSYCHIATRIC: Cooperative, appropriate mood and affect. Labs Lab Laboratory Tests Test 04/18/20 12:25 04/18/20 18:00 04/19/20 00:09 04/19/20 06:00 Glucose (Fingerstick) 468 mg/dL (70-99) 393 mg/dL (70-99) 303 mg/dL (70-99) White Blood Count 22.7 x10^3/uL (4.0-11.0) Red Blood Count 4.50 x10^6/uL (4.30-5.70) Hemoglobin 14.6 g/dL (13.0-17.5) Hematocrit 45.0 % (39.0-53.0) Mean Corpuscular Volume 100 fL (79-100) Mean Corpuscular Hemoglobin 32 pg (25-35) Mean Corpuscular Hemoglobin Concent 32 g/dL (31-37) Red Cell Distribution Width 15.5 % (11.5-14.5) Platelet Count 321 x10^3/uL (140-400) Test 04/19/20 06:32 04/19/20 06:40 Glucose (Fingerstick) 416 mg/dL (70-99) Sodium Level 131 mmol/L (136-145) Potassium Level 5.3 mmol/L (3.5-5.1) Chloride Level 96 mmol/L (98-107) Carbon Dioxide Level 18 mmol/L (21-32) Anion Gap 17 (6-14) Blood Urea Nitrogen 116 mg/dL (8-26) Creatinine 6.8 mg/dL (0.7-1.3) Estimated GFR (Cockcroft-Gault) 7.8 Glucose Level 411 mg/dL (70-99) Calcium Level 8.0 mg/dL (8.5-10.1) Phosphorus Level 6.4 mg/dL (2.6-4.7) Albumin 1.8 g/dL (3.4-5.0) Micro Microbiology 04/17/20 Blood Culture - Preliminary, Resulted NO GROWTH AFTER 1 DAY Objective Assessment 1. Fever. 2. COVID-19 infection. 3. Sepsis. 4. Bacteremia, 2/8 bottles present on admission with gram-positive cocci in clusters.Co N staph likely contaminant 5. Acute hypoxic respiratory failure.s/p intubation 6. Acute kidney injury. 7. Status post permanent pacemaker. 8. Abnormal AST. Plan Plan of Care Cont supportive care cont remdesivir.04/15/2020 Cont daptomycin with coagulase-negative staph and PPM in place Cont Zosyn/ doxycycline on steroids. Follow up labs and cultures. Discussed with SUSHIL. LALITHA MORENO MD Apr 19, 2020 08:13
[2020-04-19] MEDS: NOREPINEPHRINE VIAL 32 MG in IV D5W 250ML IV PRN (08:51)
[2020-04-19] MEDS: PANTOPRAZOLE IV PUSH 40 MG VIAL. IVP SCH (08:51)
[2020-04-19] MEDS: DOXYCYCLINE HYCLATE 100 MG in IV DEXTROSE 5% 100ML 100 ML IV SCH ×2 (08:51→20:36)
[2020-04-19] MEDS: FENOFIBRATE,MICRONIZED 134 MG CAPSULE PO SCH (08:52)
[2020-04-19] MEDS: DEXAMETHASONE SOD PHOS 4 MG/ML VIAL IVP SCH (08:52)
[2020-04-19] MEDS: METOPROLOL SUCC 24HR ER 100 MG TAB.ER.24H. PO SCH (08:52)
[2020-04-19] MEDS: GLIMEPIRIDE 2 MG TABLET. PO SCH (08:52)
[2020-04-19] MEDS: ALLOPURINOL 100 MG TABLET. PO SCH (08:52)
[2020-04-19 09:28] LABS: FIO2 ABG 60% VENT
[2020-04-19] MEDS ORDERED: SODIUM BICARB ADULT 8.4% 50 MEQ/50 ML DISP.SYRIN. IV ONE (09:30)
--- NOTE | 2020-04-19 09:30 | PDOC ---
PULMONARY PROGRESS NOTES DATE: 04/19/20 TIME: 09:24 Subjective Patient remains on vent support, 60% and a PEEP of 10 Continues to have hypotension on vasopressors on Lasix drip No other concerns overnight Vitals Vital Signs Date Time Temp Pulse Resp B/P (MAP) Pulse Ox O2 Delivery O2 Flow Rate FiO2 04/19/20 08:12 98.5 79 26 104/49 (67) 97 Ventilator 98.5 04/18/20 19:03 4.0 Comments Pt. seen during pandemic, visual exam preformed intubated RRR no edema/rash no accessory muscle use Lungs: Crackles Labs Laboratory Tests Test 04/17/20 10:05 04/17/20 11:20 04/17/20 11:25 04/17/20 15:37 White Blood Count 22.0 x10^3/uL (4.0-11.0) Red Blood Count 4.68 x10^6/uL (4.30-5.70) Hemoglobin 15.4 g/dL (13.0-17.5) Hematocrit 46.7 % (39.0-53.0) Mean Corpuscular Volume 100 fL (79-100) Mean Corpuscular Hemoglobin 33 pg (25-35) Mean Corpuscular Hemoglobin Concent 33 g/dL (31-37) Red Cell Distribution Width 15.0 % (11.5-14.5) Platelet Count 357 x10^3/uL (140-400) Neutrophils (%) (Auto) 90 % (31-73) Lymphocytes (%) (Auto) 2 % (24-48) Monocytes (%) (Auto) 8 % (0-9) Eosinophils (%) (Auto) 0 % (0-3) Basophils (%) (Auto) 0 % (0-3) Neutrophils # (Auto) 19.7 x10^3/uL (1.8-7.7) Lymphocytes # (Auto) 0.5 x10^3/uL (1.0-4.8) Monocytes # (Auto) 1.8 x10^3/uL (0.0-1.1) Eosinophils # (Auto) 0.0 x10^3/uL (0.0-0.7) Basophils # (Auto) 0.0 x10^3/uL (0.0-0.2) Segmented Neutrophils % 85 % (35-66) Band Neutrophils % 8 % (0-9) Lymphocytes % 3 % (24-48) Monocytes % 4 % (0-10) Platelet Estimate Adequate (ADEQUATE) Sodium Level 133 mmol/L (136-145) Potassium Level 4.5 mmol/L (3.5-5.1) Chloride Level 98 mmol/L (98-107) Carbon Dioxide Level 21 mmol/L (21-32) Anion Gap 14 (6-14) Blood Urea Nitrogen 80 mg/dL (8-26) Creatinine 2.7 mg/dL (0.7-1.3) Estimated GFR (Cockcroft-Gault) 22.7 BUN/Creatinine Ratio 30 (6-20) Glucose Level 442 mg/dL (70-99) Calcium Level 8.9 mg/dL (8.5-10.1) Phosphorus Level 4.3 mg/dL (2.6-4.7) Total Bilirubin 0.9 mg/dL (0.2-1.0) Aspartate Amino Transf (AST/SGOT) 44 U/L (15-37) Alanine Aminotransferase (ALT/SGPT) 44 U/L (16-63) Alkaline Phosphatase 51 U/L (46-116) Total Protein 6.1 g/dL (6.4-8.2) Albumin 2.4 g/dL (3.4-5.0) Albumin/Globulin Ratio 0.6 (1.0-1.7) Urine Collection Type Unknown Urine Color Yellow Urine Clarity Clear Urine pH 5.0 (<5.0-8.0) Urine Specific [place] 1.025 (1.000-1.030) Urine Protein Negative mg/dL (NEG-TRACE) Urine Glucose (UA) Negative mg/dL (NEG) Urine Ketones (Stick) Negative mg/dL (NEG) Urine Blood Negative (NEG) Urine Nitrite Negative (NEG) Urine Bilirubin Negative (NEG) Urine Urobilinogen Dipstick 1.0 mg/dL (0.2 mg/dL) Urine Leukocyte Esterase Small (NEG) Urine RBC Occ /HPF (0-2) Urine WBC 5-10 /HPF (0-4) Urine Squamous Epithelial Cells Few /LPF Urine Bacteria Few /HPF (0-FEW) Lactic Acid Level 3.0 mmol/L (0.4-2.0) 3.0 mmol/L (0.4-2.0) Test 04/17/20 17:07 04/18/20 00:06 04/18/20 05:50 04/18/20 06:10 Glucose (Fingerstick) 425 mg/dL (70-99) 429 mg/dL (70-99) 414 mg/dL (70-99) White Blood Count 17.9 x10^3/uL (4.0-11.0) Red Blood Count 3.92 x10^6/uL (4.30-5.70) Hemoglobin 12.5 g/dL (13.0-17.5) Hematocrit 38.9 % (39.0-53.0) Mean Corpuscular Volume 99 fL (79-100) Mean Corpuscular Hemoglobin 32 pg (25-35) Mean Corpuscular Hemoglobin Concent 32 g/dL (31-37) Red Cell Distribution Width 14.7 % (11.5-14.5) Platelet Count 312 x10^3/uL (140-400) Neutrophils (%) (Auto) 89 % (31-73) Lymphocytes (%) (Auto) 2 % (24-48) Monocytes (%) (Auto) 9 % (0-9) Eosinophils (%) (Auto) 0 % (0-3) Basophils (%) (Auto) 0 % (0-3) Neutrophils # (Auto) 16.0 x10^3/uL (1.8-7.7) Lymphocytes # (Auto) 0.3 x10^3/uL (1.0-4.8) Monocytes # (Auto) 1.6 x10^3/uL (0.0-1.1) Eosinophils # (Auto) 0.0 x10^3/uL (0.0-0.7) Basophils # (Auto) 0.1 x10^3/uL (0.0-0.2) Sodium Level 135 mmol/L (136-145) Potassium Level 3.5 mmol/L (3.5-5.1) Chloride Level 104 mmol/L (98-107) Carbon Dioxide Level 17 mmol/L (21-32) Anion Gap 14 (6-14) Blood Urea Nitrogen 79 mg/dL (8-26) Creatinine 3.3 mg/dL (0.7-1.3) Estimated GFR (Cockcroft-Gault) 18.0 Glucose Level 396 mg/dL (70-99) Calcium Level 6.4 mg/dL (8.5-10.1) Phosphorus Level 3.3 mg/dL (2.6-4.7) Albumin 1.5 g/dL (3.4-5.0) Test 04/18/20 07:55 04/18/20 12:25 04/18/20 18:00 04/19/20 00:09 O2 Saturation 98 % (92-99) Arterial Blood pH 7.28 (7.35-7.45) Arterial Blood pCO2 at Patient Temp 42 mmHg (35-46) Arterial Blood pO2 at Patient Temp 123 mmHg (65-108) Arterial Blood HCO3 19 mmol/L (21-28) Arterial Blood Base Excess -7 mmol/L (-3-3) FiO2 80% vent +12 peep Glucose (Fingerstick) 468 mg/dL (70-99) 393 mg/dL (70-99) 303 mg/dL (70-99) Test 04/19/20 06:00 04/19/20 06:32 04/19/20 06:40 White Blood Count 22.7 x10^3/uL (4.0-11.0) Red Blood Count 4.50 x10^6/uL (4.30-5.70) Hemoglobin 14.6 g/dL (13.0-17.5) Hematocrit 45.0 % (39.0-53.0) Mean Corpuscular Volume 100 fL (79-100) Mean Corpuscular Hemoglobin 32 pg (25-35) Mean Corpuscular Hemoglobin Concent 32 g/dL (31-37) Red Cell Distribution Width 15.5 % (11.5-14.5) Platelet Count 321 x10^3/uL (140-400) Glucose (Fingerstick) 416 mg/dL (70-99) Sodium Level 131 mmol/L (136-145) Potassium Level 5.3 mmol/L (3.5-5.1) Chloride Level 96 mmol/L (98-107) Carbon Dioxide Level 18 mmol/L (21-32) Anion Gap 17 (6-14) Blood Urea Nitrogen 116 mg/dL (8-26) Creatinine 6.8 mg/dL (0.7-1.3) Estimated GFR (Cockcroft-Gault) 7.8 Glucose Level 411 mg/dL (70-99) Calcium Level 8.0 mg/dL (8.5-10.1) Phosphorus Level 6.4 mg/dL (2.6-4.7) Albumin 1.8 g/dL (3.4-5.0) Laboratory Tests Test 04/18/20 12:25 04/18/20 18:00 04/19/20 00:09 04/19/20 06:00 Glucose (Fingerstick) 468 mg/dL (70-99) 393 mg/dL (70-99) 303 mg/dL (70-99) White Blood Count 22.7 x10^3/uL (4.0-11.0) Red Blood Count 4.50 x10^6/uL (4.30-5.70) Hemoglobin 14.6 g/dL (13.0-17.5) Hematocrit 45.0 % (39.0-53.0) Mean Corpuscular Volume 100 fL (79-100) Mean Corpuscular Hemoglobin 32 pg (25-35) Mean Corpuscular Hemoglobin Concent 32 g/dL (31-37) Red Cell Distribution Width 15.5 % (11.5-14.5) Platelet Count 321 x10^3/uL (140-400) Test 04/19/20 06:32 04/19/20 06:40 Glucose (Fingerstick) 416 mg/dL (70-99) Sodium Level 131 mmol/L (136-145) Potassium Level 5.3 mmol/L (3.5-5.1) Chloride Level 96 mmol/L (98-107) Carbon Dioxide Level 18 mmol/L (21-32) Anion Gap 17 (6-14) Blood Urea Nitrogen 116 mg/dL (8-26) Creatinine 6.8 mg/dL (0.7-1.3) Estimated GFR (Cockcroft-Gault) 7.8 Glucose Level 411 mg/dL (70-99) Calcium Level 8.0 mg/dL (8.5-10.1) Phosphorus Level 6.4 mg/dL (2.6-4.7) Albumin 1.8 g/dL (3.4-5.0) Medications Active Scripts Medications Dose Route/Sig Max Daily Dose Days Date Category Glimepiride 1 Mg Tablet 1 Tab PO DAILY 04/14/20 Reported Metoprolol Succinate ( Xl ) (Metoprolol Succinate) 100 Mg Tab.er.24h 1 Tab PO DAILY 04/14/20 Reported Zetia (Ezetimibe) 10 Mg Tablet 1 Tab PO HS 30 04/14/20 Reported Fenofibrate 160 Mg Tablet 1 Tab PO DAILY 04/14/20 Reported Atorvastatin Calcium 40 Mg Tablet 1 Tab PO HS 04/14/20 Reported Amlodipine Besylate 10 Mg Tablet 1 Tab PO DAILY 04/14/20 Reported Omeprazole 20 Mg Capsule.dr 1 Cap PO DAILY 04/14/20 Reported Mexiletine Hcl 150 Mg Capsule 150 Mg PO Q8HRS 04/13/20 Reported Toprol Xl (Metoprolol Succinate) 25 Mg Tab.er.24h 1 Tab PO HS 30 04/13/20 Reported Accupril (Quinapril Hcl) 40 Mg Tablet 1 Tab PO DAILY 04/13/20 Reported Allopurinol 100 Mg Tablet 1 Tab PO DAILY 04/13/20 Reported Comments CXR Impression: New consolidation right lower lateral lung field and left basal retrocardiac region. Increased pulmonary vasculature congestion. Pulmonary interstitial edema and infiltrates are present. Impression . IMPRESSION: 1. Acute hypoxemic respiratory failure, COVID-19 viral pneumonia. 2. Fever secondary to above. 3. Abnormal x-ray. 4. Acute exacerbation of chronic obstructive pulmonary disease. 5. Tobacco dependence, in remission, quit in 1985. 6. Diabetes. 7. Hypertension. 8. Morbid obesity. 9. Sars-Cov 2 Pos Plan . PLAN: intubated this am, continue current vent support Follow CXR/ABG, decrease FiO2 to 60% and reduce PEEP 10 Continue steroids with slow taper will need full ten day course, started on 04/13 COVID-19 positive, isolation precautions Continue vasopressors to Keep MAP above 65-- remains on levo Continue remdesivir, complete full 5 day course Follow ID recs for ABX:Dapto/zosyn/Doxy Follow cultures:Bacteremia, 2/8 bottles present on admission with gram-positive cocci in clusters.Co N staph likely contaminant Follow nephrology recs--worsening renal function, continue to monitor-- on lasix gtt--- worsening renal function today likely will require HD Follow GI recs --- TF on hold DVT/GI PPX 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
--- NOTE | 2020-04-19 09:39 | PDOC ---
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 likely contaminant per ID Acute hypoxic respiratory failure.s/p intubation, was on O2 at presentation Anemia - GI consulted ? GI bleed Status post permanent pacemaker. Abnormal AST. Diabetes. Hypertension BPs low, on low dose pressor DIAGNOSIS/ASSESSMENT Assessment & Plan MEJIA - Vasomotor, hypotension POA , was improving some ,UA unremarkable, c urrently on low dose pressors Renal function worsen, ? plateau, currently on IV lasix gtt , UOP adequate , Currently no emergent indication for dialysis, monitor closely , Dw RN COVID-19 infection - remdesivir, steroids and Abx Sepsis/ Bacteremia, 2/8 bottles present on admission with gram-positive cocci in clusters. likely contaminant per ID Acute hypoxic respiratory failure.s/p intubation, was on O2 at presentation Anemia - GI consulted ? GI bleed Status post permanent pacemaker. Abnormal AST. Diabetes. Hypertension BPs low, on low dose pressor COMMENT/RELEVANT DATA Meds Current Medications Medications (Trade) Dose Ordered Sig/Damion Start Time Stop Time Status Last Admin Dose Admin Acetaminophen (Tylenol) 650 mg PRN Q4HRS PRN 04/13/20 17:00 04/13/20 21:37 650 MG Al Hydroxide/Mg Hydroxide (Mylanta Plus Xs) 30 ml PRN DAILY PRN 04/13/20 17:00 Albuterol Sulfate (Ventolin Hfa) 1 puff PRN Q4HRS PRN 04/15/20 12:30 04/15/20 14:13 1 PUFF Albuterol Sulfate (Ventolin Neb Soln) 2.5 mg PRN Q4HRS PRN 04/13/20 17:00 Allopurinol (Zyloprim) 100 mg DAILY 04/14/20 13:00 04/19/20 08:52 100 MG Amlodipine Besylate (Norvasc) 10 mg DAILY 04/14/20 13:00 04/16/20 14:20 DC Atorvastatin Calcium (Lipitor) 40 mg HS 04/14/20 21:00 04/18/20 21:26 40 MG Atropine Sulfate (ATROPINE 0.5mg SYRINGE) 0.5 mg PRN Q5MIN PRN 04/16/20 07:00 Azithromycin 250 ml @ 250 mls/hr 1X ONCE 04/13/20 14:45 04/13/20 15:44 DC 04/13/20 16:40 250 MLS/HR Ceftriaxone Sodium (Rocephin) 1 gm Q24H 04/14/20 17:00 04/16/20 12:45 DC 04/15/20 17:28 1 GM Daptomycin 500 mg/ Sodium Chloride 50 ml @ 100 mls/hr Q24H 04/15/20 15:00 04/18/20 17:59 100 MLS/HR Dexamethasone Sodium Phosphate (Decadron) 4 mg DAILY 04/20/20 09:00 Dexmedetomidine HCl 400 mcg/ Sodium Chloride 100 ml @ 0 mls/hr CONT PRN 04/16/20 07:00 04/18/20 11:19 2.9 MLS/HR Dextrose (Dextrose 50%-Water Syringe) 12.5 gm PRN Q15MIN PRN 04/18/20 14:15 Docusate Sodium (Colace) 100 mg PRN BID PRN 04/13/20 17:00 Doxycycline Hyclate 100 mg/ Dextrose 100 ml @ 50 mls/hr Q12HR 04/13/20 21:00 04/19/20 08:51 50 MLS/HR Enoxaparin Sodium (Lovenox 40mg Syringe) 40 mg BID 04/13/20 18:00 04/17/20 03:25 DC 04/16/20 20:49 40 MG Etomidate (Amidate) 12 mg 1X ONCE 04/16/20 08:15 04/16/20 08:16 DC 04/16/20 08:14 12 MG EZETIMIBE (Zetia) 10 mg HS 04/14/20 21:00 04/17/20 03:26 DC 04/16/20 20:47 10 MG Fenofibrate (Lofibra) 134 mg DAILY 04/14/20 13:00 04/19/20 08:52 134 MG Fentanyl Citrate 30 ml @ 0 mls/hr CONT PRN 04/16/20 07:45 04/19/20 03:03 3.75 MLS/HR Furosemide 100 mg/ Sodium Chloride 100 ml @ 5 mls/hr CONT PRN 04/16/20 14:30 04/19/20 07:26 5 MLS/HR Glimepiride (Amaryl) 1 mg DAILY 04/14/20 13:00 04/19/20 08:52 1 MG Guaifenesin (Robitussin) 200 mg PRN Q4HRS PRN 04/13/20 17:00 Haloperidol Lactate (Haldol Inj) 5 mg PRN Q6HRS PRN 04/15/20 17:45 04/15/20 18:10 5 MG Insulin Glargine (Lantus Syringe) 13 unit [id number] 04/18/20 18:00 04/19/20 07:28 13 UNIT Insulin Human Lispro (HumaLOG) 0-9 UNITS Q6HRS 04/19/20 00:00 04/19/20 07:29 9 UNITS Insulin Human Regular (HumuLIN R VIAL) 5 unit 1X ONCE 04/18/20 14:30 04/18/20 14:31 DC 04/18/20 14:49 5 UNIT Lisinopril (Prinivil) 40 mg DAILY 04/14/20 13:00 04/16/20 14:20 DC 04/15/20 10:09 40 MG Lorazepam (Ativan Inj) 1 mg PRN Q2HRS PRN 04/15/20 22:45 04/16/20 06:40 1 MG Metoprolol Succinate (Toprol Xl) 25 mg HS 04/14/20 21:00 04/14/20 21:14 25 MG Midazolam HCl 100 ml @ 1 mls/hr CONT PRN 04/16/20 07:45 04/19/20 07:11 10 MLS/HR Midazolam HCl (Versed) 5 mg 1X ONCE 04/16/20 07:30 04/16/20 07:31 DC 04/16/20 07:51 5 MG Morphine Sulfate (Morphine Sulfate) 2 mg PRN Q2HR PRN 04/15/20 22:45 04/16/20 05:13 2 MG Norepinephrine Bitartrate 32 mg/ Dextrose 250 ml @ 5.114 mls/ hr CONT PRN 04/18/20 05:00 04/19/20 08:51 16.2 MLS/HR Norepinephrine Bitartrate 8 mg/ Dextrose 258 ml @ 22.311 mls/ hr CONT PRN 04/16/20 07:30 04/18/20 06:00 DC 04/18/20 02:02 66.932 MLS/HR Ondansetron HCl (Zofran) 4 mg PRN Q4HRS PRN 04/13/20 17:00 Pantoprazole Sodium (PROTONIX VIAL for IV PUSH) 40 mg DAILYAC 04/17/20 07:30 04/19/20 08:51 40 MG Pantoprazole Sodium (Protonix) 40 mg DAILYAC 04/14/20 13:00 04/16/20 11:39 DC 04/15/20 10:11 40 MG Piperacillin Sod/ Tazobactam Sod 3.375 gm/Sodium Chloride 50 ml @ 100 mls/hr Q6HRS 04/16/20 13:30 04/19/20 06:37 100 MLS/HR Remdesivir 100 mg/ Sodium Chloride 230 ml @ 460 mls/hr Q24H 04/16/20 14:00 04/19/20 14:29 04/18/20 14:34 460 MLS/HR Remdesivir 200 mg/ Sodium Chloride 210 ml @ 210 mls/hr 1X ONCE 04/15/20 14:00 04/15/20 14:59 DC 04/15/20 16:25 210 MLS/HR Sodium Bicarbonate (Sodium Bicarb Adult 8.4% Syr) 100 meq 1X ONCE 04/19/20 09:30 04/19/20 09:31 DC 04/19/20 09:26 100 MEQ Sodium Chloride 500 ml @ 500 mls/hr 1X PRN PRN 04/16/20 07:00 Sodium Chloride (Normal Saline Flush) 3 ml QSHIFT PRN 04/13/20 17:00 Succinylcholine Chloride (Anectine) 100 mg 1X ONCE 04/16/20 08:15 04/16/20 08:16 DC 04/16/20 08:15 100 MG Ziprasidone (Geodon Im) 20 mg 1X ONCE 04/15/20 17:45 04/15/20 17:46 DC Lab Laboratory Tests Test 04/18/20 12:25 04/18/20 18:00 04/19/20 00:09 04/19/20 06:00 Glucose (Fingerstick) 468 mg/dL (70-99) 393 mg/dL (70-99) 303 mg/dL (70-99) White Blood Count 22.7 x10^3/uL (4.0-11.0) Red Blood Count 4.50 x10^6/uL (4.30-5.70) Hemoglobin 14.6 g/dL (13.0-17.5) Hematocrit 45.0 % (39.0-53.0) Mean Corpuscular Volume 100 fL (79-100) Mean Corpuscular Hemoglobin 32 pg (25-35) Mean Corpuscular Hemoglobin Concent 32 g/dL (31-37) Red Cell Distribution Width 15.5 % (11.5-14.5) Platelet Count 321 x10^3/uL (140-400) Test 04/19/20 06:32 04/19/20 06:40 04/19/20 07:55 Glucose (Fingerstick) 416 mg/dL (70-99) Sodium Level 131 mmol/L (136-145) Potassium Level 5.3 mmol/L (3.5-5.1) Chloride Level 96 mmol/L (98-107) Carbon Dioxide Level 18 mmol/L (21-32) Anion Gap 17 (6-14) Blood Urea Nitrogen 116 mg/dL (8-26) Creatinine 6.8 mg/dL (0.7-1.3) Estimated GFR (Cockcroft-Gault) 7.8 Glucose Level 411 mg/dL (70-99) Calcium Level 8.0 mg/dL (8.5-10.1) Phosphorus Level 6.4 mg/dL (2.6-4.7) Albumin 1.8 g/dL (3.4-5.0) O2 Saturation 95 % (92-99) Arterial Blood pH 7.22 (7.35-7.45) Arterial Blood pCO2 at Patient Temp 42 mmHg (35-46) Arterial Blood pO2 at Patient Temp 82 mmHg (65-108) Arterial Blood HCO3 17 mmol/L (21-28) Arterial Blood Base Excess -10 mmol/L (-3-3) FiO2 60% vent Results All relevant outside records, renal labs, imaging studies, telemetry/EKG's were reviewed. Justicifation of Admission Dx: Justifications for Admission: Justification of Admission Dx: Yes Comminuty Aquired Pneumonia: Hemodynamic Instability BLANCA MYRICK MD Apr 19, 2020 09:39
[2020-04-19 10:23] LABS: CREATININE 6.5 mg/dL (0.7-1.3); GFR 8.2; POTASSIUM 5.1 mmol/L (3.5-5.1)
--- NOTE | 2020-04-19 10:34 | PDOC ---
Date of Service: DATE: 04/19/20 TIME: 10:31 Objective: Objective: D/w nurse - only ~50cc gastric output overnight - about the same color. Asks about tube feeds. Vital Signs: Vital Signs Date Time Temp Pulse Resp B/P (MAP) Pulse Ox O2 Delivery O2 Flow Rate FiO2 04/19/20 10:06 86 28 122/57 (78) 98 Ventilator 04/19/20 08:12 98.5 98.5 04/18/20 19:03 4.0 Labs: Laboratory Tests Test 04/18/20 12:25 04/18/20 18:00 04/19/20 00:09 04/19/20 06:00 Glucose (Fingerstick) 468 mg/dL 393 mg/dL 303 mg/dL White Blood Count 22.7 x10^3/uL Red Blood Count 4.50 x10^6/uL Hemoglobin 14.6 g/dL Hematocrit 45.0 % Mean Corpuscular Volume 100 fL Mean Corpuscular Hemoglobin 32 pg Mean Corpuscular Hemoglobin Concent 32 g/dL Red Cell Distribution Width 15.5 % Platelet Count 321 x10^3/uL Test 04/19/20 06:32 04/19/20 06:40 04/19/20 07:55 04/19/20 09:55 Glucose (Fingerstick) 416 mg/dL Sodium Level 131 mmol/L 134 mmol/L Potassium Level 5.3 mmol/L 5.1 mmol/L Chloride Level 96 mmol/L 97 mmol/L Carbon Dioxide Level 18 mmol/L 20 mmol/L Anion Gap 17 17 Blood Urea Nitrogen 116 mg/dL 124 mg/dL Creatinine 6.8 mg/dL 6.5 mg/dL Estimated GFR (Cockcroft-Gault) 7.8 8.2 Glucose Level 411 mg/dL 436 mg/dL Calcium Level 8.0 mg/dL 8.0 mg/dL Phosphorus Level 6.4 mg/dL Albumin 1.8 g/dL O2 Saturation 95 % Arterial Blood pH 7.22 Arterial Blood pCO2 at Patient Temp 42 mmHg Arterial Blood pO2 at Patient Temp 82 mmHg Arterial Blood HCO3 17 mmol/L Arterial Blood Base Excess -10 mmol/L FiO2 60% vent BLOOD CULTURE Final NO GROWTH AFTER 5 DAYS BLOOD CULTURE Preliminary NO GROWTH AFTER 2 DAYS PE: GEN: in COVID isolation, visual exam done LUNGS: vent HEART: RRR ABD: non-distended, gastric output watery dark brown NEURO/PSYCH: sedated A/P: COVID-19 infection - resp failure, MEJIA Dark OG tube output - less/stable - Hgb better/normal -- Continue PPI. Might wait another day to try tube feeds - will check w/ Dr. Peña. Justicifation of Admission Dx: Justifications for Admission: Justification of Admission Dx: Yes Comminuty Aquired Pneumonia: Hemodynamic Instability TERRIE CUNNINGHAM Apr 19, 2020 10:34
[2020-04-19] MEDS ORDERED: INSULIN REGULAR 100 UNIT/ML 3ML VIAL. IV ONE (11:45)
[2020-04-19] MEDS ORDERED: INSULIN LISPRO 300 UNITS/3 ML VIAL. SQ ONE (12:00)
[2020-04-19] MEDS ORDERED: LIDOCAINE WITH 8.4% SOD BICARB 3 ML DISP.SYRIN. INJ ONE (12:15)
[2020-04-19] MEDS ORDERED: HEPARIN for IV BOLUS 10,000 UNIT/10 ML VIAL. ONE (12:36)
--- NOTE | 2020-04-19 13:04 | PDOC ---
EVE GROVES DIRECTOR REPORT 04/19/20 1304: CARDIO Progress Notes Date and Time Date of Service 04/19/2020 Time of Evaluation 1240 Subjective Subjective: Other (intubated ) Vitals Vitals Vital Signs Date Time Temp Pulse Resp B/P (MAP) Pulse Ox O2 Delivery O2 Flow Rate FiO2 04/19/20 12:10 Mechanical Ventilator 04/19/20 11:56 98.8 80 29 99/50 (66) 98 98.8 04/19/20 11:42 4.0 Weight Weight [ ] Input and Output Intake and Output Intake and Output 04/19/20 07:00 Intake Total 2090 ml Output Total 150 ml Balance 1940 ml IV Total 2090 ml Output Urine Total 150 ml Laboratory Labs Laboratory Tests Test 04/18/20 18:00 04/19/20 00:09 04/19/20 06:00 04/19/20 06:32 Glucose (Fingerstick) 393 mg/dL (70-99) 303 mg/dL (70-99) 416 mg/dL (70-99) White Blood Count 22.7 x10^3/uL (4.0-11.0) Red Blood Count 4.50 x10^6/uL (4.30-5.70) Hemoglobin 14.6 g/dL (13.0-17.5) Hematocrit 45.0 % (39.0-53.0) Mean Corpuscular Volume 100 fL (79-100) Mean Corpuscular Hemoglobin 32 pg (25-35) Mean Corpuscular Hemoglobin Concent 32 g/dL (31-37) Red Cell Distribution Width 15.5 % (11.5-14.5) Platelet Count 321 x10^3/uL (140-400) Test 04/19/20 06:40 04/19/20 07:55 04/19/20 09:55 Sodium Level 131 mmol/L (136-145) 134 mmol/L (136-145) Potassium Level 5.3 mmol/L (3.5-5.1) 5.1 mmol/L (3.5-5.1) Chloride Level 96 mmol/L (98-107) 97 mmol/L (98-107) Carbon Dioxide Level 18 mmol/L (21-32) 20 mmol/L (21-32) Anion Gap 17 (6-14) 17 (6-14) Blood Urea Nitrogen 116 mg/dL (8-26) 124 mg/dL (8-26) Creatinine 6.8 mg/dL (0.7-1.3) 6.5 mg/dL (0.7-1.3) Estimated GFR (Cockcroft-Gault) 7.8 8.2 Glucose Level 411 mg/dL (70-99) 436 mg/dL (70-99) Calcium Level 8.0 mg/dL (8.5-10.1) 8.0 mg/dL (8.5-10.1) Phosphorus Level 6.4 mg/dL (2.6-4.7) Albumin 1.8 g/dL (3.4-5.0) O2 Saturation 95 % (92-99) Arterial Blood pH 7.22 (7.35-7.45) Arterial Blood pCO2 at Patient Temp 42 mmHg (35-46) Arterial Blood pO2 at Patient Temp 82 mmHg (65-108) Arterial Blood HCO3 17 mmol/L (21-28) Arterial Blood Base Excess -10 mmol/L (-3-3) FiO2 60% vent Microbiology Micro Microbiology 04/17/20 Blood Culture - Preliminary, Resulted NO GROWTH AFTER 2 DAYS Physical Exam HEENT: Neck Supple W Full Motion Chest: Symmetric LUNGS: Other (mechanical vent ) Heart: RRR (Vpaced with intermitent AFIB) Abdomen: Soft N/T Extremities: No Edema Neurology: other (sedated) Assessment Assessment 1. Acute respiratory failure secondary to COVID PNA; s/p intubation. Steroids, post Remdesivir 2. Acute on chronic diastolic CHF; Echo 2018 with preserved LV systolic function 3. MEJIA: worse now having HD 4. SSS s/p PPM 5. Diabetes, II 6. Leukocytosis, lactic acidosis, fevers 7. Sepsis, requiring pressor support. 8. ? GIB; coffee ground in OG tube, possibly from erosion? now off heparin 9. PUI; COVID + 10. PAFIB: appears to be new noted via tele, paroxysms Recommendations 1. HD to start today, cath placement pending 2. I discussed with spouse and pt does not have hx of VT or any cardiac arrest and no mexilitine in his regimen. Will check with his outpt pharmacy and will further clarify 3. Restart BB once off levophed 4. TTE as an outpt once recovered from covid 5. Ongoing lung optimization, treatment of COVID as per pulmonary. 6. Will interrogate PPM 9. Presently not a good candidate for anticoagulation. Await interrogation and note burden overnight and if no further issues with coffee ground then will start on ASA at least. Continue with PPI. Justicifation of Admission Dx: Justifications for Admission: Justification of Admission Dx: Yes Comminuty Aquired Pneumonia: Hemodynamic Instability SOHAN SIMON MD 04/19/20 1831: CARDIO Progress Notes Assessment Assessment Agree with DEMO SPECIALIST's assessment and plan. Ac resp failure secondary to Covid PNA s/p intubation, pulm following Sepsis needing pressor support, continue antibiotics per ID Nephrology planning to initiate HD. Fluid removal with HD for ac on chr diastolic HF SSS s/p PPM stable PAF with tele showing few episodes of AF with aberrant conduction GI following for possible GIB We will check 2D echo once recovered, possibly as outpatient EVE GROVES APRN Apr 19, 2020 13:04 SOHAN SIMON MD Apr 19, 2020 18:31
--- NOTE | 2020-04-19 14:03 | RAD ---
EXAM: Chest, single view. HISTORY: Line placement. COMPARISON: 04/16/2020 FINDINGS: A frontal view of the chest obtained. The image is reversed and the right marker indicates the left thorax. There is an endotracheal tube within the mid trachea. There is a nasogastric tube wi thin the stomach. There are right internal jugular catheters overlying the superior cavoatrial juncti on. There is a right cardiac pacemaker generator with leads unchanged in position. There are leads re lated to a prior left-sided pacemaker also unchanged in position. There is diffuse interstitial infil trate both on chronic interstitial changes. No pleural effusion or pneumothorax is seen. The heart is stable in size. IMPRESSION: 1. Interval right internal jugular central venous catheter placement. No pneumothorax is seen. The re mainder of the support lines and tubes are unchanged. 2. Stable diffuse infiltrate likely superimposed on chronic interstitial changes. Electronically signed by: Lilly Oglesby MD (04/19/2020 2:00 PM) [id number]
[2020-04-19] MEDS ORDERED: ALBUMIN HUMAN 25% 200 ML IV PRN (15:00)
[2020-04-19] MEDS ORDERED: DIALYSIS PATIENT. MC PRN ×2 (15:00)
[2020-04-19] MEDS ORDERED: IV NORMAL SALINE 1000ML BAG 1,000 ML IV PRN ×2 (15:00)
[2020-04-19] MEDS: REMDESIVIR 100mg in NORMAL SALINE 250ML X 4 DAYS IV SCH (15:12)
--- NOTE | 2020-04-19 16:28 | NUR ---
SS following up with discharge planning. SS reviewed pt chart and discussed with pt RN. Pt is currently on the vent at 60%. COVID19 positive. Pt on IV Zosyn, IV Daptomycin, and IV Doxycycline. Hemodialysis today. Not stable. SS will continue to follow for discharge planning.
--- NOTE | 2020-04-19 16:40 | NUR ---
Wound Care Wound Type/Assessment: Pt seen for consultation re: coccyx wound. Pt has a Stage II pressure ulcer with Deep Tissue Injury, blood filled blister and some purplish discoloration to coccyx and buttocks areas. There is a small area in the intergluteal cleft that is open, with red, non-granular wound base. Treatment Recommendations/Plan: Area cleaned and redressed with Xeroform gauze and covered with a foam dressing, recommend changing every 3-4 days and prn when soiled. No other wounds noted on full skin inspection. Education provided: pt intubated Offloading surface/device: low air loss Total Care ICU bed, wedges and pillows Recommended Referrals/Tests: n/a Discharge Recommendations for dressings: will continue to follow for changes. Addendum: 05/12/20 at 1117 by FOREIGN LEE RN Due to sudden onset of wound, location, appearance, and subsequent expiration of patient, this ulcer will be considered a Edgar terminal ulcer per Dr Santoro.
--- NOTE | 2020-04-19 16:49 | RAD ---
Procedure: Ultrasound-guided placement of right internal jugular temporary dialysis catheter and additional right internal jugular triple-lumen central venous line 04/19/2020 2:44 PM Clinical Indication: Renal failure caustic meds Discussion: The risks and benefits of the procedure were discussed the patient and/or their kiosk sales representative. Informed consent was obtained. A timeout procedure was performed. All elements of maximal sterile barrier technique including the use of a cap, mask, sterile gown, sterile gloves, large sterile sheet, appropriate hand hygiene, and 2% chlorhexidine for cutaneous antisepsis (or acceptable alternative antiseptic per current guidelines) were followed for this procedure. The patient was prepped and draped in the usual sterile fashion. Ultrasound interrogation of the right neck revealed patency and compressibility of the right internal jugular vein. A 21-gauge micropuncture was then used to gain access to this vein under ultrasound guidance. A hard copy ultrasound image was recorded. A guidewire was advanced centrally. 5 [place]an sheath was placed. Over a wire following dilatation, a temporary dialysis catheter was advanced centrally. Catheter was found to flush and aspirate normally. This process was repeated in a essentially identical fashion, slightly more cephalad in the right internal jugular vein, with the exception that a triple-lumen central venous line was placed. Follow-up chest radiograph demonstrates the tip of both catheters to be in acceptable position. The catheter was secured in place and a sterile dressing was applied. No immediate complications were identified. Impression: Successful ultrasound-guided placement of right internal jugular temporary dialysis catheter, and a separate right internal jugular triple-lumen central venous catheter
--- NOTE | 2020-04-19 20:00 | NUR ---
Patient has Right radial arterial line for BP monitoring and lab draw--BP will be documented hourly under Vital sign intervention and Q4HRS under Arterial line intervention to avoid double charting. Addendum: 04/19/20 at 2359 by LOLA SLATER RN Amended: Links added.
[2020-04-19] MEDS: ATORVASTATIN CALCIUM 40 MG TABLET. PO SCH (20:38)
[2020-04-19] MEDS: METOPROLOL SUCC 24HR ER 25 MG TAB.ER.24H. PO SCH (21:00)
[2020-04-19 22:11] LABS: CALCIUM 7.9 mg/dL (8.5-10.1); CREATININE 5.4 mg/dL (0.7-1.3); GFR 10.2; MAGNESIUM 2.8 mg/dL (1.8-2.4); POTASSIUM 4.1 mmol/L (3.5-5.1)
[2020-04-19] MEDS: PIPERACILLIN/TAZOBACTAM 2.25 GM in IV NORMAL SALINE 50ML 50 ML IV SCH (22:45)
[2020-04-20] VITALS (40 sets, daily range): BP systolic 44–271; BP diastolic 28–81
[2020-04-20] MEDS: INSULIN LISPRO 300 UNITS/3 ML VIAL. SQ SCH ×4 (00:27→17:38)
[2020-04-20] MEDS: DEXMEDETOMIDINE 400 MCG in IV NORMAL SALINE 100ML 96 ML IV PRN (00:38)
[2020-04-20] MEDS: PIPERACILLIN/TAZOBACTAM 2.25 GM in IV NORMAL SALINE 50ML 50 ML IV SCH ×3 (06:09→23:25)
[2020-04-20] MEDS: MIDAZOLAM 100mg/100ml NS BAG 100 ML IV PRN ×2 (06:15→19:57)
[2020-04-20] MEDS: INSULIN GLARGINE SYRINGE. SQ SCH ×2 (06:27→17:40)
[2020-04-20 06:34] LABS: HEMATOCRIT 39.2 % (39.0-53.0); HEMOGLOBIN 13.2 g/dL (13.0-17.5); RED BLOOD COUNT 4.03 x10^6/uL (4.30-5.70); RED CELL DISTRIBUTION WIDTH 15.1 % (11.5-14.5); WHITE BLOOD COUNT 18.6 x10^3/uL (4.0-11.0)
[2020-04-20 06:46] LABS: ALBUMIN 2.2 g/dL (3.4-5.0); CALCIUM 7.8 mg/dL (8.5-10.1); CREATININE 6.6 mg/dL (0.7-1.3); GFR 8.1; PHOSPHORUS 6.3 mg/dL (2.6-4.7); POTASSIUM 4.4 mmol/L (3.5-5.1)
--- NOTE | 2020-04-20 07:14 | RAD ---
XR CHEST 1V 04/20/2020 4:46 AM INDICATION: Ventilated COMPARISON: 04/19/2020 TECHNIQUE: Portable frontal view of the chest is provided. FINDINGS: The cardiomediastinal silhouette is similar in appearance. Endotracheal tube, right IJ central venous catheter, right IJ double-lumen dialysis catheter, right chest wall cardiac device and nasogastric t ube are in similar position. Abandoned leads project over the left chest. Mild to moderate patchy mixed interstitial and alveolar airspace disease identified, in similar distr ibution carotid prior examination. Consolidative changes identified at the right lower lobe. There is nodular prominence of the right hilum which may represent prominent pulmonary vasculature versus lym phadenopathy. Suspect trace left pleural effusion. No pneumothorax. No suspicious osseous abnormality. IMPRESSION: Aeration of the lungs appears similar to the prior examination. Support lines and tubes are in simila r position. Electronically signed by: Belem Aj MD (04/20/2020 7:12 AM) [id number]
[2020-04-20] MEDS ORDERED: IV NORMAL SALINE 1000ML BAG 1,000 ML IV PRN ×2 (07:30)
[2020-04-20] MEDS ORDERED: ALBUMIN HUMAN 25% 200 ML IV PRN (07:30)
[2020-04-20] MEDS ORDERED: DIALYSIS PATIENT. MC PRN ×2 (07:30)
--- NOTE | 2020-04-20 07:53 | PDOC ---
[facility] PROGRESS NOTE Date of Service DOS: DATE: 04/20/20 TIME: 07:50 Chief Complaint Chief Complaint impression 1. ACUTE HYPOXIC RESP FAILURE Continued to decompensate in his respiratory status required intubation 1/2 AM Fever 2. HX pacemaker. 3. Mild left lung interstitial infiltrates with worsening compared to old studies from 2016. CONCERNING FOR COVID 19 SYNDROME New consolidation right lower lateral lung field and left basal retrocardiac region. Increased pulmonary vasculature congestion. Pulmonary interstitial edema and infiltrates are present. 04/16 4, MORBID OBESITY 5. GENERALIZED WEAKNESS 6. 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 PULM CONSULT cont remdesivir.04/15/2020 DC daptomycin iv Zosyn FiO2 85% PEEP of 12 Levophed pressure support BLOOD CULTURE LC Preliminary Preliminary FINAL ID= [STAPHYLOCOCCUS EPIDERMIDIS] 32 MIN CC TIME History of Present Illness History of Present Illness 04/20 Patient seen in [place] [id number] ICU. He is afebrile. Remains on vent, FiO2 60%, PEEP 10. No acute events overnight. Continue supportive care, steroids, and antibiotics. 04/19 Patient seen in [place] [address] ICU. Remains ventilated, FiO2 60%, PEEP 12. Afebrile. Continue Zosyn, doxycycline, and steroids. Remdesivir day 08/17. 04/18 Patient seen and examined in [place] [address] ICU. He is ventilated, FiO2 80%, PEEP 12. Continue treatment with Zosyn, doxycycline, steroids, and remdesivir. Charts and labs reviewed, discussed with RN. 04/17/2020 Patient seen and examined Chart reviewed Discussed with RN Patient is on Vent IV doxycycline FiO2 85% PEEP of 12 Identification/Chief Complaint Chief Complaint DYSPNEA, COUGH WORSE SINCE History of Present Illness History of Present Illness 85 yr old male seen in er with worsening cough since 04-08, now more SOA , HY POXIC ON PRESENTATION Past Medical History Cardiovascular: HTN, Hyperlipidemia Family History Family History: High Cholestrol, Hypertension Social History Smoke: No ALCOHOL: none Drugs: None Allergies Allergies: Coded Allergies: No Known Drug Allergies (Unverified , 04/13/20) Vitals/I&O Vitals/I&O: Vital Signs Date Time Temp Pulse Resp B/P (MAP) Pulse Ox O2 Delivery O2 Flow Rate FiO2 04/20/20 07:00 80 28 155/55 (88) 94 Ventilator 04/20/20 04:00 99.0 99.0 04/19/20 11:42 4.0 I & O 04/19/20 04/19/20 04/20/20 15:00 23:00 07:00 Intake Total 100 ml 496 ml 626 ml Output Total 10 ml 15 ml 255 ml Balance 90 ml 481 ml 371 ml Physical Exam Physical Exam: GENERAL:Intubated,sedated HEENT: Normocephalic, atraumatic, anicteric.ETT/OGT + LUNGS: Decreased breath sounds at the bases, scattered rhonchi. HEART: S1, S2. No gallops or murmurs. PPM site looks clean. ABDOMEN: Soft, obese, nontender, nondistended. Aguilar in place EXTREMITIES: No edema, no cyanosis. DERMATOLOGIC: Warm, dry. No generalized rash. NEUROLOGIC: Alert and oriented x 3, grossly nonfocal. PSYCHIATRIC: Cooperative, appropriate mood and affect. General: No acute distress Heart: Regular rate Lungs: Crackles Abdomen: Normal bowel sounds, Soft, No tenderness Extremities: No clubbing, No cyanosis Labs Labs: Laboratory Tests Test 04/19/20 07:55 04/19/20 09:55 04/19/20 21:48 04/20/20 00:06 O2 Saturation 95 % (92-99) Arterial Blood pH 7.22 (7.35-7.45) Arterial Blood pCO2 at Patient Temp 42 mmHg (35-46) Arterial Blood pO2 at Patient Temp 82 mmHg (65-108) Arterial Blood HCO3 17 mmol/L (21-28) Arterial Blood Base Excess -10 mmol/L (-3-3) FiO2 60% vent Sodium Level 134 mmol/L (136-145) 135 mmol/L (136-145) Potassium Level 5.1 mmol/L (3.5-5.1) 4.1 mmol/L (3.5-5.1) Chloride Level 97 mmol/L (98-107) 97 mmol/L (98-107) Carbon Dioxide Level 20 mmol/L (21-32) 23 mmol/L (21-32) Anion Gap 17 (6-14) 15 (6-14) Blood Urea Nitrogen 124 mg/dL (8-26) 91 mg/dL (8-26) Creatinine 6.5 mg/dL (0.7-1.3) 5.4 mg/dL (0.7-1.3) Estimated GFR (Cockcroft-Gault) 8.2 10.2 Glucose Level 436 mg/dL (70-99) 298 mg/dL (70-99) Calcium Level 8.0 mg/dL (8.5-10.1) 7.9 mg/dL (8.5-10.1) Magnesium Level 2.8 mg/dL (1.8-2.4) Glucose (Fingerstick) 280 mg/dL (70-99) Test 04/20/20 06:22 04/20/20 06:30 Glucose (Fingerstick) 294 mg/dL (70-99) White Blood Count 18.6 x10^3/uL (4.0-11.0) Red Blood Count 4.03 x10^6/uL (4.30-5.70) Hemoglobin 13.2 g/dL (13.0-17.5) Hematocrit 39.2 % (39.0-53.0) Mean Corpuscular Volume 98 fL (79-100) Mean Corpuscular Hemoglobin 33 pg (25-35) Mean Corpuscular Hemoglobin Concent 34 g/dL (31-37) Red Cell Distribution Width 15.1 % (11.5-14.5) Platelet Count 198 x10^3/uL (140-400) Sodium Level 134 mmol/L (136-145) Potassium Level 4.4 mmol/L (3.5-5.1) Chloride Level 97 mmol/L (98-107) Carbon Dioxide Level 23 mmol/L (21-32) Anion Gap 14 (6-14) Blood Urea Nitrogen 104 mg/dL (8-26) Creatinine 6.6 mg/dL (0.7-1.3) Estimated GFR (Cockcroft-Gault) 8.1 Glucose Level 309 mg/dL (70-99) Calcium Level 7.8 mg/dL (8.5-10.1) Phosphorus Level 6.3 mg/dL (2.6-4.7) Albumin 2.2 g/dL (3.4-5.0) Assessment and Plan Assessmemt and Plan Problems Medical Problems: (1) Person under investigation for COVID-19 Status: Acute (2) Pneumonia Status: Acute Comment Review of Relevant I have reviewed the following items andrea (where applicable) has been applied. Medications: Current Medications Medications (Trade) Dose Ordered Sig/Damion Route PRN Reason Start Time Stop Time Status Last Admin Dose Admin Sodium Bicarbonate (Sodium Bicarb Adult 8.4% Syr) 100 meq 1X ONCE IV 04/19/20 09:30 04/19/20 09:31 DC 04/19/20 09:26 Insulin Glargine (Lantus Syringe) 17 unit [id number] SQ 04/19/20 18:00 04/20/20 06:27 Insulin Human Lispro (HumaLOG) 15 units 1X ONCE SQ 04/19/20 12:00 04/19/20 12:01 DC 04/19/20 11:53 Lidocaine HCl (Buffered Lidocaine 1%) 3 ml 1X ONCE INJ 04/19/20 12:15 04/19/20 12:16 DC 04/19/20 12:15 Heparin Sodium (Porcine) (Heparin Sodium) 2,500 unit 1X ONCE INT CAT 04/19/20 13:00 04/19/20 13:02 DC 04/19/20 13:00 Piperacillin Sod/ Tazobactam Sod 2.25 gm/Sodium Chloride 50 ml @ 100 mls/hr Q8HRS IV 04/19/20 22:00 04/20/20 06:09 Insulin Human Lispro (HumaLOG) 0-9 UNITS Q6HRS SQ 04/20/20 00:30 04/20/20 06:23 Justifications for Admission General Conditions Poss tachycardia?: Yes Justification for admission: Patient has tachycardia (> 100 beats per minute) which is not readily corrected by appropriate treatment within 12 to 24 hours. ACUTE HYPOXIC RESP FAILURE Other Justification TJ ABRAHAM MD Apr 20, 2020 07:53
[2020-04-20 08:03] LABS: BASE EXCESS ABG -3 mmol/L (-3-3); HCO3 ABG 24 mmol/L (21-28); PCO2 ABG 47 mmHg (35-46); PO2 ABG 70 mmHg (65-108); SAT O2 ABG 93 % (92-99)
[2020-04-20 08:05] LABS: FIO2 ABG 60
--- NOTE | 2020-04-20 08:16 | PDOC ---
Infectious Disease Note Subjective Subjective Intubated/sedated FiO2 85% PEEP of 12 On Levophed ROS ROS no n/v/d/ Vital Sign Vital Signs Vital Signs Date Time Temp Pulse Resp B/P (MAP) Pulse Ox O2 Delivery O2 Flow Rate FiO2 04/20/20 07:40 94 Ventilator 04/20/20 07:00 80 28 155/55 (88) 04/20/20 04:00 99.0 99.0 04/19/20 11:42 4.0 Physical Exam PHYSICAL EXAM GENERAL:Intubated,sedated HEENT: Normocephalic, atraumatic, anicteric.ETT/OGT + LUNGS: Decreased breath sounds at the bases, scattered rhonchi. HEART: S1, S2. No gallops or murmurs. PPM site looks clean. ABDOMEN: Soft, obese, nontender, nondistended. Aguilar in place EXTREMITIES: No edema, no cyanosis. DERMATOLOGIC: Warm, dry. No generalized rash. NEUROLOGIC: Alert and oriented x 3, grossly nonfocal. PSYCHIATRIC: Cooperative, appropriate mood and affect. Labs Lab Laboratory Tests Test 04/19/20 09:55 04/19/20 21:48 04/20/20 00:06 04/20/20 06:22 Sodium Level 134 mmol/L (136-145) 135 mmol/L (136-145) Potassium Level 5.1 mmol/L (3.5-5.1) 4.1 mmol/L (3.5-5.1) Chloride Level 97 mmol/L (98-107) 97 mmol/L (98-107) Carbon Dioxide Level 20 mmol/L (21-32) 23 mmol/L (21-32) Anion Gap 17 (6-14) 15 (6-14) Blood Urea Nitrogen 124 mg/dL (8-26) 91 mg/dL (8-26) Creatinine 6.5 mg/dL (0.7-1.3) 5.4 mg/dL (0.7-1.3) Estimated GFR (Cockcroft-Gault) 8.2 10.2 Glucose Level 436 mg/dL (70-99) 298 mg/dL (70-99) Calcium Level 8.0 mg/dL (8.5-10.1) 7.9 mg/dL (8.5-10.1) Magnesium Level 2.8 mg/dL (1.8-2.4) Glucose (Fingerstick) 280 mg/dL (70-99) 294 mg/dL (70-99) Test 04/20/20 06:30 04/20/20 07:40 White Blood Count 18.6 x10^3/uL (4.0-11.0) Red Blood Count 4.03 x10^6/uL (4.30-5.70) Hemoglobin 13.2 g/dL (13.0-17.5) Hematocrit 39.2 % (39.0-53.0) Mean Corpuscular Volume 98 fL (79-100) Mean Corpuscular Hemoglobin 33 pg (25-35) Mean Corpuscular Hemoglobin Concent 34 g/dL (31-37) Red Cell Distribution Width 15.1 % (11.5-14.5) Platelet Count 198 x10^3/uL (140-400) Sodium Level 134 mmol/L (136-145) Potassium Level 4.4 mmol/L (3.5-5.1) Chloride Level 97 mmol/L (98-107) Carbon Dioxide Level 23 mmol/L (21-32) Anion Gap 14 (6-14) Blood Urea Nitrogen 104 mg/dL (8-26) Creatinine 6.6 mg/dL (0.7-1.3) Estimated GFR (Cockcroft-Gault) 8.1 Glucose Level 309 mg/dL (70-99) Calcium Level 7.8 mg/dL (8.5-10.1) Phosphorus Level 6.3 mg/dL (2.6-4.7) Albumin 2.2 g/dL (3.4-5.0) O2 Saturation 93 % (92-99) Arterial Blood pH 7.32 (7.35-7.45) Arterial Blood pCO2 at Patient Temp 47 mmHg (35-46) Arterial Blood pO2 at Patient Temp 70 mmHg (65-108) Arterial Blood HCO3 24 mmol/L (21-28) Arterial Blood Base Excess -3 mmol/L (-3-3) FiO2 60 Micro Microbiology 04/17/20 Blood Culture - Preliminary, Resulted NO GROWTH AFTER 1 DAY Objective Assessment 1. Fever. 2. COVID-19 infection. 3. Sepsis. 4. Bacteremia, 2/8 bottles present on admission with gram-positive cocci in clusters.Co N staph likely contaminant 5. Acute hypoxic respiratory failure.s/p intubation 6. Acute kidney injury. 7. Status post permanent pacemaker. 8. Abnormal AST. Plan Plan of Care Cont supportive care cont remdesivir.04/15/2020 Cont daptomycin with coagulase-negative staph and PPM in place Cont Zosyn/ doxycycline on steroids. Follow up labs and cultures. Discussed with RN. LALITHA MORENO MD Apr 20, 2020 08:16
[2020-04-20] MEDS: METOPROLOL SUCC 24HR ER 100 MG TAB.ER.24H. PO SCH (09:00)
[2020-04-20] MEDS ORDERED: DEXAMETHASONE SOD PHOS 4 MG/ML VIAL IVP SCH (09:00)
--- NOTE | 2020-04-20 09:22 | PDOC ---
Date of Service: DATE: 04/20/20 TIME: 09:20 Objective: Objective: 250cc gastric drainage charted Vital Signs: Vital Signs Date Time Temp Pulse Resp B/P (MAP) Pulse Ox O2 Delivery O2 Flow Rate FiO2 04/20/20 08:00 98.6 80 28 122/48 (72) 94 Ventilator 98.6 04/19/20 11:42 4.0 Labs: Laboratory Tests Test 04/19/20 09:55 04/19/20 21:48 04/20/20 00:06 04/20/20 06:22 Sodium Level 134 mmol/L 135 mmol/L Potassium Level 5.1 mmol/L 4.1 mmol/L Chloride Level 97 mmol/L 97 mmol/L Carbon Dioxide Level 20 mmol/L 23 mmol/L Anion Gap 17 15 Blood Urea Nitrogen 124 mg/dL 91 mg/dL Creatinine 6.5 mg/dL 5.4 mg/dL Estimated GFR (Cockcroft-Gault) 8.2 10.2 Glucose Level 436 mg/dL 298 mg/dL Calcium Level 8.0 mg/dL 7.9 mg/dL Magnesium Level 2.8 mg/dL Glucose (Fingerstick) 280 mg/dL 294 mg/dL Test 04/20/20 06:30 04/20/20 07:40 White Blood Count 18.6 x10^3/uL Red Blood Count 4.03 x10^6/uL Hemoglobin 13.2 g/dL Hematocrit 39.2 % Mean Corpuscular Volume 98 fL Mean Corpuscular Hemoglobin 33 pg Mean Corpuscular Hemoglobin Concent 34 g/dL Red Cell Distribution Width 15.1 % Platelet Count 198 x10^3/uL Sodium Level 134 mmol/L Potassium Level 4.4 mmol/L Chloride Level 97 mmol/L Carbon Dioxide Level 23 mmol/L Anion Gap 14 Blood Urea Nitrogen 104 mg/dL Creatinine 6.6 mg/dL Estimated GFR (Cockcroft-Gault) 8.1 Glucose Level 309 mg/dL Calcium Level 7.8 mg/dL Phosphorus Level 6.3 mg/dL Albumin 2.2 g/dL O2 Saturation 93 % Arterial Blood pH 7.32 Arterial Blood pCO2 at Patient Temp 47 mmHg Arterial Blood pO2 at Patient Temp 70 mmHg Arterial Blood HCO3 24 mmol/L Arterial Blood Base Excess -3 mmol/L FiO2 60 BLOOD CULTURE Preliminary NO GROWTH AFTER 3 DAYS Imaging: CXR 04/20 IMPRESSION: Aeration of the lungs appears similar to the prior examination. Support lines and tubes are in similar position. PE: GEN: intubated in COVID isolation - visual exam done LUNGS: vent HEART: RR ABD: non-distended NEURO/PSYCH: sedated A/P: COVID-19 infection - resp failure, MEJIA -- Continue PPI. ?try tube feeds Justicifation of Admission Dx: Justifications for Admission: Justification of Admission Dx: Yes Comminuty Aquired Pneumonia: Hemodynamic Instability TERRIE CUNNINGHAM Apr 20, 2020 09:22
--- NOTE | 2020-04-20 09:34 | PDOC ---
DATE OF SERVICE DATE: 04/20/20 TIME: 09:26 SUBJECTIVE ROS Remains intubated, OBJECTIVE Vital Signs Vital Signs Date Time Temp Pulse Resp B/P (MAP) Pulse Ox O2 Delivery O2 Flow Rate FiO2 04/20/20 08:00 98.6 80 28 122/48 (72) 94 Ventilator 98.6 04/19/20 11:42 4.0 I & 0 Intake and Output 04/20/20 07:00 Intake Total 1222 ml Output Total 280 ml Balance 942 ml IV Total 1222 ml Output Urine Total 30 ml Gastric Drainage Total 250 ml PHYSICAL EXAM Physical Exam General:Intubated HEENT: Intubated Neck Supple Heart: RRR Lungs CTA ant Abdomen: Normal bowel sounds, Soft, Extremities: No clubbing, No cyanosis, no edema Neuro: sedated, intubated tineo + DIAGNOSIS/ASSESSMENT Assessment & Plan MEJIA - Vasomotor, hypotension POA , CoVid + Worsening renal function, started on dialysis 04/19, 2 nd treatment today, seen on dialysis, BP's low, stable with albumin Discussed treatment plan with Roby . HyperKalemia- resolved Acidosis- resolved COVID-19 infection - remdesivir, steroids and Abx Sepsis/ Bacteremia, 2/8 bottles present on admission with gram-positive cocci in clusters. likely contaminant per ID Acute hypoxic respiratory failure.s/p intubation, was on O2 at presentation Anemia - Hgb normal Status post permanent pacemaker. Abnormal AST. Diabetes. Hypertension BPs low, on low dose pressor DIAGNOSIS/ASSESSMENT Assessment & Plan MEJIA - Vasomotor, hypotension POA , was improving some ,UA unremarkable, currently on low dose pressors Renal function worsen, ? plateau, currently on IV lasix gtt , UOP adequate , Currently no emergent indication for dialysis, monitor closely , Al RN COVID-19 infection - remdesivir, steroids and Abx Sepsis/ Bacteremia, 2/8 bottles present on admission with gram-positive cocci in clusters. likely contaminant per ID Acute hypoxic respiratory failure.s/p intubation, was on O2 at presentation Anemia - GI consulted ? GI bleed Status post permanent pacemaker. Abnormal AST. Diabetes. Hypertension BPs low, on low dose pressor COMMENT/RELEVANT DATA Meds Current Medications Medications (Trade) Dose Ordered Sig/Damion Start Time Stop Time Status Last Admin Dose Admin Acetaminophen (Tylenol) 650 mg PRN Q4HRS PRN 04/13/20 17:00 04/13/20 21:37 650 MG Al Hydroxide/Mg Hydroxide (Mylanta Plus Xs) 30 ml PRN DAILY PRN 04/13/20 17:00 Albumin Human 200 ml @ 200 mls/hr 1X PRN PRN 04/20/20 07:30 04/20/20 13:29 Albuterol Sulfate (Ventolin Hfa) 1 puff PRN Q4HRS PRN 04/15/20 12:30 04/15/20 14:13 1 PUFF Albuterol Sulfate (Ventolin Neb Soln) 2.5 mg PRN Q4HRS PRN 04/13/20 17:00 Allopurinol (Zyloprim) 100 mg DAILY 04/14/20 13:00 04/19/20 08:52 100 MG Amlodipine Besylate (Norvasc) 10 mg DAILY 04/14/20 13:00 04/16/20 14:20 DC Atorvastatin Calcium (Lipitor) 40 mg HS 04/14/20 21:00 04/19/20 20:38 40 MG Atropine Sulfate (ATROPINE 0.5mg SYRINGE) 0.5 mg PRN Q5MIN PRN 04/16/20 07:00 Azithromycin 250 ml @ 250 mls/hr 1X ONCE 04/13/20 14:45 04/13/20 15:44 DC 04/13/20 16:40 250 MLS/HR Ceftriaxone Sodium (Rocephin) 1 gm Q24H 04/14/20 17:00 04/16/20 12:45 DC 04/15/20 17:28 1 GM Daptomycin 500 mg/ Sodium Chloride 50 ml @ 100 mls/hr Q48H 04/20/20 16:00 Dexamethasone Sodium Phosphate (Decadron) 6 mg DAILY 04/20/20 09:00 Dexmedetomidine HCl 400 mcg/ Sodium Chloride 100 ml @ 0 mls/hr CONT PRN 04/16/20 07:00 04/20/20 00:38 2.88 MLS/HR Dextrose (Dextrose 50%-Water Syringe) 12.5 gm PRN Q15MIN PRN 04/18/20 14:15 Docusate Sodium (Colace) 100 mg PRN BID PRN 04/13/20 17:00 Doxycycline Hyclate 100 mg/ Dextrose 100 ml @ 50 mls/hr Q12HR 04/13/20 21:00 04/19/20 20:36 50 MLS/HR Enoxaparin Sodium (Lovenox 40mg Syringe) 40 mg BID 04/13/20 18:00 04/17/20 03:25 DC 04/16/20 20:49 40 MG Etomidate (Amidate) 12 mg 1X ONCE 04/16/20 08:15 04/16/20 08:16 DC 04/16/20 08:14 12 MG EZETIMIBE (Zetia) 10 mg HS 04/14/20 21:00 04/17/20 03:26 DC 04/16/20 20:47 10 MG Fenofibrate (Lofibra) 134 mg DAILY 04/14/20 13:00 04/19/20 08:52 134 MG Fentanyl Citrate 30 ml @ 0 mls/hr CONT PRN 04/16/20 07:45 04/20/20 02:52 3.75 MLS/HR Furosemide 100 mg/ Sodium Chloride 100 ml @ 5 mls/hr CONT PRN 04/16/20 14:30 04/19/20 10:28 DC 04/19/20 07:26 5 MLS/HR Glimepiride (Amaryl) 1 mg DAILY 04/14/20 13:00 04/19/20 08:52 1 MG Guaifenesin (Robitussin) 200 mg PRN Q4HRS PRN 04/13/20 17:00 Haloperidol Lactate (Haldol Inj) 5 mg PRN Q6HRS PRN 04/15/20 17:45 04/15/20 18:10 5 MG Heparin Sodium (Porcine) (Heparin Sodium) 2,500 unit 1X ONCE 04/19/20 13:00 04/19/20 13:02 DC 04/19/20 13:00 2,500 UNIT Info (PHARMACY MONITORING -- do not chart) 1 each PRN DAILY PRN 04/20/20 07:30 Insulin Glargine (Lantus Syringe) 17 unit [id number] 04/19/20 18:00 04/20/20 06:27 17 UNIT Insulin Human Lispro (HumaLOG) 0-9 UNITS Q6HRS 04/20/20 00:30 04/20/20 06:23 4 UNITS Insulin Human Regular (HumuLIN R VIAL) 5 unit 1X ONCE 04/19/20 11:45 04/19/20 11:46 UNV Lidocaine HCl (Buffered Lidocaine 1%) 3 ml 1X ONCE 04/19/20 12:15 04/19/20 12:16 DC 04/19/20 12:15 6 ML Lisinopril (Prinivil) 40 mg DAILY 04/14/20 13:00 04/16/20 14:20 DC 04/15/20 10:09 40 MG Lorazepam (Ativan Inj) 1 mg PRN Q2HRS PRN 04/15/20 22:45 04/16/20 06:40 1 MG Metoprolol Succinate (Toprol Xl) 25 mg HS 04/14/20 21:00 04/14/20 21:14 25 MG Midazolam HCl 100 ml @ 1 mls/hr CONT PRN 04/16/20 07:45 04/20/20 06:15 8 MLS/HR Midazolam HCl (Versed) 5 mg 1X ONCE 04/16/20 07:30 04/16/20 07:31 DC 04/16/20 07:51 5 MG Morphine Sulfate (Morphine Sulfate) 2 mg PRN Q2HR PRN 04/15/20 22:45 04/20/20 05:22 DC 04/16/20 05:13 2 MG Norepinephrine Bitartrate 32 mg/ Dextrose 250 ml @ 5.114 mls/ hr CONT PRN 04/18/20 05:00 04/19/20 08:51 16.2 MLS/HR Norepinephrine Bitartrate 8 mg/ Dextrose 258 ml @ 22.311 mls/ hr CONT PRN 04/16/20 07:30 04/18/20 06:00 DC 04/18/20 02:02 66.932 MLS/HR Ondansetron HCl (Zofran) 4 mg PRN Q4HRS PRN 04/13/20 17:00 Pantoprazole Sodium (PROTONIX VIAL for IV PUSH) 40 mg DAILYAC 04/17/20 07:30 04/19/20 08:51 40 MG Pantoprazole Sodium (Protonix) 40 mg DAILYAC 04/14/20 13:00 04/16/20 11:39 DC 04/15/20 10:11 40 MG Piperacillin Sod/ Tazobactam Sod 2.25 gm/Sodium Chloride 50 ml @ 100 mls/hr Q8HRS 04/19/20 22:00 04/20/20 06:09 100 MLS/HR Piperacillin Sod/ Tazobactam Sod 3.375 gm/Sodium Chloride 50 ml @ 100 mls/hr Q6HRS 04/16/20 13:30 04/19/20 15:18 DC 04/19/20 11:34 100 MLS/HR Remdesivir 100 mg/ Sodium Chloride 230 ml @ 460 mls/hr Q24H 04/16/20 14:00 04/19/20 14:29 DC 04/19/20 15:12 460 MLS/HR Remdesivir 200 mg/ Sodium Chloride 210 ml @ 210 mls/hr 1X ONCE 04/15/20 14:00 04/15/20 14:59 DC 04/15/20 16:25 210 MLS/HR Sodium Bicarbonate (Sodium Bicarb Adult 8.4% Syr) 100 meq 1X ONCE 04/19/20 09:30 04/19/20 09:31 DC 04/19/20 09:26 100 MEQ Sodium Chloride 1,000 ml @ 400 mls/hr Q2H30M PRN 04/20/20 07:30 04/20/20 19:29 Sodium Chloride (Normal Saline Flush) 3 ml QSHIFT PRN 04/13/20 17:00 Succinylcholine Chloride (Anectine) 100 mg 1X ONCE 04/16/20 08:15 04/16/20 08:16 DC 04/16/20 08:15 100 MG Ziprasidone (Geodon Im) 20 mg 1X ONCE 04/15/20 17:45 04/15/20 17:46 DC Lab Laboratory Tests Test 04/19/20 09:55 04/19/20 21:48 04/20/20 00:06 04/20/20 06:22 Sodium Level 134 mmol/L (136-145) 135 mmol/L (136-145) Potassium Level 5.1 mmol/L (3.5-5.1) 4.1 mmol/L (3.5-5.1) Chloride Level 97 mmol/L (98-107) 97 mmol/L (98-107) Carbon Dioxide Level 20 mmol/L (21-32) 23 mmol/L (21-32) Anion Gap 17 (6-14) 15 (6-14) Blood Urea Nitrogen 124 mg/dL (8-26) 91 mg/dL (8-26) Creatinine 6.5 mg/dL (0.7-1.3) 5.4 mg/dL (0.7-1.3) Estimated GFR (Cockcroft-Gault) 8.2 10.2 Glucose Level 436 mg/dL (70-99) 298 mg/dL (70-99) Calcium Level 8.0 mg/dL (8.5-10.1) 7.9 mg/dL (8.5-10.1) Magnesium Level 2.8 mg/dL (1.8-2.4) Glucose (Fingerstick) 280 mg/dL (70-99) 294 mg/dL (70-99) Test 04/20/20 06:30 04/20/20 07:40 White Blood Count 18.6 x10^3/uL (4.0-11.0) Red Blood Count 4.03 x10^6/uL (4.30-5.70) Hemoglobin 13.2 g/dL (13.0-17.5) Hematocrit 39.2 % (39.0-53.0) Mean Corpuscular Volume 98 fL (79-100) Mean Corpuscular Hemoglobin 33 pg (25-35) Mean Corpuscular Hemoglobin Concent 34 g/dL (31-37) Red Cell Distribution Width 15.1 % (11.5-14.5) Platelet Count 198 x10^3/uL (140-400) Sodium Level 134 mmol/L (136-145) Potassium Level 4.4 mmol/L (3.5-5.1) Chloride Level 97 mmol/L (98-107) Carbon Dioxide Level 23 mmol/L (21-32) Anion Gap 14 (6-14) Blood Urea Nitrogen 104 mg/dL (8-26) Creatinine 6.6 mg/dL (0.7-1.3) Estimated GFR (Cockcroft-Gault) 8.1 Glucose Level 309 mg/dL (70-99) Calcium Level 7.8 mg/dL (8.5-10.1) Phosphorus Level 6.3 mg/dL (2.6-4.7) Albumin 2.2 g/dL (3.4-5.0) O2 Saturation 93 % (92-99) Arterial Blood pH 7.32 (7.35-7.45) Arterial Blood pCO2 at Patient Temp 47 mmHg (35-46) Arterial Blood pO2 at Patient Temp 70 mmHg (65-108) Arterial Blood HCO3 24 mmol/L (21-28) Arterial Blood Base Excess -3 mmol/L (-3-3) FiO2 60 Results All relevant outside records, renal labs, imaging studies, telemetry/EKG's were reviewed. Justicifation of Admission Dx: Justifications for Admission: Justification of Admission Dx: Yes Comminuty Aquired Pneumonia: Hemodynamic Instability BLANCA MYRICK MD Apr 20, 2020 09:34
[2020-04-20] MEDS: NOREPINEPHRINE VIAL 32 MG in IV D5W 250ML IV PRN (10:21)
--- NOTE | 2020-04-20 10:55 | PDOC ---
EVE GROVES [employer] B[employer] LABORATORY TECHNOLOGIST 04/20/20 1055: CARDIO Progress Notes Date and Time Date of Service 04/20/2020 Time of Evaluation 1040 Subjective Subjective: Other (intubated ) Vitals Vitals Vital Signs Date Time Temp Pulse Resp B/P (MAP) Pulse Ox O2 Delivery O2 Flow Rate FiO2 04/20/20 10:00 80 28 114/47 (69) 91 Ventilator 04/20/20 08:00 98.6 98.6 04/19/20 11:42 4.0 Weight Weight [ ] Input and Output Intake and Output Intake and Output 04/20/20 07:00 Intake Total 1222 ml Output Total 280 ml Balance 942 ml IV Total 1222 ml Output Urine Total 30 ml Gastric Drainage Total 250 ml Laboratory Labs Laboratory Tests Test 04/19/20 21:48 04/20/20 00:06 04/20/20 06:22 04/20/20 06:30 Sodium Level 135 mmol/L (136-145) 134 mmol/L (136-145) Potassium Level 4.1 mmol/L (3.5-5.1) 4.4 mmol/L (3.5-5.1) Chloride Level 97 mmol/L (98-107) 97 mmol/L (98-107) Carbon Dioxide Level 23 mmol/L (21-32) 23 mmol/L (21-32) Anion Gap 15 (6-14) 14 (6-14) Blood Urea Nitrogen 91 mg/dL (8-26) 104 mg/dL (8-26) Creatinine 5.4 mg/dL (0.7-1.3) 6.6 mg/dL (0.7-1.3) Estimated GFR (Cockcroft-Gault) 10.2 8.1 Glucose Level 298 mg/dL (70-99) 309 mg/dL (70-99) Calcium Level 7.9 mg/dL (8.5-10.1) 7.8 mg/dL (8.5-10.1) Magnesium Level 2.8 mg/dL (1.8-2.4) Glucose (Fingerstick) 280 mg/dL (70-99) 294 mg/dL (70-99) White Blood Count 18.6 x10^3/uL (4.0-11.0) Red Blood Count 4.03 x10^6/uL (4.30-5.70) Hemoglobin 13.2 g/dL (13.0-17.5) Hematocrit 39.2 % (39.0-53.0) Mean Corpuscular Volume 98 fL (79-100) Mean Corpuscular Hemoglobin 33 pg (25-35) Mean Corpuscular Hemoglobin Concent 34 g/dL (31-37) Red Cell Distribution Width 15.1 % (11.5-14.5) Platelet Count 198 x10^3/uL (140-400) Phosphorus Level 6.3 mg/dL (2.6-4.7) Albumin 2.2 g/dL (3.4-5.0) Test 04/20/20 07:40 O2 Saturation 93 % (92-99) Arterial Blood pH 7.32 (7.35-7.45) Arterial Blood pCO2 at Patient Temp 47 mmHg (35-46) Arterial Blood pO2 at Patient Temp 70 mmHg (65-108) Arterial Blood HCO3 24 mmol/L (21-28) Arterial Blood Base Excess -3 mmol/L (-3-3) FiO2 60 Microbiology Micro Microbiology 04/17/20 Blood Culture - Preliminary, Resulted NO GROWTH AFTER 2 DAYS Physical Exam HEENT: Neck Supple W Full Motion Chest: Symmetric LUNGS: Other (mechanical vent ) Heart: RRR (Vpaced with intermitent AFIB) Abdomen: Soft N/T Extremities: No Edema Neurology: other (sedated) Assessment Assessment 1. Acute respiratory failure secondary to COVID PNA; s/p intubation. Steroids, post Remdesivir 2. Acute on chronic diastolic CHF; Echo 2018 with preserved LV systolic function 3. MEJIA: worse now having HD 4. SSS s/p PPM: [facility] 5. Diabetes, II 6. Leukocytosis, lactic acidosis, fevers 7. Sepsis, requiring pressor support. 8. ? GIB; coffee ground in OG tube, possibly from erosion, better now off heparin 9. PUI; COVID + 10. PAFIB: appears to be new noted via tele, paroxysms. Sinus otherwise with V pacing Recommendations 1. Fluid off loading per HD 2. I discussed with spouse and pt does not have hx of VT or any cardiac arrest and no mexilitine in his regimen. No indication for mexilitine currently. Will DC 3. Restart BB once off levophed. 4. TTE as an outpt once recovered from covid 5. Ongoing lung optimization, treatment of COVID as per pulmonary. 6. Will interrogate PPM today 9. Presently not a good candidate for anticoagulation. Continue with PPI. Baby ASA once TF is started Justicifation of Admission Dx: Justifications for Admission: Justification of Admission Dx: Yes Comminuty Aquired Pneumonia: Hemodynamic Instability SOHAN SIMON MD 04/20/20 1637: CARDIO Progress Notes Assessment Assessment Agree with MOTION PICTURE FILM EXAMINER's assessment and plan. Ac resp failure secondary to Covid PNA s/p intubation, pulm following Sepsis needing pressor support, continue antibiotics per ID Nephrology planning to initiate HD. Fluid removal with HD for ac on chr bentley tolic HF SSS s/p PPM stable PAF with tele showing few episodes of AF with aberrant conduction Agree with stopping mexiletine for now since there is no obvious prior history of VT GI following for possible GIB We will check 2D echo once recovered, possibly as outpatient EVE GROVES APRN Apr 20, 2020 10:55 SOHAN SIMON MD Apr 20, 2020 16:37
--- NOTE | 2020-04-20 11:06 | PDOC ---
PULMONARY PROGRESS NOTES DATE: 04/20/20 TIME: 11:03 Subjective Patient remains on vent support, 60% and a PEEP of 12 Continues to have hypotension on vasopressors ac MODE Vitals Vital Signs Date Time Temp Pulse Resp B/P (MAP) Pulse Ox O2 Delivery O2 Flow Rate FiO2 04/20/20 10:00 80 28 114/47 (69) 91 Ventilator 04/20/20 08:00 98.6 98.6 04/19/20 11:42 4.0 Comments Pt. seen during , visual exam preformed intubated RRR no edema/rash no accessory muscle use Lungs: Crackles Labs Laboratory Tests Test 04/18/20 12:25 04/18/20 18:00 04/19/20 00:09 04/19/20 06:00 Glucose (Fingerstick) 468 mg/dL (70-99) 393 mg/dL (70-99) 303 mg/dL (70-99) White Blood Count 22.7 x10^3/uL (4.0-11.0) Red Blood Count 4.50 x10^6/uL (4.30-5.70) Hemoglobin 14.6 g/dL (13.0-17.5) Hematocrit 45.0 % (39.0-53.0) Mean Corpuscular Volume 100 fL (79-100) Mean Corpuscular Hemoglobin 32 pg (25-35) Mean Corpuscular Hemoglobin Concent 32 g/dL (31-37) Red Cell Distribution Width 15.5 % (11.5-14.5) Platelet Count 321 x10^3/uL (140-400) Test 04/19/20 06:32 04/19/20 06:40 04/19/20 07:55 04/19/20 09:55 Glucose (Fingerstick) 416 mg/dL (70-99) Sodium Level 131 mmol/L (136-145) 134 mmol/L (136-145) Potassium Level 5.3 mmol/L (3.5-5.1) 5.1 mmol/L (3.5-5.1) Chloride Level 96 mmol/L (98-107) 97 mmol/L (98-107) Carbon Dioxide Level 18 mmol/L (21-32) 20 mmol/L (21-32) Anion Gap 17 (6-14) 17 (6-14) Blood Urea Nitrogen 116 mg/dL (8-26) 124 mg/dL (8-26) Creatinine 6.8 mg/dL (0.7-1.3) 6.5 mg/dL (0.7-1.3) Estimated GFR (Cockcroft-Gault) 7.8 8.2 Glucose Level 411 mg/dL (70-99) 436 mg/dL (70-99) Calcium Level 8.0 mg/dL (8.5-10.1) 8.0 mg/dL (8.5-10.1) Phosphorus Level 6.4 mg/dL (2.6-4.7) Albumin 1.8 g/dL (3.4-5.0) Hepatitis B Surface Antigen Nonreactive (Nonreactive) Hepatitis B Surface Antibody, Quant <3.1 mIU/mL (Immunity>9.9) O2 Saturation 95 % (92-99) Arterial Blood pH 7.22 (7.35-7.45) Arterial Blood pCO2 at Patient Temp 42 mmHg (35-46) Arterial Blood pO2 at Patient Temp 82 mmHg (65-108) Arterial Blood HCO3 17 mmol/L (21-28) Arterial Blood Base Excess -10 mmol/L (-3-3) FiO2 60% vent Test 04/19/20 21:48 04/20/20 00:06 04/20/20 06:22 04/20/20 06:30 Sodium Level 135 mmol/L (136-145) 134 mmol/L (136-145) Potassium Level 4.1 mmol/L (3.5-5.1) 4.4 mmol/L (3.5-5.1) Chloride Level 97 mmol/L (98-107) 97 mmol/L (98-107) Carbon Dioxide Level 23 mmol/L (21-32) 23 mmol/L (21-32) Anion Gap 15 (6-14) 14 (6-14) Blood Urea Nitrogen 91 mg/dL (8-26) 104 mg/dL (8-26) Creatinine 5.4 mg/dL (0.7-1.3) 6.6 mg/dL (0.7-1.3) Estimated GFR (Cockcroft-Gault) 10.2 8.1 Glucose Level 298 mg/dL (70-99) 309 mg/dL (70-99) Calcium Level 7.9 mg/dL (8.5-10.1) 7.8 mg/dL (8.5-10.1) Magnesium Level 2.8 mg/dL (1.8-2.4) Glucose (Fingerstick) 280 mg/dL (70-99) 294 mg/dL (70-99) White Blood Count 18.6 x10^3/uL (4.0-11.0) Red Blood Count 4.03 x10^6/uL (4.30-5.70) Hemoglobin 13.2 g/dL (13.0-17.5) Hematocrit 39.2 % (39.0-53.0) Mean Corpuscular Volume 98 fL (79-100) Mean Corpuscular Hemoglobin 33 pg (25-35) Mean Corpuscular Hemoglobin Concent 34 g/dL (31-37) Red Cell Distribution Width 15.1 % (11.5-14.5) Platelet Count 198 x10^3/uL (140-400) Phosphorus Level 6.3 mg/dL (2.6-4.7) Albumin 2.2 g/dL (3.4-5.0) Test 04/20/20 07:40 O2 Saturation 93 % (92-99) Arterial Blood pH 7.32 (7.35-7.45) Arterial Blood pCO2 at Patient Temp 47 mmHg (35-46) Arterial Blood pO2 at Patient Temp 70 mmHg (65-108) Arterial Blood HCO3 24 mmol/L (21-28) Arterial Blood Base Excess -3 mmol/L (-3-3) FiO2 60 Laboratory Tests Test 04/19/20 21:48 04/20/20 00:06 04/20/20 06:22 04/20/20 06:30 Sodium Level 135 mmol/L (136-145) 134 mmol/L (136-145) Potassium Level 4.1 mmol/L (3.5-5.1) 4.4 mmol/L (3.5-5.1) Chloride Level 97 mmol/L (98-107) 97 mmol/L (98-107) Carbon Dioxide Level 23 mmol/L (21-32) 23 mmol/L (21-32) Anion Gap 15 (6-14) 14 (6-14) Blood Urea Nitrogen 91 mg/dL (8-26) 104 mg/dL (8-26) Creatinine 5.4 mg/dL (0.7-1.3) 6.6 mg/dL (0.7-1.3) Estimated GFR (Cockcroft-Gault) 10.2 8.1 Glucose Level 298 mg/dL (70-99) 309 mg/dL (70-99) Calcium Level 7.9 mg/dL (8.5-10.1) 7.8 mg/dL (8.5-10.1) Magnesium Level 2.8 mg/dL (1.8-2.4) Glucose (Fingerstick) 280 mg/dL (70-99) 294 mg/dL (70-99) White Blood Count 18.6 x10^3/uL (4.0-11.0) Red Blood Count 4.03 x10^6/uL (4.30-5.70) Hemoglobin 13.2 g/dL (13.0-17.5) Hematocrit 39.2 % (39.0-53.0) Mean Corpuscular Volume 98 fL (79-100) Mean Corpuscular Hemoglobin 33 pg (25-35) Mean Corpuscular Hemoglobin Concent 34 g/dL (31-37) Red Cell Distribution Width 15.1 % (11.5-14.5) Platelet Count 198 x10^3/uL (140-400) Phosphorus Level 6.3 mg/dL (2.6-4.7) Albumin 2.2 g/dL (3.4-5.0) Test 04/20/20 07:40 O2 Saturation 93 % (92-99) Arterial Blood pH 7.32 (7.35-7.45) Arterial Blood pCO2 at Patient Temp 47 mmHg (35-46) Arterial Blood pO2 at Patient Temp 70 mmHg (65-108) Arterial Blood HCO3 24 mmol/L (21-28) Arterial Blood Base Excess -3 mmol/L (-3-3) FiO2 60 Medications Active Scripts Medications Dose Route/Sig Max Daily Dose Days Date Category Glimepiride 1 Mg Tablet 1 Tab PO DAILY 04/14/20 Reported Metoprolol Succinate ( Xl ) (Metoprolol Succinate) 100 Mg Tab.er.24h 1 Tab PO DAILY 04/14/20 Reported Zetia (Ezetimibe) 10 Mg Tablet 1 Tab PO HS 30 12/31/20 Reported Fenofibrate 160 Mg Tablet 1 Tab PO DAILY 04/14/20 Reported Atorvastatin Calcium 40 Mg Tablet 1 Tab PO HS 04/14/20 Reported Amlodipine Besylate 10 Mg Tablet 1 Tab PO DAILY 04/14/20 Reported Omeprazole 20 Mg Capsule.dr 1 Cap PO DAILY 04/14/20 Reported Mexiletine Hcl 150 Mg Capsule 150 Mg PO Q8HRS 04/13/20 Reported Toprol Xl (Metoprolol Succinate) 25 Mg Tab.er.24h 1 Tab PO HS 30 04/13/20 Reported Accupril (Quinapril Hcl) 40 Mg Tablet 1 Tab PO DAILY 04/13/20 Reported Allopurinol 100 Mg Tablet 1 Tab PO DAILY 04/13/20 Reported Comments CXR Impression: New consolidation right lower lateral lung field and left basal retrocardiac region. Increased pulmonary vasculature congestion. Pulmonary interstitial edema and infiltrates are present. Impression . IMPRESSION: 1. Acute hypoxemic respiratory failure, COVID-19 viral pneumonia. 2. Fever secondary to above. 3. Abnormal x-ray. 4. Acute exacerbation of chronic obstructive pulmonary disease. 5. Tobacco dependence, in remission, quit in 1985. 6. Diabetes. 7. Hypertension. 8. Morbid obesity. 9. Sars-Cov 2 Pos Plan . PLAN: intubated this am, continue current vent support Follow CXR/ABG, Reduce PEEP to 11, keep FIO2 70%, minimize barotrauma Continue steroids with slow taper will need full ten day course, started on 04/13 COVID-19 positive, isolation precautions Continue vasopressors to Keep MAP above 65-- remains on levo Continue remdesivir, complete full 5 day course Follow ID recs for ABX:Dapto/zosyn/Doxy Follow cultures:Bacteremia, 2/8 bottles present on admission with gram-positive cocci in clusters.Co N staph likely contaminant Follow nephrology recs--worsening renal function, continue to monitor-- on lasix gtt--- worsening renal function , on HD Follow GI recs --- TF on hold DVT/GI PPX D/W stain sprayer Time 0900-0930AM YESICA SOLITARIO MD Apr 20, 2020 11:06
[2020-04-20] MEDS: DEXAMETHASONE SOD PHOS 4 MG/ML VIAL IVP SCH (12:27)
[2020-04-20] MEDS: PANTOPRAZOLE IV PUSH 40 MG VIAL. IVP SCH (12:27)
[2020-04-20] MEDS: DOXYCYCLINE HYCLATE 100 MG in IV DEXTROSE 5% 100ML 100 ML IV SCH ×2 (12:29→21:30)
[2020-04-20] MEDS: FENOFIBRATE,MICRONIZED 134 MG CAPSULE PO SCH (12:31)
[2020-04-20] MEDS: ALLOPURINOL 100 MG TABLET. PO SCH (12:32)
[2020-04-20] MEDS: GLIMEPIRIDE 2 MG TABLET. PO SCH (12:32)
[2020-04-20] MEDS: ASPIRIN CHEWABLE 81 MG TABLET. PO SCH (14:14)
[2020-04-20] MEDS ORDERED: DAPTOmycin (GENERIC) IVPB 500 MG in IV NORMAL SALINE 50ML 50 ML IV SCH (16:00)
[2020-04-20] MEDS: METOPROLOL SUCC 24HR ER 25 MG TAB.ER.24H. PO SCH (21:00)
[2020-04-20] MEDS: ATORVASTATIN CALCIUM 40 MG TABLET. PO SCH (21:30)
--- NOTE | 2020-04-20 22:40 | NUR ---
Pt SBP at beginning of shift noted to be in the 170s-180s. This RN began titrating pts Levophed down per protocol. Once this RN reached around 0.2mcg/kg/min, the pts blood pressure became very labile. The SBP first decreased into the 100s at 1999, and by 2005, the BP was 271/56. Levophed titrated down due to sudden increase in BP and heart rate. By 2014, the Levophed was again at 0.2mcg/kg/min, with the pts BP getting as low as the SBP in the 40s. Charge nurse also at bedside at this time assisting with medication titration. Levophed is currently at 0.14mcg/kg/min, with pts BP being 127/47. Will continue to titrate slowly this shift due to pts sensitivity to the medication. Will pass on and continue to monitor.
--- NOTE | 2020-04-20 22:49 | NUR ---
On the personnel monitor at 2246, pt appeared to have a run of 22 beats of ventricular tachycardia. Will continue to monitor pt closely. Pt within sight of care team.
[2020-04-20] MEDS ORDERED: AMIODARONE IV ONE (23:30)
[2020-04-20] MEDS ORDERED: DEXTROSE 5% IV ONE (23:30)
[2020-04-21] VITALS (26 sets, daily range): BP systolic 36–154; BP diastolic 43–62
[2020-04-21 00:11] LABS: CREATININE 6.5 mg/dL (0.7-1.3); GFR 8.2; POTASSIUM 5.1 mmol/L (3.5-5.1)
[2020-04-21 00:12] LABS: MAGNESIUM 2.7 mg/dL (1.8-2.4)
[2020-04-21] MEDS: INSULIN LISPRO 300 UNITS/3 ML VIAL. SQ SCH ×4 (00:34→21:37)
--- NOTE | 2020-04-21 01:16 | NUR ---
After the 22 PVCs seen on the monitor, call placed to Dr. Cole. Notified MD of pt status, including heart rhythm and incidence of BP being labile. Received order for STAT BMP, Mg, give 1/2 dose Amiodarone bolus, and give amiodarone IV gtt per protocol. Orders entered into system and initiated. Pts current HR is 80 and BP 115/44. Will pass on and continue to monitor.
[2020-04-21] MEDS: PIPERACILLIN/TAZOBACTAM 2.25 GM in IV NORMAL SALINE 50ML 50 ML IV SCH ×3 (06:06→22:03)
[2020-04-21] MEDS: INSULIN GLARGINE SYRINGE. SQ SCH ×2 (06:08→21:36)
[2020-04-21 06:18] LABS: HEMATOCRIT 39.5 % (39.0-53.0); RED BLOOD COUNT 4.05 x10^6/uL (4.30-5.70); RED CELL DISTRIBUTION WIDTH 15.3 % (11.5-14.5); WHITE BLOOD COUNT 20.5 x10^3/uL (4.0-11.0)
[2020-04-21 06:30] LABS: ALBUMIN 2.2 g/dL (3.4-5.0); CALCIUM 7.8 mg/dL (8.5-10.1); GFR 7.6; PHOSPHORUS 6.9 mg/dL (2.6-4.7)
--- NOTE | 2020-04-21 07:53 | PDOC ---
Infectious Disease Note Subjective Subjective Intubated/sedated FiO2 85% PEEP of 12 On Levophed Vital Sign Vital Signs Vital Signs Date Time Temp Pulse Resp B/P (MAP) Pulse Ox O2 Delivery O2 Flow Rate FiO2 04/21/20 06:00 80 28 147/53 (84) 95 Ventilator 04/21/20 04:00 98.4 98.4 Physical Exam PHYSICAL EXAM GENERAL:Intubated,sedated HEENT: Normocephalic, atraumatic, anicteric.ETT/OGT + LUNGS: Decreased breath sounds at the bases, scattered rhonchi. HEART: S1, S2. No gallops or murmurs. PPM site looks clean. ABDOMEN: Soft, obese, nontender, nondistended. Agu[place] in place EXTREMITIES: No edema, no cyanosis. DERMATOLOGIC: Warm, dry. No generalized rash. NEUROLOGIC: Alert and oriented x 3, grossly nonfocal. PSYCHIATRIC: Cooperative, appropriate mood and affect. Labs Lab Laboratory Tests Test 04/20/20 11:24 04/20/20 17:37 04/20/20 23:40 04/21/20 05:50 Glucose (Fingerstick) 182 mg/dL (70-99) 180 mg/dL (70-99) Sodium Level 136 mmol/L (136-145) 133 mmol/L (136-145) Potassium Level 5.1 mmol/L (3.5-5.1) 5.0 mmol/L (3.5-5.1) Chloride Level 98 mmol/L (98-107) 97 mmol/L (98-107) Carbon Dioxide Level 25 mmol/L (21-32) 22 mmol/L (21-32) Anion Gap 13 (6-14) 14 (6-14) Blood Urea Nitrogen 90 mg/dL (8-26) 99 mg/dL (8-26) Creatinine 6.5 mg/dL (0.7-1.3) 7.0 mg/dL (0.7-1.3) Estimated GFR (Cockcroft-Gault) 8.2 7.6 Glucose Level 298 mg/dL (70-99) 290 mg/dL (70-99) Calcium Level 8.0 mg/dL (8.5-10.1) 7.8 mg/dL (8.5-10.1) Magnesium Level 2.7 mg/dL (1.8-2.4) White Blood Count 20.5 x10^3/uL (4.0-11.0) Red Blood Count 4.05 x10^6/uL (4.30-5.70) Hemoglobin 13.0 g/dL (13.0-17.5) Hematocrit 39.5 % (39.0-53.0) Mean Corpuscular Volume 98 fL (79-100) Mean Corpuscular Hemoglobin 32 pg (25-35) Mean Corpuscular Hemoglobin Concent 33 g/dL (31-37) Red Cell Distribution Width 15.3 % (11.5-14.5) Platelet Count 183 x10^3/uL (140-400) Phosphorus Level 6.9 mg/dL (2.6-4.7) Albumin 2.2 g/dL (3.4-5.0) Micro Microbiology 04/17/20 Blood Culture - Preliminary, Resulted NO GROWTH AFTER 1 DAY Objective Assessment 1. Fever. 2. COVID-19 infection. 3. Sepsis. 4. Bacteremia, 2/8 bottles present on admission with gram-positive cocci in clusters.Co N staph likely contaminant 5. Acute hypoxic respiratory failure.s/p intubation 6. Acute kidney injury. 7. Status post permanent pacemaker. 8. Abnormal AST. Plan Plan of Care Cont supportive care cont zosyn, d/c dapto and doxy on steroids. Follow up labs and cultures. Discussed with SUSHIL. LALITHA MORENO MD Apr 21, 2020 07:53
[2020-04-21] MEDS ORDERED: AMIODARONE 450 MG in IV DEXTROSE 5% 250 ML IV ONE ×2 (08:00)
[2020-04-21] MEDS: DEXMEDETOMIDINE 400 MCG in IV NORMAL SALINE 100ML 96 ML IV PRN ×2 (08:07→21:38)
[2020-04-21] MEDS: NOREPINEPHRINE VIAL 8 MG in IV DEXTROSE 5% 250 ML IV PRN ×2 (08:13→21:42)
[2020-04-21 08:23] LABS: BASE EXCESS ABG -3 mmol/L (-3-3); HCO3 ABG 22 mmol/L (21-28); PCO2 ABG 43 mmHg (35-46); PO2 ABG 78 mmHg (65-108); SAT O2 ABG 95 % (92-99)
[2020-04-21] MEDS: DEXAMETHASONE SOD PHOS 4 MG/ML VIAL IVP SCH (08:39)
[2020-04-21] MEDS: ALLOPURINOL 100 MG TABLET. PO SCH (08:39)
[2020-04-21] MEDS: PANTOPRAZOLE IV PUSH 40 MG VIAL. IVP SCH (08:39)
[2020-04-21] MEDS: FENOFIBRATE,MICRONIZED 134 MG CAPSULE PO SCH (08:39)
[2020-04-21] MEDS: ASPIRIN CHEWABLE 81 MG TABLET. PO SCH (08:39)
[2020-04-21] MEDS: GLIMEPIRIDE 2 MG TABLET. PO SCH (08:40)
[2020-04-21] MEDS: METOPROLOL SUCC 24HR ER 100 MG TAB.ER.24H. PO SCH (08:45)
[2020-04-21 09:04] LABS: FIO2 ABG 70%+9
--- NOTE | 2020-04-21 09:36 | PDOC ---
[employer] PROGRESS NOTE Date of Service DOS: DATE: 04/21/20 TIME: 09:33 Chief Complaint Chief Complaint impression 1. ACUTE HYPOXIC RESP FAILURE Continued to decompensate in his respiratory status required intubation 1/2 AM Fever 2. HX pacemaker. 3. Mild left lung interstitial infiltrates with worsening compared to old studies from 2016. CONCERNING FOR COVID 19 SYNDROME New consolidation right lower lateral lung field and left basal retrocardiac region. Increased pulmonary vasculature congestion. Pulmonary interstitial edema and infiltrates are present. 04/16 4, MORBID OBESITY 5. GENERALIZED WEAKNESS 6. 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 PULM CONSULT cont remdesivir.04/15/2020 DC daptomycin iv Zosyn FiO2 85% PEEP of 12 Levophed pressure support BLOOD CULTURE LC Preliminary Preliminary FINAL ID= [STAPHYLOCOCCUS EPIDERMIDIS] 32 MIN CC TIME History of Present Illness History of Present Illness 04/21 Patient seen in ICU. On vent, FiO2 60%, PEEP 10. Discussed with RN, clinical findings to start on hemodialysis today. No acute events overnight. 04/20 Patient seen in [place] [address] ICU. He is afebrile. Remains on vent, FiO2 60%, PEEP 10. No acute events overnight. Continue supportive care, steroids, and antibi otics. 04/19 Patient seen in [place] [address] ICU. Remains ventilated, FiO2 60%, PEEP 12. Afebrile. Continue Zosyn, doxycycline, and steroids. Remdesivir day 08/17. 04/18 Patient seen and examined in [place] [address] ICU. He is ventilated, FiO2 80%, PEEP 12. Continue treatment with Zosyn, doxycycline, steroids, and remdesivir. Charts and labs reviewed, discussed with RN. 04/17/2020 Patient seen and examined Chart reviewed Discussed with RN Patient is on Vent IV doxycycline FiO2 85% PEEP of 12 Identification/Chief Complaint Chief Complaint DYSPNEA, COUGH WORSE SINCE History of Present Illness History of Present Illness 85 yr old male seen in er with worsening cough since 04-08, now more SOA , HYPOXIC ON PRESENTATION Past Medical History Cardiovascular: HTN, Hyperlipidemia Family History Family History: High Cholestrol, Hypertension Social History Smoke: No ALCOHOL: none Drugs: None Allergies Allergies: Coded Allergies: No Known Drug Allergies (Unverified , 04/13/20) Vitals/I&O Vitals/I&O: Vital Signs Date Time Temp Pulse Resp B/P (MAP) Pulse Ox O2 Delivery O2 Flow Rate FiO2 04/21/20 06:00 80 28 147/53 (84) 95 Ventilator 04/21/20 04:00 98.4 98.4 I & O 04/20/20 04/20/20 04/21/20 15:00 23:00 07:00 Intake Total 80 ml 574.04 ml 621.7 ml Output Total 0 ml 18 ml 4 ml Balance 80 ml 556.04 ml 617.7 ml Physical Exam Physical Exam: GENERAL:Intubated,sedated HEENT: Normocephalic, atraumatic, anicteric.ETT/OGT + LUNGS: Decreased breath sounds at the bases, scattered rhonchi. HEART: S1, S2. No gallops or murmurs. PPM site looks clean. ABDOMEN: Soft, obese, nontender, nondistended. Aguilar in place EXTREMITIES: No edema, no cyanosis. DERMATOLOGIC: Warm, dry. No generalized rash. NEUROLOGIC: Alert and oriented x 3, grossly nonfocal. PSYCHIATRIC: Cooperative, appropriate mood and affect. General: No acute distress Heart: Regular rate Lungs: Crackles Abdomen: Normal bowel sounds, Soft, No tenderness Extremities: No clubbing, No cyanosis Labs Labs: Laboratory Tests Test 04/20/20 11:24 04/20/20 17:37 04/20/20 23:40 04/21/20 05:50 Glucose (Fingerstick) 182 mg/dL (70-99) 180 mg/dL (70-99) Sodium Level 136 mmol/L (136-145) 133 mmol/L (136-145) Potassium Level 5.1 mmol/L (3.5-5.1) 5.0 mmol/L (3.5-5.1) Chloride Level 98 mmol/L (98-107) 97 mmol/L (98-107) Carbon Dioxide Level 25 mmol/L (21-32) 22 mmol/L (21-32) Anion Gap 13 (6-14) 14 (6-14) Blood Urea Nitrogen 90 mg/dL (8-26) 99 mg/dL (8-26) Creatinine 6.5 mg/dL (0.7-1.3) 7.0 mg/dL (0.7-1.3) Estimated GFR (Cockcroft-Gault) 8.2 7.6 Glucose Level 298 mg/dL (70-99) 290 mg/dL (70-99) Calcium Level 8.0 mg/dL (8.5-10.1) 7.8 mg/dL (8.5-10.1) Magnesium Level 2.7 mg/dL (1.8-2.4) White Blood Count 20.5 x10^3/uL (4.0-11.0) Red Blood Count 4.05 x10^6/uL (4.30-5.70) Hemoglobin 13.0 g/dL (13.0-17.5) Hematocrit 39.5 % (39.0-53.0) Mean Corpuscular Volume 98 fL (79-100) Mean Corpuscular Hemoglobin 32 pg (25-35) Mean Corpuscular Hemoglobin Concent 33 g/dL (31-37) Red Cell Distribution Width 15.3 % (11.5-14.5) Platelet Count 183 x10^3/uL (140-400) Phosphorus Level 6.9 mg/dL (2.6-4.7) Albumin 2.2 g/dL (3.4-5.0) Test 04/21/20 08:00 O2 Saturation 95 % (92-99) Arterial Blood pH 7.33 (7.35-7.45) Arterial Blood pCO2 at Patient Temp 43 mmHg (35-46) Arterial Blood pO2 at Patient Temp 78 mmHg (65-108) Arterial Blood HCO3 22 mmol/L (21-28) Arterial Blood Base Excess -3 mmol/L (-3-3) FiO2 70%+9 Assessment and Plan Assessmemt and Plan Problems Medical Problems: (1) Person under investigation for COVID-19 Status: Acute (2) Pneumonia Status: Acute Comment Review of Relevant I have reviewed the following items andrea (where applicable) has been applied. Medications: Current Medications Medications (Trade) Dose Ordered Sig/Damion Route PRN Reason Start Time Stop Time Status Last Admin Dose Admin Daptomycin 500 mg/ Sodium Chloride 50 ml @ 100 mls/hr Q48H IV 04/20/20 16:00 04/21/20 07:54 DC 04/20/20 16:28 Aspirin (Aspirin Chewable) 81 mg [id number] PO 1/6/21 13:30 04/21/20 08:39 Amiodarone HCl 75 mg/Dextrose 101.5 ml @ 618 mls/hr 1X ONCE IV 04/20/20 23:30 04/20/20 23:39 DC 04/20/20 23:40 Amiodarone HCl 450 mg/Dextrose 259 ml @ 0 mls/hr 1X ONCE IV 04/21/20 00:00 04/21/20 00:01 DC 04/21/20 00:33 Amiodarone HCl 450 mg/Dextrose 259 ml @ 0 mls/hr 1X ONCE IV 04/21/20 08:00 04/21/20 08:01 DC 04/21/20 08:08 Norepinephrine Bitartrate 8 mg/ Dextrose 258 ml @ 22.156 mls/ hr CONT PRN IV PER PROTOCOL 04/21/20 07:30 04/21/20 08:13 Justifications for Admission General Conditions Poss tachycardia?: Yes Justification for admission: Patient has tachycardia (> 100 beats per minute) which is not readily corrected by appropriate treatment within 12 to 24 hours. ACUTE HYPOXIC RESP FAILURE Other Justification TJ ABRAHAM MD Apr 21, 2020 09:36
--- NOTE | 2020-04-21 10:34 | PDOC ---
DATE OF SERVICE DATE: 04/21/20 TIME: 10:29 SUBJECTIVE ROS Remains intubated,on pressor OBJECTIVE Vital Signs Vital Signs Date Time Temp Pulse Resp B/P (MAP) Pulse Ox O2 Delivery O2 Flow Rate FiO2 04/21/20 08:00 04/21/20 07:40 95 Ventilator 04/21/20 06:00 80 28 04/21/20 04:00 98.4 98.4 I & 0 Intake and Output 04/21/20 07:00 Intake Total 1275.74 ml Output Total 22 ml Balance 1253.74 ml IV Total 1103.74 ml Tube Feeding 172 ml Output Urine Total 22 ml Gastric Drainage Total 0 ml PHYSICAL EXAM Physical Exam General:Intubated HEENT: Intubated Neck Supple Heart: RRR Lungs CTA ant Abdomen: Normal bowel sounds, Soft, Extremities: No clubbing, No cyanosis, no edema Neuro: sedated, intubated tineo + DIAGNOSIS/ASSESSMENT Assessment & Plan MEJIA - Vasomotor, hypotension POA , CoVid + Worsening renal function, Oligo-anuric started on dialysis 04/19, dialysis today as ordered (3 rd treatment today), UF as tolerated .Discussed treatment plan with Roby . HyperKalemia- resolved Acidosis- resolved COVID-19 infection - remdesivir, steroids and Abx Sepsis/ Bacteremia, 2/8 bottles present on admission with gram-positive cocci in clusters. likely contaminant per ID Acute hypoxic respiratory failure. currently intubated , was on O2 at presentation Anemia - Hgb normal Status post permanent pacemaker. Abnormal AST. Diabetes. Hypertension BPs low, on low dose pressor COMMENT/RELEVANT DATA Meds Current Medications Medications (Trade) Dose Ordered Sig/Damion Start Time Stop Time Status Last Admin Dose Admin Acetaminophen (Tylenol) 650 mg PRN Q4HRS PRN 04/13/20 17:00 04/13/20 21:37 650 MG Al Hydroxide/Mg Hydroxide (Mylanta Plus Xs) 30 ml PRN DAILY PRN 04/13/20 17:00 Albumin Human 200 ml @ 200 mls/hr 1X PRN PRN 04/20/20 07:30 04/20/20 13:29 DC Albuterol Sulfate (Ventolin Hfa) 1 puff PRN Q4HRS PRN 04/15/20 12:30 04/15/20 14:13 1 PUFF Albuterol Sulfate (Ventolin Neb Soln) 2.5 mg PRN Q4HRS PRN 04/13/20 17:00 Allopurinol (Zyloprim) 100 mg DAILY 04/14/20 13:00 04/21/20 08:39 100 MG Amiodarone HCl 450 mg/Dextrose 259 ml @ 0 mls/hr 1X ONCE 04/21/20 08:00 04/21/20 08:01 DC 04/21/20 08:08 16.7 MLS/HR Amiodarone HCl 75 mg/Dextrose 101.5 ml @ 618 mls/hr 1X ONCE 04/20/20 23:30 04/20/20 23:39 DC 04/20/20 23:40 618 MLS/HR Amlodipine Besylate (Norvasc) 10 mg DAILY 04/14/20 13:00 04/16/20 14:20 DC Aspirin (Aspirin Chewable) 81 mg [id number] 04/20/20 13:30 04/21/20 08:39 81 MG Atorvastatin Calcium (Lipitor) 40 mg HS 04/14/20 21:00 04/20/20 21:30 40 MG Atropine Sulfate (ATROPINE 0.5mg SYRINGE) 0.5 mg PRN Q5MIN PRN 04/16/20 07:00 Azithromycin 250 ml @ 250 mls/hr 1X ONCE 04/13/20 14:45 04/13/20 15:44 DC 04/13/20 16:40 250 MLS/HR Ceftriaxone Sodium (Rocephin) 1 gm Q24H 04/14/20 17:00 04/16/20 12:45 DC 04/15/20 17:28 1 GM Daptomycin 500 mg/ Sodium Chloride 50 ml @ 100 mls/hr Q48H 04/20/20 16:00 04/21/20 07:54 DC 04/20/20 16:28 100 MLS/HR Dexamethasone Sodium Phosphate (Decadron) 6 mg DAILY 04/20/20 09:00 04/21/20 08:39 6 MG Dexmedetomidine HCl 400 mcg/ Sodium Chloride 100 ml @ 0 mls/hr CONT PRN 04/16/20 07:00 04/21/20 08:07 2.9 MLS/HR Dextrose (Dextrose 50%-Water Syringe) 12.5 gm PRN Q15MIN PRN 04/18/20 14:15 Docusate Sodium (Colace) 100 mg PRN BID PRN 04/13/20 17:00 Doxycycline Hyclate 100 mg/ Dextrose 100 ml @ 50 mls/hr Q12HR 04/13/20 21:00 04/21/20 07:54 DC 04/20/20 21:30 50 MLS/HR Enoxaparin Sodium (Lovenox 40mg Syringe) 40 mg BID 04/13/20 18:00 04/17/20 03:25 DC 04/16/20 20:49 40 MG Etomidate (Amidate) 12 mg 1X ONCE 04/16/20 08:15 04/16/20 08:16 DC 04/16/20 08:14 12 MG EZETIMIBE (Zetia) 10 mg HS 04/14/20 21:00 04/17/20 03:26 DC 04/16/20 20:47 10 MG Fenofibrate (Lofibra) 134 mg DAILY 04/14/20 13:00 04/21/20 08:39 134 MG Fentanyl Citrate 30 ml @ 0 mls/hr CONT PRN 04/16/20 07:45 04/21/20 05:05 2.5 MLS/HR Furosemide 100 mg/ Sodium Chloride 100 ml @ 5 mls/hr CONT PRN 04/16/20 14:30 04/19/20 10:28 DC 04/19/20 07:26 5 MLS/HR Glimepiride (Amaryl) 1 mg DAILY 04/14/20 13:00 04/21/20 08:40 1 MG Guaifenesin (Robitussin) 200 mg PRN Q4HRS PRN 04/13/20 17:00 Haloperidol Lactate (Haldol Inj) 5 mg PRN Q6HRS PRN 04/15/20 17:45 04/15/20 18:10 5 MG Heparin Sodium (Porcine) (Heparin Sodium) 2,500 unit 1X ONCE 04/19/20 13:00 04/19/20 13:02 DC 04/19/20 13:00 2,500 UNIT Info (PHARMACY MONITORING -- do not chart) 1 each PRN DAILY PRN 04/20/20 07:30 Insulin Glargine (Lantus Syringe) 17 unit [id number] 04/19/20 18:00 04/21/20 06:08 17 UNIT Insulin Human Lispro (HumaLOG) 0-9 UNITS Q6HRS 04/20/20 00:30 04/21/20 06:09 9 UNITS Insulin Human Regular (HumuLIN R VIAL) 5 unit 1X ONCE 04/19/20 11:45 04/19/20 11:46 UNV Lidocaine HCl (Buffered Lidocaine 1%) 3 ml 1X ONCE 04/19/20 12:15 04/19/20 12:16 DC 04/19/20 12:15 6 ML Lisinopril (Prinivil) 40 mg DAILY 04/14/20 13:00 04/16/20 14:20 DC 04/15/20 10:09 40 MG Lorazepam (Ativan Inj) 1 mg PRN Q2HRS PRN 04/15/20 22:45 04/16/20 06:40 1 MG Metoprolol Succinate (Toprol Xl) 25 mg HS 04/14/20 21:00 04/14/20 21:14 25 MG Midazolam HCl 100 ml @ 1 mls/hr CONT PRN 04/16/20 07:45 04/20/20 19:57 8 MLS/HR Midazolam HCl (Versed) 5 mg 1X ONCE 04/16/20 07:30 04/16/20 07:31 DC 04/16/20 07:51 5 MG Morphine Sulfate (Morphine Sulfate) 2 mg PRN Q2HR PRN 04/15/20 22:45 04/20/20 05:22 DC 04/16/20 05:13 2 MG Norepinephrine Bitartrate 32 mg/ Dextrose 250 ml @ 5.114 mls/ hr CONT PRN 04/18/20 05:00 04/21/20 07:23 DC 04/20/20 10:21 10.228 MLS/HR Norepinephrine Bitartrate 8 mg/ Dextrose 258 ml @ 22.156 mls/ hr CONT PRN 04/21/20 07:30 04/21/20 08:13 22.156 MLS/HR Ondansetron HCl (Zofran) 4 mg PRN Q4HRS PRN 04/13/20 17:00 Pantoprazole Sodium (PROTONIX VIAL for IV PUSH) 40 mg DAILYAC 04/17/20 07:30 04/21/20 08:39 40 MG Pantoprazole Sodium (Protonix) 40 mg DAILYAC 04/14/20 13:00 04/16/20 11:39 DC 04/15/20 10:11 40 MG Piperacillin Sod/ Tazobactam Sod 2.25 gm/Sodium Chloride 50 ml @ 100 mls/hr Q8HRS 04/19/20 22:00 04/21/20 06:06 100 MLS/HR Piperacillin Sod/ Tazobactam Sod 3.375 gm/Sodium Chloride 50 ml @ 100 mls/hr Q6HRS 04/16/20 13:30 04/19/20 15:18 DC 04/19/20 11:34 100 MLS/HR Remdesivir 100 mg/ Sodium Chloride 230 ml @ 460 mls/hr Q24H 04/16/20 14:00 04/19/20 14:29 DC 04/19/20 15:12 460 MLS/HR Remdesivir 200 mg/ Sodium Chloride 210 ml @ 210 mls/hr 1X ONCE 04/15/20 14:00 04/15/20 14:59 DC 04/15/20 16:25 210 MLS/HR Sodium Bicarbonate (Sodium Bicarb Adult 8.4% Syr) 100 meq 1X ONCE 04/19/20 09:30 04/19/20 09:31 DC 04/19/20 09:26 100 MEQ Sodium Chloride 1,000 ml @ 400 mls/hr Q2H30M PRN 04/20/20 07:30 04/20/20 19:29 DC Sodium Chloride (Normal Saline Flush) 3 ml QSHIFT PRN 04/13/20 17:00 Succinylcholine Chloride (Anectine) 100 mg 1X ONCE 04/16/20 08:15 04/16/20 08:16 DC 04/16/20 08:15 100 MG Ziprasidone (Geodon Im) 20 mg 1X ONCE 04/15/20 17:45 04/15/20 17:46 DC Lab Laboratory Tests Test 04/20/20 11:24 04/20/20 17:37 04/20/20 23:40 04/21/20 05:50 Glucose (Fingerstick) 182 mg/dL (70-99) 180 mg/dL (70-99) Sodium Level 136 mmol/L (136-145) 133 mmol/L (136-145) Potassium Level 5.1 mmol/L (3.5-5.1) 5.0 mmol/L (3.5-5.1) Chloride Level 98 mmol/L (98-107) 97 mmol/L (98-107) Carbon Dioxide Level 25 mmol/L (21-32) 22 mmol/L (21-32) Anion Gap 13 (6-14) 14 (6-14) Blood Urea Nitrogen 90 mg/dL (8-26) 99 mg/dL (8-26) Creatinine 6.5 mg/dL (0.7-1.3) 7.0 mg/dL (0.7-1.3) Estimated GFR (Cockcroft-Gault) 8.2 7.6 Glucose Level 298 mg/dL (70-99) 290 mg/dL (70-99) Calcium Level 8.0 mg/dL (8.5-10.1) 7.8 mg/dL (8.5-10.1) Magnesium Level 2.7 mg/dL (1.8-2.4) White Blood Count 20.5 x10^3/uL (4.0-11.0) Red Blood Count 4.05 x10^6/uL (4.30-5.70) Hemoglobin 13.0 g/dL (13.0-17.5) Hematocrit 39.5 % (39.0-53.0) Mean Corpuscular Volume 98 fL (79-100) Mean Corpuscular Hemoglobin 32 pg (25-35) Mean Corpuscular Hemoglobin Concent 33 g/dL (31-37) Red Cell Distribution Width 15.3 % (11.5-14.5) Platelet Count 183 x10^3/uL (140-400) Phosphorus Level 6.9 mg/dL (2.6-4.7) Albumin 2.2 g/dL (3.4-5.0) Test 04/21/20 08:00 O2 Saturation 95 % (92-99) Arterial Blood pH 7.33 (7.35-7.45) Arterial Blood pCO2 at Patient Temp 43 mmHg (35-46) Arterial Blood pO2 at Patient Temp 78 mmHg (65-108) Arterial Blood HCO3 22 mmol/L (21-28) Arterial Blood Base Excess -3 mmol/L (-3-3) FiO2 70%+9 Results All relevant outside records, renal labs, imaging studies, telemetry/EKG's were reviewed. Justicifation of Admission Dx: Justifications for Admission: Justification of Admission Dx: Yes Comminuty Aquired Pneumonia: Hemodynamic Instability BLANCA MYRICK MD Apr 21, 2020 10:34
--- NOTE | 2020-04-21 11:02 | PDOC ---
PULMONARY PROGRESS NOTES DATE: 04/21/20 TIME: 11:00 Subjective Patient remains on vent support, 70% and a PEEP of 9 Continues to have hypotension on vasopressors ac MODE Vitals Vital Signs Date Time Temp Pulse Resp B/P (MAP) Pulse Ox O2 Delivery O2 Flow Rate FiO2 04/21/20 10:00 78 28 144/58 (86) 94 Ventilator 04/21/20 08:00 99.3 99.3 Comments Pt. seen during , visual exam preformed intubated RRR no edema/rash no accessory muscle use Labs Laboratory Tests Test 04/19/20 17:36 04/19/20 21:48 04/20/20 00:06 04/20/20 06:22 Glucose (Fingerstick) 407 mg/dL (70-99) 280 mg/dL (70-99) 294 mg/dL (70-99) Sodium Level 135 mmol/L (136-145) Potassium Level 4.1 mmol/L (3.5-5.1) Chloride Level 97 mmol/L (98-107) Carbon Dioxide Level 23 mmol/L (21-32) Anion Gap 15 (6-14) Blood Urea Nitrogen 91 mg/dL (8-26) Creatinine 5.4 mg/dL (0.7-1.3) Estimated GFR (Cockcroft-Gault) 10.2 Glucose Level 298 mg/dL (70-99) Calcium Level 7.9 mg/dL (8.5-10.1) Magnesium Level 2.8 mg/dL (1.8-2.4) Test 04/20/20 06:30 04/20/20 07:40 04/20/20 11:24 04/20/20 17:37 White Blood Count 18.6 x10^3/uL (4.0-11.0) Red Blood Count 4.03 x10^6/uL (4.30-5.70) Hemoglobin 13.2 g/dL (13.0-17.5) Hematocrit 39.2 % (39.0-53.0) Mean Corpuscular Volume 98 fL (79-100) Mean Corpuscular Hemoglobin 33 pg (25-35) Mean Corpuscular Hemoglobin Concent 34 g/dL (31-37) Red Cell Distribution Width 15.1 % (11.5-14.5) Platelet Count 198 x10^3/uL (140-400) Sodium Level 134 mmol/L (136-145) Potassium Level 4.4 mmol/L (3.5-5.1) Chloride Level 97 mmol/L (98-107) Carbon Dioxide Level 23 mmol/L (21-32) Anion Gap 14 (6-14) Blood Urea Nitrogen 104 mg/dL (8-26) Creatinine 6.6 mg/dL (0.7-1.3) Estimated GFR (Cockcroft-Gault) 8.1 Glucose Level 309 mg/dL (70-99) Calcium Level 7.8 mg/dL (8.5-10.1) Phosphorus Level 6.3 mg/dL (2.6-4.7) Albumin 2.2 g/dL (3.4-5.0) O2 Saturation 93 % (92-99) Arterial Blood pH 7.32 (7.35-7.45) Arterial Blood pCO2 at Patient Temp 47 mmHg (35-46) Arterial Blood pO2 at Patient Temp 70 mmHg (65-108) Arterial Blood HCO3 24 mmol/L (21-28) Arterial Blood Base Excess -3 mmol/L (-3-3) FiO2 60 Glucose (Fingerstick) 182 mg/dL (70-99) 180 mg/dL (70-99) Test 04/20/20 23:40 04/21/20 05:50 04/21/20 08:00 Sodium Level 136 mmol/L (136-145) 133 mmol/L (136-145) Potassium Level 5.1 mmol/L (3.5-5.1) 5.0 mmol/L (3.5-5.1) Chloride Level 98 mmol/L (98-107) 97 mmol/L (98-107) Carbon Dioxide Level 25 mmol/L (21-32) 22 mmol/L (21-32) Anion Gap 13 (6-14) 14 (6-14) Blood Urea Nitrogen 90 mg/dL (8-26) 99 mg/dL (8-26) Creatinine 6.5 mg/dL (0.7-1.3) 7.0 mg/dL (0.7-1.3) Estimated GFR (Cockcroft-Gault) 8.2 7.6 Glucose Level 298 mg/dL (70-99) 290 mg/dL (70-99) Calcium Level 8.0 mg/dL (8.5-10.1) 7.8 mg/dL (8.5-10.1) Magnesium Level 2.7 mg/dL (1.8-2.4) White Blood Count 20.5 x10^3/uL (4.0-11.0) Red Blood Count 4.05 x10^6/uL (4.30-5.70) Hemoglobin 13.0 g/dL (13.0-17.5) Hematocrit 39.5 % (39.0-53.0) Mean Corpuscular Volume 98 fL (79-100) Mean Corpuscular Hemoglobin 32 pg (25-35) Mean Corpuscular Hemoglobin Concent 33 g/dL (31-37) Red Cell Distribution Width 15.3 % (11.5-14.5) Platelet Count 183 x10^3/uL (140-400) Phosphorus Level 6.9 mg/dL (2.6-4.7) Albumin 2.2 g/dL (3.4-5.0) O2 Saturation 95 % (92-99) Arterial Blood pH 7.33 (7.35-7.45) Arterial Blood pCO2 at Patient Temp 43 mmHg (35-46) Arterial Blood pO2 at Patient Temp 78 mmHg (65-108) Arterial Blood HCO3 22 mmol/L (21-28) Arterial Blood Base Excess -3 mmol/L (-3-3) FiO2 70%+9 Laboratory Tests Test 04/20/20 11:24 04/20/20 17:37 04/20/20 23:40 04/21/20 05:50 Glucose (Fingerstick) 182 mg/dL (70-99) 180 mg/dL (70-99) Sodium Level 136 mmol/L (136-145) 133 mmol/L (136-145) Potassium Level 5.1 mmol/L (3.5-5.1) 5.0 mmol/L (3.5-5.1) Chloride Level 98 mmol/L (98-107) 97 mmol/L (98-107) Carbon Dioxide Level 25 mmol/L (21-32) 22 mmol/L (21-32) Anion Gap 13 (6-14) 14 (6-14) Blood Urea Nitrogen 90 mg/dL (8-26) 99 mg/dL (8-26) Creatinine 6.5 mg/dL (0.7-1.3) 7.0 mg/dL (0.7-1.3) Estimated GFR (Cockcroft-Gault) 8.2 7.6 Glucose Level 298 mg/dL (70-99) 290 mg/dL (70-99) Calcium Level 8.0 mg/dL (8.5-10.1) 7.8 mg/dL (8.5-10.1) Magnesium Level 2.7 mg/dL (1.8-2.4) White Blood Count 20.5 x10^3/uL (4.0-11.0) Red Blood Count 4.05 x10^6/uL (4.30-5.70) Hemoglobin 13.0 g/dL (13.0-17.5) Hematocrit 39.5 % (39.0-53.0) Mean Corpuscular Volume 98 fL (79-100) Mean Corpuscular Hemoglobin 32 pg (25-35) Mean Corpuscular Hemoglobin Concent 33 g/dL (31-37) Red Cell Distribution Width 15.3 % (11.5-14.5) Platelet Count 183 x10^3/uL (140-400) Phosphorus Level 6.9 mg/dL (2.6-4.7) Albumin 2.2 g/dL (3.4-5.0) Test 04/21/20 08:00 O2 Saturation 95 % (92-99) Arterial Blood pH 7.33 (7.35-7.45) Arterial Blood pCO2 at Patient Temp 43 mmHg (35-46) Arterial Blood pO2 at Patient Temp 78 mmHg (65-108) Arterial Blood HCO3 22 mmol/L (21-28) Arterial Blood Base Excess -3 mmol/L (-3-3) FiO2 70%+9 Medications Active Scripts Medications Dose Route/Sig Max Daily Dose Days Date Category Glimepiride 1 Mg Tablet 1 Tab PO DAILY 04/14/20 Reported Metoprolol Succinate ( Xl ) (Metoprolol Succinate) 100 Mg Tab.er.24h 1 Tab PO DAILY 04/14/20 Reported Zetia (Ezetimibe) 10 Mg Tablet 1 Tab PO HS 30 04/14/20 Reported Fenofibrate 160 Mg Tablet 1 Tab PO DAILY 04/14/20 Reported Atorvastatin Calcium 40 Mg Tablet 1 Tab PO HS 04/14/20 Reported Amlodipine Besylate 10 Mg Tablet 1 Tab PO DAILY 04/14/20 Reported Omeprazole 20 Mg Capsule.dr 1 Cap PO DAILY 04/14/20 Reported Mexiletine Hcl 150 Mg Capsule 150 Mg PO Q8HRS 04/13/20 Reported Toprol Xl (Metoprolol Succinate) 25 Mg Tab.er.24h 1 Tab PO HS 30 04/13/20 Reported Accupril (Quinapril Hcl) 40 Mg Tablet 1 Tab PO DAILY 04/13/20 Reported Allopurinol 100 Mg Tablet 1 Tab PO DAILY 04/13/20 Reported Comments CXR Impression: New consolidation right lower lateral lung field and left basal retrocardiac region. Increased pulmonary vasculature congestion. Pulmonary interstitial edema and infiltrates are present. Impression . IMPRESSION: 1. Acute hypoxemic respiratory failure, COVID-19 viral pneumonia. 2. Fever secondary to above. 3. Abnormal x-ray. 4. Acute exacerbation of chronic obstructive pulmonary disease. 5. Tobacco dependence, in remission, quit in 1985. 6. Diabetes. 7. Hypertension. 8. Morbid obesity. 9. Sars-Cov 2 Pos Plan . PLAN: , continue current vent support Follow CXR/ABG, Reduce PEEP to 8, keep FIO2 65%, minimize barotrauma Continue steroids with slow taper will need full ten day course, started on 04/13 COVID-19 positive, isolation precautions Continue vasopressors to Keep MAP above 65-- remains on levo Continue remdesivir, complete full 5 day course Follow ID recs for ABX:Dapto/zosyn/Doxy Follow cultures:Bacteremia, 2/8 bottles present on admission with gram-positive cocci in clusters.Co N staph likely contaminant Follow nephrology recs--worsening renal function, continue to monitor-- on lasix gtt--- worsening renal function , on HD Follow GI recs --- TF on hold DVT/GI PPX D/W YESICA GARCIA MD Apr 21, 2020 11:02
[2020-04-21] MEDS: MIDAZOLAM 100mg/100ml NS BAG 100 ML IV PRN ×2 (11:08→23:44)
--- NOTE | 2020-04-21 11:12 | PDOC ---
EVE GROVES LURE MAKER 04/21/20 1112: CARDIO Progress Notes Date and Time Date of Service 04/21/2020 Time of Evaluation 1010 Subjective Subjective: Other (intubated ) Vitals Vitals Vital Signs Date Time Temp Pulse Resp B/P (MAP) Pulse Ox O2 Delivery O2 Flow Rate FiO2 04/21/20 10:00 78 28 144/58 (86) 94 Ventilator 04/21/20 08:00 99.3 99.3 Weight Weight [ ] Input and Output Intake and Output Intake and Output 04/21/20 07:00 Intake Total 1275.74 ml Output Total 22 ml Balance 1253.74 ml IV Total 1103.74 ml Tube Feeding 172 ml Output Urine Total 22 ml Gastric Drainage Total 0 ml Laboratory Labs Laboratory Tests Test 04/20/20 11:24 04/20/20 17:37 04/20/20 23:40 04/21/20 05:50 Glucose (Fingerstick) 182 mg/dL (70-99) 180 mg/dL (70-99) Sodium Level 136 mmol/L (136-145) 133 mmol/L (136-145) Potassium Level 5.1 mmol/L (3.5-5.1) 5.0 mmol/L (3.5-5.1) Chloride Level 98 mmol/L (98-107) 97 mmol/L (98-107) Carbon Dioxide Level 25 mmol/L (21-32) 22 mmol/L (21-32) Anion Gap 13 (6-14) 14 (6-14) Blood Urea Nitrogen 90 mg/dL (8-26) 99 mg/dL (8-26) Creatinine 6.5 mg/dL (0.7-1.3) 7.0 mg/dL (0.7-1.3) Estimated GFR (Cockcroft-Gault) 8.2 7.6 Glucose Level 298 mg/dL (70-99) 290 mg/dL (70-99) Calcium Level 8.0 mg/dL (8.5-10.1) 7.8 mg/dL (8.5-10.1) Magnesium Level 2.7 mg/dL (1.8-2.4) White Blood Count 20.5 x10^3/uL (4.0-11.0) Red Blood Count 4.05 x10^6/uL (4.30-5.70) Hemoglobin 13.0 g/dL (13.0-17.5) Hematocrit 39.5 % (39.0-53.0) Mean Corpuscular Volume 98 fL (79-100) Mean Corpuscular Hemoglobin 32 pg (25-35) Mean Corpuscular Hemoglobin Concent 33 g/dL (31-37) Red Cell Distribution Width 15.3 % (11.5-14.5) Platelet Count 183 x10^3/uL (140-400) Phosphorus Level 6.9 mg/dL (2.6-4.7) Albumin 2.2 g/dL (3.4-5.0) Test 04/21/20 08:00 O2 Saturation 95 % (92-99) Arterial Blood pH 7.33 (7.35-7.45) Arterial Blood pCO2 at Patient Temp 43 mmHg (35-46) Arterial Blood pO2 at Patient Temp 78 mmHg (65-108) Arterial Blood HCO3 22 mmol/L (21-28) Arterial Blood Base Excess -3 mmol/L (-3-3) FiO2 70%+9 Microbiology Micro Microbiology 04/17/20 Blood Culture - Preliminary, Resulted NO GROWTH AFTER 3 DAYS Physical Exam HEENT: Neck Supple W Full Motion Chest: Symmetric LUNGS: Other (mechanical vent ) Heart: RRR (Vpaced with intermitent AFIB) Abdomen: Other (obese) Extremities: No Edema Neurology: other (sedated) Assessment Assessment 1. Acute respiratory failure secondary to COVID PNA; s/p intubation. Steroids, post Remdesivir 2. Acute on chronic diastolic CHF; Echo 2018 with preserved LV systolic function 3. MEJIA: worse now having HD 4. SSS s/p PPM: [facility], Interrogation revealed no VTs, Notable for AFIB and RVR mainlyl in the last 6 days, 7.1 AFIB burden. Normal function device 99% V pacing 5. Diabetes, II 6. Leukocytosis, lactic acidosis, fevers 7. Sepsis, requiring pressor support. 8. ? GIB; coffee ground in OG tube, possibly from erosion, better now off heparin 9. PUI; COVID + 10. PAFIB: RVR episode last noc, placed on amio drip Recommendations 1. Fluid off loading per HD 2. Amiodarone for rhythm maintenance 3. Restart BB once off levophed. 4. TTE as an outpt once recovered from covid 5. Ongoing lung optimization, treatment of COVID as per pulmonary. 6. Presently not a good candidate for anticoagulation. Continue with PPI. ASA Justicifation of Admission Dx: Justifications for Admission: Justification of Admission Dx: Yes Comminuty Aquired Pneumonia: Hemodynamic Instability SOHAN SIMON MD 04/21/20 1702: CARDIO Progress Notes Assessment Assessment Agree with PLASTICS TOOLING ENGINEER's assessment and plan. Ac resp failure secondary to Covid PNA s/p intubation, pulm following Sepsis needing pressor support, continue antibiotics per ID Continue fluid removal with HD for ac on chr diastolic HF, nephrology following SSS s/p PPM stable PAF with tele showing few episodes of AF with aberrant conduction Pacemaker check showed 7.1% AF burden. Continue amiodarone for rhythm maintenance. We will check 2D echo once recovered, possibly as outpatient EVE GROVES APRN Apr 21, 2020 11:12 SOHAN SIMON MD Apr 21, 2020 17:02
--- NOTE | 2020-04-21 11:44 | PDOC ---
Date of Service: DATE: 04/21/20 TIME: 11:41 Objective: Objective: D/w nurse - residual 400cc @ 20cc/hr - brown - turned rate down. Vital Signs: Vital Signs Date Time Temp Pulse Resp B/P (MAP) Pulse Ox O2 Delivery O2 Flow Rate FiO2 04/21/20 10:00 78 28 144/58 (86) 94 Ventilator 04/21/20 08:00 99.3 99.3 Labs: Laboratory Tests Test 04/20/20 17:37 04/20/20 23:40 04/21/20 05:50 04/21/20 08:00 Glucose (Fingerstick) 180 mg/dL Sodium Level 136 mmol/L 133 mmol/L Potassium Level 5.1 mmol/L 5.0 mmol/L Chloride Level 98 mmol/L 97 mmol/L Carbon Dioxide Level 25 mmol/L 22 mmol/L Anion Gap 13 14 Blood Urea Nitrogen 90 mg/dL 99 mg/dL Creatinine 6.5 mg/dL 7.0 mg/dL Estimated GFR (Cockcroft-Gault) 8.2 7.6 Glucose Level 298 mg/dL 290 mg/dL Calcium Level 8.0 mg/dL 7.8 mg/dL Magnesium Level 2.7 mg/dL White Blood Count 20.5 x10^3/uL Red Blood Count 4.05 x10^6/uL Hemoglobin 13.0 g/dL Hematocrit 39.5 % Mean Corpuscular Volume 98 fL Mean Corpuscular Hemoglobin 32 pg Mean Corpuscular Hemoglobin Concent 33 g/dL Red Cell Distribution Width 15.3 % Platelet Count 183 x10^3/uL Phosphorus Level 6.9 mg/dL Albumin 2.2 g/dL O2 Saturation 95 % Arterial Blood pH 7.33 Arterial Blood pCO2 at Patient Temp 43 mmHg Arterial Blood pO2 at Patient Temp 78 mmHg Arterial Blood HCO3 22 mmol/L Arterial Blood Base Excess -3 mmol/L FiO2 70%+9 BLOOD CULTURE Preliminary NO GROWTH AFTER 4 DAYS PE: GEN: COVID isolation - visual exam LUNGS: vent ABD: non-distended, tube feeds running NEURO/PSYCH: sedated A/P: COVID-19 infection - resp failure, MEJIA -- Watch tube feed residual - hold if indicated. Continue PPI. Justicifation of Admission Dx: Justifications for Admission: Justification of Admission Dx: Yes Comminuty Aquired Pneumonia: Hemodynamic Instability TERRIE CUNNINGHAM Apr 21, 2020 11:44
[2020-04-21] MEDS ORDERED: DIALYSIS PATIENT. MC PRN (11:45)
[2020-04-21] MEDS ORDERED: IV NORMAL SALINE 1000ML BAG 1,000 ML IV PRN ×2 (11:45)
--- NOTE | 2020-04-21 16:19 | NUR ---
SS following up with discharge planning. SS reviewed pt chart and discussed with pt RN. Pt is currently on the vent at 65%. COVID19 positive. Pt on IV Zosyn. Hemodialysis. Not stable. SS will continue to follow for discharge planning.
[2020-04-21] MEDS: ATORVASTATIN CALCIUM 40 MG TABLET. PO SCH (20:46)
[2020-04-21] MEDS: METOPROLOL SUCC 24HR ER 25 MG TAB.ER.24H. PO SCH (20:49)
[2020-04-22] VITALS (25 sets, daily range): BP systolic 88–155; BP diastolic 39–58
[2020-04-22] MEDS: INSULIN LISPRO 300 UNITS/3 ML VIAL. SQ SCH ×4 (01:46→17:37)
[2020-04-22] MEDS: PIPERACILLIN/TAZOBACTAM 2.25 GM in IV NORMAL SALINE 50ML 50 ML IV SCH (05:47)
[2020-04-22] MEDS: INSULIN GLARGINE SYRINGE. SQ SCH ×2 (07:30→22:09)
[2020-04-22] MEDS: PANTOPRAZOLE IV PUSH 40 MG VIAL. IVP SCH (07:30)
[2020-04-22] MEDS: ASPIRIN CHEWABLE 81 MG TABLET. PO SCH (07:31)
[2020-04-22] MEDS: DEXAMETHASONE SOD PHOS 4 MG/ML VIAL IVP SCH (07:31)
[2020-04-22] MEDS: AMIODARONE HCL 200 MG TABLET. PO SCH (07:31)
[2020-04-22] MEDS: ALLOPURINOL 100 MG TABLET. PO SCH (07:31)
[2020-04-22] MEDS: FENOFIBRATE,MICRONIZED 134 MG CAPSULE PO SCH (07:31)
[2020-04-22] MEDS: DEXMEDETOMIDINE 400 MCG in IV NORMAL SALINE 100ML 96 ML IV PRN ×2 (07:32→22:04)
[2020-04-22] MEDS: MIDAZOLAM 100mg/100ml NS BAG 100 ML IV PRN ×2 (07:32→22:05)
--- NOTE | 2020-04-22 08:01 | PDOC ---
Infectious Disease Note Subjective Subjective Intubated/sedated FiO2 85% PEEP of 12 On Levophed ROS ROS no n/v/d/ Vital Sign Vital Signs Vital Signs Date Time Temp Pulse Resp B/P (MAP) Pulse Ox O2 Delivery O2 Flow Rate FiO2 04/22/20 07:31 80 115/48 04/22/20 07:00 30 96 Ventilator 04/22/20 04:00 99.3 99.3 04/22/20 03:09 4.0 Physical Exam PHYSICAL EXAM GENERAL:Intubated,sedated HEENT: Normocephalic, atraumatic, anicteric.ETT/OGT + LUNGS: Decreased breath sounds at the bases, scattered rhonchi. HEART: S1, S2. No gallops or murmurs. PPM site looks clean. ABDOMEN: Soft, obese, nontender, nondistended. Aguilar in place EXTREMITIES: No edema, no cyanosis. DERMATOLOGIC: Warm, dry. No generalized rash. NEUROLOGIC: Alert and oriented x 3, grossly nonfocal. PSYCHIATRIC: Cooperative, appropriate mood and affect. Labs Micro Microbiology 04/17/20 Blood Culture - Preliminary, Resulted NO GROWTH AFTER 1 DAY Objective Assessment 1. Fever. 2. COVID-19 infection. 3. Sepsis. 4. Bacteremia, 2/8 bottles present on admission with gram-positive cocci in clusters.Co N staph likely contaminant 5. Acute hypoxic respiratory failure.s/p intubation 6. Acute kidney injury. 7. Status post permanent pacemaker. 8. Abnormal AST. Plan Plan of Care Cont supportive care d/c zosyn, on steroids. Follow up labs and cultures. Discussed with SUSHIL. LALITHA MORENO MD Apr 22, 2020 08:01
[2020-04-22 08:28] LABS: BASE EXCESS ABG -2 mmol/L (-3-3); HCO3 ABG 24 mmol/L (21-28); PCO2 ABG 46 mmHg (35-46); PO2 ABG 76 mmHg (65-108); SAT O2 ABG 94 % (92-99)
[2020-04-22 08:54] LABS: FIO2 ABG 65%
--- NOTE | 2020-04-22 09:20 | PDOC ---
PULMONARY PROGRESS NOTES DATE: 04/22/20 TIME: 09:16 Subjective Patient remains on vent support, 65% and a PEEP of 8 Continues to have hypotension on vasopressors low grade fever overnight Vitals Vital Signs Date Time Temp Pulse Resp B/P (MAP) Pulse Ox O2 Delivery O2 Flow Rate FiO2 04/22/20 09:00 80 28 130/49 (76) 96 Ventilator 04/22/20 08:00 99.6 99.6 04/22/20 03:09 4.0 Comments Pt. seen during , visual exam preformed intubated RRR no edema/rash no accessory muscle use Labs Laboratory Tests Test 04/20/20 11:24 04/20/20 17:37 04/20/20 23:40 04/21/20 05:50 Glucose (Fingerstick) 182 mg/dL (70-99) 180 mg/dL (70-99) Sodium Level 136 mmol/L (136-145) 133 mmol/L (136-145) Potassium Level 5.1 mmol/L (3.5-5.1) 5.0 mmol/L (3.5-5.1) Chloride Level 98 mmol/L (98-107) 97 mmol/L (98-107) Carbon Dioxide Level 25 mmol/L (21-32) 22 mmol/L (21-32) Anion Gap 13 (6-14) 14 (6-14) Blood Urea Nitrogen 90 mg/dL (8-26) 99 mg/dL (8-26) Creatinine 6.5 mg/dL (0.7-1.3) 7.0 mg/dL (0.7-1.3) Estimated GFR (Cockcroft-Gault) 8.2 7.6 Glucose Level 298 mg/dL (70-99) 290 mg/dL (70-99) Calcium Level 8.0 mg/dL (8.5-10.1) 7.8 mg/dL (8.5-10.1) Magnesium Level 2.7 mg/dL (1.8-2.4) White Blood Count 20.5 x10^3/uL (4.0-11.0) Red Blood Count 4.05 x10^6/uL (4.30-5.70) Hemoglobin 13.0 g/dL (13.0-17.5) Hematocrit 39.5 % (39.0-53.0) Mean Corpuscular Volume 98 fL (79-100) Mean Corpuscular Hemoglobin 32 pg (25-35) Mean Corpuscular Hemoglobin Concent 33 g/dL (31-37) Red Cell Distribution Width 15.3 % (11.5-14.5) Platelet Count 183 x10^3/uL (140-400) Phosphorus Level 6.9 mg/dL (2.6-4.7) Albumin 2.2 g/dL (3.4-5.0) Test 04/21/20 08:00 04/22/20 08:25 O2 Saturation 95 % (92-99) 94 % (92-99) Arterial Blood pH 7.33 (7.35-7.45) 7.35 (7.35-7.45) Arterial Blood pCO2 at Patient Temp 43 mmHg (35-46) 46 mmHg (35-46) Arterial Blood pO2 at Patient Temp 78 mmHg (65-108) 76 mmHg (65-108) Arterial Blood HCO3 22 mmol/L (21-28) 24 mmol/L (21-28) Arterial Blood Base Excess -3 mmol/L (-3-3) -2 mmol/L (-3-3) FiO2 70%+9 65% Laboratory Tests Test 04/22/20 08:25 O2 Saturation 94 % (92-99) Arterial Blood pH 7.35 (7.35-7.45) Arterial Blood pCO2 at Patient Temp 46 mmHg (35-46) Arterial Blood pO2 at Patient Temp 76 mmHg (65-108) Arterial Blood HCO3 24 mmol/L (21-28) Arterial Blood Base Excess -2 mmol/L (-3-3) FiO2 65% Medications Active Scripts Medications Dose Route/Sig Max Daily Dose Days Date Category Glimepiride 1 Mg Tablet 1 Tab PO DAILY 04/14/20 Reported Metoprolol Succinate ( Xl ) (Metoprolol Succinate) 100 Mg Tab.er.24h 1 Tab PO DAILY 04/14/20 Reported Zetia (Ezetimibe) 10 Mg Tablet 1 Tab PO HS 30 04/14/20 Reported Fenofibrate 160 Mg Tablet 1 Tab PO DAILY 04/14/20 Reported Atorvastatin Calcium 40 Mg Tablet 1 Tab PO HS 04/14/20 Reported Amlodipine Besylate 10 Mg Tablet 1 Tab PO DAILY 04/14/20 Reported Omeprazole 20 Mg Capsule.dr 1 Cap PO DAILY 04/14/20 Reported Mexiletine Hcl 150 Mg Capsule 150 Mg PO Q8HRS 04/13/20 Reported Toprol Xl (Metoprolol Succinate) 25 Mg Tab.er.24h 1 Tab PO HS 30 04/13/20 Reported Accupril (Quinapril Hcl) 40 Mg Tablet 1 Tab PO DAILY 04/13/20 Reported Allopurinol 100 Mg Tablet 1 Tab PO DAILY 04/13/20 Reported Comments CXR Impression: New consolidation right lower lateral lung field and left basal retrocardiac region. Increased pulmonary vasculature congestion. Pulmonary interstitial edema and infiltrates are present. Impression . IMPRESSION: 1. Acute hypoxemic respiratory failure, COVID-19 viral pneumonia. 2. Fever secondary to above. 3. Abnormal x-ray. 4. Acute exacerbation of chronic obstructive pulmonary disease. 5. Tobacco dependence, in remission, quit in 1985. 6. Diabetes. 7. Hypertension. 8. Morbid obesity. 9. Sars-Cov 2 Pos Plan . PLAN: Continue current vent support on 65% and PEEP 8 Follow CXR/ABG, reduce PEEP to 7 today Continue steroids with slow taper will need full ten day course, started on 04/13-- D/C on 04/23 COVID-19 positive, isolation precautions Continue vasopressors to Keep MAP above 65-- remains on levo Continue remdesivir, complete full 5 day course Follow ID recs for ABX:off BAX at this time Follow cultures:Bacteremia, 2/8 bottles present on admission with gram-positive cocci in clusters.Co N staph likely contaminant Follow nephrology recs--worsening renal function, continue to monitor-- on lasix gtt--- worsening renal function , on HD Follow GI recs --- TF on hold DVT/GI PPX D/W YESICA GARCIA MD Apr 22, 2020 09:20
[2020-04-22] MEDS ORDERED: DIALYSIS PATIENT. MC PRN (09:45)
[2020-04-22] MEDS ORDERED: ACETAMINOPHEN 500 MG TABLET PO PRN (09:45)
[2020-04-22] MEDS ORDERED: diphenhydrAMINE 50 MG/ML VIAL IV PRN ×2 (09:45)
[2020-04-22] MEDS ORDERED: IV NORMAL SALINE 1000ML BAG 1,000 ML IV PRN ×2 (09:45)
[2020-04-22] MEDS ORDERED: ALBUMIN HUMAN 25% 200 ML IV PRN (09:45)
[2020-04-22] MEDS ORDERED: 0.9 % SODIUM CHLORIDE 10 ML DISP.SYRIN. IV PRN ×2 (09:45)
--- NOTE | 2020-04-22 10:02 | PDOC ---
Date of Service: DATE: 04/22/20 TIME: 09:59 Objective: Objective: D/w nurse - tube feed rate @ 10 - 60cc residual (darkish) when she checked. Vital Signs: Vital Signs Date Time Temp Pulse Resp B/P (MAP) Pulse Ox O2 Delivery O2 Flow Rate FiO2 04/22/20 09:00 80 28 130/49 (76) 96 Ventilator 04/22/20 08:00 99.6 99.6 04/22/20 03:09 4.0 Labs: Laboratory Tests Test 04/22/20 08:25 O2 Saturation 94 % Arterial Blood pH 7.35 Arterial Blood pCO2 at Patient Temp 46 mmHg Arterial Blood pO2 at Patient Temp 76 mmHg Arterial Blood HCO3 24 mmol/L Arterial Blood Base Excess -2 mmol/L FiO2 65% BLOOD CULTURE Final NO GROWTH AFTER 5 DAYS PE: GEN: COVID isolation - visual exam done LUNGS: vent HEART: RRR on monitor ABD: non-distended NEURO/PSYCH: sedated A/P: COVID-19 infection - resp failure, MEJIA Dark OG output - getting tube feeds now, slow rate - on PPI, Hgb normal (checked 04/21) -- Continue same per GI. Justicifation of Admission Dx: Justifications for Admission: Justification of Admission Dx: Yes Comminuty Aquired Pneumonia: Hemodynamic Instability TERRIE CUNNINGHAM Apr 22, 2020 10:02
--- NOTE | 2020-04-22 10:24 | PDOC ---
EVE GROVES BAGGAGE HANDLING SUPERVISOR 04/22/20 1024: CARDIO Progress Notes Date and Time Date of Service 04/22/2020 Time of Evaluation 0940 Subjective Subjective: Other (intubated ) Vitals Vitals Vital Signs Date Time Temp Pulse Resp B/P (MAP) Pulse Ox O2 Delivery O2 Flow Rate FiO2 04/22/20 10:00 80 32 137/50 (79) 96 Ventilator 04/22/20 08:00 99.6 99.6 04/22/20 03:09 4.0 Weight Weight [ ] Input and Output Intake and Output Intake and Output 04/22/20 07:00 Intake Total 1584.1 ml Output Total 1227 ml Balance 357.1 ml IV Total 1256.1 ml Tube Feeding 228 ml Other 100 ml Output Urine Total 27 ml Gastric Drainage Total 600 ml Oral Regurgitation 600 ml Laboratory Labs Laboratory Tests Test 04/22/20 08:25 O2 Saturation 94 % (92-99) Arterial Blood pH 7.35 (7.35-7.45) Arterial Blood pCO2 at Patient Temp 46 mmHg (35-46) Arterial Blood pO2 at Patient Temp 76 mmHg (65-108) Arterial Blood HCO3 24 mmol/L (21-28) Arterial Blood Base Excess -2 mmol/L (-3-3) FiO2 65% Microbiology Micro Microbiology 04/17/20 Blood Culture - Preliminary, Resulted NO GROWTH AFTER 4 DAYS Physical Exam HEENT: Neck Supple W Full Motion Chest: Symmetric LUNGS: Other (mechanical vent ) Heart: RRR (Vpaced with intermitent AFIB) Abdomen: Other (obese) Extremities: No Edema Neurology: other (sedated) Assessment Assessment 1. Acute respiratory failure secondary to COVID PNA; s/p intubation. Steroids, post Remdesivir 2. Acute on chronic diastolic CHF; Echo 2018 with preserved LV systolic function 3. MEJIA: worse now having HD 4. SSS s/p PPM: [facility], Interrogation revealed no VTs, Notable for AFIB and RVR mainlyl in the last 6 days, 7.1 AFIB burden. Normal function device 99% V pacing 5. Diabetes, II 6. Leukocytosis, lactic acidosis, better 7. Sepsis, requiring pressor support. 8. ? GIB; coffee ground in OG tube, possibly from erosion, better now off h eparin 9. PUI; COVID + 10. PAFIB: notable for sinus pwaves with Vpacing Recommendations 1. Fluid off loading per HD 2. Amiodarone for rhythm maintenance 3. Restart BB once off levophed. 4. TTE as an outpt once recovered from covid 5. Ongoing lung optimization, treatment of COVID as per pulmonary. 6. Presently not a good candidate for anticoagulation. Continue with PPI. ASA Justicifation of Admission Dx: Justifications for Admission: Justification of Admission Dx: Yes Comminuty Aquired Pneumonia: Hemodynamic Instability SOHAN SIMON MD 04/22/20 1433: CARDIO Progress Notes Assessment Assessment Agree with MANAGER EDUCATIONAL's assessment and plan. Ac resp failure secondary to Covid PNA s/p intubation, pulm following Sepsis needing pressor support, continue antibiotics per ID Continue fluid removal with HD for ac on chr diastolic HF, nephrology following SSS s/p PPM stable PAF with tele showing V-paced rhythm with few episodes of AF with aberrant conduction Pacemaker check showed 7.1% AF burden. Continue amiodarone for rhythm maintenance. We will check 2D echo once recovered, possibly as outpatient EVE GROVES APRN Apr 22, 2020 10:24 SOHAN SIMON MD Apr 22, 2020 14:33
--- NOTE | 2020-04-22 10:47 | PDOC ---
DATE OF SERVICE DATE: 04/22/20 TIME: 10:42 SUBJECTIVE ROS Remains intubated,on pressor OBJECTIVE Vital Signs Vital Signs Date Time Temp Pulse Resp B/P (MAP) Pulse Ox O2 Delivery O2 Flow Rate FiO2 04/22/20 10:00 80 32 137/50 (79) 96 Ventilator 04/22/20 08:00 99.6 99.6 04/22/20 03:09 4.0 I & 0 Intake and Output 04/22/20 07:00 Intake Total 1584.1 ml Output Total 1227 ml Balance 357.1 ml IV Total 1256.1 ml Tube Feeding 228 ml Other 100 ml Output Urine Total 27 ml Gastric Drainage Total 600 ml Oral Regurgitation 600 ml PHYSICAL EXAM Physical Exam General:Intubated HEENT: Intubated Neck Supple Heart: RRR Lungs CTA ant Abdomen: Normal bowel sounds, Soft, Extremities: No clubbing, No cyanosis, no edema Neuro: sedated, intubated tineo + DIAGNOSIS/ASSESSMENT Assessment & Plan MEJIA - Vasomotor, hypotension POA , CoVid + Worsening renal function, Oligo-anuric started on dialysis 04/19, dialysis today as ordered UF as tolerated .Discussed treatment plan with Roby . HyperKalemia- resolved Acidosis- resolved COVID-19 infection - remdesivir, steroids and Abx Sepsis/ Bacteremia, 2/8 bottles present on admission with gram-positive cocci in clusters. likely contaminant per ID Acute hypoxic respiratory failure. currently intubated , was on O2 at presentation Anemia - Hgb normal Status post permanent pacemaker. Abnormal AST. Diabetes. Hypertension BPs low, on low dose pressor COMMENT/RELEVANT DATA Meds Current Medications Medications (Trade) Dose Ordered Sig/Damion Start Time Stop Time Status Last Admin Dose Admin Acetaminophen (Tylenol) 500 mg 1X PRN PRN 04/22/20 09:45 04/23/20 09:44 Al Hydroxide/Mg Hydroxide (Mylanta Plus Xs) 30 ml PRN DAILY PRN 04/13/20 17:00 Albumin Human 200 ml @ 200 mls/hr 1X PRN PRN 04/22/20 09:45 04/22/20 15:44 Albuterol Sulfate (Ventolin Hfa) 1 puff PRN Q4HRS PRN 04/15/20 12:30 04/15/20 14:13 1 PUFF Albuterol Sulfate (Ventolin Neb Soln) 2.5 mg PRN Q4HRS PRN 04/13/20 17:00 Allopurinol (Zyloprim) 100 mg DAILY 04/14/20 13:00 04/22/20 07:31 100 MG Amiodarone HCl (Cordarone) 200 mg DAILY 04/22/20 09:00 04/22/20 07:31 200 MG Amiodarone HCl 450 mg/Dextrose 259 ml @ 0 mls/hr 1X ONCE 04/21/20 08:00 04/21/20 08:01 DC 04/21/20 08:08 16.7 MLS/HR Amiodarone HCl 75 mg/Dextrose 101.5 ml @ 618 mls/hr 1X ONCE 04/20/20 23:30 04/20/20 23:39 DC 04/20/20 23:40 618 MLS/HR Amlodipine Besylate (Norvasc) 10 mg DAILY 04/14/20 13:00 04/16/20 14:20 DC Aspirin (Aspirin Chewable) 81 mg [id number] 04/20/20 13:30 04/22/20 07:31 81 MG Atorvastatin Calcium (Lipitor) 40 mg HS 04/14/20 21:00 04/21/20 20:46 40 MG Atropine Sulfate (ATROPINE 0.5mg SYRINGE) 0.5 mg PRN Q5MIN PRN 04/16/20 07:00 Azithromycin 250 ml @ 250 mls/hr 1X ONCE 04/13/20 14:45 04/13/20 15:44 DC 04/13/20 16:40 250 MLS/HR Ceftriaxone Sodium (Rocephin) 1 gm Q24H 04/14/20 17:00 04/16/20 12:45 DC 04/15/20 17:28 1 GM Daptomycin 500 mg/ Sodium Chloride 50 ml @ 100 mls/hr Q48H 04/20/20 16:00 04/21/20 07:54 DC 04/20/20 16:28 100 MLS/HR Dexamethasone Sodium Phosphate (Decadron) 6 mg DAILY 04/20/20 09:00 04/22/20 07:31 6 MG Dexmedetomidine HCl 400 mcg/ Sodium Chloride 100 ml @ 0 mls/hr CONT PRN 04/16/20 07:00 04/22/20 07:32 11.5 MLS/HR Dextrose (Dextrose 50%-Water Syringe) 12.5 gm PRN Q15MIN PRN 04/18/20 14:15 Diphenhydramine HCl (Benadryl) 25 mg 1X PRN PRN 04/22/20 09:45 04/23/20 09:44 Docusate Sodium (Colace) 100 mg PRN BID PRN 04/13/20 17:00 Doxycycline Hyclate 100 mg/ Dextrose 100 ml @ 50 mls/hr Q12HR 04/13/20 21:00 04/21/20 07:54 DC 04/20/20 21:30 50 MLS/HR Enoxaparin Sodium (Lovenox 40mg Syringe) 40 mg BID 04/13/20 18:00 04/17/20 03:25 DC 04/16/20 20:49 40 MG Etomidate (Amidate) 12 mg 1X ONCE 04/16/20 08:15 04/16/20 08:16 DC 04/16/20 08:14 12 MG EZETIMIBE (Zetia) 10 mg HS 04/14/20 21:00 04/17/20 03:26 DC 04/16/20 20:47 10 MG Fenofibrate (Lofibra) 134 mg DAILY 04/14/20 13:00 04/22/20 07:31 134 MG Fentanyl Citrate 30 ml @ 0 mls/hr CONT PRN 04/16/20 07:45 04/22/20 02:39 2.5 MLS/HR Furosemide 100 mg/ Sodium Chloride 100 ml @ 5 mls/hr CONT PRN 04/16/20 14:30 04/19/20 10:28 DC 04/19/20 07:26 5 MLS/HR Glimepiride (Amaryl) 1 mg DAILY 04/14/20 13:00 04/22/20 07:24 DC 04/21/20 08:40 1 MG Guaifenesin (Robitussin) 200 mg PRN Q4HRS PRN 04/13/20 17:00 Haloperidol Lactate (Haldol Inj) 5 mg PRN Q6HRS PRN 04/15/20 17:45 04/15/20 18:10 5 MG Heparin Sodium (Porcine) (Heparin Sodium) 2,500 unit 1X ONCE 04/19/20 13:00 04/19/20 13:02 DC 04/19/20 13:00 2,500 UNIT Info (PHARMACY MONITORING -- do not chart) 1 each PRN DAILY PRN 04/22/20 09:45 Insulin Glargine (Lantus Syringe) 17 unit Q12HR 04/22/20 21:00 Insulin Human Lispro (HumaLOG) 0-9 UNITS Q6HRS 04/20/20 00:30 04/22/20 01:46 4 UNITS Insulin Human Regular (HumuLIN R VIAL) 5 unit 1X ONCE 04/19/20 11:45 04/19/20 11:46 UNV Lidocaine HCl (Buffered Lidocaine 1%) 3 ml 1X ONCE 04/19/20 12:15 04/19/20 12:16 DC 04/19/20 12:15 6 ML Lisinopril (Prinivil) 40 mg DAILY 04/14/20 13:00 04/16/20 14:20 DC 04/15/20 10:09 40 MG Lorazepam (Ativan Inj) 1 mg PRN Q2HRS PRN 04/15/20 22:45 04/16/20 06:40 1 MG Metoprolol Succinate (Toprol Xl) 25 mg HS 04/14/20 21:00 04/22/20 07:26 DC 04/14/20 21:14 25 MG Midazolam HCl 100 ml @ 1 mls/hr CONT PRN 04/16/20 07:45 04/22/20 07:32 10 MLS/HR Midazolam HCl (Versed) 5 mg 1X ONCE 04/16/20 07:30 04/16/20 07:31 DC 04/16/20 07:51 5 MG Morphine Sulfate (Morphine Sulfate) 2 mg PRN Q2HR PRN 04/15/20 22:45 04/20/20 05:22 DC 04/16/20 05:13 2 MG Norepinephrine Bitartrate 32 mg/ Dextrose 250 ml @ 5.114 mls/ hr CONT PRN 04/18/20 05:00 04/21/20 07:23 DC 04/20/20 10:21 10.228 MLS/HR Norepinephrine Bitartrate 8 mg/ Dextrose 258 ml @ 22.156 mls/ hr CONT PRN 04/21/20 07:30 04/21/20 21:42 11.078 MLS/HR Ondansetron HCl (Zofran) 4 mg PRN Q4HRS PRN 04/13/20 17:00 Pantoprazole Sodium (PROTONIX VIAL for IV PUSH) 40 mg DAILYAC 04/17/20 07:30 04/22/20 07:30 40 MG Pantoprazole Sodium (Protonix) 40 mg DAILYAC 04/14/20 13:00 04/16/20 11:39 DC 04/15/20 10:11 40 MG Piperacillin Sod/ Tazobactam Sod 2.25 gm/Sodium Chloride 50 ml @ 100 mls/hr Q8HRS 04/19/20 22:00 04/22/20 08:13 DC 04/22/20 05:47 100 MLS/HR Piperacillin Sod/ Tazobactam Sod 3.375 gm/Sodium Chloride 50 ml @ 100 mls/hr Q6HRS 04/16/20 13:30 04/19/20 15:18 DC 04/19/20 11:34 100 MLS/HR Remdesivir 100 mg/ Sodium Chloride 230 ml @ 460 mls/hr Q24H 04/16/20 14:00 04/19/20 14:29 DC 04/19/20 15:12 460 MLS/HR Remdesivir 200 mg/ Sodium Chloride 210 ml @ 210 mls/hr 1X ONCE 04/15/20 14:00 04/15/20 14:59 DC 04/15/20 16:25 210 MLS/HR Sodium Bicarbonate (Sodium Bicarb Adult 8.4% Syr) 100 meq 1X ONCE 04/19/20 09:30 04/19/20 09:31 DC 04/19/20 09:26 100 MEQ Sodium Chloride 1,000 ml @ 400 mls/hr Q2H30M PRN 04/22/20 09:45 04/22/20 21:44 Sodium Chloride (Normal Saline Flush) 10 ml 1X PRN PRN 04/22/20 09:45 04/23/20 09:44 Succinylcholine Chloride (Anectine) 100 mg 1X ONCE 04/16/20 08:15 04/16/20 08:16 DC 04/16/20 08:15 100 MG Ziprasidone (Geodon Im) 20 mg 1X ONCE 04/15/20 17:45 04/15/20 17:46 DC Lab Laboratory Tests Test 04/22/20 08:25 O2 Saturation 94 % (92-99) Arterial Blood pH 7.35 (7.35-7.45) Arterial Blood pCO2 at Patient Temp 46 mmHg (35-46) Arterial Blood pO2 at Patient Temp 76 mmHg (65-108) Arterial Blood HCO3 24 mmol/L (21-28) Arterial Blood Base Excess -2 mmol/L (-3-3) FiO2 65% Results All relevant outside records, renal labs, imaging studies, telemetry/EKG's were reviewed. Justicifation of Admission Dx: Justifications for Admission: Justification of Admission Dx: Yes Comminuty Aquired Pneumonia: Hemodynamic Instability BLANCA MYRICK MD Apr 22, 2020 10:47
[2020-04-22 12:08] LABS: CALCIUM 7.6 mg/dL (8.5-10.1); CREATININE 5.5 mg/dL (0.7-1.3)
[2020-04-22] MEDS: NOREPINEPHRINE VIAL 8 MG in IV DEXTROSE 5% 250 ML IV PRN (14:11)
--- NOTE | 2020-04-22 15:49 | PDOC ---
[employer] PROGRESS NOTE Date of Service DOS: DATE: 04/22/20 TIME: 15:46 Chief Complaint Chief Complaint impression 1. ACUTE HYPOXIC RESP FAILURE Continued to decompensate in his respiratory status required intubation 1/2 AM Fever 2. HX pacemaker. 3. Mild left lung interstitial infiltrates with worsening compared to old studies from 2016. CONCERNING FOR COVID 19 SYNDROME New consolidation right lower lateral lung field and left basal retrocardiac region. Increased pulmonary vasculature congestion. Pulmonary interstitial edema and infiltrates are present. 04/16 4, MORBID OBESITY 5. GENERALIZED WEAKNESS 6. 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 PULM CONSULT cont remdesivir.04/15/2020 DC daptomycin iv Zosyn FiO2 85% PEEP of 12 Levophed pressure support BLOOD CULTURE LC Preliminary Preliminary FINAL ID= [STAPHYLOCOCCUS EPIDERMIDIS] 32 MIN CC TIME History of Present Illness History of Present Illness 04/22 Patient seen in [place] [id number] ICU. Afebrile. On vent, FiO2 60, PEEP 7. Discussed with son and about goals of care, they feel unable to make any decisions at this time and want to continue with current medical management. If no change by this time next week we will discuss any further aggressive treatments such as tracheostomy. 04/21 Patient seen in ICU. On vent, FiO2 60%, PEEP 10. Discussed with RN, clinical findings to start on hemodialysis today. No acute events overnight. 04/20 Patient seen in [place] [address] ICU. He is afebrile. Remains on vent, FiO2 60%, PEEP 10. No acute events overnight. Continue supportive care, steroids, and antibiotics. 04/19 Patient seen in [place] [address] ICU. Remains ventilated, FiO2 60%, PEEP 12. Afebrile. Continue Zosyn, doxycycline, and steroids. Remdesivir day 08/17. 04/18 Patient seen and examined in [place] [address] ICU. He is ventilated, FiO2 80%, PEEP 12. Continue treatment with Zosyn, doxycycline, steroids, and remdesivir. Charts and labs reviewed, discussed with RN. 04/17/2020 Patient seen and examined Chart reviewed Discussed with RN Patient is on Vent IV doxycycline FiO2 85% PEEP of 12 Identification/Chief Complaint Chief Complaint DYSPNEA, COUGH WORSE SINCE [place] History of Present Illness History of Present Illness 85 yr old male seen in er with worsening cough since 04-08, now more SOA , HYPOXIC ON PRESENTATION Past Medical History Cardiovascular: HTN, Hyperlipidemia Family History Family History: High Cholestrol, Hypertension Social History Smoke: No ALCOHOL: none Drugs: None Allergies Allergies: Coded Allergies: No Known Drug Allergies (Unverified , 04/13/20) Vitals/I&O Vitals/I&O: Vital Signs Date Time Temp Pulse Resp B/P (MAP) Pulse Ox O2 Delivery O2 Flow Rate FiO2 04/22/20 15:05 93 Ventilator 04/22/20 15:00 80 28 123/55 (77) 04/22/20 12:00 99.7 99.7 04/22/20 03:09 4.0 I & O 04/21/20 04/21/20 04/22/20 15:00 23:00 07:00 Intake Total 727 ml 857.1 ml Output Total 811 ml 402 ml 14 ml Balance -811 ml 325 ml 843.1 ml Physical Exam Physical Exam: GENERAL:Intubated,sedated HEENT: Normocephalic, atraumatic, anicteric.ETT/OGT + LUNGS: Decreased breath sounds at the bases, scattered rhonchi. HEART: S1, S2. No gallops or murmurs. PPM site looks clean. ABDOMEN: Soft, obese, nontender, nondistended. Aguilar in place EXTREMITIES: No edema, no cyanosis. DERMATOLOGIC: Warm, dry. No generalized rash. NEUROLOGIC: Alert and oriented x 3, grossly nonfocal. PSYCHIATRIC: Cooperative, appropriate mood and affect. General: No acute distress Heart: Regular rate Abdomen: Normal bowel sounds, Soft, No tenderness Extremities: No clubbing, No cyanosis Labs Labs: Laboratory Tests Test 04/22/20 08:25 04/22/20 11:35 O2 Saturation 94 % (92-99) Arterial Blood pH 7.35 (7.35-7.45) Arterial Blood pCO2 at Patient Temp 46 mmHg (35-46) Arterial Blood pO2 at Patient Temp 76 mmHg (65-108) Arterial Blood HCO3 24 mmol/L (21-28) Arterial Blood Base Excess -2 mmol/L (-3-3) FiO2 65% Sodium Level 135 mmol/L (136-145) Potassium Level 5.0 mmol/L (3.5-5.1) Chloride Level 99 mmol/L (98-107) Carbon Dioxide Level 24 mmol/L (21-32) Anion Gap 12 (6-14) Blood Urea Nitrogen 88 mg/dL (8-26) Creatinine 5.5 mg/dL (0.7-1.3) Estimated GFR (Cockcroft-Gault) 10.0 Glucose Level 98 mg/dL (70-99) Calcium Level 7.6 mg/dL (8.5-10.1) Assessment and Plan Assessmemt and Plan Problems Medical Problems: (1) Person under investigation for COVID-19 Status: Acute (2) Pneumonia Status: Acute Comment Review of Relevant I have reviewed the following items andrea (where applicable) has been applied. Medications: Current Medications Medications (Trade) Dose Ordered Sig/Damion Route PRN Reason Start Time Stop Time Status Last Admin Dose Admin Amiodarone HCl (Cordarone) 200 mg DAILY PO 04/22/20 09:00 04/22/20 07:31 Justifications for Admission General Conditions Poss tachycardia?: Yes Justification for admission: Patient has tachycardia (> 100 beats per minute) which is not readily corrected by appropriate treatment within 12 to 24 hours. ACUTE HYPOXIC RESP FAILURE Other Justification TJ ABRAHAM MD Apr 22, 2020 15:49
--- NOTE | 2020-04-22 16:05 | NUR ---
SS following up with discharge planning. SS reviewed pt chart and discussed with pt RN. Pt is currently on the vent at 60%. COVID19 positive. Hemodialysis. Not stable. SS will continue to follow for discharge planning.
[2020-04-22] MEDS ORDERED: fentaNYL HIGH DOSE PCA 55 ML IV PRN (18:00)
[2020-04-22] MEDS ORDERED: fentaNYL HIGH DOSE PCA 2,750 ML IV PRN (18:00)
[2020-04-22] MEDS: ATORVASTATIN CALCIUM 40 MG TABLET. PO SCH (22:04)
[2020-04-23] VITALS (24 sets, daily range): BP systolic 102–170; BP diastolic 44–100
[2020-04-23] MEDS: NOREPINEPHRINE VIAL 8 MG in IV DEXTROSE 5% 250 ML IV PRN (05:09)
[2020-04-23] MEDS: DEXMEDETOMIDINE 400 MCG in IV NORMAL SALINE 100ML 96 ML IV PRN ×4 (05:10→20:44)
[2020-04-23] MEDS: INSULIN LISPRO 300 UNITS/3 ML VIAL. SQ SCH ×5 (06:00→23:58)
[2020-04-23] MEDS: DEXTROSE 50% 25 GM / 50ML DISP.SYRIN. IV PRN ×2 (06:08→23:58)
[2020-04-23 06:21] LABS: CALCIUM 8.1 mg/dL (8.5-10.1); CREATININE 5.7 mg/dL (0.7-1.3); GFR 9.6; POTASSIUM 5.3 mmol/L (3.5-5.1)
[2020-04-23] MEDS: MIDAZOLAM 100mg/100ml NS BAG 100 ML IV PRN ×2 (06:39→17:33)
--- NOTE | 2020-04-23 07:04 | NUR ---
Tube was at 24 at teeth. Adequate volumes and peak pressures. Repositioned by RT. Cxr ordered to confirm placement. Cxr not completed at shift change. Information passed to AM RN.
[2020-04-23] MEDS ORDERED: DIALYSIS PATIENT. MC PRN ×2 (07:45)
[2020-04-23] MEDS ORDERED: IV NORMAL SALINE 1000ML BAG 1,000 ML IV PRN ×2 (07:45)
[2020-04-23] MEDS ORDERED: ALBUMIN HUMAN 25% 200 ML IV PRN (07:45)
[2020-04-23] MEDS: INSULIN GLARGINE SYRINGE. SQ SCH ×2 (07:54→20:39)
--- NOTE | 2020-04-23 07:58 | RAD ---
AP chest. HISTORY: Tube placement AP view was taken of the chest. Right dialysis catheter and central line are unchanged. There is an N G tube which extends into the stomach. Endotracheal tube is in good position at the level aortic arch . Pacemaker and pacing leads are unchanged. There are hazy bilateral infiltrates without change. IMPRESSION: 1. Tubes and lines in good position without change. 2. Persistent infiltrates with little change. Electronically signed by: Leland Blue MD (04/23/2020 7:44 AM) [facility]
[2020-04-23 08:37] LABS: BASE EXCESS ABG -3 mmol/L (-3-3); HCO3 ABG 23 mmol/L (21-28); PCO2 ABG 45 mmHg (35-46); PO2 ABG 65 mmHg (65-108); SAT O2 ABG 91 % (92-99)
[2020-04-23] MEDS: ALLOPURINOL 100 MG TABLET. PO SCH (08:47)
[2020-04-23] MEDS: FENOFIBRATE,MICRONIZED 134 MG CAPSULE PO SCH (08:47)
[2020-04-23] MEDS: ASPIRIN CHEWABLE 81 MG TABLET. PO SCH (08:47)
[2020-04-23] MEDS: AMIODARONE HCL 200 MG TABLET. PO SCH (08:47)
[2020-04-23] MEDS: PANTOPRAZOLE IV PUSH 40 MG VIAL. IVP SCH (08:48)
[2020-04-23] MEDS: DEXAMETHASONE SOD PHOS 4 MG/ML VIAL IVP SCH (08:48)
[2020-04-23 09:04] LABS: FIO2 ABG 60/VENT
--- NOTE | 2020-04-23 09:48 | PDOC ---
PULMONARY PROGRESS NOTES DATE: 04/23/20 TIME: 09:45 Subjective Patient remains on vent support, 60% and a PEEP of 7 Continues to have hypotension on vasopressors fever overnight not tolerating TF Vitals Vital Signs Date Time Temp Pulse Resp B/P (MAP) Pulse Ox O2 Delivery O2 Flow Rate FiO2 04/23/20 08:47 80 114/46 04/23/20 07:29 92 Ventilator 04/23/20 07:00 30 04/23/20 04:00 100.7 100.7 Comments Pt. seen during , visual exam preformed intubated RRR no edema/rash no accessory muscle use Labs Laboratory Tests Test 04/22/20 08:25 04/22/20 11:35 04/23/20 05:55 04/23/20 07:30 O2 Saturation 94 % (92-99) 91 % (92-99) Arterial Blood pH 7.35 (7.35-7.45) 7.33 (7.35-7.45) Arterial Blood pCO2 at Patient Temp 46 mmHg (35-46) 45 mmHg (35-46) Arterial Blood pO2 at Patient Temp 76 mmHg (65-108) 65 mmHg (65-108) Arterial Blood HCO3 24 mmol/L (21-28) 23 mmol/L (21-28) Arterial Blood Base Excess -2 mmol/L (-3-3) -3 mmol/L (-3-3) FiO2 65% 60/vent Sodium Level 135 mmol/L (136-145) 135 mmol/L (136-145) Potassium Level 5.0 mmol/L (3.5-5.1) 5.3 mmol/L (3.5-5.1) Chloride Level 99 mmol/L (98-107) 101 mmol/L (98-107) Carbon Dioxide Level 24 mmol/L (21-32) 25 mmol/L (21-32) Anion Gap 12 (6-14) 9 (6-14) Blood Urea Nitrogen 88 mg/dL (8-26) 81 mg/dL (8-26) Creatinine 5.5 mg/dL (0.7-1.3) 5.7 mg/dL (0.7-1.3) Estimated GFR (Cockcroft-Gault) 10.0 9.6 Glucose Level 98 mg/dL (70-99) 73 mg/dL (70-99) Calcium Level 7.6 mg/dL (8.5-10.1) 8.1 mg/dL (8.5-10.1) Laboratory Tests Test 04/22/20 11:35 04/23/20 05:55 04/23/20 07:30 Sodium Level 135 mmol/L (136-145) 135 mmol/L (136-145) Potassium Level 5.0 mmol/L (3.5-5.1) 5.3 mmol/L (3.5-5.1) Chloride Level 99 mmol/L (98-107) 101 mmol/L (98-107) Carbon Dioxide Level 24 mmol/L (21-32) 25 mmol/L (21-32) Anion Gap 12 (6-14) 9 (6-14) Blood Urea Nitrogen 88 mg/dL (8-26) 81 mg/dL (8-26) Creatinine 5.5 mg/dL (0.7-1.3) 5.7 mg/dL (0.7-1.3) Estimated GFR (Cockcroft-Gault) 10.0 9.6 Glucose Level 98 mg/dL (70-99) 73 mg/dL (70-99) Calcium Level 7.6 mg/dL (8.5-10.1) 8.1 mg/dL (8.5-10.1) O2 Saturation 91 % (92-99) Arterial Blood pH 7.33 (7.35-7.45) Arterial Blood pCO2 at Patient Temp 45 mmHg (35-46) Arterial Blood pO2 at Patient Temp 65 mmHg (65-108) Arterial Blood HCO3 23 mmol/L (21-28) Arterial Blood Base Excess -3 mmol/L (-3-3) FiO2 60/vent Medications Active Scripts Medications Dose Route/Sig Max Daily Dose Days Date Category Glimepiride 1 Mg Tablet 1 Tab PO DAILY 04/14/20 Reported Metoprolol Succinate ( Xl ) (Metoprolol Succinate) 100 Mg Tab.er.24h 1 Tab PO DAILY 04/14/20 Reported Zetia (Ezetimibe) 10 Mg Tablet 1 Tab PO HS 30 04/14/20 Reported Fenofibrate 160 Mg Tablet 1 Tab PO DAILY 04/14/20 Reported Atorvastatin Calcium 40 Mg Tablet 1 Tab PO HS 04/14/20 Reported Amlodipine Besylate 10 Mg Tablet 1 Tab PO DAILY 04/14/20 Reported Omeprazole 20 Mg Capsule. 1 Cap PO DAILY 04/14/20 Reported Mexiletine Hcl 150 Mg Capsule 150 Mg PO Q8HRS 04/13/20 Reported Toprol Xl (Metoprolol Succinate) 25 Mg Tab.er.24h 1 Tab PO HS 30 04/13/20 Reported Accupril (Quinapril Hcl) 40 Mg Tablet 1 Tab PO DAILY 04/13/20 Reported Allopurinol 100 Mg Tablet 1 Tab PO DAILY 04/13/20 Reported Comments CXR 04/23 IMPRESSION: 1. Tubes and lines in good position without change. 2. Persistent infiltrates with little change. Impression . IMPRESSION: 1. Acute hypoxemic respiratory failure, COVID-19 viral pneumonia. 2. Fever secondary to above. 3. Abnormal x-ray. 4. Acute exacerbation of chronic obstructive pulmonary disease. 5. Tobacco dependence, in remission, quit in 1985. 6. Diabetes. 7. Hypertension. 8. Morbid obesity. 9. Sars-Cov 2 Pos Plan . PLAN: Continue current vent support on 60% and PEEP 7 Follow CXR/ABG, no changes D/C steroids completed full 10 day course COVID-19 positive, isolation precautions Continue vasopressors to Keep MAP above 65-- remains on levo Has completed full 5 day course of remdesivir Follow ID recs for ABX:off ABX at this time Follow cultures:Bacteremia, 2/8 bottles present on admission with gram-positive cocci in clusters.Co N staph likely contaminant Follow nephrology recs--on HD Follow GI recs --- trickle Tube feeding at 10cc/hr not tolerating will start TPN DVT/GI PPX D/W RN and RT Critical CAre time [id number] YESICA SOLITARIO MD Apr 23, 2020 09:48
[2020-04-23] MEDS: TPN PER PHARMACY MC PRN (10:37)
--- NOTE | 2020-04-23 10:52 | NUR ---
Pharmacy TPN Dosing Note S: CARLEY DAWN is a 85 year old M Currently receiving Central Continuous TPN started 04/23/20 B:Pertinent PMH: NPO 10 days, not tolerating Tube Feeds LABS: Sodium: 135 Potassium: 5.3 Chloride: 101 Calcium: 8.1 Corrected Calcium: 9.54 Magnesium: 2.7 CO2: 25 SCr: 5.7 Glucose: 73 Albumin: 2.2 AST: 44 ALT: 44 TPN FORMULA: TPN TYPE: Central Continuous AMINO ACIDS: 60 gm DEXTROSE: 195 gm LIPIDS: 20 gm SODIUM CHLORIDE: 90 mEq SODIUM ACETATE: - mEq SODIUM PHOSPHATE: - mmol POTASSIUM CHLORIDE: 20 mEq POTASSIUM ACETATE: - mEq POTASSIUM PHOSPHATE: - mmol MAGNESIUM: 4 mEq CALCIUM: 10 mEq INSULIN: - units MULTIPLE VITAMIN: 5 ml TRACE ELEMENTS: 1 ml ml(s) TPN PLAN: 04/23 decrease K, Phos and Mag from standard dose. Will bolus / if needed. R: Begin TPN Will monitor electrolytes, glucose, and tolerance to TPN. ZOFIA RODRÍGUEZ [facility], 04/23/20 [id number]
--- NOTE | 2020-04-23 11:15 | PDOC ---
[employer] PROGRESS NOTE Date of Service DOS: DATE: 04/23/20 TIME: 11:11 Chief Complaint Chief Complaint impression 1. ACUTE HYPOXIC RESP FAILURE Continued to decompensate in his respiratory status required intubation 1/2 AM Fever 2. HX pacemaker. 3. Mild left lung interstitial infiltrates with worsening compared to old studies from 2016. CONCERNING FOR COVID 19 SYNDROME New consolidation right lower lateral lung field and left basal retrocardiac region. Increased pulmonary vasculature congestion. Pulmonary interstitial edema and infiltrates are present. 04/16 4, MORBID OBESITY 5. GENERALIZED WEAKNESS 6. 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 PULM CONSULT cont remdesivir.04/15/2020 DC daptomycin iv Zosyn FiO2 85% PEEP of 12 Levophed pressure support BLOOD CULTURE LC Preliminary Preliminary FINAL ID= [STAPHYLOCOCCUS EPIDERMIDIS] 32 MIN CC TIME History of Present Illness History of Present Illness 04/23 Patient seen and evaluated. Febrile at 100.6. On vent with FiO2 60%, PEEP 7. Had hemodialysis yesterday, will follow nephrology's recommendations on HD. Steroids have been DC'd. 04/22 Patient seen in [place] [address] ICU. Afebrile. On vent, FiO2 60, PEEP 7. Discussed with son and about goals of care, they feel unable to make any decisions at this time and want to continue with current medical management. If no change by this time next week we will discuss any further aggressive treatments such as tracheostomy. 04/21 Patient seen in ICU. On vent, FiO2 60%, PEEP 10. Discussed with RN, clinical findings to start on hemodialysis today. No acute events overnight. 04/20 Patient seen in [place] [address] ICU. He is afebrile. Remains on vent, FiO2 60%, PEEP 10. No acute events overnight. Continue supportive care, steroids, and antibiotics. 04/19 Patient seen in [place] [address] ICU. Remains ventilated, FiO2 60%, PEEP 12. Afebrile. Continue Zosyn, doxycycline, and steroids. Remdesivir day 08/17. 04/18 Patient seen and examined in [place] [address] ICU. He is ventilated, FiO2 80%, PEEP 12. Continue treatment with Zosyn, doxycycline, steroids, and remdesivir. Charts and labs reviewed, discussed with RN. 04/17/2020 Patient seen and examined Chart reviewed Discussed with RN Patient is on Vent IV doxycycline FiO2 85% PEEP of 12 Identification/Chief Complaint Chief Complaint DYSPNEA, COUGH WORSE SINCE [place] History of Present Illness History of Present Illness 85 yr old male seen in er with worsening cough since 04-08, now more SOA , HYPOXIC ON PRESENTATION Past Medical History Cardiovascular: HTN, Hyperlipidemia Family History Family History: High Cholestrol, Hypertension Social History Smoke: No ALCOHOL: none Drugs: None Allergies Allergies: Coded Allergies: No Known Drug Allergies (Unverified , 04/13/20) Vitals/I&O Vitals/I&O: Vital Signs Date Time Temp Pulse Resp B/P (MAP) Pulse Ox O2 Delivery O2 Flow Rate FiO2 04/23/20 11:01 86 Ventilator 04/23/20 10:00 80 29 135/53 (80) 04/23/20 08:00 100.6 100.6 I & O 04/22/20 04/22/20 04/23/20 15:00 23:00 07:00 Intake Total 598 ml 786.1 ml Output Total 15 ml 13 ml 17 ml Balance -15 ml 585 ml 769.1 ml Physical Exam Physical Exam: GENERAL:Intubated,sedated HEENT: Normocephalic, atraumatic, anicteric.ETT/OGT + LUNGS: Decreased breath sounds at the bases, scattered rhonchi. HEART: S1, S2. No gallops or murmurs. PPM site looks clean. ABDOMEN: Soft, obese, nontender, nondistended. Aguilar in place EXTREMITIES: No edema, no cyanosis. DERMATOLOGIC: Warm, dry. No generalized rash. NEUROLOGIC: Alert and oriented x 3, grossly nonfocal. PSYCHIATRIC: Cooperative, appropriate mood and affect. General: No acute distress Heart: Regular rate Abdomen: Normal bowel sounds, Soft Extremities: No clubbing, No cyanosis Labs Labs: Laboratory Tests Test 04/22/20 11:35 04/23/20 05:55 04/23/20 07:30 Sodium Level 135 mmol/L (136-145) 135 mmol/L (136-145) Potassium Level 5.0 mmol/L (3.5-5.1) 5.3 mmol/L (3.5-5.1) Chloride Level 99 mmol/L (98-107) 101 mmol/L (98-107) Carbon Dioxide Level 24 mmol/L (21-32) 25 mmol/L (21-32) Anion Gap 12 (6-14) 9 (6-14) Blood Urea Nitrogen 88 mg/dL (8-26) 81 mg/dL (8-26) Creatinine 5.5 mg/dL (0.7-1.3) 5.7 mg/dL (0.7-1.3) Estimated GFR (Cockcroft-Gault) 10.0 9.6 Glucose Level 98 mg/dL (70-99) 73 mg/dL (70-99) Calcium Level 7.6 mg/dL (8.5-10.1) 8.1 mg/dL (8.5-10.1) O2 Saturation 91 % (92-99) Arterial Blood pH 7.33 (7.35-7.45) Arterial Blood pCO2 at Patient Temp 45 mmHg (35-46) Arterial Blood pO2 at Patient Temp 65 mmHg (65-108) Arterial Blood HCO3 23 mmol/L (21-28) Arterial Blood Base Excess -3 mmol/L (-3-3) FiO2 60/vent Assessment and Plan Assessmemt and Plan Problems Medical Problems: (1) Person under investigation for COVID-19 Status: Acute (2) Pneumonia Status: Acute Comment Review of Relevant I have reviewed the following items andrea (where applicable) has been applied. Medications: Current Medications Medications (Trade) Dose Ordered Sig/Damion Route PRN Reason Start Time Stop Time Status Last Admin Dose Admin Insulin Glargine (Lantus Syringe) 17 unit Q12HR SQ 04/22/20 21:00 04/22/20 22:09 Fentanyl Citrate 2,750 ml @ 0 mls/hr CONT PRN IV PAIN 04/22/20 18:00 04/22/20 18:02 Info (Tpn Per Pharmacy) 1 each PRN DAILY PRN MC SEE COMMENTS 04/23/20 09:45 04/23/20 10:37 Justifications for Admission General Conditions Poss tachycardia?: Yes Justification for admission: Patient has tachycardia (> 100 beats per minute) which is not readily corrected by appropriate treatment within 12 to 24 hours. ACUTE HYPOXIC RESP FAILURE Other Justification TJ ABRAHAM MD Apr 23, 2020 11:15
[2020-04-23 11:21] LABS: BASO # 0.2 x10^3/uL (0.0-0.2); BASO % 1 % (0-3); EOS % 0 % (0-3); HEMATOCRIT 36.2 % (39.0-53.0); LYMPH # 0.4 x10^3/uL (1.0-4.8); LYMPH % 1 % (24-48); MEAN CORPUSCULAR HEMOGLOBIN 32 pg (25-35); MEAN CORPUSCULAR HGB CONC 33 g/dL (31-37); MEAN CORPUSCULAR VOLUME 96 fL (79-100); MONO # 1.4 x10^3/uL (0.0-1.1); MONO % 5 % (0-9); NEUT # 24.8 x10^3/uL (1.8-7.7); NEUT % 93 % (31-73); PLATELET COUNT 111 x10^3/uL (140-400); RED BLOOD COUNT 3.77 x10^6/uL (4.30-5.70); RED CELL DISTRIBUTION WIDTH 14.7 % (11.5-14.5); WHITE BLOOD COUNT 26.8 x10^3/uL (4.0-11.0)
--- NOTE | 2020-04-23 11:46 | PDOC ---
DATE OF SERVICE DATE: 04/23/20 TIME: 11:33 SUBJECTIVE ROS Remains intubated,on pressor , febrile OBJECTIVE Vital Signs Vital Signs Date Time Temp Pulse Resp B/P (MAP) Pulse Ox O2 Delivery O2 Flow Rate FiO2 04/23/20 11:01 86 Ventilator 04/23/20 10:00 80 29 135/53 (80) 04/23/20 08:00 100.6 100.6 I & 0 Intake and Output 04/23/20 07:00 Intake Total 1384.1 ml Output Total 45 ml Balance 1339.1 ml IV Total 1182.1 ml Tube Feeding 202 ml Output Urine Total 45 ml Gastric Drainage Total 0 ml PHYSICAL EXAM Physical Exam General:Intubated HEENT: Intubated Neck Supple Heart: RRR Lungs CTA ant Abdomen: Normal bowel sounds, Soft, Extremities: No clubbing, No cyanosis, no edema Neuro: sedated, intubated tineo + DIAGNOSIS/ASSESSMENT Assessment & Plan MEJIA - Vasomotor, hypotension POA , CoVid + Worsening renal function, Oligo-anuric started on dialysis 04/19, dialysis every day since, seen during treatment,, continue as ordered .Discussed treatment plan with Roby . HyperKalemia- mild, HD today Acidosis- resolved COVID-19 infection - remdesivir, Abx . Steroid completed Sepsis/ Bacteremia, 2/8 bottles present on admission with gram-positive cocci in clusters. likely contaminant per ID Acute hypoxic respiratory failure. currently intubated , was on O2 at presentation Anemia - Hgb decreasing Status post permanent pacemaker. Abnormal AST. Diabetes. Hypertension BPs low, on low dose pressor Goals of care discussed with family by Dr. Patterson -family unable to make any decisions at this time and want to continue with current medical management. COMMENT/RELEVANT DATA Meds Current Medications Medications (Trade) Dose Ordered Sig/Damion Start Time Stop Time Status Last Admin Dose Admin Acetaminophen (Tylenol) 500 mg 1X PRN PRN 04/22/20 09:45 04/23/20 09:44 DC Al Hydroxide/Mg Hydroxide (Mylanta Plus Xs) 30 ml PRN DAILY PRN 04/13/20 17:00 Albumin Human 200 ml @ 200 mls/hr 1X PRN PRN 04/23/20 07:45 04/23/20 13:44 Albuterol Sulfate (Ventolin Hfa) 1 puff PRN Q4HRS PRN 1/1/21 12:30 04/15/20 14:13 1 PUFF Albuterol Sulfate (Ventolin Neb Soln) 2.5 mg PRN Q4HRS PRN 04/13/20 17:00 Allopurinol (Zyloprim) 100 mg DAILY 04/14/20 13:00 04/23/20 08:47 100 MG Amiodarone HCl (Cordarone) 200 mg DAILY 04/22/20 09:00 04/23/20 08:47 200 MG Amiodarone HCl 450 mg/Dextrose 259 ml @ 0 mls/hr 1X ONCE 04/21/20 08:00 04/21/20 08:01 DC 04/21/20 08:08 16.7 MLS/HR Amiodarone HCl 75 mg/Dextrose 101.5 ml @ 618 mls/hr 1X ONCE 04/20/20 23:30 04/20/20 23:39 DC 04/20/20 23:40 618 MLS/HR Amlodipine Besylate (Norvasc) 10 mg DAILY 04/14/20 13:00 04/16/20 14:20 DC Aspirin (Aspirin Chewable) 81 mg DAILYWBKFT 04/20/20 13:30 04/23/20 08:47 81 MG Atorvastatin Calcium (Lipitor) 40 mg HS 04/14/20 21:00 04/22/20 22:04 40 MG Atropine Sulfate (ATROPINE 0.5mg SYRINGE) 0.5 mg PRN Q5MIN PRN 04/16/20 07:00 Azithromycin 250 ml @ 250 mls/hr 1X ONCE 04/13/20 14:45 04/13/20 15:44 DC 04/13/20 16:40 250 MLS/HR Ceftriaxone Sodium (Rocephin) 1 gm Q24H 04/14/20 17:00 04/16/20 12:45 DC 04/15/20 17:28 1 GM Daptomycin 500 mg/ Sodium Chloride 50 ml @ 100 mls/hr Q48H 04/20/20 16:00 04/21/20 07:54 DC 04/20/20 16:28 100 MLS/HR Dexamethasone Sodium Phosphate (Decadron) 4 mg DAILY 04/24/20 09:00 04/23/20 09:49 DC Dexmedetomidine HCl 400 mcg/ Sodium Chloride 100 ml @ 0 mls/hr CONT PRN 04/16/20 07:00 04/23/20 10:49 20 MLS/HR Dextrose (Dextrose 50%-Water Syringe) 12.5 gm PRN Q15MIN PRN 04/18/20 14:15 04/23/20 06:08 25 GM Diphenhydramine HCl (Benadryl) 25 mg 1X PRN PRN 04/22/20 09:45 04/23/20 09:44 DC Docusate Sodium (Colace) 100 mg PRN BID PRN 04/13/20 17:00 Doxycycline Hyclate 100 mg/ Dextrose 100 ml @ 50 mls/hr Q12HR 04/13/20 21:00 04/21/20 07:54 DC 04/20/20 21:30 50 MLS/HR Enoxaparin Sodium (Lovenox 40mg Syringe) 40 mg BID 04/13/20 18:00 04/17/20 03:25 DC 04/16/20 20:49 40 MG Etomidate (Amidate) 12 mg 1X ONCE 04/16/20 08:15 04/16/20 08:16 DC 04/16/20 08:14 12 MG EZETIMIBE (Zetia) 10 mg HS 04/14/20 21:00 04/17/20 03:26 DC 04/16/20 20:47 10 MG Fenofibrate (Lofibra) 134 mg DAILY 04/14/20 13:00 04/23/20 08:47 134 MG Fentanyl Citrate 2,750 ml @ 0 mls/hr CONT PRN 04/22/20 18:00 04/22/20 18:02 2 MLS/HR Furosemide 100 mg/ Sodium Chloride 100 ml @ 5 mls/hr CONT PRN 04/16/20 14:30 04/19/20 10:28 DC 04/19/20 07:26 5 MLS/HR Glimepiride (Amaryl) 1 mg DAILY 04/14/20 13:00 04/22/20 07:24 DC 04/21/20 08:40 1 MG Guaifenesin (Robitussin) 200 mg PRN Q4HRS PRN 04/13/20 17:00 Haloperidol Lactate (Haldol Inj) 5 mg PRN Q6HRS PRN 04/15/20 17:45 04/15/20 18:10 5 MG Heparin Sodium (Porcine) (Heparin Sodium) 2,500 unit 1X ONCE 04/19/20 13:00 04/19/20 13:02 DC 04/19/20 13:00 2,500 UNIT Info (PHARMACY MONITORING -- do not chart) 1 each PRN DAILY PRN 04/23/20 07:45 04/23/20 07:46 DC Info (Tpn Per Pharmacy) 1 each PRN DAILY PRN 04/23/20 09:45 04/23/20 10:37 1 EACH Insulin Glargine (Lantus Syringe) 17 unit Q12HR 04/22/20 21:00 04/22/20 22:09 17 UNIT Insulin Human Lispro (HumaLOG) 0-9 UNITS Q6HRS 04/20/20 00:30 04/22/20 01:46 4 UNITS Insulin Human Regular (HumuLIN R VIAL) 5 unit 1X ONCE 04/19/20 11:45 04/19/20 11:46 UNV Lidocaine HCl (Buffered Lidocaine 1%) 3 ml 1X ONCE 04/19/20 12:15 04/19/20 12:16 DC 04/19/20 12:15 6 ML Lisinopril (Prinivil) 40 mg DAILY 04/14/20 13:00 04/16/20 14:20 DC 04/15/20 10:09 40 MG Lorazepam (Ativan Inj) 1 mg PRN Q2HRS PRN 04/15/20 22:45 04/16/20 06:40 1 MG Metoprolol Succinate (Toprol Xl) 25 mg HS 04/14/20 21:00 04/22/20 07:26 DC 04/14/20 21:14 25 MG Midazolam HCl 100 ml @ 1 mls/hr CONT PRN 04/16/20 07:45 04/23/20 06:39 10 MLS/HR Midazolam HCl (Versed) 5 mg 1X ONCE 04/16/20 07:30 04/16/20 07:31 DC 04/16/20 07:51 5 MG Morphine Sulfate (Morphine Sulfate) 2 mg PRN Q2HR PRN 04/15/20 22:45 04/20/20 05:22 DC 04/16/20 05:13 2 MG Norepinephrine Bitartrate 32 mg/ Dextrose 250 ml @ 5.114 mls/ hr CONT PRN 04/18/20 05:00 04/21/20 07:23 DC 04/20/20 10:21 10.228 MLS/HR Norepinephrine Bitartrate 8 mg/ Dextrose 258 ml @ 22.156 mls/ hr CONT PRN 04/21/20 07:30 04/23/20 05:09 15.509 MLS/HR Ondansetron HCl (Zofran) 4 mg PRN Q4HRS PRN 04/13/20 17:00 Pantoprazole Sodium (PROTONIX VIAL for IV PUSH) 40 mg DAILYAC 04/17/20 07:30 04/23/20 08:48 40 MG Pantoprazole Sodium (Protonix) 40 mg DAILYAC 04/14/20 13:00 04/16/20 11:39 DC 04/15/20 10:11 40 MG Piperacillin Sod/ Tazobactam Sod 2.25 gm/Sodium Chloride 50 ml @ 100 mls/hr Q8HRS 04/19/20 22:00 04/22/20 08:13 DC 04/22/20 05:47 100 MLS/HR Piperacillin Sod/ Tazobactam Sod 3.375 gm/Sodium Chloride 50 ml @ 100 mls/hr Q6HRS 04/16/20 13:30 04/19/20 15:18 DC 04/19/20 11:34 100 MLS/HR Remdesivir 100 mg/ Sodium Chloride 230 ml @ 460 mls/hr Q24H 04/16/20 14:00 04/19/20 14:29 DC 04/19/20 15:12 460 MLS/HR Remdesivir 200 mg/ Sodium Chloride 210 ml @ 210 mls/hr 1X ONCE 04/15/20 14:00 04/15/20 14:59 DC 04/15/20 16:25 210 MLS/HR Sodium Bicarbonate (Sodium Bicarb Adult 8.4% Syr) 100 meq 1X ONCE 04/19/20 09:30 04/19/20 09:31 DC 04/19/20 09:26 100 MEQ Sodium Chloride (Normal Saline Flush) 10 ml 1X PRN PRN 04/22/20 09:45 04/23/20 09:44 DC Sodium Chloride 90 meq/Potassium Chloride 20 meq/ Magnesium Sulfate 4 meq/Calcium Gluconate 10 meq/ Multivitamins 5 ml/Zinc/Copper/ Manganese/ Selenium 1 ml/ Total Parenteral Nutrition/Amino Acids/Dextrose/ Fat Emulsion Intravenous 1,512 ml @ 63 mls/hr TPN CONT 04/23/20 22:00 04/24/20 21:59 Succinylcholine Chloride (Anectine) 100 mg 1X ONCE 04/16/20 08:15 04/16/20 08:16 DC 04/16/20 08:15 100 MG Ziprasidone (Geodon Im) 20 mg 1X ONCE 04/15/20 17:45 04/15/20 17:46 DC Lab Laboratory Tests Test 04/22/20 11:35 04/23/20 05:55 04/23/20 07:30 04/23/20 11:10 Sodium Level 135 mmol/L (136-145) 135 mmol/L (136-145) Potassium Level 5.0 mmol/L (3.5-5.1) 5.3 mmol/L (3.5-5.1) Chloride Level 99 mmol/L (98-107) 101 mmol/L (98-107) Carbon Dioxide Level 24 mmol/L (21-32) 25 mmol/L (21-32) Anion Gap 12 (6-14) 9 (6-14) Blood Urea Nitrogen 88 mg/dL (8-26) 81 mg/dL (8-26) Creatinine 5.5 mg/dL (0.7-1.3) 5.7 mg/dL (0.7-1.3) Estimated GFR (Cockcroft-Gault) 10.0 9.6 Glucose Level 98 mg/dL (70-99) 73 mg/dL (70-99) Calcium Level 7.6 mg/dL (8.5-10.1) 8.1 mg/dL (8.5-10.1) O2 Saturation 91 % (92-99) Arterial Blood pH 7.33 (7.35-7.45) Arterial Blood pCO2 at Patient Temp 45 mmHg (35-46) Arterial Blood pO2 at Patient Temp 65 mmHg (65-108) Arterial Blood HCO3 23 mmol/L (21-28) Arterial Blood Base Excess -3 mmol/L (-3-3) FiO2 60/vent White Blood Count 26.8 x10^3/uL (4.0-11.0) Red Blood Count 3.77 x10^6/uL (4.30-5.70) Hemoglobin 12.0 g/dL (13.0-17.5) Hematocrit 36.2 % (39.0-53.0) Mean Corpuscular Volume 96 fL (79-100) Mean Corpuscular Hemoglobin 32 pg (25-35) Mean Corpuscular Hemoglobin Concent 33 g/dL (31-37) Red Cell Distribution Width 14.7 % (11.5-14.5) Platelet Count 111 x10^3/uL (140-400) Neutrophils (%) (Auto) 93 % (31-73) Lymphocytes (%) (Auto) 1 % (24-48) Monocytes (%) (Auto) 5 % (0-9) Eosinophils (%) (Auto) 0 % (0-3) Basophils (%) (Auto) 1 % (0-3) Neutrophils # (Auto) 24.8 x10^3/uL (1.8-7.7) Lymphocytes # (Auto) 0.4 x10^3/uL (1.0-4.8) Monocytes # (Auto) 1.4 x10^3/uL (0.0-1.1) Eosinophils # (Auto) 0.0 x10^3/uL (0.0-0.7) Basophils # (Auto) 0.2 x10^3/uL (0.0-0.2) Results All relevant outside records, renal labs, imaging studies, telemetry/EKG's were reviewed. Justicifation of Admission Dx: Justifications for Admission: Justification of Admission Dx: Yes Comminuty Aquired Pneumonia: Hemodynamic Instability BLANCA MYRICK MD Apr 23, 2020 11:46
[2020-04-23 12:19] LABS: MAGNESIUM 2.8 mg/dL (1.8-2.4)
--- NOTE | 2020-04-23 14:52 | PDOC ---
CARDIOLOGY PROGRESS NOTE SUBJECTIVE: No new events. OBJECTIVE: Vital Signs/I&O: Vital Signs Date Time Temp Pulse Resp B/P (MAP) Pulse Ox O2 Delivery O2 Flow Rate FiO2 04/23/20 14:00 80 28 113/47 (69) 97 Ventilator 04/23/20 12:00 99.2 99.2 I & O 04/22/20 04/22/20 04/23/20 15:00 23:00 07:00 Intake Total 598 ml 786.1 ml Output Total 15 ml 13 ml 17 ml Balance -15 ml 585 ml 769.1 ml Objective: No new changes. Examined from door due to COVID CURRENT MEDICATIONS: Current Medications Medications (Trade) Dose Ordered Sig/Damion Route PRN Reason Start Time Stop Time Status Last Admin Dose Admin Insulin Glargine (Lantus Syringe) 17 unit Q12HR SQ 04/22/20 21:00 04/22/20 22:09 Fentanyl Citrate 2,750 ml @ 0 mls/hr CONT PRN IV PAIN 04/22/20 18:00 04/23/20 14:12 DC 04/22/20 18:02 Info (Tpn Per Pharmacy) 1 each PRN DAILY PRN MC SEE COMMENTS 04/23/20 09:45 04/23/20 10:37 DIAGNOSTIC TESTING: No new testing Labs: Laboratory Tests 04/23/20 05:55 04/23/20 11:10 Laboratory Tests Test 04/23/20 05:55 04/23/20 07:30 04/23/20 11:10 Sodium Level 135 mmol/L (136-145) L Potassium Level 5.3 mmol/L (3.5-5.1) H Chloride Level 101 mmol/L (98-107) Carbon Dioxide Level 25 mmol/L (21-32) Anion Gap 9 (6-14) Blood Urea Nitrogen 81 mg/dL (8-26) H Creatinine 5.7 mg/dL (0.7-1.3) H Estimated GFR (Cockcroft-Gault) 9.6 Glucose Level 73 mg/dL (70-99) Calcium Level 8.1 mg/dL (8.5-10.1) L Phosphorus Level 7.0 mg/dL (2.6-4.7) H O2 Saturation 91 % (92-99) L Arterial Blood pH 7.33 (7.35-7.45) L Arterial Blood pCO2 at Patient Temp 45 mmHg (35-46) Arterial Blood pO2 at Patient Temp 65 mmHg (65-108) Arterial Blood HCO3 23 mmol/L (21-28) Arterial Blood Base Excess -3 mmol/L (-3-3) FiO2 60/vent White Blood Count 26.8 x10^3/uL (4.0-11.0) H Red Blood Count 3.77 x10^6/uL (4.30-5.70) L Hemoglobin 12.0 g/dL (13.0-17.5) L Hematocrit 36.2 % (39.0-53.0) L Mean Corpuscular Volume 96 fL (79-100) Mean Corpuscular Hemoglobin 32 pg (25-35) Mean Corpuscular Hemoglobin Concent 33 g/dL (31-37) Red Cell Distribution Width 14.7 % (11.5-14.5) H Platelet Count 111 x10^3/uL (140-400) L Neutrophils (%) (Auto) 93 % (31-73) H Lymphocytes (%) (Auto) 1 % (24-48) L Monocytes (%) (Auto) 5 % (0-9) Eosinophils (%) (Auto) 0 % (0-3) Basophils (%) (Auto) 1 % (0-3) Neutrophils # (Auto) 24.8 x10^3/uL (1.8-7.7) H Lymphocytes # (Auto) 0.4 x10^3/uL (1.0-4.8) L Monocytes # (Auto) 1.4 x10^3/uL (0.0-1.1) H Eosinophils # (Auto) 0.0 x10^3/uL (0.0-0.7) Basophils # (Auto) 0.2 x10^3/uL (0.0-0.2) ASSESSMENT: 1. Acute respiratory failure secondary to COVID PNA; s/p intubation. Steroids, post Remdesivir 2. Acute on chronic diastolic CHF; Echo 2018 with preserved LV systolic function 3. MEJIA: worse now having HD 4. SSS s/p PPM: [facility], Interrogation revealed no VTs, Notable for AFIB and RVR mainlyl in the last 6 days, 7.1 AFIB burden. Normal function device 99% V pacing 5. Diabetes, II 6. Leukocytosis, lactic acidosis, better 7. Sepsis, requiring pressor support. 8. ? GIB; coffee ground in OG tube, possibly from erosion, better now off heparin 9. PUI; COVID + 10. PAFIB: notable for sinus pwaves with Vpacing PLAN: 1. Supportive care. No further CV testing for now. Justicifation of Admission Dx: Justifications for Admission: Justification of Admission Dx: Yes Comminuty Aquired Pneumonia: Hemodynamic Instability CHAKA BANUELOS MD Apr 23, 2020 14:52
[2020-04-23] MEDS: fentaNYL HIGH DOSE PCA 55 ML IV PRN (19:09)
[2020-04-23] MEDS: ATORVASTATIN CALCIUM 40 MG TABLET. PO SCH (20:32)
[2020-04-23] MEDS ORDERED: TOTAL PARENTERAL NUTRITION IV SCH (22:00)
[2020-04-23] MEDS ORDERED: AMINO ACID IV SCH (22:00)
[2020-04-23] MEDS ORDERED: [UNRECOGNIZED DRUG - OTHER] IV SCH (22:00)
[2020-04-23] MEDS ORDERED: DEXTROSE 70% IV SCH (22:00)
[2020-04-24] VITALS (27 sets, daily range): BP systolic 61–149; BP diastolic 30–58
[2020-04-24] MEDS: DEXMEDETOMIDINE 400 MCG in IV NORMAL SALINE 100ML 96 ML IV PRN ×6 (00:50→22:50)
[2020-04-24] MEDS: MIDAZOLAM 100mg/100ml NS BAG 100 ML IV PRN ×2 (02:06→14:10)
[2020-04-24] MEDS: NOREPINEPHRINE VIAL 8 MG in IV DEXTROSE 5% 250 ML IV PRN ×2 (04:50→14:52)
[2020-04-24] MEDS: INSULIN LISPRO 300 UNITS/3 ML VIAL. SQ SCH ×3 (06:00→17:55)
[2020-04-24 06:02] LABS: CALCIUM 7.5 mg/dL (8.5-10.1); CREATININE 5.1 mg/dL (0.7-1.3); GFR 10.9; MAGNESIUM 2.6 mg/dL (1.8-2.4); PHOSPHORUS 7.5 mg/dL (2.6-4.7); POTASSIUM 5.2 mmol/L (3.5-5.1)
[2020-04-24] MEDS: FENOFIBRATE,MICRONIZED 134 MG CAPSULE PO SCH (07:42)
[2020-04-24] MEDS: ALLOPURINOL 100 MG TABLET. PO SCH (07:43)
[2020-04-24] MEDS: ASPIRIN CHEWABLE 81 MG TABLET. PO SCH (07:43)
[2020-04-24] MEDS: PANTOPRAZOLE IV PUSH 40 MG VIAL. IVP SCH (07:43)
[2020-04-24] MEDS: AMIODARONE HCL 200 MG TABLET. PO SCH (07:43)
[2020-04-24 07:48] LABS: BASE EXCESS ABG -1 mmol/L (-3-3); HCO3 ABG 25 mmol/L (21-28); PCO2 ABG 47 mmHg (35-46); PO2 ABG 67 mmHg (65-108); SAT O2 ABG 91 % (92-99)
[2020-04-24 07:49] LABS: FIO2 ABG 70/VENT
[2020-04-24] MEDS: INSULIN GLARGINE SYRINGE. SQ SCH ×2 (09:00→21:00)
[2020-04-24] MEDS ORDERED: DEXAMETHASONE SOD PHOS 4 MG/ML VIAL IVP SCH (09:00)
--- NOTE | 2020-04-24 09:54 | PDOC ---
[facility] PROGRESS NOTE Date of Service DOS: DATE: 04/24/20 TIME: 09:53 Chief Complaint Chief Complaint impression 1. ACUTE HYPOXIC RESP FAILURE Continued to decompensate in his respiratory status required intubation 1/2 AM Fever 2. HX pacemaker. 3. Mild left lung interstitial infiltrates with worsening compared to old studies from 2016. CONCERNING FOR COVID 19 SYNDROME New consolidation right lower lateral lung field and left basal retrocardiac region. Increased pulmonary vasculature congestion. Pulmonary interstitial edema and infiltrates are present. 04/16 4, MORBID OBESITY 5. GENERALIZED WEAKNESS 6. 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 PULM CONSULT cont remdesivir.04/15/2020 DC daptomycin iv Zosyn FiO2 85% PEEP of 12 Levophed pressure support BLOOD CULTURE LC Preliminary Preliminary FINAL ID= [STAPHYLOCOCCUS EPIDERMIDIS] 32 MIN CC TIME History of Present Illness History of Present Illness 04/24 Patient seen and evaluated [place] [address] ICU. He is afebrile. Unclear, FiO2 70%, PEEP 7. Continue to follow nephrology recommendations about hemodialysis. Continue supportive care. 04/23 Patient seen and evaluated. Febrile at 100.6. On vent with FiO2 60%, PEEP 7. Had hemodialysis yesterday, will follow nephrology's recommendations on HD. Steroids have been DC'd. 04/22 Patient seen in [place] [address] ICU. Afebrile. On vent, FiO2 60, PEEP 7. Discussed with son and about goals of care, they feel unable to make any decisions at this time and want to continue with current medical management. If no change by this time next week we will discuss any further aggressive treatments such as tracheostomy. 04/21 Patient seen in ICU. On vent, FiO2 60%, PEEP 10. Discussed with RN, clinical findings to start on hemodialysis today. No acute events overnight. 04/20 Patient seen in [place] [address] ICU. He is afebrile. Remains on vent, FiO2 60%, PEEP 10. No acute events overnight. Continue supportive care, steroids, and antibiotics. 04/19 Patient seen in [place] [address] ICU. Remains ventilated, FiO2 60%, PEEP 12. Afebrile. Continue Zosyn, doxycycline, and steroids. Remdesivir day 08/17. 04/18 Patient seen and examined in [facility] ICU. He is ventilated, FiO2 80%, PEEP 12. Continue treatment with Zosyn, doxycycline, steroids, and remdesivir. Charts and labs reviewed, discussed with RN. 04/17/2020 Patient seen and examined Chart reviewed Discussed with RN Patient is on Vent IV doxycycline FiO2 85% PEEP of 12 Identification/Chief Complaint Chief Complaint DYSPNEA, COUGH WORSE SINCE [place] History of Present Illness History of Present Illness 85 yr old male seen in er with worsening cough since 04-08, now more SOA , HYPOXIC ON PRESENTATION Past Medical History Cardiovascular: HTN, Hyperlipidemia Family History Family History: High Cholestrol, Hypertension Social History Smoke: No ALCOHOL: none Drugs: None Allergies Allergies: Coded Allergies: No Known Drug Allergies (Unverified , 04/13/20) Vitals/I&O Vitals/I&O: Vital Signs Date Time Temp Pulse Resp B/P (MAP) Pulse Ox O2 Delivery O2 Flow Rate FiO2 04/24/20 09:00 80 28 101/46 (64) 97 Ventilator 04/24/20 08:00 98.2 98.2 I & O 04/23/20 04/23/20 04/24/20 15:00 23:00 07:00 Intake Total 656 ml 943 ml Output Total 10 ml 20 ml 20 ml Balance -10 ml 636 ml 923 ml Physical Exam Physical Exam: GENERAL:Intubated,sedated HEENT: Normocephalic, atraumatic, anicteric.ETT/OGT + LUNGS: Decreased breath sounds at the bases, scattered rhonchi. HEART: S1, S2. No gallops or murmurs. PPM site looks clean. ABDOMEN: Soft, obese, nontender, nondistended. Aguilar in place EXTREMITIES: No edema, no cyanosis. DERMATOLOGIC: Warm, dry. No generalized rash. NEUROLOGIC: Alert and oriented x 3, grossly nonfocal. PSYCHIATRIC: Cooperative, appropriate mood and affect. General: No acute distress Heart: Regular rate Abdomen: Normal bowel sounds, Soft Extremities: No clubbing, No cyanosis Labs Labs: Laboratory Tests Test 04/23/20 11:10 04/24/20 05:25 04/24/20 07:15 White Blood Count 26.8 x10^3/uL (4.0-11.0) Red Blood Count 3.77 x10^6/uL (4.30-5.70) Hemoglobin 12.0 g/dL (13.0-17.5) Hematocrit 36.2 % (39.0-53.0) Mean Corpuscular Volume 96 fL (79-100) Mean Corpuscular Hemoglobin 32 pg (25-35) Mean Corpuscular Hemoglobin Concent 33 g/dL (31-37) Red Cell Distribution Width 14.7 % (11.5-14.5) Platelet Count 111 x10^3/uL (140-400) Neutrophils (%) (Auto) 93 % (31-73) Lymphocytes (%) (Auto) 1 % (24-48) Monocytes (%) (Auto) 5 % (0-9) Eosinophils (%) (Auto) 0 % (0-3) Basophils (%) (Auto) 1 % (0-3) Neutrophils # (Auto) 24.8 x10^3/uL (1.8-7.7) Lymphocytes # (Auto) 0.4 x10^3/uL (1.0-4.8) Monocytes # (Auto) 1.4 x10^3/uL (0.0-1.1) Eosinophils # (Auto) 0.0 x10^3/uL (0.0-0.7) Basophils # (Auto) 0.2 x10^3/uL (0.0-0.2) Sodium Level 135 mmol/L (136-145) Potassium Level 5.2 mmol/L (3.5-5.1) Chloride Level 100 mmol/L (98-107) Carbon Dioxide Level 24 mmol/L (21-32) Anion Gap 11 (6-14) Blood Urea Nitrogen 84 mg/dL (8-26) Creatinine 5.1 mg/dL (0.7-1.3) Estimated GFR (Cockcroft-Gault) 10.9 Glucose Level 122 mg/dL (70-99) Calcium Level 7.5 mg/dL (8.5-10.1) Phosphorus Level 7.5 mg/dL (2.6-4.7) Magnesium Level 2.6 mg/dL (1.8-2.4) O2 Saturation 91 % (92-99) Arterial Blood pH 7.34 (7.35-7.45) Arterial Blood pCO2 at Patient Temp 47 mmHg (35-46) Arterial Blood pO2 at Patient Temp 67 mmHg (65-108) Arterial Blood HCO3 25 mmol/L (21-28) Arterial Blood Base Excess -1 mmol/L (-3-3) FiO2 70/vent Assessment and Plan Assessmemt and Plan Problems Medical Problems: (1) Person under investigation for COVID-19 Status: Acute (2) Pneumonia Status: Acute Comment Review of Relevant I have reviewed the following items andrea (where applicable) has been applied. Medications: Current Medications Medications (Trade) Dose Ordered Sig/Damion Route PRN Reason Start Time Stop Time Status Last Admin Dose Admin Sodium Chloride 90 meq/Potassium Chloride 20 meq/ Magnesium Sulfate 4 meq/Calcium Gluconate 10 meq/ Multivitamins 5 ml/Zinc/Copper/ Manganese/ Selenium 1 ml/ Total Parenteral Nutrition/Amino Acids/Dextrose/ Fat Emulsion Intravenous 1,512 ml @ 63 mls/hr TPN CONT IV 04/23/20 22:00 04/24/20 21:59 04/23/20 21:56 Fentanyl Citrate 55 ml @ 0 mls/hr CONT PRN IV PAIN 04/23/20 14:12 04/23/20 19:09 Justifications for Admission General Conditions Poss tachycardia?: Yes Justification for admission: Patient has tachycardia (> 100 beats per minute) which is not readily corrected by appropriate treatment within 12 to 24 hours. ACUTE HYPOXIC RESP FAILURE Other Justification TJ ABRAHAM MD Apr 24, 2020 09:54
[2020-04-24] MEDS: TPN PER PHARMACY MC PRN (10:20)
--- NOTE | 2020-04-24 10:22 | PDOC ---
PULMONARY PROGRESS NOTES DATE: 04/24/20 TIME: 10:19 Subjective Patient remains on vent support, 70% and a PEEP of 7 Continues to have hypotension on vasopressors bloody secretions from OG Vitals Vital Signs Date Time Temp Pulse Resp B/P (MAP) Pulse Ox O2 Delivery O2 Flow Rate FiO2 04/24/20 10:01 80 28 101/47 (65) 98 Ventilator 04/24/20 08:00 98.2 98.2 Comments Pt. seen during , visual exam preformed intubated RRR no edema/rash no accessory muscle use Labs Laboratory Tests Test 04/22/20 11:35 04/23/20 05:55 04/23/20 07:30 04/23/20 11:10 Sodium Level 135 mmol/L (136-145) 135 mmol/L (136-145) Potassium Level 5.0 mmol/L (3.5-5.1) 5.3 mmol/L (3.5-5.1) Chloride Level 99 mmol/L (98-107) 101 mmol/L (98-107) Carbon Dioxide Level 24 mmol/L (21-32) 25 mmol/L (21-32) Anion Gap 12 (6-14) 9 (6-14) Blood Urea Nitrogen 88 mg/dL (8-26) 81 mg/dL (8-26) Creatinine 5.5 mg/dL (0.7-1.3) 5.7 mg/dL (0.7-1.3) Estimated GFR (Cockcroft-Gault) 10.0 9.6 Glucose Level 98 mg/dL (70-99) 73 mg/dL (70-99) Calcium Level 7.6 mg/dL (8.5-10.1) 8.1 mg/dL (8.5-10.1) Phosphorus Level 7.0 mg/dL (2.6-4.7) Magnesium Level 2.8 mg/dL (1.8-2.4) O2 Saturation 91 % (92-99) Arterial Blood pH 7.33 (7.35-7.45) Arterial Blood pCO2 at Patient Temp 45 mmHg (35-46) Arterial Blood pO2 at Patient Temp 65 mmHg (65-108) Arterial Blood HCO3 23 mmol/L (21-28) Arterial Blood Base Excess -3 mmol/L (-3-3) FiO2 60/vent White Blood Count 26.8 x10^3/uL (4.0-11.0) Red Blood Count 3.77 x10^6/uL (4.30-5.70) Hemoglobin 12.0 g/dL (13.0-17.5) Hematocrit 36.2 % (39.0-53.0) Mean Corpuscular Volume 96 fL (79-100) Mean Corpuscular Hemoglobin 32 pg (25-35) Mean Corpuscular Hemoglobin Concent 33 g/dL (31-37) Red Cell Distribution Width 14.7 % (11.5-14.5) Platelet Count 111 x10^3/uL (140-400) Neutrophils (%) (Auto) 93 % (31-73) Lymphocytes (%) (Auto) 1 % (24-48) Monocytes (%) (Auto) 5 % (0-9) Eosinophils (%) (Auto) 0 % (0-3) Basophils (%) (Auto) 1 % (0-3) Neutrophils # (Auto) 24.8 x10^3/uL (1.8-7.7) Lymphocytes # (Auto) 0.4 x10^3/uL (1.0-4.8) Monocytes # (Auto) 1.4 x10^3/uL (0.0-1.1) Eosinophils # (Auto) 0.0 x10^3/uL (0.0-0.7) Basophils # (Auto) 0.2 x10^3/uL (0.0-0.2) Test 04/24/20 05:25 04/24/20 07:15 Sodium Level 135 mmol/L (136-145) Potassium Level 5.2 mmol/L (3.5-5.1) Chloride Level 100 mmol/L (98-107) Carbon Dioxide Level 24 mmol/L (21-32) Anion Gap 11 (6-14) Blood Urea Nitrogen 84 mg/dL (8-26) Creatinine 5.1 mg/dL (0.7-1.3) Estimated GFR (Cockcroft-Gault) 10.9 Glucose Level 122 mg/dL (70-99) Calcium Level 7.5 mg/dL (8.5-10.1) Phosphorus Level 7.5 mg/dL (2.6-4.7) Magnesium Level 2.6 mg/dL (1.8-2.4) O2 Saturation 91 % (92-99) Arterial Blood pH 7.34 (7.35-7.45) Arterial Blood pCO2 at Patient Temp 47 mmHg (35-46) Arterial Blood pO2 at Patient Temp 67 mmHg (65-108) Arterial Blood HCO3 25 mmol/L (21-28) Arterial Blood Base Excess -1 mmol/L (-3-3) FiO2 70/vent Laboratory Tests Test 04/23/20 11:10 04/24/20 05:25 04/24/20 07:15 White Blood Count 26.8 x10^3/uL (4.0-11.0) Red Blood Count 3.77 x10^6/uL (4.30-5.70) Hemoglobin 12.0 g/dL (13.0-17.5) Hematocrit 36.2 % (39.0-53.0) Mean Corpuscular Volume 96 fL (79-100) Mean Corpuscular Hemoglobin 32 pg (25-35) Mean Corpuscular Hemoglobin Concent 33 g/dL (31-37) Red Cell Distribution Width 14.7 % (11.5-14.5) Platelet Count 111 x10^3/uL (140-400) Neutrophils (%) (Auto) 93 % (31-73) Lymphocytes (%) (Auto) 1 % (24-48) Monocytes (%) (Auto) 5 % (0-9) Eosinophils (%) (Auto) 0 % (0-3) Basophils (%) (Auto) 1 % (0-3) Neutrophils # (Auto) 24.8 x10^3/uL (1.8-7.7) Lymphocytes # (Auto) 0.4 x10^3/uL (1.0-4.8) Monocytes # (Auto) 1.4 x10^3/uL (0.0-1.1) Eosinophils # (Auto) 0.0 x10^3/uL (0.0-0.7) Basophils # (Auto) 0.2 x10^3/uL (0.0-0.2) Sodium Level 135 mmol/L (136-145) Potassium Level 5.2 mmol/L (3.5-5.1) Chloride Level 100 mmol/L (98-107) Carbon Dioxide Level 24 mmol/L (21-32) Anion Gap 11 (6-14) Blood Urea Nitrogen 84 mg/dL (8-26) Creatinine 5.1 mg/dL (0.7-1.3) Estimated GFR (Cockcroft-Gault) 10.9 Glucose Level 122 mg/dL (70-99) Calcium Level 7.5 mg/dL (8.5-10.1) Phosphorus Level 7.5 mg/dL (2.6-4.7) Magnesium Level 2.6 mg/dL (1.8-2.4) O2 Saturation 91 % (92-99) Arterial Blood pH 7.34 (7.35-7.45) Arterial Blood pCO2 at Patient Temp 47 mmHg (35-46) Arterial Blood pO2 at Patient Temp 67 mmHg (65-108) Arterial Blood HCO3 25 mmol/L (21-28) Arterial Blood Base Excess -1 mmol/L (-3-3) FiO2 70/vent Medications Active Scripts Medications Dose Route/Sig Max Daily Dose Days Date Category Glimepiride 1 Mg Tablet 1 Tab PO DAILY 04/14/20 Reported Metoprolol Succinate ( Xl ) (Metoprolol Succinate) 100 Mg Tab.er.24h 1 Tab PO DAILY 04/14/20 Reported Zetia (Ezetimibe) 10 Mg Tablet 1 Tab PO HS 30 04/14/20 Reported Fenofibrate 160 Mg Tablet 1 Tab PO DAILY 04/14/20 Reported Atorvastatin Calcium 40 Mg Tablet 1 Tab PO HS 04/14/20 Reported Amlodipine Besylate 10 Mg Tablet 1 Tab PO DAILY 04/14/20 Reported Omeprazole 20 Mg Capsule.dr 1 Cap PO DAILY 04/14/20 Reported Mexiletine Hcl 150 Mg Capsule 150 Mg PO Q8HRS 04/13/20 Reported Toprol Xl (Metoprolol Succinate) 25 Mg Tab.er.24h 1 Tab PO HS 30 04/13/20 Reported Accupril (Quinapril Hcl) 40 Mg Tablet 1 Tab PO DAILY 04/13/20 Reported Allopurinol 100 Mg Tablet 1 Tab PO DAILY 04/13/20 Reported Comments CXR 04/23 IMPRESSION: 1. Tubes and lines in good position without change. 2. Persistent infiltrates with little change. Impression . IMPRESSION: 1. Acute hypoxemic respiratory failure, COVID-19 viral pneumonia. 2. Fever secondary to above. 3. Abnormal x-ray. 4. Acute exacerbation of chronic obstructive pulmonary disease. 5. Tobacco dependence, in remission, quit in 1985. 6. Diabetes. 7. Hypertension. 8. Morbid obesity. 9. Sars-Cov 2 Pos Plan . PLAN: Continue current vent support on 70% and PEEP 7 Follow CXR/ABG, no changes D/C steroids completed full 10 day course COVID-19 positive, isolation precautions Continue vasopressors to Keep MAP above 65-- remains on levo Has completed full 5 day course of remdesivir Follow ID recs for ABX:off ABX at this time -- monitor CBC Follow cultures:Bacteremia, 2/8 bottles present on admission with gram-positive cocci in clusters.Co N staph likely contaminant Follow nephrology recs--on HD Follow GI recs -- Continue TPN for nutritional support DVT/GI PPX D/W RN and RT D/W , she would like to continue aggressive care or a total of ten days, she understands his overall poor prognosis Critical Care time 1030-1030AM YESICA SOLITARIO MD Apr 24, 2020 10:22
--- NOTE | 2020-04-24 10:23 | NUR ---
Pharmacy TPN Dosing Note S: CARLEY DAWN is a 85 year old M Currently receiving Central Continuous TPN started 04/23/20 B:Pertinent PMH: NPO, not tolerating Tube Feeds LABS: Sodium: 135 Potassium: 5.2 Chloride: 100 Calcium: 7.5 Corrected Calcium: 8.94 Magnesium: 2.6 CO2: 24 SCr: 5.1 Glucose: 122 Albumin: 2.2 AST: 44 ALT: 44 TPN FORMULA: TPN TYPE: Central Continuous AMINO ACIDS: 60 gm DEXTROSE: 195 gm LIPIDS: 20 gm SODIUM CHLORIDE: 90 mEq SODIUM ACETATE: - mEq SODIUM PHOSPHATE: - mmol POTASSIUM CHLORIDE: - mEq POTASSIUM ACETATE: - mEq POTASSIUM PHOSPHATE: - mmol MAGNESIUM: - mEq CALCIUM: 10 mEq INSULIN: - units MULTIPLE VITAMIN: 5 ml TRACE ELEMENTS: 1 ml ml(s) TPN PLAN: 04/24 removed KCl and Mag from TPN, Phos had already been removed. Will bolus if needed. R: Continue TPN Will monitor electrolytes, glucose, and tolerance to TPN. ZOFIA RODRÍGUEZ [facility], 04/24/20 1029
--- NOTE | 2020-04-24 13:34 | PDOC ---
DATE OF SERVICE DATE: 04/24/20 TIME: 13:27 SUBJECTIVE ROS Remains intubated,on pressor OBJECTIVE Vital Signs Vital Signs Date Time Temp Pulse Resp B/P (MAP) Pulse Ox O2 Delivery O2 Flow Rate FiO2 04/24/20 13:00 80 28 97/58 (71) 99 Ventilator 04/24/20 12:00 98.3 98.3 I & 0 Intake and Output 04/24/20 07:00 Intake Total 1599 ml Output Total 50 ml Balance 1549 ml IV Total 943 ml Other 656 ml Output Urine Total 50 ml Gastric Drainage Total 0 ml PHYSICAL EXAM Physical Exam General:Intubated HEENT: Intubated Neck Supple Heart: RRR Lungs CTA ant Abdomen: Normal bowel sounds, Soft, Extremities: mottling /Cyanosis of fingers and toes + Neuro: sedated, intubated tineo + DIAGNOSIS/ASSESSMENT Assessment & Plan SYL - Vasomotor, hypotension POA , CoVid + Worsening renal function,anuric , HD every day since 04/19 , hold today, no emergent indication HyperKalemia- mild Hyper Phos- 2/2 Syl Acidosis- resolved COVID-19 infection - remdesivir, Abx . Steroid completed Sepsis/ Bacteremia, 2/8 bottles present on admission with gram-positive cocci in clusters. likely contaminant per ID Acute hypoxic respiratory failure. currently intubated , was on O2 at presentation Anemia - Hgb decreasing Status post permanent pacemaker. Abnormal AST. Diabetes. Hypertension BPs low, on low dose pressor COMMENT/RELEVANT DATA Meds Current Medications Medications (Trade) Dose Ordered Sig/Damion Start Time Stop Time Status Last Admin Dose Admin Acetaminophen (Tylenol) 500 mg 1X PRN PRN 04/22/20 09:45 04/23/20 09:44 DC Al Hydroxide/Mg Hydroxide (Mylanta Plus Xs) 30 ml PRN DAILY PRN 04/13/20 17:00 Albumin Human 200 ml @ 200 mls/hr 1X PRN PRN 04/23/20 07:45 04/23/20 13:44 DC Albuterol Sulfate (Ventolin Hfa) 1 puff PRN Q4HRS PRN 04/15/20 12:30 04/15/20 14:13 1 PUFF Albuterol Sulfate (Ventolin Neb Soln) 2.5 mg PRN Q4HRS PRN 04/13/20 17:00 Allopurinol (Zyloprim) 100 mg DAILY 04/14/20 13:00 04/24/20 07:43 100 MG Amiodarone HCl (Cordarone) 200 mg DAILY 04/22/20 09:00 04/24/20 07:43 200 MG Amiodarone HCl 450 mg/Dextrose 259 ml @ 0 mls/hr 1X ONCE 04/21/20 08:00 04/21/20 08:01 DC 04/21/20 08:08 16.7 MLS/HR Amiodarone HCl 75 mg/Dextrose 101.5 ml @ 618 mls/hr 1X ONCE 04/20/20 23:30 04/20/20 23:39 DC 04/20/20 23:40 618 MLS/HR Amlodipine Besylate (Norvasc) 10 mg DAILY 04/14/20 13:00 04/16/20 14:20 DC Aspirin (Aspirin Chewable) 81 mg [id number] 04/20/20 13:30 04/23/20 08:47 81 MG Atorvastatin Calcium (Lipitor) 40 mg HS 04/14/20 21:00 04/23/20 20:32 40 MG Atropine Sulfate (ATROPINE 0.5mg SYRINGE) 0.5 mg PRN Q5MIN PRN 04/16/20 07:00 Azithromycin 250 ml @ 250 mls/hr 1X ONCE 04/13/20 14:45 04/13/20 15:44 DC 04/13/20 16:40 250 MLS/HR Ceftriaxone Sodium (Rocephin) 1 gm Q24H 04/14/20 17:00 04/16/20 12:45 DC 04/15/20 17:28 1 GM Daptomycin 500 mg/ Sodium Chloride 50 ml @ 100 mls/hr Q48H 04/20/20 16:00 04/21/20 07:54 DC 04/20/20 16:28 100 MLS/HR Dexamethasone Sodium Phosphate (Decadron) 4 mg DAILY 04/24/20 09:00 04/23/20 09:49 DC Dexmedetomidine HCl 400 mcg/ Sodium Chloride 100 ml @ 0 mls/hr CONT PRN 04/16/20 07:00 04/24/20 12:12 23 MLS/HR Dextrose (Dextrose 50%-Water Syringe) 12.5 gm PRN Q15MIN PRN 04/18/20 14:15 1/9/21 23:58 12.5 GM Diphenhydramine HCl (Benadryl) 25 mg 1X PRN PRN 04/22/20 09:45 04/23/20 09:44 DC Docusate Sodium (Colace) 100 mg PRN BID PRN 04/13/20 17:00 Doxycycline Hyclate 100 mg/ Dextrose 100 ml @ 50 mls/hr Q12HR 04/13/20 21:00 04/21/20 07:54 DC 04/20/20 21:30 50 MLS/HR Enoxaparin Sodium (Lovenox 40mg Syringe) 40 mg BID 04/13/20 18:00 04/17/20 03:25 DC 04/16/20 20:49 40 MG Etomidate (Amidate) 12 mg 1X ONCE 04/16/20 08:15 04/16/20 08:16 DC 04/16/20 08:14 12 MG EZETIMIBE (Zetia) 10 mg HS 04/14/20 21:00 04/17/20 03:26 DC 04/16/20 20:47 10 MG Fenofibrate (Lofibra) 134 mg DAILY 04/14/20 13:00 04/24/20 07:42 134 MG Fentanyl Citrate 55 ml @ 0 mls/hr CONT PRN 04/23/20 14:12 04/23/20 19:09 2 MLS/HR Furosemide 100 mg/ Sodium Chloride 100 ml @ 5 mls/hr CONT PRN 04/16/20 14:30 04/19/20 10:28 DC 04/19/20 07:26 5 MLS/HR Glimepiride (Amaryl) 1 mg DAILY 04/14/20 13:00 04/22/20 07:24 DC 04/21/20 08:40 1 MG Guaifenesin (Robitussin) 200 mg PRN Q4HRS PRN 04/13/20 17:00 Haloperidol Lactate (Haldol Inj) 5 mg PRN Q6HRS PRN 04/15/20 17:45 04/15/20 18:10 5 MG Heparin Sodium (Porcine) (Heparin Sodium) 2,500 unit 1X ONCE 04/19/20 13:00 04/19/20 13:02 DC 04/19/20 13:00 2,500 UNIT Info (PHARMACY MONITORING -- do not chart) 1 each PRN DAILY PRN 04/23/20 07:45 04/23/20 07:46 DC Info (Tpn Per Pharmacy) 1 each PRN DAILY PRN 04/23/20 09:45 04/24/20 10:20 1 EACH Insulin Glargine (Lantus Syringe) 17 unit Q12HR 04/22/20 21:00 04/22/20 22:09 17 UNIT Insulin Human Lispro (HumaLOG) 0-9 UNITS Q6HRS 04/20/20 00:30 04/22/20 01:46 4 UNITS Insulin Human Regular (HumuLIN R VIAL) 5 unit 1X ONCE 04/19/20 11:45 04/19/20 11:46 UNV Lidocaine HCl (Buffered Lidocaine 1%) 3 ml 1X ONCE 04/19/20 12:15 04/19/20 12:16 DC 04/19/20 12:15 6 ML Lisinopril (Prinivil) 40 mg DAILY 04/14/20 13:00 04/16/20 14:20 DC 04/15/20 10:09 40 MG Lorazepam (Ativan Inj) 1 mg PRN Q2HRS PRN 04/15/20 22:45 04/16/20 06:40 1 MG Metoprolol Succinate (Toprol Xl) 25 mg HS 04/14/20 21:00 04/22/20 07:26 DC 04/14/20 21:14 25 MG Midazolam HCl 100 ml @ 1 mls/hr CONT PRN 04/16/20 07:45 04/24/20 02:06 10 MLS/HR Midazolam HCl (Versed) 5 mg 1X ONCE 04/16/20 07:30 04/16/20 07:31 DC 04/16/20 07:51 5 MG Morphine Sulfate (Morphine Sulfate) 2 mg PRN Q2HR PRN 04/15/20 22:45 04/20/20 05:22 DC 04/16/20 05:13 2 MG Norepinephrine Bitartrate 32 mg/ Dextrose 250 ml @ 5.114 mls/ hr CONT PRN 04/18/20 05:00 04/21/20 07:23 DC 04/20/20 10:21 10.228 MLS/HR Norepinephrine Bitartrate 8 mg/ Dextrose 258 ml @ 22.156 mls/ hr CONT PRN 04/21/20 07:30 04/24/20 04:50 6.647 MLS/HR Ondansetron HCl (Zofran) 4 mg PRN Q4HRS PRN 04/13/20 17:00 Pantoprazole Sodium (PROTONIX VIAL for IV PUSH) 40 mg DAILYAC 04/17/20 07:30 04/24/20 07:43 40 MG Pantoprazole Sodium (Protonix) 40 mg DAILYAC 04/14/20 13:00 04/16/20 11:39 DC 04/15/20 10:11 40 MG Piperacillin Sod/ Tazobactam Sod 2.25 gm/Sodium Chloride 50 ml @ 100 mls/hr Q8HRS 04/19/20 22:00 04/22/20 08:13 DC 04/22/20 05:47 100 MLS/HR Piperacillin Sod/ Tazobactam Sod 3.375 gm/Sodium Chloride 50 ml @ 100 mls/hr Q6HRS 04/16/20 13:30 04/19/20 15:18 DC 04/19/20 11:34 100 MLS/HR Remdesivir 100 mg/ Sodium Chloride 230 ml @ 460 mls/hr Q24H 04/16/20 14:00 04/19/20 14:29 DC 04/19/20 15:12 460 MLS/HR Remdesivir 200 mg/ Sodium Chloride 210 ml @ 210 mls/hr 1X ONCE 04/15/20 14:00 04/15/20 14:59 DC 04/15/20 16:25 210 MLS/HR Sodium Bicarbonate (Sodium Bicarb Adult 8.4% Syr) 100 meq 1X ONCE 04/19/20 09:30 04/19/20 09:31 DC 04/19/20 09:26 100 MEQ Sodium Chloride (Normal Saline Flush) 10 ml 1X PRN PRN 04/22/20 09:45 04/23/20 09:44 DC Sodium Chloride 90 meq/Calcium Gluconate 10 meq/ Multivitamins 5 ml/Zinc/Copper/ Manganese/ Selenium 1 ml/ Total Parenteral Nutrition/Amino Acids/Dextrose/ Fat Emulsion Intravenous 1,512 ml @ 63 mls/hr TPN CONT 04/24/20 22:00 04/25/20 21:59 Sodium Chloride 90 meq/Potassium Chloride 20 meq/ Magnesium Sulfate 4 meq/Calcium Gluconate 10 meq/ Multivitamins 5 ml/Zinc/Copper/ Manganese/ Selenium 1 ml/ Total Parenteral Nutrition/Amino Acids/Dextrose/ Fat Emulsion Intravenous 1,512 ml @ 63 mls/hr TPN CONT 04/23/20 22:00 04/24/20 21:59 04/23/20 21:56 63 MLS/HR Succinylcholine Chloride (Anectine) 100 mg 1X ONCE 04/16/20 08:15 04/16/20 08:16 DC 04/16/20 08:15 100 MG Ziprasidone (Geodon Im) 20 mg 1X ONCE 04/15/20 17:45 04/15/20 17:46 DC Lab Laboratory Tests Test 04/24/20 05:25 04/24/20 07:15 Sodium Level 135 mmol/L (136-145) Potassium Level 5.2 mmol/L (3.5-5.1) Chloride Level 100 mmol/L (98-107) Carbon Dioxide Level 24 mmol/L (21-32) Anion Gap 11 (6-14) Blood Urea Nitrogen 84 mg/dL (8-26) Creatinine 5.1 mg/dL (0.7-1.3) Estimated GFR (Cockcroft-Gault) 10.9 Glucose Level 122 mg/dL (70-99) Calcium Level 7.5 mg/dL (8.5-10.1) Phosphorus Level 7.5 mg/dL (2.6-4.7) Magnesium Level 2.6 mg/dL (1.8-2.4) O2 Saturation 91 % (92-99) Arterial Blood pH 7.34 (7.35-7.45) Arterial Blood pCO2 at Patient Temp 47 mmHg (35-46) Arterial Blood pO2 at Patient Temp 67 mmHg (65-108) Arterial Blood HCO3 25 mmol/L (21-28) Arterial Blood Base Excess -1 mmol/L (-3-3) FiO2 70/vent Results All relevant outside records, renal labs, imaging studies, telemetry/EKG's were reviewed. Justicifation of Admission Dx: Justifications for Admission: Justification of Admission Dx: Yes Comminuty Aquired Pneumonia: Hemodynamic Instability BLANCA MYRICK MD Apr 24, 2020 13:34
[2020-04-24] MEDS: DEXTROSE 50% 25 GM / 50ML DISP.SYRIN. IV PRN (17:38)
[2020-04-24] MEDS: ATORVASTATIN CALCIUM 40 MG TABLET. PO SCH (20:29)
[2020-04-24] MEDS ORDERED: DEXTROSE 70% IV SCH (22:00)
[2020-04-24] MEDS ORDERED: TOTAL PARENTERAL NUTRITION IV SCH (22:00)
[2020-04-24] MEDS ORDERED: [UNRECOGNIZED DRUG - OTHER] IV SCH (22:00)
[2020-04-24] MEDS ORDERED: AMINO ACID IV SCH (22:00)
[2020-04-24] MEDS: fentaNYL HIGH DOSE PCA 55 ML IV PRN (22:06)
[2020-04-25] VITALS (15 sets, daily range): BP systolic 53–132; BP diastolic 31–49
[2020-04-25] MEDS: DEXTROSE 50% 25 GM / 50ML DISP.SYRIN. IV PRN ×2 (00:06→06:25)
[2020-04-25] MEDS: MIDAZOLAM 100mg/100ml NS BAG 100 ML IV PRN (02:43)
[2020-04-25] MEDS: NOREPINEPHRINE VIAL 8 MG in IV DEXTROSE 5% 250 ML IV PRN (05:16)
[2020-04-25] MEDS: INSULIN LISPRO 300 UNITS/3 ML VIAL. SQ SCH ×3 (06:00→07:28)
[2020-04-25 06:49] LABS: BASO # 0.1 x10^3/uL (0.0-0.2); BASO % 0 % (0-3); EOS # 0.1 x10^3/uL (0.0-0.7); EOS % 0 % (0-3); HEMATOCRIT 35.8 % (39.0-53.0); HEMOGLOBIN 11.9 g/dL (13.0-17.5); LYMPH # 1.2 x10^3/uL (1.0-4.8); LYMPH % 4 % (24-48); MEAN CORPUSCULAR HEMOGLOBIN 32 pg (25-35); MEAN CORPUSCULAR HGB CONC 33 g/dL (31-37); MEAN CORPUSCULAR VOLUME 97 fL (79-100); MONO # 2.7 x10^3/uL (0.0-1.1); MONO % 9 % (0-9); NEUT # 26.7 x10^3/uL (1.8-7.7); NEUT % 87 % (31-73); PLATELET COUNT 108 x10^3/uL (140-400); RED BLOOD COUNT 3.69 x10^6/uL (4.30-5.70); RED CELL DISTRIBUTION WIDTH 15.2 % (11.5-14.5); WHITE BLOOD COUNT 30.8 x10^3/uL (4.0-11.0)
[2020-04-25 06:55] LABS: CALCIUM 7.6 mg/dL (8.5-10.1); CREATININE 6.9 mg/dL (0.7-1.3); GFR 7.7; MAGNESIUM 2.6 mg/dL (1.8-2.4); PHOSPHORUS 8.2 mg/dL (2.6-4.7); POTASSIUM 5.2 mmol/L (3.5-5.1)
--- NOTE | 2020-04-25 07:13 | PDOC ---
Infectious Disease Note Subjective: Subjective Intubated/sedated low grade fevers On Levophed Discussed with RN No diarrhea Vital Signs: Vital Signs Vital Signs Date Time Temp Pulse Resp B/P (MAP) Pulse Ox O2 Delivery O2 Flow Rate FiO2 04/25/20 06:00 80 28 129/45 (73) 93 Ventilator 04/25/20 04:00 98.8 98.8 Physical Exam: PHYSICAL EXAM GENERAL:Intubated,sedated HEENT: Normocephalic, atraumatic, anicteric.ETT/OGT + LUNGS: Decreased breath sounds at the bases, scattered rhonchi. HEART: S1, S2. No gallops or murmurs. PPM site looks clean. ABDOMEN: Soft, obese, nontender, nondistended. Aguilar in place EXTREMITIES: No edema, no cyanosis. DERMATOLOGIC: Warm, dry. No generalized rash. NEUROLOGIC: Alert and oriented x 3, grossly nonfocal. PSYCHIATRIC: Cooperative, appropriate mood and affect. Medications: Inpatient Meds: Current Medications Medications (Trade) Dose Ordered Sig/Damion Start Time Stop Time Status Last Admin Dose Admin Acetaminophen (Tylenol) 500 mg 1X PRN PRN 04/22/20 09:45 04/23/20 09:44 DC Al Hydroxide/Mg Hydroxide (Mylanta Plus Xs) 30 ml PRN DAILY PRN 04/13/20 17:00 Albumin Human 200 ml @ 200 mls/hr 1X PRN PRN 04/23/20 07:45 04/23/20 13:44 DC Albuterol Sulfate (Ventolin Hfa) 1 puff PRN Q4HRS PRN 04/15/20 12:30 04/15/20 14:13 1 PUFF Albuterol Sulfate (Ventolin Neb Soln) 2.5 mg PRN Q4HRS PRN 04/13/20 17:00 Allopurinol (Zyloprim) 100 mg DAILY 04/14/20 13:00 04/24/20 07:43 100 MG Amiodarone HCl (Cordarone) 200 mg DAILY 04/22/20 09:00 04/24/20 07:43 200 MG Amiodarone HCl 450 mg/Dextrose 259 ml @ 0 mls/hr 1X ONCE 04/21/20 08:00 04/21/20 08:01 DC 04/21/20 08:08 16.7 MLS/HR Amiodarone HCl 75 mg/Dextrose 101.5 ml @ 618 mls/hr 1X ONCE 04/20/20 23:30 04/20/20 23:39 DC 04/20/20 23:40 618 MLS/HR Amlodipine Besylate (Norvasc) 10 mg DAILY 04/14/20 13:00 04/16/20 14:20 DC Aspirin (Aspirin Chewable) 81 mg [id number] 04/20/20 13:30 04/23/20 08:47 81 MG Atorvastatin Calcium (Lipitor) 40 mg HS 04/14/20 21:00 04/24/20 20:29 40 MG Atropine Sulfate (ATROPINE 0.5mg SYRINGE) 0.5 mg PRN Q5MIN PRN 04/16/20 07:00 Azithromycin 250 ml @ 250 mls/hr 1X ONCE 04/13/20 14:45 04/13/20 15:44 DC 04/13/20 16:40 250 MLS/HR Ceftriaxone Sodium (Rocephin) 1 gm Q24H 04/14/20 17:00 04/16/20 12:45 DC 04/15/20 17:28 1 GM Daptomycin 500 mg/ Sodium Chloride 50 ml @ 100 mls/hr Q48H 04/20/20 16:00 04/21/20 07:54 DC 04/20/20 16:28 100 MLS/HR Dexamethasone Sodium Phosphate (Decadron) 4 mg DAILY 04/24/20 09:00 04/23/20 09:49 DC Dexmedetomidine HCl 400 mcg/ Sodium Chloride 100 ml @ 0 mls/hr CONT PRN 04/16/20 07:00 04/24/20 22:50 23 MLS/HR Dextrose (Dextrose 50%-Water Syringe) 12.5 gm PRN Q15MIN PRN 04/18/20 14:15 04/25/20 06:25 25 GM Diphenhydramine HCl (Benadryl) 25 mg 1X PRN PRN 04/22/20 09:45 04/23/20 09:44 DC Docusate Sodium (Colace) 100 mg PRN BID PRN 04/13/20 17:00 Doxycycline Hyclate 100 mg/ Dextrose 100 ml @ 50 mls/hr Q12HR 04/13/20 21:00 04/21/20 07:54 DC 04/20/20 21:30 50 MLS/HR Enoxaparin Sodium (Lovenox 40mg Syringe) 40 mg BID 04/13/20 18:00 04/17/20 03:25 DC 04/16/20 20:49 40 MG Etomidate (Amidate) 12 mg 1X ONCE 04/16/20 08:15 04/16/20 08:16 DC 04/16/20 08:14 12 MG EZETIMIBE (Zetia) 10 mg HS 04/14/20 21:00 04/17/20 03:26 DC 04/16/20 20:47 10 MG Fenofibrate (Lofibra) 134 mg DAILY 04/14/20 13:00 04/24/20 07:42 134 MG Fentanyl Citrate 55 ml @ 0 mls/hr CONT PRN 04/23/20 14:12 04/24/20 22:06 2 MLS/HR Furosemide 100 mg/ Sodium Chloride 100 ml @ 5 mls/hr CONT PRN 04/16/20 14:30 04/19/20 10:28 DC 04/19/20 07:26 5 MLS/HR Glimepiride (Amaryl) 1 mg DAILY 04/14/20 13:00 04/22/20 07:24 DC 04/21/20 08:40 1 MG Guaifenesin (Robitussin) 200 mg PRN Q4HRS PRN 04/13/20 17:00 Haloperidol Lactate (Haldol Inj) 5 mg PRN Q6HRS PRN 04/15/20 17:45 04/15/20 18:10 5 MG Heparin Sodium (Porcine) (Heparin Sodium) 2,500 unit 1X ONCE 04/19/20 13:00 04/19/20 13:02 DC 04/19/20 13:00 2,500 UNIT Info (PHARMACY MONITORING -- do not chart) 1 each PRN DAILY PRN 04/23/20 07:45 04/23/20 07:46 DC Info (Tpn Per Pharmacy) 1 each PRN DAILY PRN 04/23/20 09:45 04/24/20 10:20 1 EACH Insulin Glargine (Lantus Syringe) 17 unit Q12HR 04/22/20 21:00 04/22/20 22:09 17 UNIT Insulin Human Lispro (HumaLOG) 0-9 UNITS Q6HRS 04/20/20 00:30 04/22/20 01:46 4 UNITS Insulin Human Regular (HumuLIN R VIAL) 5 unit 1X ONCE 04/19/20 11:45 04/19/20 11:46 UNV Lidocaine HCl (Buffered Lidocaine 1%) 3 ml 1X ONCE 04/19/20 12:15 04/19/20 12:16 DC 04/19/20 12:15 6 ML Lisinopril (Prinivil) 40 mg DAILY 04/14/20 13:00 04/16/20 14:20 DC 04/15/20 10:09 40 MG Lorazepam (Ativan Inj) 1 mg PRN Q2HRS PRN 04/15/20 22:45 04/16/20 06:40 1 MG Metoprolol Succinate (Toprol Xl) 25 mg HS 04/14/20 21:00 04/22/20 07:26 DC 04/14/20 21:14 25 MG Midazolam HCl 100 ml @ 1 mls/hr CONT PRN 04/16/20 07:45 04/25/20 02:43 8 MLS/HR Midazolam HCl (Versed) 5 mg 1X ONCE 04/16/20 07:30 04/16/20 07:31 DC 04/16/20 07:51 5 MG Morphine Sulfate (Morphine Sulfate) 2 mg PRN Q2HR PRN 04/15/20 22:45 04/20/20 05:22 DC 04/16/20 05:13 2 MG Norepinephrine Bitartrate 32 mg/ Dextrose 250 ml @ 5.114 mls/ hr CONT PRN 04/18/20 05:00 04/21/20 07:23 DC 04/20/20 10:21 10.228 MLS/HR Norepinephrine Bitartrate 8 mg/ Dextrose 258 ml @ 22.156 mls/ hr CONT PRN 04/21/20 07:30 04/25/20 05:16 31.018 MLS/HR Ondansetron HCl (Zofran) 4 mg PRN Q4HRS PRN 04/13/20 17:00 Pantoprazole Sodium (PROTONIX VIAL for IV PUSH) 40 mg DAILYAC 04/17/20 07:30 04/24/20 07:43 40 MG Pantoprazole Sodium (Protonix) 40 mg DAILYAC 04/14/20 13:00 04/16/20 11:39 DC 04/15/20 10:11 40 MG Piperacillin Sod/ Tazobactam Sod 2.25 gm/Sodium Chloride 50 ml @ 100 mls/hr Q8HRS 04/19/20 22:00 04/22/20 08:13 DC 04/22/20 05:47 100 MLS/HR Piperacillin Sod/ Tazobactam Sod 3.375 gm/Sodium Chloride 50 ml @ 100 mls/hr Q6HRS 04/16/20 13:30 04/19/20 15:18 DC 04/19/20 11:34 100 MLS/HR Remdesivir 100 mg/ Sodium Chloride 230 ml @ 460 mls/hr Q24H 04/16/20 14:00 04/19/20 14:29 DC 04/19/20 15:12 460 MLS/HR Remdesivir 200 mg/ Sodium Chloride 210 ml @ 210 mls/hr 1X ONCE 04/15/20 14:00 04/15/20 14:59 DC 04/15/20 16:25 210 MLS/HR Sodium Bicarbonate (Sodium Bicarb Adult 8.4% Syr) 100 meq 1X ONCE 04/19/20 09:30 04/19/20 09:31 DC 04/19/20 09:26 100 MEQ Sodium Chloride (Normal Saline Flush) 10 ml 1X PRN PRN 04/22/20 09:45 04/23/20 09:44 DC Sodium Chloride 90 meq/Calcium Gluconate 10 meq/ Multivitamins 5 ml/Zinc/Copper/ Manganese/ Selenium 1 ml/ Total Parenteral Nutrition/Amino Acids/Dextrose/ Fat Emulsion Intravenous 1,512 ml @ 63 mls/hr TPN CONT 04/24/20 22:00 04/25/20 21:59 04/24/20 22:04 63 MLS/HR Sodium Chloride 90 meq/Potassium Chloride 20 meq/ Magnesium Sulfate 4 meq/Calcium Gluconate 10 meq/ Multivitamins 5 ml/Zinc/Copper/ Manganese/ Selenium 1 ml/ Total Parenteral Nutrition/Amino Acids/Dextrose/ Fat Emulsion Intravenous 1,512 ml @ 63 mls/hr TPN CONT 04/23/20 22:00 04/24/20 21:59 DC 04/23/20 21:56 63 MLS/HR Succinylcholine Chloride (Anectine) 100 mg 1X ONCE 04/16/20 08:15 04/16/20 08:16 DC 04/16/20 08:15 100 MG Ziprasidone (Geodon Im) 20 mg 1X ONCE 04/15/20 17:45 04/15/20 17:46 DC Labs: Lab Laboratory Tests Test 04/24/20 07:15 04/25/20 05:55 O2 Saturation 91 % (92-99) Arterial Blood pH 7.34 (7.35-7.45) Arterial Blood pCO2 at Patient Temp 47 mmHg (35-46) Arterial Blood pO2 at Patient Temp 67 mmHg (65-108) Arterial Blood HCO3 25 mmol/L (21-28) Arterial Blood Base Excess -1 mmol/L (-3-3) FiO2 70/vent White Blood Count 30.8 x10^3/uL (4.0-11.0) Red Blood Count 3.69 x10^6/uL (4.30-5.70) Hemoglobin 11.9 g/dL (13.0-17.5) Hematocrit 35.8 % (39.0-53.0) Mean Corpuscular Volume 97 fL (79-100) Mean Corpuscular Hemoglobin 32 pg (25-35) Mean Corpuscular Hemoglobin Concent 33 g/dL (31-37) Red Cell Distribution Width 15.2 % (11.5-14.5) Platelet Count 108 x10^3/uL (140-400) Neutrophils (%) (Auto) 87 % (31-73) Lymphocytes (%) (Auto) 4 % (24-48) Monocytes (%) (Auto) 9 % (0-9) Eosinophils (%) (Auto) 0 % (0-3) Basophils (%) (Auto) 0 % (0-3) Neutrophils # (Auto) 26.7 x10^3/uL (1.8-7.7) Lymphocytes # (Auto) 1.2 x10^3/uL (1.0-4.8) Monocytes # (Auto) 2.7 x10^3/uL (0.0-1.1) Eosinophils # (Auto) 0.1 x10^3/uL (0.0-0.7) Basophils # (Auto) 0.1 x10^3/uL (0.0-0.2) Sodium Level 135 mmol/L (136-145) Potassium Level 5.2 mmol/L (3.5-5.1) Chloride Level 97 mmol/L (98-107) Carbon Dioxide Level 24 mmol/L (21-32) Anion Gap 14 (6-14) Blood Urea Nitrogen 120 mg/dL (8-26) Creatinine 6.9 mg/dL (0.7-1.3) Estimated GFR (Cockcroft-Gault) 7.7 Glucose Level 44 mg/dL (70-99) Calcium Level 7.6 mg/dL (8.5-10.1) Phosphorus Level 8.2 mg/dL (2.6-4.7) Magnesium Level 2.6 mg/dL (1.8-2.4) Objective: Assessment: 1. Fever. 2. COVID-19 infection. 3. Sepsis. 4. Bacteremia, 2/8 bottles present on admission with gram-positive cocci in clusters.Co N staph likely contaminant 5. Acute hypoxic respiratory failure.s/p intubation 6. Acute kidney injury.now on HD 7. Status post permanent pacemaker. 8. Abnormal AST. 9.Thrombocytopenia,Anemia 10. Leucocytosis Plan: Plan of Care Cont supportive care Blood culture UA and urine culture Merrem April 25, was on Zosyn if has diarrhea check c diff s/p steroids, remdesivir Follow up labs and cultures. Critically ill Prognosis very poor Discussed with SUSHIL. EDSON MORENO MD Apr 25, 2020 07:13
[2020-04-25] MEDS: INSULIN GLARGINE SYRINGE. SQ SCH (07:28)
[2020-04-25] MEDS: DEXMEDETOMIDINE 400 MCG in IV NORMAL SALINE 100ML 96 ML IV PRN (07:34)
--- NOTE | 2020-04-25 07:36 | RAD ---
XR CHEST 1V INDICATION: Reason: Vent ICU#110 / Spl. Instructions: / History: . COMPARISON STUDY: 04/23/2020. FINDINGS: Life Support Devices: Stable endotracheal tube, enteric tube, right IJ central venous catheter, right IJ dual-lumen catheter. Right pectoral pacemaker. Lungs: Normal lung volume. Bilateral perihilar and basilar opacities, increased in the right base. Pleura: Stable pleural spaces. Heart and Mediastinum: Stable cardiomediastinal silhouette and great vessels. Bones and Soft Tissues: Stable regional skeleton and soft tissues. IMPRESSION: 1. Stable life support devices. 2. Bilateral perihilar and basilar opacities, increased in the right base. Electronically signed by: Chavo Santamaria MD (04/25/2020 7:24 AM) [id number]
[2020-04-25] MEDS ORDERED: DIALYSIS PATIENT. MC PRN ×2 (07:45)
[2020-04-25] MEDS ORDERED: IV NORMAL SALINE 1000ML BAG 1,000 ML IV PRN ×2 (07:45)
[2020-04-25] MEDS ORDERED: ALBUMIN HUMAN 25% 200 ML IV PRN (07:45)
[2020-04-25] MEDS: ASPIRIN CHEWABLE 81 MG TABLET. PO SCH (08:00)
[2020-04-25 08:17] LABS: BASE EXCESS ABG -6 mmol/L (-3-3); HCO3 ABG 22 mmol/L (21-28); PCO2 ABG 54 mmHg (35-46); PO2 ABG 54 mmHg (65-108); SAT O2 ABG 83 % (92-99)
[2020-04-25 08:19] LABS: FIO2 ABG 70
[2020-04-25] MEDS: PANTOPRAZOLE IV PUSH 40 MG VIAL. IVP SCH (08:41)
[2020-04-25] MEDS ORDERED: MEROPENEM 500 MG in IV NORMAL SALINE 50ML 50 ML IV SCH (09:00)
[2020-04-25] MEDS: AMIODARONE HCL 200 MG TABLET. PO SCH (09:00)
[2020-04-25 09:50] LABS: % EOS 1 % (0-5); % LYMPHS 1 % (24-48); % METAS 3 % (0-0); % MONOS 10 % (0-10); % MYELOS 1 % (0-0); % SEGS 84 % (35-66)
[2020-04-25 09:51] LABS: ANISOCYTOSIS PRESENT; PLT ESTIMATE DECREASED (ADEQUATE)
--- NOTE | 2020-04-25 09:57 | PDOC ---
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 On TPN. Vital Signs: Vital Signs Date Time Temp Pulse Resp B/P (MAP) Pulse Ox O2 Delivery O2 Flow Rate FiO2 04/25/20 08:00 79 28 104/43 (63) 90 Ventilator 04/25/20 07:00 98.7 98.7 Labs: Laboratory Tests Test 04/25/20 05:55 04/25/20 07:50 White Blood Count 30.8 x10^3/uL Red Blood Count 3.69 x10^6/uL Hemoglobin 11.9 g/dL Hematocrit 35.8 % Mean Corpuscular Volume 97 fL Mean Corpuscular Hemoglobin 32 pg Mean Corpuscular Hemoglobin Concent 33 g/dL Red Cell Distribution Width 15.2 % Platelet Count 108 x10^3/uL Neutrophils (%) (Auto) 87 % Lymphocytes (%) (Auto) 4 % Monocytes (%) (Auto) 9 % Eosinophils (%) (Auto) 0 % Basophils (%) (Auto) 0 % Neutrophils # (Auto) 26.7 x10^3/uL Lymphocytes # (Auto) 1.2 x10^3/uL Monocytes # (Auto) 2.7 x10^3/uL Eosinophils # (Auto) 0.1 x10^3/uL Basophils # (Auto) 0.1 x10^3/uL Segmented Neutrophils % 84 % Lymphocytes % 1 % Monocytes % 10 % Eosinophils % 1 % Metamyelocytes % 3 % Myelocytes % 1 % Platelet Estimate Decreased Large Platelets Occ Anisocytosis Present Sodium Level 135 mmol/L Potassium Level 5.2 mmol/L Chloride Level 97 mmol/L Carbon Dioxide Level 24 mmol/L Anion Gap 14 Blood Urea Nitrogen 120 mg/dL Creatinine 6.9 mg/dL Estimated GFR (Cockcroft-Gault) 7.7 Glucose Level 44 mg/dL Calcium Level 7.6 mg/dL Phosphorus Level 8.2 mg/dL Magnesium Level 2.6 mg/dL O2 Saturation 83 % Arterial Blood pH 7.23 Arterial Blood pCO2 at Patient Temp 54 mmHg Arterial Blood pO2 at Patient Temp 54 mmHg Arterial Blood HCO3 22 mmol/L Arterial Blood Base Excess -6 mmol/L FiO2 70 Imaging: CXR 04/25 IMPRESSION: 1. Stable life support devices. 2. Bilateral perihilar and basilar opacities, increased in the right base. PE: GEN: in COVID isolation, dialyzing - visual exam done HEENT: OG looks dark LUNGS: vent HEART: RR ABD: non-distended NEURO/PSYCH: sedated A/P: COVID-19 infection - resp failure, MEJIA ?blood in OG, anemia - slight drift in Hgb, Cr and BUN worse -- Continue IV acid-occupational health specialist, observe. Justicifation of Admission Dx: Justifications for Admission: Justification of Admission Dx: Yes Comminuty Aquired Pneumonia: Hemodynamic Instability TERRIE CUNNINGHAM Apr 25, 2020 09:57
--- NOTE | 2020-04-25 10:38 | PDOC ---
PULMONARY PROGRESS NOTES DATE: 04/25/20 TIME: 10:22 Subjective Patient remains on vent support, 70% and a PEEP of 7 worsening acidosis, despite AC rate of 28 Continues to have hypotension on vasopressors Vitals Vital Signs Date Time Temp Pulse Resp B/P (MAP) Pulse Ox O2 Delivery O2 Flow Rate FiO2 04/25/20 08:00 79 28 104/43 (63) 90 Ventilator 04/25/20 07:00 98.7 98.7 Comments Pt. seen during , visual exam preformed intubated RRR no edema/rash no accessory muscle use Labs Laboratory Tests Test 04/23/20 11:10 04/24/20 05:25 04/24/20 07:15 04/25/20 05:55 White Blood Count 26.8 x10^3/uL (4.0-11.0) 30.8 x10^3/uL (4.0-11.0) Red Blood Count 3.77 x10^6/uL (4.30-5.70) 3.69 x10^6/uL (4.30-5.70) Hemoglobin 12.0 g/dL (13.0-17.5) 11.9 g/dL (13.0-17.5) Hematocrit 36.2 % (39.0-53.0) 35.8 % (39.0-53.0) Mean Corpuscular Volume 96 fL (79-100) 97 fL (79-100) Mean Corpuscular Hemoglobin 32 pg (25-35) 32 pg (25-35) Mean Corpuscular Hemoglobin Concent 33 g/dL (31-37) 33 g/dL (31-37) Red Cell Distribution Width 14.7 % (11.5-14.5) 15.2 % (11.5-14.5) Platelet Count 111 x10^3/uL (140-400) 108 x10^3/uL (140-400) Neutrophils (%) (Auto) 93 % (31-73) 87 % (31-73) Lymphocytes (%) (Auto) 1 % (24-48) 4 % (24-48) Monocytes (%) (Auto) 5 % (0-9) 9 % (0-9) Eosinophils (%) (Auto) 0 % (0-3) 0 % (0-3) Basophils (%) (Auto) 1 % (0-3) 0 % (0-3) Neutrophils # (Auto) 24.8 x10^3/uL (1.8-7.7) 26.7 x10^3/uL (1.8-7.7) Lymphocytes # (Auto) 0.4 x10^3/uL (1.0-4.8) 1.2 x10^3/uL (1.0-4.8) Monocytes # (Auto) 1.4 x10^3/uL (0.0-1.1) 2.7 x10^3/uL (0.0-1.1) Eosinophils # (Auto) 0.0 x10^3/uL (0.0-0.7) 0.1 x10^3/uL (0.0-0.7) Basophils # (Auto) 0.2 x10^3/uL (0.0-0.2) 0.1 x10^3/uL (0.0-0.2) Sodium Level 135 mmol/L (136-145) 135 mmol/L (136-145) Potassium Level 5.2 mmol/L (3.5-5.1) 5.2 mmol/L (3.5-5.1) Chloride Level 100 mmol/L (98-107) 97 mmol/L (98-107) Carbon Dioxide Level 24 mmol/L (21-32) 24 mmol/L (21-32) Anion Gap 11 (6-14) 14 (6-14) Blood Urea Nitrogen 84 mg/dL (8-26) 120 mg/dL (8-26) Creatinine 5.1 mg/dL (0.7-1.3) 6.9 mg/dL (0.7-1.3) Estimated GFR (Cockcroft-Gault) 10.9 7.7 Glucose Level 122 mg/dL (70-99) 44 mg/dL (70-99) Calcium Level 7.5 mg/dL (8.5-10.1) 7.6 mg/dL (8.5-10.1) Phosphorus Level 7.5 mg/dL (2.6-4.7) 8.2 mg/dL (2.6-4.7) Magnesium Level 2.6 mg/dL (1.8-2.4) 2.6 mg/dL (1.8-2.4) O2 Saturation 91 % (92-99) Arterial Blood pH 7.34 (7.35-7.45) Arterial Blood pCO2 at Patient Temp 47 mmHg (35-46) Arterial Blood pO2 at Patient Temp 67 mmHg (65-108) Arterial Blood HCO3 25 mmol/L (21-28) Arterial Blood Base Excess -1 mmol/L (-3-3) FiO2 70/vent Segmented Neutrophils % 84 % (35-66) Lymphocytes % 1 % (24-48) Monocytes % 10 % (0-10) Eosinophils % 1 % (0-5) Metamyelocytes % 3 % (0-0) Myelocytes % 1 % (0-0) Platelet Estimate Decreased (ADEQUATE) Large Platelets Occ Anisocytosis Present Triglycerides Level 97 mg/dL (0-150) Test 04/25/20 07:50 O2 Saturation 83 % (92-99) Arterial Blood pH 7.23 (7.35-7.45) Arterial Blood pCO2 at Patient Temp 54 mmHg (35-46) Arterial Blood pO2 at Patient Temp 54 mmHg (65-108) Arterial Blood HCO3 22 mmol/L (21-28) Arterial Blood Base Excess -6 mmol/L (-3-3) FiO2 70 Laboratory Tests Test 04/25/20 05:55 04/25/20 07:50 White Blood Count 30.8 x10^3/uL (4.0-11.0) Red Blood Count 3.69 x10^6/uL (4.30-5.70) Hemoglobin 11.9 g/dL (13.0-17.5) Hematocrit 35.8 % (39.0-53.0) Mean Corpuscular Volume 97 fL (79-100) Mean Corpuscular Hemoglobin 32 pg (25-35) Mean Corpuscular Hemoglobin Concent 33 g/dL (31-37) Red Cell Distribution Width 15.2 % (11.5-14.5) Platelet Count 108 x10^3/uL (140-400) Neutrophils (%) (Auto) 87 % (31-73) Lymphocytes (%) (Auto) 4 % (24-48) Monocytes (%) (Auto) 9 % (0-9) Eosinophils (%) (Auto) 0 % (0-3) Basophils (%) (Auto) 0 % (0-3) Neutrophils # (Auto) 26.7 x10^3/uL (1.8-7.7) Lymphocytes # (Auto) 1.2 x10^3/uL (1.0-4.8) Monocytes # (Auto) 2.7 x10^3/uL (0.0-1.1) Eosinophils # (Auto) 0.1 x10^3/uL (0.0-0.7) Basophils # (Auto) 0.1 x10^3/uL (0.0-0.2) Segmented Neutrophils % 84 % (35-66) Lymphocytes % 1 % (24-48) Monocytes % 10 % (0-10) Eosinophils % 1 % (0-5) Metamyelocytes % 3 % (0-0) Myelocytes % 1 % (0-0) Platelet Estimate Decreased (ADEQUATE) Large Platelets Occ Anisocytosis Present Sodium Level 135 mmol/L (136-145) Potassium Level 5.2 mmol/L (3.5-5.1) Chloride Level 97 mmol/L (98-107) Carbon Dioxide Level 24 mmol/L (21-32) Anion Gap 14 (6-14) Blood Urea Nitrogen 120 mg/dL (8-26) Creatinine 6.9 mg/dL (0.7-1.3) Estimated GFR (Cockcroft-Gault) 7.7 Glucose Level 44 mg/dL (70-99) Calcium Level 7.6 mg/dL (8.5-10.1) Phosphorus Level 8.2 mg/dL (2.6-4.7) Magnesium Level 2.6 mg/dL (1.8-2.4) Triglycerides Level 97 mg/dL (0-150) O2 Saturation 83 % (92-99) Arterial Blood pH 7.23 (7.35-7.45) Arterial Blood pCO2 at Patient Temp 54 mmHg (35-46) Arterial Blood pO2 at Patient Temp 54 mmHg (65-108) Arterial Blood HCO3 22 mmol/L (21-28) Arterial Blood Base Excess -6 mmol/L (-3-3) FiO2 70 Medications Active Scripts Medications Dose Route/Sig Max Daily Dose Days Date Category Glimepiride 1 Mg Tablet 1 Tab PO DAILY 04/14/20 Reported Metoprolol Succinate ( Xl ) (Metoprolol Succinate) 100 Mg Tab.er.24h 1 Tab PO DAILY 04/14/20 Reported Zetia (Ezetimibe) 10 Mg Tablet 1 Tab PO HS 30 04/14/20 Reported Fenofibrate 160 Mg Tablet 1 Tab PO DAILY 04/14/20 Reported Atorvastatin Calcium 40 Mg Tablet 1 Tab PO HS 04/14/20 Reported Amlodipine Besylate 10 Mg Tablet 1 Tab PO DAILY 04/14/20 Reported Omeprazole 20 Mg Capsule.dr 1 Cap PO DAILY 04/14/20 Reported Mexiletine Hcl 150 Mg Capsule 150 Mg PO Q8HRS 04/13/20 Reported Toprol Xl (Metoprolol Succinate) 25 Mg Tab.er.24h 1 Tab PO HS 30 04/13/20 Reported Accupril (Quinapril Hcl) 40 Mg Tablet 1 Tab PO DAILY 04/13/20 Reported Allopurinol 100 Mg Tablet 1 Tab PO DAILY 04/13/20 Reported Comments CXR 04/25 IMPRESSION: 1. Stable life support devices. 2. Bilateral perihilar and basilar opacities, increased in the right base. Impression . IMPRESSION: 1. Acute hypoxemic respiratory failure, COVID-19 viral pneumonia./ worsening acidosis despite AC rate of 28 2. shock, on levo, necrotic toes 3. Abnormal x-ray. 4. Acute exacerbation of chronic obstructive pulmonary disease. 5. Tobacco dependence, in remission, quit in 1985. 6. Diabetes. 7. Hypertension. 8. Morbid obesity. 9. Sars-Cov 2 Pos 10. MEJIA, , on HD Plan . PLAN: Continue current vent support on 70% and PEEP 7, continues to get worse. Follow CXR/ABG, no changes off steroids completed full 10 day course COVID-19 positive, isolation precautions Continue vasopressors to Keep MAP above 65-- remains on levo Has completed full 5 day course of remdesivir Follow ID recs for ABX:off ABX at this time -- monitor CBC Follow cultures:Bacteremia, 2/8 bottles present on admission with gram-positive cocci in clusters.Co N staph likely contaminant Follow nephrology recs--on HD Follow GI recs -- Continue TPN for nutritional support DVT/GI PPX D/W RN and RT D/W , she understands his overall poor prognosis and decline despite aggressive care. she is agreeable to allow natural / comfort care Critical Care time 35 min YESICA SOLITARIO MD Apr 25, 2020 10:38
--- NOTE | 2020-04-25 10:48 | NUR ---
SS following up with discharge planning. SS reviewed pt chart and discussed with pt RN. Pt is on the vent at 70%. COVID19 positive. Dr. Lares discussed with family and decision was made to withdraw care today. Pt to be extubated. Comfort care measures ordered. SS will continue to follow as needed.
--- NOTE | 2020-04-25 11:27 | PDOC ---
Renal-Progress Notes Subjective Notes Notes ON THE VENT History of Present Illness Hx of present illness NOT ANY BETTER Vitals Vitals Vital Signs Date Time Temp Pulse Resp B/P (MAP) Pulse Ox O2 Delivery O2 Flow Rate FiO2 04/25/20 11:01 91 Ventilator 04/25/20 11:00 91 32 68/36 (47) 04/25/20 07:00 98.7 98.7 Weight Weight [ ] I.O. Intake and Output Intake and Output 04/25/20 07:00 Intake Total 3444.2 ml Output Total 70 ml Balance 3374.2 ml IV Total 2113.2 ml Other 1331 ml Output Urine Total 70 ml Labs Labs Laboratory Tests Test 04/25/20 05:55 04/25/20 07:50 White Blood Count 30.8 x10^3/uL (4.0-11.0) Red Blood Count 3.69 x10^6/uL (4.30-5.70) Hemoglobin 11.9 g/dL (13.0-17.5) Hematocrit 35.8 % (39.0-53.0) Mean Corpuscular Volume 97 fL (79-100) Mean Corpuscular Hemoglobin 32 pg (25-35) Mean Corpuscular Hemoglobin Concent 33 g/dL (31-37) Red Cell Distribution Width 15.2 % (11.5-14.5) Platelet Count 108 x10^3/uL (140-400) Neutrophils (%) (Auto) 87 % (31-73) Lymphocytes (%) (Auto) 4 % (24-48) Monocytes (%) (Auto) 9 % (0-9) Eosinophils (%) (Auto) 0 % (0-3) Basophils (%) (Auto) 0 % (0-3) Neutrophils # (Auto) 26.7 x10^3/uL (1.8-7.7) Lymphocytes # (Auto) 1.2 x10^3/uL (1.0-4.8) Monocytes # (Auto) 2.7 x10^3/uL (0.0-1.1) Eosinophils # (Auto) 0.1 x10^3/uL (0.0-0.7) Basophils # (Auto) 0.1 x10^3/uL (0.0-0.2) Segmented Neutrophils % 84 % (35-66) Lymphocytes % 1 % (24-48) Monocytes % 10 % (0-10) Eosinophils % 1 % (0-5) Metamyelocytes % 3 % (0-0) Myelocytes % 1 % (0-0) Platelet Estimate Decreased (ADEQUATE) Large Platelets Occ Anisocytosis Present Sodium Level 135 mmol/L (136-145) Potassium Level 5.2 mmol/L (3.5-5.1) Chloride Level 97 mmol/L (98-107) Carbon Dioxide Level 24 mmol/L (21-32) Anion Gap 14 (6-14) Blood Urea Nitrogen 120 mg/dL (8-26) Creatinine 6.9 mg/dL (0.7-1.3) Estimated GFR (Cockcroft-Gault) 7.7 Glucose Level 44 mg/dL (70-99) Calcium Level 7.6 mg/dL (8.5-10.1) Phosphorus Level 8.2 mg/dL (2.6-4.7) Magnesium Level 2.6 mg/dL (1.8-2.4) Triglycerides Level 97 mg/dL (0-150) O2 Saturation 83 % (92-99) Arterial Blood pH 7.23 (7.35-7.45) Arterial Blood pCO2 at Patient Temp 54 mmHg (35-46) Arterial Blood pO2 at Patient Temp 54 mmHg (65-108) Arterial Blood HCO3 22 mmol/L (21-28) Arterial Blood Base Excess -6 mmol/L (-3-3) FiO2 70 Micro Micro Microbiology 04/17/20 Blood Culture - Final, Complete NO GROWTH AFTER 5 DAYS Review of Systems Constitutional: yes: unresponsive Physical Exam General Appearance: other (COVID PRECAUTIONS-VISUAL EXAM. NO ACUTE CHANGES) Neurology: other (sedated) Assessment Assessment IMP MEJIA-ATN ACUTE RESP FAILURE SHOCK HYPOTENSION PLAN VENT SUPPORT HD TODAY UF TOLERATED FAMILY CONSIDERING WITHDRAWAL OF CARE WILL FOLLOW NEEDED PENNIE SENA MD Apr 25, 2020 11:27
--- NOTE | 2020-04-25 11:30 | NUR ---
Dr. Ortiz spoke with family regarding plan of care for patient. Patient's , Annie, agreed to withdrawing care and did not want to come see him prior to extubation. Extubated patient at 1105, patient at 1114, notified patient's [place] [facility] [place] will be sent down with the patient to the [facility] [place]. Not a candidate per [facility]. Physicians notified of time of .
--- NOTE | 2020-04-25 11:41 | DS ---
DATE OF DISCHARGE: 04/25/2020 SUMMARY ADMISSION DIAGNOSIS: COVID-19 respiratory failure. CAUSE OF : COVID-19 and prior history of pacemaker, obesity, chronic kidney disease, diabetes, hypertension, nephrosclerosis. CONSULTATIONS: GI, Cardiology, Pulmonary Medicine, Infectious Disease and Nephrology. HOSPITAL COURSE: The patient is a pleasant middle-aged male, who presented a couple of weeks ago with respiratory failure. He tested positive for COVID-19. This morning, I saw and examined him, he was on the vent. This afternoon, the patient decompensated. The family decided to withdraw care and he at 11:14 comfortably. BEHZAD AVELAR DO DR: [email or web address]/joe JOB#: [id number] / [id number]
[2020-04-25] MEDS ORDERED: AMINO ACID IV SCH (22:00)
[2020-04-25] MEDS ORDERED: TOTAL PARENTERAL NUTRITION IV SCH (22:00)
[2020-04-25] MEDS ORDERED: DEXTROSE 70% IV SCH (22:00)
[2020-04-25] MEDS ORDERED: [UNRECOGNIZED DRUG - OTHER] IV SCH (22:00)
== END 2020-04-25 12:35 | DRG 870 ==
LOC: ER 11:46 → 2 SOUTH 14:35 → 1 WEST ICU 04-16 06:47
PROVIDERS: ADMIT Family Medicine; ATTEND Family Medicine
PROC: 5A09357 Assistance with Respiratory Ventilation, Less than 24 Consecutive Hours, Continuous Positive Airway Pressure (ICD-10-PCS; 2020-04-15)
PROC: 5A1955Z Respiratory Ventilation, Greater than 96 Consecutive Hours (ICD-10-PCS; principal; 2020-04-16)
PROC: 0BH17EZ Insertion of Endotracheal Airway into Trachea, Via Natural or Artificial Opening (ICD-10-PCS; 2020-04-16)
PROC: 05HY33Z Insertion of Infusion Device into Upper Vein, Percutaneous Approach (ICD-10-PCS; 2020-04-19)
PROC: B54MZZA Ultrasonography of Right Upper Extremity Veins, Guidance (ICD-10-PCS; 2020-04-19)
PROC: XW033E5 Introduction of Remdesivir Anti-infective into Peripheral Vein, Percutaneous Approach, New Technology Group 5 (ICD-10-PCS; 2020-04-19)
PROC: B54MZZA Ultrasonography of Right Upper Extremity Veins, Guidance (ICD-10-PCS; 2020-04-19)
PROC: 05HY33Z Insertion of Infusion Device into Upper Vein, Percutaneous Approach (ICD-10-PCS; 2020-04-19)
PROC: 4B02XSZ Measurement of Cardiac Pacemaker, External Approach (ICD-10-PCS; 2020-04-19)
PROC: 5A1D70Z Performance of Urinary Filtration, Intermittent, Less than 6 Hours Per Day (ICD-10-PCS; 2020-04-19)
PROC: 5A1D70Z Performance of Urinary Filtration, Intermittent, Less than 6 Hours Per Day (ICD-10-PCS; 2020-04-20)
PROC: 5A1D70Z Performance of Urinary Filtration, Intermittent, Less than 6 Hours Per Day (ICD-10-PCS; 2020-04-21)
PROC: 5A1D70Z Performance of Urinary Filtration, Intermittent, Less than 6 Hours Per Day (ICD-10-PCS; 2020-04-22)
PROC: 5A1D70Z Performance of Urinary Filtration, Intermittent, Less than 6 Hours Per Day (ICD-10-PCS; 2020-04-23)
PROC: 5A1D70Z Performance of Urinary Filtration, Intermittent, Less than 6 Hours Per Day (ICD-10-PCS; 2020-04-25)
DX: A41.89 Other specified sepsis (principal); U07.1 COVID-19; J96.01 Acute respiratory failure with hypoxia; I50.33 Acute on chronic diastolic (congestive) heart failure; J12.82 Pneumonia due to coronavirus disease 2019; N17.0 Acute kidney failure with tubular necrosis; I13.0 Hypertensive heart and chronic kidney disease with heart failure and stage 1 through stage 4 chronic kidney disease, or unspecified chronic kidney disease; J44.0 Chronic obstructive pulmonary disease with (acute) lower respiratory infection; J44.1 Chronic obstructive pulmonary disease with (acute) exacerbation; K92.2 Gastrointestinal hemorrhage, unspecified; R57.9 Shock, unspecified; D64.9 Anemia, unspecified; D69.6 Thrombocytopenia, unspecified; D72.810 Lymphocytopenia; E11.22 Type 2 diabetes mellitus with diabetic chronic kidney disease; E66.01 Morbid (severe) obesity due to excess calories; E78.5 Hyperlipidemia, unspecified; F17.201 Nicotine dependence, unspecified, in remission; I25.10 Atherosclerotic heart disease of native coronary artery without angina pectoris; I48.0 Paroxysmal atrial fibrillation; I49.5 Sick sinus syndrome; M10.9 Gout, unspecified; N18.9 Chronic kidney disease, unspecified; Z82.49 Family history of ischemic heart disease and other diseases of the circulatory system; Z95.0 Presence of cardiac pacemaker
CPT/HCPCS: 36415; 36556; 36600; 71045; 76770; 76937; 80048; 80053; 80069; 81001; 82805; 82962; 83605; 83735; 84100; 84478; 85007; 85025; 85027; 86140; 86317; 87040; 87077; 87106; 87205; 87340; 87804; 93005; 94003; 94660; 96361; 96365; C1892; C9113; J0282; J0330; J0456; J0610; J0696; J0878; J1100; J1630; J1644; J1650; J1815; J1940; J2060; J2250; J2270; J2543; J3010; J3475; J3480; J3490; J7050; J7060; P9046; U0003; 97530-GO; 97530-GP; 99285-25; G0378; J7030